=== PATIENT | male | born 1930 | race Caucasian/White ===

== ENCOUNTER 2018-01-26 03:03 | Inpatient (IN) | payer OTHER, MEDICARE ==
[~2018-01-26] VITALS: Ht 175.3 cm; Wt 102.7 kg
[~2018-01-26 03:03] MED LIST: ALLOPURINOL300 M1 PO; AMLODIPINE BES2.5 M1 PO; ASPIRIN EC81 M1 PO; AVAPRO300 M1 PO; FUROSEMIDE40 M1 PO; LIPITOR20 M2 PO; LOPRESSOR50 M1 PO; PROVENTIL HFA6.7 GM INH; SYMBICORT 16010.2 GM INH
--- NOTE | 2018-01-26 17:18 | Operative Report ---
Operative/Inv Procedure Report Surgery Date: 01/26/18 Name of Procedure: cystoscopy, [place] gonzalez placement with wire Pre-Operative Diagnosis: BPH history with inability to place 18fr gonzalez at the start of colorectal case Post-Operative Diagnosis: same Estimated Blood Loss: scant Surgeon/Field Nurse Case Manager: Margy Britton MD Anesthesia: general endotracheal tube Drains: 16fr [place] gonzalez catheter Specimens: none Complications: unable to pass gonzalez without cystoscopy and wire Condition: stable Operative Indication: Inability to pass Gonzalez catheter prior to the start of colorectal surgery case Operative/Procedure Note Note: 87-year-old male patient of Dr. Witt who is on the operative room table intubated with inability to pass a 16 Tristanian coud catheter. Urology called for consult. An 18 Tristanian coud Gonzalez catheter 18 Tristanian coud Gonzalez catheter in a man with history of BPH was unable to be passed. Obstruction was encountered at the very last couple inches of the Gonzalez catheter. As a result, cystoscopy was performed. There was some clot at the level of the prostate. However the bladder was able to be entered with some minor force. A solo guidewire was then placed into the bladder and the cystoscope was removed. A 16 Tristanian [place] catheter was then placed over the wire and was able to be inflated with 10 mL of water. The urine easily exited the Gonzalez thereafter. It was attached to a Gonzalez bag. The colorectal surgery was then begun. Findings: Obstruction at the level of the prostate
--- NOTE | 2018-01-26 17:45 | Admission Core Measures ---
Acute Coronary Syndrome (CM) ACS Core Measures Acute Coronary Syndrome Diagnosis No Congestive Heart Failure (NEW) CHF Core Measures Congestive Heart Failure Diagnosis No Cerebrovascular Accident CVA Core Measures CVA/TIA Diagnosis No Venous Thromboembolism VTE Core Carmina (View Protocol) VTE Risk Factors Surgery No Mechanical VTE Prophylaxis d/t N/A MechProphylax Ordered No VTE Pharm Prophylaxis d/t NA PharmProphylax ordered Problem List As ranked by this Provider includes Assessment & Plan 1. Colon cancer HOME MEDS Home Med List Albuterol Sulfate (Proventil Hfa) 90 MCG HFA.AER.AD 2 PUF INH Q4 ASTHMA ( Reported) Allopurinol 300 MG TABLET 1 TAB PO DAILY GOUT (Reported) Amlodipine Besylate 2.5 MG TABLET 1 TAB PO DAILY BP (Reported) Aspirin (Ecotrin*) 81 MG TABLET.DR 1 TAB PO DAILY HEART/BLOOD (Reported) Atorvastatin Calcium (Lipitor) 20 MG TABLET 1 TAB PO QPM CHOLESTEROL ( Reported) Budesonide/Formoterol Fumarate (Symbicort 160-4.5 Mcg Inhaler) 160 MCG-4.5 MCG/ ACTUATION HFA.AER.AD 2 PUF INH BID ASTHMA (Reported) Furosemide 40 MG TABLET 1 TAB PO DAILY DIURETIC (Reported) Irbesartan (Avapro) 300 MG TABLET 1 TAB PO DAILY BP (Reported) Metoprolol Tartrate (Lopressor) 50 MG TABLET 1 TAB PO BID HEART/BP (Reported)
--- NOTE | 2018-01-26 18:15 | Operative Report ---
Operative/Inv Procedure Report Surgery Date: 01/26/18 Name of Procedure: 1. Laparoscopic converted to open subtotal colectomy with ileum to proximal sigmoid colon anastomosis. 2. Takedown of splenic flexure 3. Splenorrhaphy for bleeding Pre-Operative Diagnosis: 1. Adenocarcinoma of descending colon 2. Villous adenoma of proximal ascending colon not amenable to endoscopic removal Post-Operative Diagnosis: Same Estimated Blood Loss: 250 ml Surgeon/Electroencephalographic Technologist: Floresita Rosado DO,Lars GARCÍA Anesthesia: general endotracheal tube, block Monitors: Per routine IV Fluids: Refer to anesthesia record Implants: None Urine Output: Referred anesthesia Drains: None Specimens: Subtotal colectomy Complications: None Condition: Good Operative Indication: This is an 87-year-old gentleman who had a colonoscopy for the evaluation of anemia. He was found to have a large near obstructing lesion in the proximal descending colon which was biopsy demonstrated be an adenocarcinoma. He had a large polyp also noted at the proximal ascending colon which was biopsied and demonstrated the villous adenoma with no evidence of invasion. However this lesion was not amenable to endoscopic removal. Patient had a staging CAT scan which did not demonstrate obvious evidence of metastasis. He was referred to [facility] underwent risk assessment and clearance. He was scheduled for subtotal colectomy. Operative/Procedure Note Note: On the day before his operation the patient did a bowel prep at home including oral laxatives and oral antibiotic. On the morning before his operation he drank 12 ounces of apple juice 3 hours prior to coming to the hospital. In the preop holding area he was given the routine ERAS medications. He was taken to the operating room he underwent induction of general anesthesia. He had placement of endotracheal tube. Bilateral tap blocks were performed. Nursing was unable to place a Patricio, I also attempted to place a coud catheter and could not do so. We had an intraoperative consultation from Dr. Margy Britton. She performed bedside cystoscopy with placement of Patricio catheter. She will dictate this portion of the operation. Next both arms were tucked. The abdomen was prepped and draped in usual fashion. We gained access to the abdominal cavity using Sevilla technique. The thumb port was placed in the supraumbilical position and the abdomen was insufflated to 50 mmHg. At this 0.55 mm ports were placed all under direct visualization of the left. They were placed in the following locations left upper quadrant, left left lower quadrant, suprapubic, right lower quadrant, and right upper quadrant. Laparoscopic ablation of the abdominal cavity was performed. The liver appeared normal without evidence of metastasis. I could see some tattoo ink splattering in the right upper quadrant but could not see the stain on the bowel wall. I took down the white line of Toldt starting at the sigmoid colon working retrograde until I reached the proximal descending colon. Here the omentum was abnormally adherent to the bowel. The abnormal adhesions were taken down with the LigaSure device. At this point I could see the proximal descending colon.. The colon was very dilated here and there was puckering on the external surface consistent with tumor. The tattoo was present here and there was dense inflammatory reaction around the tumor and involving the spleen. At this point I decided start my resection with the right colon. The colon was grasped at the level ileocecal and elevated towards the anterior abdominal wall. This caused tenting of the ileocolic vessels in the mesentery. A window was made along the inferior edge of the ileocolic vessels the electrical cautery. I entered the retroperitoneal avascular space and developed displaced bluntly until I identified the duodenum. The duodenum was mobilized medially using blunt dissection and then the ileocolic vessels were individually ligated and divided with LigaSure device. Medial to lateral dissection was carried out posterior mesocolon from Gerota's fashion until I reached the lateral sidewall. White line of Toldt was then taken down using the LigaSure until he hepatic flexure.. This is more of the mesentery of the ascending and transverse colon was divided using the vessel sealer starting at the edge of the mesenteric defect which I had created earlier. The gastrocolic ligament was then taken down starting in the mid transverse colon and working retrograde until I reached the hepatic flexure which was also completely taken down. We then turned our attention to the descending and distal transverse colon. Dissection of the descending colon was very difficult as the patient had a very high splenic flexure. There is also abnormal inflammatory reaction and adhesions from the tumor to the spleen itself. As I started to take down some of these adhesions there was some bleeding from the surface of the spleen. At this point I decided to convert to an open operation to hand dissect around the spleen. I continue to take the white line of Toldt down from the mid descending colon work back to the spleen. Adhesions to the spleen were divided partly with electrocautery and some of the more divided with the vessel sealer.. The splenic flexure was completely taken down. Next I was able to go back and completed transection of the gastrocolic ligament all the way to the level of the splenic flexure. The mesentery of the transverse colon and descending colon was sequentially divided with the LigaSure device. Surgicel and another hemostatic agent were placed on the surface of the spleen after some of the bleeding was controlled with the electrocautery. A dry sponge was placed over this for gentle pressure and I went back to [place] and dissection. I chose my distal site of transection at least 10 cm beyond the mass. The mesentery was cleared here using the LigaSure device. A DAVID stapler was used to divide the colon. This was a 80 mm blue loaded DAVID stapler. We divided the terminal ileum just a few centimeters from ileocecal valve also using 80 mm blue loaded DAVID stapler. The specimen was removed from the field. Next a side to side functional end to end anastomosis was created between the terminal ileum and the proximal sigmoid colon. The 2 transected portions of the bowel were aligned. 2 enterotomies were intentionally created by excising the corners of the staple line. The DAVID stapler was placed one arm into each limb of the bowel. Once again this was a blue 80 mm DAVID stapler. Stapler was closed and fired. Stapler was opened and retrieved. There was no bleeding observed in the lumen of the bowel. A TA 60 stapler was used to close enterotomy. Small ring of tissue was excised beyond the staple line. Anti-tension sutures were placed into the crotch of the staple line. Next the lap pad was removed from the left upper quadrant. There is still appeared to be a slow ooze from the spleen some additional hemostatic agents were placed in a new lap pad was placed for general pressure. While we are giving time for the hemostatic agents to work we ran the small bowel. Unfortunately there appeared to be bulky adenopathy within the small bowel. At the base of the small bowel mesentery was a masslike structure which was either a tumor deposit or a very large lymph node. Unfortunately this was at the base of the mesentery and I felt to resect it was going to compromise most of the small bowel blood supply. Therefore this was left in place. Once again we turned our attention to the spleen the packing was removed and the bleeding appeared controlled at this point. The small bowel was carefully positioned so that none of the small bowel was going through the mesenteric defect where the anastomosis had been created. The bowel was essentially placed in front of the anastomosis. The fascia was closed with running looped 0 PDS suture. The skin of the midline incision was closed with skin kirk and interrupted nylon suture. The laparoscopic ports were closed with subcuticular 4-0 Monocryl and then skin glue. Bacitracin ointment and a sterile dressing was placed over the midline incision. The patient was extubated in the operating room and taken to recovery in good condition. In discussion with the anesthesia team we decided to observe the patient in the ICU. There were times during the operation where he required pressor for blood pressure support. His urine output was borderline. He had multiple comorbidities including cardiac issues. And we wanted to observe him for bleeding because of the superficial splenic capsular tear. At the end of this operation all needle sponges and instrument were accounted for Findings: 1. Large tumor at the proximal descending colon with surrounding inflammatory laboratory reaction 2. Large villous lesion in the proximal ascending colon 3. Clinically appears to have small bowel mesenteric adenopathy and tumor in the base of the mesentery. Discharge Disposition: Same Day Admissions Additional Comments: Patient will be observed in the ICU Serial H&H will be performed Patricio catheter will not be removed until the day of discharge per urology CC: Tobi CARRANZA,Margy; An CARRANZA,Bipin Jang
[2018-01-26 18:44] LABS: ABSOLUTE BASOPHIL COUNT 0 /CUMM (0.0-0.2); ABSOLUTE EOSINOPHIL COUNT 0 /CUMM (0.0-0.7); ABSOLUTE GRANULOCYTE CT 17.7 /CUMM (1.4-6.5); ABSOLUTE MONOCYTE COUNT 0 /CUMM (0.10-0.60); BASOPHIL % 0 % (0.0-2.0); EOSINOPHIL % 0.2 % (0-5); HEMATOCRIT 28.3 % (42-52); MEAN CORPUSCULAR HGB 23.6 PG (27.0-31.0); MEAN CORPUSCULAR HGB CONC 31.8 G/DL (33.0-37.0); MEAN CORPUSCULAR VOLUME 74.4 FL (80.0-94.0); WHITE BLOOD CELL COUNT 18.8 /CUMM (4.8-10.8)
[2018-01-26 19:06] LABS: GRANULOCYTE % 94.1 % (42.2-75.2); PLATELET COUNT ND /CUMM (130-400)
--- NOTE | 2018-01-26 19:30 | PN- General Surgery ---
See Addendum Subjective Subjective: POC Pt recovering in PACU, very groggy but is able to answer questions. Pain 5/10. Denies CP/SOB/WRIGHT NO nausea Objective Vital Signs and I&Os Intake & Output 01/26 1600 01/26 0800 01/26 0000 01/25 1600 01/25 0800 01/25 0000 Intake Total Output Total Balance Patient 230 lb Weight VSS, afebrile Physical Exam: gen- very sleepy, NAD resp- clear cardiac- RRR abd- ND, dressing clean and dry, no BS, tender in LUQ Current Medications: Current Medications Sig/Rony Start time Last Medication Dose Route Stop Time Status Admin Acetaminophen 0 .STK-MED ONE 01/26 1251 DC PO Acetaminophen 1,000 MG ONCE ONE 01/26 1245 DC PO 01/26 1246 Alvimopan 12 MG ONCE ONE 01/26 1245 DC PO 01/26 1246 Fentanyl Citrate 0 .STK-MED ONE 01/26 1313 DC .ROUTE Gabapentin 0 .STK-MED ONE 01/26 1252 DC PO Gabapentin 600 MG ONCE ONE 01/26 1245 DC PO 01/26 1246 Hydromorphone HCl 0 .STK-MED ONE 01/26 1906 DC .ROUTE Hydromorphone HCl 0 .STK-MED ONE 01/26 1840 DC .ROUTE Hydromorphone HCl 0 .STK-MED ONE 01/26 1816 DC .ROUTE Hydromorphone HCl 0 .STK-MED ONE 01/26 1313 DC .ROUTE Ketamine HCl 0 .STK-MED ONE 01/26 1313 DC .ROUTE Midazolam HCl 0 .STK-MED ONE 01/26 1313 DC .ROUTE Results Last 48 Hours of Labs: Laboratory Tests 01/26 1830 Hematology CBC w Diff NO MAN DIFF REQ WBC (4.8 - 10.8 /CUMM) 18.8 H RBC (4.70 - 6.10 /CUMM) 3.80 L Hgb (14.0 - 18.0 G/DL) 9.0 L Hct (42 - 52 %) 28.3 L MCV (80.0 - 94.0 FL) 74.4 L MCH (27.0 - 31.0 PG) 23.6 L MCHC (33.0 - 37.0 G/DL) 31.8 L RDW (11.5 - 14.5 %) 29.0 H Plt Count (130 - 400 /CUMM) ND Gran % (42.2 - 75.2 %) 94.1 H Lymphocytes % (20.5 - 51.1 %) 5.5 L Monocytes % (1.7 - 9.3 %) 0.2 L Eosinophils % (0 - 5 %) 0.2 Basophils % (0.0 - 2.0 %) 0 Absolute Granulocytes (1.4 - 6.5 /CUMM) 17.7 H Absolute Lymphocytes (1.2 - 3.4 /CUMM) 1.0 L Absolute Monocytes (0.10 - 0.60 /CUMM) 0 L Absolute Eosinophils (0.0 - 0.7 /CUMM) 0 Absolute Basophils (0.0 - 0.2 /CUMM) 0 Assessment/Plan Assessment/Plan 87yo M with hx of asthma, htn, hld and bph now SP Lap to Open Subtotal Colectomy with intra-op splenic abrasion for colon CA. hematocrit in PACU is stable at 28.3. Urology was called prior to surgery bc nurse was unable to place gonzalez. A cystoscopy was performed by Dr Britton to assist in gonzalez placement admit to ICU ERAS Protocol gentle hydration with IVF npo with sips of water and ice chips, likely advacne to clears in AM pain management, try to limit narcotics FU Am labs hold home ASA due to risk for bleeding DVT PPX- ALPS, no HSQ for now, will re-eval in AM Entereg until first BM IS 24h fam-op ABX Will discuss with Dr. Canas Core Measures Venous Thromboembolism VTE Risk Factors Surgery No Mechanical VTE Prophylaxis d/t N/A MechProphylax Ordered No VTE Pharm Prophylaxis d/t NA PharmProphylax ordered
[2018-01-26 19:35] VITALS: BP 108/58
[2018-01-27] VITALS: BP 92/52
[2018-01-27 04:00] VITALS: BP 102/54
[2018-01-27 04:33] LABS: ABSOLUTE BASOPHIL COUNT 0 /CUMM (0.0-0.2); ABSOLUTE EOSINOPHIL COUNT 0 /CUMM (0.0-0.7); ABSOLUTE GRANULOCYTE CT 25.5 /CUMM (1.4-6.5); ABSOLUTE LYMPH COUNT 0.9 /CUMM (1.2-3.4); ABSOLUTE MONOCYTE COUNT 1.4 /CUMM (0.10-0.60); BASOPHIL % 0 % (0.0-2.0); EOSINOPHIL % 0 % (0-5); GRANULOCYTE % 91.4 % (42.2-75.2); HEMATOCRIT 25.4 % (42-52); MEAN CORPUSCULAR HGB 23.8 PG (27.0-31.0); MEAN CORPUSCULAR HGB CONC 31.8 G/DL (33.0-37.0); MEAN CORPUSCULAR VOLUME 74.8 FL (80.0-94.0); MEAN PLATELET VOLUME 10.7 FL (7.4-10.4); PLATELET COUNT 318 /CUMM (130-400); RED BLOOD CELL CT 3.39 /CUMM (4.70-6.10); WHITE BLOOD CELL COUNT 27.9 /CUMM (4.8-10.8)
--- NOTE | 2018-01-27 06:03 | PN- General Surgery ---
ManolocarolinaAmanday 01/27/18 0600: Subjective Subjective: IN BED SLEEPING, UPON WAKING DENIES PAIN. nO N/V. NO CP/SOB. PT STATES HIS LIPS FEEL DRY AND HE WOULD LIKE SOEMTHING TO DRINK. HAS NOT BEEN OOB YET Objective Vital Signs and I&Os Vital Signs Date Time Temp Pulse Resp B/P B/P Pulse O2 O2 Flow FiO2 Mean Ox Delivery Rate 01/27 0400 99 Nasal 2.0L Cannula 01/27 0400 96.8 70 18 102/54 99 Nasal 2.0L Cannula 01/27 0000 96.8 75 14 92/52 100 Nasal 3.0L Cannula 01/27 0000 100 Nasal 3.0L Cannula 01/26 2144 62 90/54 01/26 1935 97.4 72 15 108/58 95 Nasal 3.0L Cannula 01/26 1930 95 Nasal 3.0L Cannula Intake & Output 01/27 0800 01/27 0000 01/26 1600 01/26 0800 01/26 0000 01/25 1600 Intake Total 359 Output Total 20 Balance 339 Intake, IV 299 Intake, Oral 60 Output, Urine 20 Patient 227 lb 230 lb Weight Weight Bed scale Measurement Method Physical Exam: GEN- NAD RESP- CLEAR, DECREASED EFFORT CARDIAC- RRR ABD- ND, DECREASED BS, SOFT, TENDER AVANI IN LLQ DRESSING WITH MINIMAL SANG DRAINAGE Current Medications: Current Medications Sig/Rony Start time Last Medication Dose Route Stop Time Status Admin Acetaminophen 0 .STK-MED ONE 01/26 214 DC PO Acetaminophen 1,000 MG TID 01/26 2100 AC 01/26 PO 2143 Acetaminophen 0 .STK-MED ONE 01/26 1251 DC PO Acetaminophen 1,000 MG ONCE ONE 01/26 1245 DC PO 01/26 1246 Albuterol Sulfate 2 PUF Q4 01/26 1800 AC 01/27 INH 0537 Allopurinol 300 MG DAILY 01/27 900 AC PO Alvimopan 12 MG BID 01/26 2100 AC 01/26 PO 2142 Alvimopan 12 MG ONCE ONE 01/26 1245 DC PO 01/26 1246 Amlodipine Besylate 2.5 MG DAILY 01/27 09 AC PO Atorvastatin Calcium 20 MG QPM 01/26 2100 AC 01/26 PO 2142 Budesonide/ 2 PUF BID 01/26 2100 AC 01/26 Formoterol Fumarate INH 2144 Clindamycin 600 MG IQ8 01/27 0000 AC 01/26 Dextrose/Water 50 ML IV 01/28 0000 2347 Fentanyl Citrate 0 .STK-MED ONE 01/26 1313 DC .ROUTE Furosemide 40 MG DAILY 01/27 0900 AC PO Gabapentin 200 MG Q8 01/26 2200 AC 01/27 PO 0537 Gabapentin 0 .STK-MED ONE 01/26 1252 DC PO Gabapentin 600 MG ONCE ONE 01/26 1245 DC PO 01/26 1246 Hydromorphone HCl 0 .STK-MED ONE 01/26 1906 DC .ROUTE Hydromorphone HCl 0 .STK-MED ONE 01/26 1840 DC .ROUTE Hydromorphone HCl 0 .STK-MED ONE 01/26 1816 DC .ROUTE Hydromorphone HCl 0 .STK-MED ONE 01/26 1313 DC .ROUTE Ketamine HCl 0 .STK-MED ONE 01/26 1313 DC .ROUTE Losartan Potassium 50 MG DAILY 01/27 0900 AC PO Metoprolol Tartrate 50 MG BID 01/26 2100 AC PO Metronidazole 500 MG IQ8 01/27 0000 AC 01/26 N/A 1 UNIT IV 01/28 0000 2347 Midazolam HCl 0 .STK-MED ONE 01/26 1313 DC .ROUTE Ondansetron HCl 4 MG Q6P PRN 01/27 2000 AC IV Oxycodone HCl 5 MG Q4-6 PRN PRN 01/27 2000 AC PO Oxycodone HCl 10 MG Q4-6 PRN PRN 01/26 2000 AC PO Sodium Chloride 500 ML BOLUS ONE 01/27 0600 UNVr IV 01/27 0659 Sodium Chloride 1,000 ML .Q8H 01/27 2000 AC 01/27 IV 0355 Tramadol HCl 100 MG Q6P PRN 01/27 2000 AC PO Tramadol HCl 50 MG Q6P PRN 01/26 1800 AC PO Results Last 48 Hours of Labs: Laboratory Tests 01/27 01/26 0345 1830 Chemistry Sodium (137 - 145 mmol/L) 136 L Potassium (3.5 - 5.1 mmol/L) 4.5 Chloride (98 - 107 mmol/L) 103 Carbon Dioxide (22 - 30 mmol/L) 23 Anion Gap (5 - 16) 10 BUN (9 - 20 mg/dL) 20 Creatinine (0.7 - 1.2 mg/dL) 1.5 H Estimated GFR (>60 ml/min) 44 L BUN/Creatinine Ratio (7 - 25 %) 13.3 Hematology CBC w Diff NO MAN DIFF REQ NO MAN DIFF REQ WBC (4.8 - 10.8 /CUMM) 27.9 H 18.8 H RBC (4.70 - 6.10 /CUMM) 3.39 L 3.80 L Hgb (14.0 - 18.0 G/DL) 8.1 L 9.0 L Hct (42 - 52 %) 25.4 L 28.3 L MCV (80.0 - 94.0 FL) 74.8 L 74.4 L MCH (27.0 - 31.0 PG) 23.8 L 23.6 L MCHC (33.0 - 37.0 G/DL) 31.8 L 31.8 L RDW (11.5 - 14.5 %) 30.0 H 29.0 H Plt Count (130 - 400 /CUMM) 318 ND MPV (7.4 - 10.4 FL) 10.7 H Gran % (42.2 - 75.2 %) 91.4 H 94.1 H Lymphocytes % (20.5 - 51.1 %) 3.4 L 5.5 L Monocytes % (1.7 - 9.3 %) 5.2 0.2 L Eosinophils % (0 - 5 %) 0 0.2 Basophils % (0.0 - 2.0 %) 0 0 Absolute Granulocytes (1.4 - 6.5 /CUMM) 25.5 H 17.7 H Absolute Lymphocytes (1.2 - 3.4 /CUMM) 0.9 L 1.0 L Absolute Monocytes (0.10 - 0.60 /CUMM) 1.4 H 0 L Absolute Eosinophils (0.0 - 0.7 /CUMM) 0 0 Absolute Basophils (0.0 - 0.2 /CUMM) 0 0 Assessment/Plan Assessment/Plan 87yo M with hx of asthma, htn, hld and bph now SP Lap to Open Subtotal Colectomy with intra-op splenic abrasion for colon CA. hematocrit from 28.3 in PACU to 25.4 this morning. Baseline pre-op hematocrit was 31.8. Beta andreas was help last night do to hr in 60s and BP of 100s/60s. may consider holding betablocker again this morning. will continue to trend cbc, repeat in 12hr Urology was called prior to surgery bc nurse was unable to place gonzalez. A cystoscopy was performed by Dr Britton to assist in gonzalez placement ERAS Protocol will give 500cc bolus for decreased urine output and creatinine of 1.5 gonzalez to stay in over the weekend per Dr Britton clear liquids pain management, try to limit narcotics repeat cbc in 12 hr hold home ASA due to risk for bleeding DVT PPX- ALPS, no HSQ for now, will re-eval in AM Entereg until first BM IS 24h fam-op ABX Will discuss with Dr. Canas when to start hsq Core Measures Venous Thromboembolism VTE Risk Factors Surgery No Mechanical VTE Prophylaxis d/t N/A MechProphylax Ordered No VTE Pharm Prophylaxis d/t NA PharmProphylax ordered Giorgi Wang MD 01/27/18 1314: Attending MD Review Statement Attending Statement Attending Assessment/Plan: Patient examined and chart reviewed POD 1 S/P lap converted to open subtotal colectomy with splenic abrasion Patient in the ICU for monitoring Patient noted to be in new onset a fib Patient also hypotensive with low urine output, bladder scan negative Hct noted to be low today Patient has been seen by ICU and Neurology attendings He will recieve two units of RBC and have a central line placed for aggresive hydration We will re visit the question of anticogulation after a post transfusion Hct is obtained Care discussed with house staff, Neurology and ICU attending Plan discussed with family and patient and questuions answered
[2018-01-27 08:00] VITALS: BP 110/70
--- NOTE | 2018-01-27 08:47 | Event Note ---
See Addendum Event Note Event Note: I was called by nursing staff to evaluate patient for new onset diplopia which was not present earlier this morning. Upon my evaluation, he states that he is seeing double of everything and he also has right lower arm and hand tingling sensation. He denies any headaches, nausea, vomiting, confusion. He denies any leg symptoms. On exam he has mild facial asymmetry with a possible very mild left-sided droop when smiling. He has no pronator drift and no weakness noted in the upper extremities. He has poor tracking with his left eye laterally and mild horizontal nystagmus. He is past-pointing both hands and there is a mild intention tremor of both hands, mild resting tremor R hand. there is no slurred speech, no expressive aphasia. No arrhythmia, no significant hypotension but that was an episode of blood pressure of 80 systolic intraoperatively yesterday based on the review of the anesthesia records. stroke alert called, Dr Nava promplty responded, recommended increasing blood pressure to at least 120 systolic (currently 108), IV fluid bolus was ordered. Due to surgery less than 24hrs ago and possible intra op splenic injury with decreasing post op h/h, he recommends holding off on antiplatelet at this time and he is not a TPA candidate. CT scan ordered and he is to be monitored for worsening symptoms throughout the day, if so, CTA will be required. dw Dr Canas. will cont monitor in ICU. Dr Nava to see later today.
--- NOTE | 2018-01-27 09:09 | CT SCAN REPORT ---
EXAMINATION: CT HEAD WITHOUT CONTRAST CLINICAL INFORMATION: Facial asymmetry. Positive cerebellar signs. COMPARISON: None TECHNIQUE: Contiguous axial imaging was performed from the skull base to vertex without intravenous administration of contrast. DLP: 700.82 mGy-cm FINDINGS: There is no evidence of acute intracranial hemorrhage or territorial infarction. No abnormal mass effect or midline shift is seen. Godinez to white matter differentiation is well preserved. No extra-axial fluid collections are identified. The ventricles are normal in size. Mild age-appropriate diffuse cortical atrophy and mild chronic microvascular deep white matter ischemic changes are present. The osseous structures and soft tissues are normal. The mastoid air cells and visualized portions of the paranasal sinuses are well aerated, except for minimal mucoperiosteal thickening of the posterior floor of the right half of the sphenoid sinus, consistent with minimal sinusitis. IMPRESSION: 1. No acute intracranial pathology. 2. Minimal right sphenoidal sinusitis. This critical result was discussed with Apollo Yu at 8:54 AM on 01/27/2018 and it was ascertained that the content and urgency of the report was understood at the time of direct communication.
[2018-01-27 09:21] LABS: ABSOLUTE BASOPHIL COUNT 0 /CUMM (0.0-0.2); ABSOLUTE EOSINOPHIL COUNT 0 /CUMM (0.0-0.7); ABSOLUTE LYMPH COUNT 0.7 /CUMM (1.2-3.4); BASOPHIL % 0.1 % (0.0-2.0); EOSINOPHIL % 0 % (0-5)
[2018-01-27 09:23] LABS: ABSOLUTE GRANULOCYTE CT 21.7 /CUMM (1.4-6.5); ABSOLUTE MONOCYTE COUNT 1.3 /CUMM (0.10-0.60); GRANULOCYTE % 91.5 % (42.2-75.2); MEAN CORPUSCULAR HGB 23.6 PG (27.0-31.0); MEAN CORPUSCULAR HGB CONC 31.7 G/DL (33.0-37.0); MEAN CORPUSCULAR VOLUME 74.4 FL (80.0-94.0); MEAN PLATELET VOLUME 10.4 FL (7.4-10.4); RBC DISTRIBUTION WIDTH 30.1 % (11.5-14.5)
[2018-01-27 09:26] LABS: PLATELET COUNT 289 /CUMM (130-400); RED BLOOD CELL CT 3.09 /CUMM (4.70-6.10); WHITE BLOOD CELL COUNT 23.8 /CUMM (4.8-10.8)
[2018-01-27 09:30] LABS: PT 13.8 SEC (9.4-12.5)
--- NOTE | 2018-01-27 11:32 | Cons- CRCU ---
General Information and HPI Consulting Request Date of Consult: 01/27/18 Requested By: surg team History of Present Illness: This is a gentleman who came in here for laparoscopic subtotal colectomy which was converted to an open surgery. 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 Patient underwent surgery with general anesthesia. Subsequently this morning he was noted to have new onset diplopia. He had mild facial asymmetry and poor tracking with the left eye laterally with mild horizontal nystagmus. Patient did have a CT scan after a stroke alert of the head. Due to surgery less than 24 hours with possible Intra-Op splenic injury antiplatelet therapy and TPA was not done. Patient is doing better when I saw him. Seem to have had good recovery so far. Patient seem to have regular rhythm not sure whether he is in atrial fibrillation or not. Patient is a poor historian. Other history could not be obtained He was complaining of mild abdominal discomfort otherwise review of symptoms unremarkable Allergies/Medications Allergies: Coded Allergies: Penicillins (BLISTERS, ITCH ALL OVER 01/25/18) Home Med List: Albuterol Sulfate (Proventil Hfa) 90 MCG HFA.AER.AD 2 PUF INH Q4 ASTHMA ( Reported) Allopurinol 300 MG TABLET 1 TAB PO DAILY GOUT (Reported) Amlodipine Besylate 2.5 MG TABLET 1 TAB PO DAILY BP (Reported) Aspirin (Ecotrin*) 81 MG TABLET.DR 1 TAB PO DAILY HEART/BLOOD (Reported) Atorvastatin Calcium (Lipitor) 20 MG TABLET 1 TAB PO QPM CHOLESTEROL ( Reported) Budesonide/Formoterol Fumarate (Symbicort 160-4.5 Mcg Inhaler) 160 MCG-4.5 MCG/ ACTUATION HFA.AER.AD 2 PUF INH BID ASTHMA (Reported) Furosemide 40 MG TABLET 1 TAB PO DAILY DIURETIC (Reported) Irbesartan (Avapro) 300 MG TABLET 1 TAB PO DAILY BP (Reported) Metoprolol Tartrate (Lopressor) 50 MG TABLET 1 TAB PO BID HEART/BP (Reported) Review of Systems Review of Systems Constitutional: Denies: see HPI. Past History Medical History Blood Transfusion Hx: Yes Surgical History Surgical History: none (nil sig) Psychosocial History Where Do You Live? Home Services at Home: None Smoking Status: Unknown If Ever Smoked Exam & Diagnostic Data Last 24 Hrs of Vital Signs/I&O Vital Signs Date Time Temp Pulse Resp B/P B/P Pulse O2 O2 Flow FiO2 Mean Ox Delivery Rate 01/27 040 99 Nasal 2.0L Cannula 01/27 0400 96.8 70 18 102/54 99 Nasal 2.0L Cannula 01/27 0000 96.8 75 14 92/52 100 Nasal 3.0L Cannula 01/27 0000 100 Nasal 3.0L Cannula 01/26 2144 62 90/54 01/26 1935 97.4 72 15 108/58 95 Nasal 3.0L Cannula 01/26 1930 95 Nasal 3.0L Cannula Intake & Output 01/27 1600 01/27 0800 01/27 0000 Intake Total 1601 359 Output Total 35 20 Balance 1566 339 Intake, IV 1421 299 Intake, Oral 180 60 Output, Urine 35 20 Patient 227 lb Weight Weight Bed scale Measurement Method Last 48 Hrs of Labs/Tom: Laboratory Tests 01/27/18 0900: Anion Gap 6, Estimated GFR 38 L, Glucose 151 H, Calcium 7.8 L, Phosphorus 6.1 H, Magnesium 2.3, Total Bilirubin 0.4, AST 22, ALT 25, Albumin 2.4 L, Triglycerides 31, Cholesterol 81, LDL Cholesterol, Calc 32 L, HDL Cholesterol 43, Cholesterol/HDL Ratio 2, PT 13.8 H, INR 1.26 H, CBC w Diff MAN DIFF ORDERED, RBC 3.09 L, MCV 74.4 L, MCH 23.6 L, MCHC 31.7 L, RDW 30.1 H, MPV 10.4, Gran % 91.5 H, Lymphocytes % 2.8 L, Monocytes % 5.6, Eosinophils % 0, Basophils % 0.1, Absolute Granulocytes 21.7 H, Segmented Neutrophils 88 H, Band Neutrophils 7 H, Absolute Lymphocytes 0.7 L, Lymphocytes 3 L, Monocytes 2, Absolute Monocytes 1.3 H, Absolute Eosinophils 0, Absolute Basophils 0, Platelet Estimate ADEQUATE, Hypochromic-Microcytic 3+, Poikilocytosis 2+, Anisocytosis 2+, Microcytic Cells 2+, Ovalocytes 1+, Elliptocytes 1+, Schistocytes 01/27/18 0345: Anion Gap 10, Estimated GFR 44 L, BUN/Creatinine Ratio 13.3, CBC w Diff NO MAN DIFF REQ, RBC 3.39 L, MCV 74.8 L, MCH 23.8 L, MCHC 31.8 L, RDW 30.0 H, MPV 10.7 H, Gran % 91.4 H, Lymphocytes % 3.4 L, Monocytes % 5.2, Eosinophils % 0, Basophils % 0, Absolute Granulocytes 25.5 H, Absolute Lymphocytes 0.9 L, Absolute Monocytes 1.4 H, Absolute Eosinophils 0, Absolute Basophils 0 01/26/181829: CBC w Diff NO MAN DIFF REQ, RBC 3.80 L, MCV 74.4 L, MCH 23.6 L, MCHC 31.8 L, RDW 29.0 H, Plt Count ND, Gran % 94.1 H, Lymphocytes % 5.5 L, Monocytes % 0.2 L, Eosinophils % 0.2, Basophils % 0, Absolute Granulocytes 17.7 H, Absolute Lymphocytes 1.0 L, Absolute Monocytes 0 L, Absolute Eosinophils 0, Absolute Basophils 0 Assessment/Plan CRCU Impression/Plan: GEN- NAD RESP- CLEAR, DECREASED EFFORT CARDIAC-at times irregular ABD- ND, DECREASED BS, SOFT, TENDER AVANI IN LLQ No significant edema Neurological exam moves all 4 limbs no significant weakness mild nystagmus mild facial asymmetry but seems to have improved since the last exam noted in the computer SIGNIFICANT DATA CT of the head reviewed no intracranial pathology minimal sinusitis Creatinine 1.7 upon admission it was 1.5 anion gap was normal phosphorus slightly elevated white count was elevated at 23 down from 27 this morning hemoglobin 7.3 patient is undergoing transfusion EKG reviewed irregular rhythm probable atrial fibrillation IMPRESSION This is an elderly gentleman who has history of hypertension, gout, hyperlipidemia, no postop open subtotal colectomy with spleno raphe from splenic laceration, has adenocarcinoma the descending colon villous adenoma: Now has Postoperative nystagmus with diplopia with facial asymmetry which seems to be slowly improving. Patient's head CT was unremarkable. Appears that he probably may be flipping back and forth into atrial fibrillation. Unfortunately patient not a candidate for any anticoagulation right now may be a candidate for antiplatelet therapy soon with aspirin. Neurology to evaluate. Will follow closely. At this time his rate seems to be controlled Blood loss anemia immediate postop now undergoing transfusion History of hypertension, hyperlipidemia, gout appears to be stable RECOMMENDATION Watch in ICU Repeat EKG again to confirm atrial fib Rule out CA with troponin Continue transfusion as being done Watch for atrial fib When stable can start on low-dose aspirin Hold blood pressure medications as the history suggestive of TIA versus stroke and a blood pressure should be left elevated. Discontinue losartan, Lasix, amlodipine and reduce metoprolol to 12.5 twice daily Increase atorvastatin to 40 when he is taking p.o. Continue his inhalers as needed Triple-lumen catheter if he continues to be hypotensive to evaluate his CVP is worse Check troponin We will follow Consult Acknowledgment - Thank you for your consult request.
--- NOTE | 2018-01-27 13:29 | Cons- Neurology ---
General Information and HPI Consulting Request Date of Consult: 01/27/18 Requested By: Lars Canas Jr., DO Reason for Consult: Stroke alert Source of Information: patient, family, ICU staff Exam Limitations: hard of hearing History of Present Illness: 87/M underwent abdominal surgery yesterday for resection of colon cancer, this AM complained of diplopia, right arm paresthesias. RN noted slurring of speech. BP was unusually low for a CVA, anemic HCT 25. There was concern for possible splenic abrasion at time of surgery At this time all symptoms have cleared except the diplopia worse on gaze to the right. Monitor now shows AFib (apparently new onset). Being transfused now. Allergies/Medications Allergies: Coded Allergies: Penicillins (BLISTERS, ITCH ALL OVER 01/25/18) Home Med List: Albuterol Sulfate (Proventil Hfa) 90 MCG HFA.AER.AD 2 PUF INH Q4 ASTHMA ( Reported) Allopurinol 300 MG TABLET 1 TAB PO DAILY GOUT (Reported) Amlodipine Besylate 2.5 MG TABLET 1 TAB PO DAILY BP (Reported) Aspirin (Ecotrin*) 81 MG TABLET.DR 1 TAB PO DAILY HEART/BLOOD (Reported) Atorvastatin Calcium (Lipitor) 20 MG TABLET 1 TAB PO QPM CHOLESTEROL ( Reported) Budesonide/Formoterol Fumarate (Symbicort 160-4.5 Mcg Inhaler) 160 MCG-4.5 MCG/ ACTUATION HFA.AER.AD 2 PUF INH BID ASTHMA (Reported) Furosemide 40 MG TABLET 1 TAB PO DAILY DIURETIC (Reported) Irbesartan (Avapro) 300 MG TABLET 1 TAB PO DAILY BP (Reported) Metoprolol Tartrate (Lopressor) 50 MG TABLET 1 TAB PO BID HEART/BP (Reported) Current Medications: Current Medications Sig/Rony Start time Last Medication Dose Route Stop Time Status Admin Acetaminophen 0 .STK-MED ONE 01/26 2143 DC PO Acetaminophen 1,000 MG TID 01/26 2100 AC 01/27 PO 1248 Albuterol Sulfate 2 PUF Q4 01/26 1800 AC 01/27 INH 1241 Allopurinol 300 MG DAILY 01/27 0900 AC PO Alvimopan 12 MG BID 01/26 2100 AC 01/27 PO 1245 Amlodipine Besylate 2.5 MG DAILY 01/27 0900 DC PO Atorvastatin Calcium 40 MG QPM 01/27 2100 UNVr PO Atorvastatin Calcium 20 MG QPM 08/17 2100 DC 01/26 PO 2142 Budesonide/ 2 PUF BID 01/26 2100 AC 01/27 Formoterol Fumarate INH 1241 Clindamycin 600 MG IQ8 01/27 0000 AC 01/27 Dextrose/Water 50 ML IV 01/28 0000 0800 Furosemide 40 MG DAILY 01/27 0900 DC PO Gabapentin 200 MG Q8 01/26 2200 AC 01/27 PO 1246 Hydromorphone HCl 0 .STK-MED ONE 01/26 1906 DC .ROUTE Hydromorphone HCl 0 .STK-MED ONE 01/26 1840 DC .ROUTE Hydromorphone HCl 0 .STK-MED ONE 01/26 1816 DC .ROUTE Losartan Potassium 50 MG DAILY 01/27 0900 DC PO Metoprolol Tartrate 12.5 MG BID 01/27 2100 UNVr PO Metoprolol Tartrate 50 MG BID 01/26 2100 DC PO Metronidazole 500 MG IQ8 01/27 0000 AC 01/27 N/A 1 UNIT IV 01/28 0000 0800 Ondansetron HCl 4 MG Q6P PRN 01/27 2000 AC IV Oxycodone HCl 5 MG Q4-6 PRN PRN 01/26 2000 AC PO Oxycodone HCl 10 MG Q4-6 PRN PRN 01/26 2000 AC PO Sodium Chloride 500 ML BOLUS ONE 01/27 1045 DC 01/27 IV 01/27 1144 1045 Sodium Chloride 500 ML BOLUS ONE 01/27 0830 DC 01/27 IV 01/27 0929 0830 Sodium Chloride 500 ML BOLUS ONE 01/27 0600 DC 01/27 IV 01/27 0659 0608 Sodium Chloride 1,000 ML .Q8H 01/26 2000 AC 01/27 IV 0355 Tramadol HCl 100 MG Q6P PRN 01/26 2000 AC PO Tramadol HCl 50 MG Q6P PRN 01/26 1800 AC PO Review of Systems Review of Systems: Hard of hearing. denies headache, chest pain, palpitations. Some abdominal pain. Low urine output noted. Other systems negative or non-contributory. Past History Medical History Blood Transfusion Hx: Yes Neurological: NONE Cardiovascular: NONE Surgical History Surgical History: abdominal Psychosocial History Where Do You Live? Home Services at Home: None Smoking Status: Former Smoker Exam & Diagnostic Data Vital Signs and I&O Vital Signs Date Time Temp Pulse Resp B/P B/P Pulse O2 O2 Flow FiO2 Mean Ox Delivery Rate 01/27 1153 Nasal 1.0L Cannula 01/27 0400 99 Nasal 2.0L Cannula 01/27 0400 96.8 70 18 102/54 99 Nasal 2.0L Cannula 01/27 0000 96.8 75 14 92/52 100 Nasal 3.0L Cannula 01/27 0000 100 Nasal 3.0L Cannula 01/26 2144 62 90/54 01/26 1935 97.4 72 15 108/58 95 Nasal 3.0L Cannula 01/26 1930 95 Nasal 3.0L Cannula Intake & Output 01/27 1600 01/27 0800 01/27 0000 Intake Total 1601 359 Output Total 35 20 Balance 1566 339 Intake, IV 1421 299 Intake, Oral 180 60 Output, Urine 35 20 Patient 227 lb Weight Weight Bed scale Measurement Method Physical Exam: Awake, looks comfortable No bruits, murmur, heart sounds distant multiple ecchymoses on extremities oriented, speech clear, language intact mild left SHAMIKA on exam with nystagmus gaze right, but c/o diplopia all directions [id number] facial sensation, movement and lower CN normal power and tone normal4 ext sensation intact touch and pin bilat DTRs suppressed equivocal left Babinski Last 48 Hours of Lab Results: Laboratory Tests 01/27 01/27 0900 0345 Chemistry Sodium (137 - 145 mmol/L) 135 L 136 L Potassium (3.5 - 5.1 mmol/L) 4.4 4.5 Chloride (98 - 107 mmol/L) 104 103 Carbon Dioxide (22 - 30 mmol/L) 24 23 Anion Gap (5 - 16) 6 10 BUN (9 - 20 mg/dL) 22 H 20 Creatinine (0.7 - 1.2 mg/dL) 1.7 H 1.5 H Estimated GFR (>60 ml/min) 38 L 44 L BUN/Creatinine Ratio (7 - 25 %) 13.3 Glucose (65 - 99 mg/dL) 151 H Calcium (8.4 - 10.2 mg/dL) 7.8 L Phosphorus (2.5 - 4.5 mg/dL) 6.1 H Magnesium (1.6 - 2.3 mg/dL) 2.3 Total Bilirubin (0.2 - 1.3 mg/dL) 0.4 AST (17 - 59 U/L) 22 ALT (21 - 72 U/L) 25 Albumin (3.5 - 5.0 g/dL) 2.4 L Triglycerides (<150 mg/dL) 31 Cholesterol (< 200 MG/DL) 81 LDL Cholesterol, Calc (65 - 129 mg/dL) 32 L HDL Cholesterol (40 - 60 mg/dL) 43 Cholesterol/HDL Ratio (0.00 - 4.88 %) 2 Coagulation PT (9.4 - 12.5 SEC) 13.8 H INR (0.90 - 1.17) 1.26 H Hematology CBC w Diff MAN DIFF ORDERED NO MAN DIFF REQ WBC (4.8 - 10.8 /CUMM) 23.8 H 27.9 H RBC (4.70 - 6.10 /CUMM) 3.09 L 3.39 L Hgb (14.0 - 18.0 G/DL) 7.3 *L 8.1 L Hct (42 - 52 %) 23.0 L 25.4 L MCV (80.0 - 94.0 FL) 74.4 L 74.8 L MCH (27.0 - 31.0 PG) 23.6 L 23.8 L MCHC (33.0 - 37.0 G/DL) 31.7 L 31.8 L RDW (11.5 - 14.5 %) 30.1 H 30.0 H Plt Count (130 - 400 /CUMM) 289 318 MPV (7.4 - 10.4 FL) 10.4 10.7 H Gran % (42.2 - 75.2 %) 91.5 H 91.4 H Lymphocytes % (20.5 - 51.1 %) 2.8 L 3.4 L Monocytes % (1.7 - 9.3 %) 5.6 5.2 Eosinophils % (0 - 5 %) 0 0 Basophils % (0.0 - 2.0 %) 0.1 0 Absolute Granulocytes (1.4 - 6.5 /CUMM) 21.7 H 25.5 H Segmented Neutrophils (42.2 - 75.2 %) 88 H Band Neutrophils (0.0 - 5.0 %) 7 H Absolute Lymphocytes (1.2 - 3.4 /CUMM) 0.7 L 0.9 L Lymphocytes (20.5 - 51.1 %) 3 L Monocytes (1.7 - 9.3 %) 2 Absolute Monocytes (0.10 - 0.60 /CUMM) 1.3 H 1.4 H Absolute Eosinophils (0.0 - 0.7 /CUMM) 0 0 Absolute Basophils (0.0 - 0.2 /CUMM) 0 0 Platelet Estimate (ADEQUATE) ADEQUATE Hypochromic-Microcytic 3+ Poikilocytosis 2+ Anisocytosis 2+ Microcytic Cells 2+ Ovalocytes 1+ Elliptocytes 1+ Schistocytes 01/26 1830 Hematology CBC w Diff NO MAN DIFF REQ WBC (4.8 - 10.8 /CUMM) 18.8 H RBC (4.70 - 6.10 /CUMM) 3.80 L Hgb (14.0 - 18.0 G/DL) 9.0 L Hct (42 - 52 %) 28.3 L MCV (80.0 - 94.0 FL) 74.4 L MCH (27.0 - 31.0 PG) 23.6 L MCHC (33.0 - 37.0 G/DL) 31.8 L RDW (11.5 - 14.5 %) 29.0 H Plt Count (130 - 400 /CUMM) ND Gran % (42.2 - 75.2 %) 94.1 H Lymphocytes % (20.5 - 51.1 %) 5.5 L Monocytes % (1.7 - 9.3 %) 0.2 L Eosinophils % (0 - 5 %) 0.2 Basophils % (0.0 - 2.0 %) 0 Absolute Granulocytes (1.4 - 6.5 /CUMM) 17.7 H Absolute Lymphocytes (1.2 - 3.4 /CUMM) 1.0 L Absolute Monocytes (0.10 - 0.60 /CUMM) 0 L Absolute Eosinophils (0.0 - 0.7 /CUMM) 0 Absolute Basophils (0.0 - 0.2 /CUMM) 0 Imaging/Other Studies: CT head: There is no evidence of acute intracranial hemorrhage or territorial infarction. No abnormal mass effect or midline shift is seen. Godinez to white matter differentiation is well preserved. No extra-axial fluid collections are identified. The ventricles are normal in size. Mild age-appropriate diffuse cortical atrophy and mild chronic microvascular deep white matter ischemic changes are present. Assessment/Plan Assessment: Stroke syndrome, brainstem, left SHAMIKA Improving, only current deficit is diplopia this patterrn more suggestive of small vessel disease but new onset AFib Concerns for abdominal bleeding, BP and output low, Hct dropped, receiving fluids and blood Not candidate for TPA and with medical instability plus improvement in neuro symptoms, low NIHSS, not candidate for consideration of clot extraction Recommendations: Support BP with fluids, transfusion Hold off on antithrombotics for at least 24 hours medical evauation and treatment for AFib Echocardiogram Will follow Consult Acknowledgment - Thank you for your consult request.
--- NOTE | 2018-01-27 13:39 | Event Note ---
Event Note Event Note: 87 YO M with past medical history of hypertension, hyperlipidemia and gout who came in here for laparoscopic subtotal colectomy which was converted to an open surgery. 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 Patient underwent surgery with general anesthesia. Subsequently this morning he was noted to have new onset diplopia. He had mild facial asymmetry and poor tracking with the left eye laterally with mild horizontal nystagmus. Patient did have a CT scan after a stroke alert of the head. Due to surgery less than 24 hours with possible Intra-Op splenic injury antiplatelet therapy and TPA was not done. Postoperative nystagmus with diplopia with facial asymmetry which seems to be slowly improving. Patient's head CT was unremarkable. Appears that he probably may be flipping back and forth into atrial fibrillation. Acute anemia due to blood loss status post abdominal surgery Acute kidney injury possibly Pre renal. New onset paroxysmal A. fib Low blood pressure(systolic in 90s) A/P: -Continuously monitoring his vitals while in ICU. -Repeat EKG and Trop to rule out ischemic cardiac injury. Repeat EKG to confirm A. fib. -Continue blood transfusion. If patient is blood pressure still dropping then we will consider central venous line to monitor his CVP pressure. -Neurology recommended to hold antithrombotic medications for 24 hours. -Holding his all blood pressure medications to alleviate his blood pressure in the setting of TIA or stroke. Discontinuing his losartan, Lasix and amlodipine and increasing his metoprolol to 12.5 mg twice a day. -Increasing his Lipitor to 40 mg daily -Continue his inhalers as needed -We will check his BUN/creatinine every 6 hourly considering his acute kidney injury. Monitor his urine output. -Follow-up UA and urine lites. -Monitor for signs of bleeding status post abdominal surgery. -His CVP pressure was 3 and another bag of normal sline was ordered.
--- NOTE | 2018-01-27 15:01 | RADIOLOGY REPORT ---
EXAMINATION: XR PORTABLE CHEST CLINICAL INFORMATION: 87-year-old male status post right-sided central line placement. COMPARISON: None TECHNIQUE: Portable frontal view of the chest was obtained. FINDINGS: The tip of the right-sided central line is projecting at the cavoatrial junction. There is no evidence of any right-sided pneumothorax present. Pneumoperitoneum however is seen bilaterally (right greater than left) likely represent recent postsurgical changes. The cardiomediastinal silhouette is within normal limit. Both lungs are clear. IMPRESSION: 1. The right-sided central line tip is seen projecting at the cavoatrial junction. 2. No evidence of any pneumothorax. 3. Evidence of pneumoperitoneum likely represent recent postsurgical changes. Please correlate clinically.
--- NOTE | 2018-01-27 15:45 | Procedure ---
Minor Surgical Procedure Note Date of Procedure: 01/27/18 Procedure Note: Due to hypotension postoperatively, concern for hypovolemia, acute kidney injury , acute CVA, central line was required for the optimal treatment of this patient and monitoring of CVP. After consent was obtained from patient's daughter and site was confirmed, timeout was performed, a triple-lumen catheter was placed into the right IJ with ultrasound guidance under direct visualization after sterile prep and drape and anesthetizing the area with 1% lidocaine, 3 cc without epinephrine. The central line was placed without difficulty, venous blood return, all lines were flushed with normal saline, sutured in place. No hematoma, no signs of pneumothorax, a Biodrape was applied and Tegaderm was applied. Chest x-ray was ordered and confirmed position of central line, no pneumothorax. Patient tolerated procedure well without complications. Discussed with Dr. Wang.
--- NOTE | 2018-01-27 17:41 | ULTRASOUND REPORT ---
US DUPLEX CAROTID AND VERTEBRAL CLINICAL INFORMATION: Diplopia. COMPARISON: None available. TECHNIQUE: Real-time ultrasound and Doppler techniques (integrating B-mode 2D vascular images, Doppler spectral analysis and color flow Doppler imaging) were utilized to interrogate the extracranial carotid and vertebral arteries bilaterally. The degree of stenosis determined by criteria similar to NASCET. FINDINGS: Right common carotid artery peak systolic velocity is 101 cm/s. Right internal carotid artery peak systolic velocity ranges between 109 and 164 cm/s with maximal end-diastolic velocity of 23 cm/s. Right external carotid artery peak systolic velocity is 158 cm/s. There is antegrade flow within the right vertebral artery. Calcific atherosclerotic plaque at the right carotid bifurcation. Left common carotid artery peak systolic velocity is 140 cm/s. Left internal carotid artery peak systolic velocity is 232 cm/s with a maximal end-diastolic velocity of 34 cm/s. Left external carotid artery peak systolic velocity is 152 cm/s. There is antegrade flow within the left vertebral artery. Calcific atherosclerotic plaque at the left carotid bifurcation. IMPRESSION: Calcific atherosclerotic plaque at the right carotid bifurcation with a 50-79% stenosis of the right internal carotid artery by sonographic criteria. Calcific atherosclerotic plaque at the left carotid bifurcation with a 50-79% stenosis of the left internal carotid artery by sonographic criteria.
[2018-01-27 17:43] LABS: ABSOLUTE BASOPHIL COUNT 0 /CUMM (0.0-0.2); ABSOLUTE EOSINOPHIL COUNT 0 /CUMM (0.0-0.7); ABSOLUTE GRANULOCYTE CT 16.6 /CUMM (1.4-6.5); ABSOLUTE LYMPH COUNT 0.8 /CUMM (1.2-3.4); ABSOLUTE MONOCYTE COUNT 1.2 /CUMM (0.10-0.60); BASOPHIL % 0.1 % (0.0-2.0); EOSINOPHIL % 0 % (0-5); HEMATOCRIT 21.9 % (42-52); MEAN CORPUSCULAR HGB 24.6 PG (27.0-31.0); MEAN CORPUSCULAR HGB CONC 32.2 G/DL (33.0-37.0); MEAN CORPUSCULAR VOLUME 76.3 FL (80.0-94.0); MEAN PLATELET VOLUME 10.3 FL (7.4-10.4); PLATELET COUNT 241 /CUMM (130-400); RBC DISTRIBUTION WIDTH 28.5 % (11.5-14.5); RED BLOOD CELL CT 2.88 /CUMM (4.70-6.10); WHITE BLOOD CELL COUNT 18.6 /CUMM (4.8-10.8)
[2018-01-27 17:58] LABS: GRANULOCYTE % 88.9 % (42.2-75.2)
--- NOTE | 2018-01-27 20:54 | CT SCAN REPORT ---
EXAMINATION: CT ABDOMEN AND PELVIS WITHOUT CONTRAST CLINICAL INFORMATION: Hypotension and drop in hemoglobin/hematocrit COMPARISON: None available. TECHNIQUE: Multidetector volumetric imaging was performed from the superior aspect of the liver through the pubic symphysis. Sagittal and coronal reformatted images were obtained on the technologist's workstation. FINDINGS: There are small bilateral pleural effusions with adjacent atelectasis versus consolidation. There is a pericardial effusion. Trivessel coronary artery atherosclerotic calcification. Limited evaluation of the unenhanced liver and pancreas reveals no definite abnormality. The gallbladder is distended without cholelithiasis. Nodular appearance of the right adrenal gland that is obscured by streak artifact and not well assessed. There is small volume intra-abdominal free fluid measuring simple fluid attenuation. In speaking with the referring clinician there was clinical concern in the vicinity of the spleen during surgery. The spleen and adjacent perisplenic soft tissues are significantly obscured by streak artifact which limits their evaluation. There is some fluid and possible mild hematoma adjacent to the spleen though assessment is limited given that there are some bowel loops in this region as well. In the setting of persistently declining hemoglobin and hematocrit, this could be followed with a postcontrast study moving the patient's arms out of the field of view to minimize artifact obscuring this area. There is sigmoid diverticulosis. Patient is status post partial colectomy enterocolonic anastomosis formation. There is a ventral midline abdominal incision and there is small volume intra-abdominal and intrapelvic free air, not unexpected in the immediate postoperative setting. There is scattered subcutaneous gas. The bladder is decompressed with a Patricio catheter in place. No pelvic adenopathy. There is a small amount of free fluid within the pelvis. There are no acute osseous abnormalities. Thoracolumbar spondylosis. IMPRESSION: - There is small volume intra-abdominal free fluid measuring simple fluid attenuation. In speaking with the referring clinician there was clinical concern in the vicinity of the spleen during surgery. The spleen and adjacent perisplenic soft tissues are significantly obscured by streak artifact which limits their evaluation. There is some fluid and probable mild hematoma (3.5 cm) along the anterior aspect of the spleen though assessment is limited given that there are some bowel loops in this region. In the setting of persistently declining hemoglobin and hematocrit, this could be followed with a postcontrast study moving the patient's arms out of the field of view to minimize artifact obscuring this area. -There is a ventral midline abdominal incision and there is small volume intra-abdominal and intrapelvic free air, not unexpected in the immediate postoperative setting. Patient is status post partial colectomy enterocolonic anastomosis formation. - There are small bilateral pleural effusions with adjacent atelectasis versus consolidation. There is a pericardial effusion. Trivessel coronary artery atherosclerotic calcification. - Nodular appearance of the right adrenal gland that is obscured by streak artifact and not well assessed. This can be further evaluated with an adrenal protocol CT when stable. Findings were discussed with Dr. Slater at 8:45 PM on 01/27/2018
[2018-01-28] VITALS: BP 114/58
[2018-01-28 01:55] LABS: ABSOLUTE BASOPHIL COUNT 0 /CUMM (0.0-0.2); ABSOLUTE EOSINOPHIL COUNT 0 /CUMM (0.0-0.7); ABSOLUTE GRANULOCYTE CT 15.9 /CUMM (1.4-6.5); ABSOLUTE MONOCYTE COUNT 0.9 /CUMM (0.10-0.60); BASOPHIL % 0 % (0.0-2.0); EOSINOPHIL % 0 % (0-5); GRANULOCYTE % 88.9 % (42.2-75.2); MEAN CORPUSCULAR HGB 25.7 PG (27.0-31.0); MEAN CORPUSCULAR HGB CONC 32.8 G/DL (33.0-37.0); MEAN CORPUSCULAR VOLUME 78.5 FL (80.0-94.0); MEAN PLATELET VOLUME 10.4 FL (7.4-10.4); PLATELET COUNT 231 /CUMM (130-400); RBC DISTRIBUTION WIDTH 25.3 % (11.5-14.5); RED BLOOD CELL CT 3.52 /CUMM (4.70-6.10)
[2018-01-28 02:05] LABS: HEMATOCRIT 27.6 % (42-52)
[2018-01-28 03:17] LABS: WHITE BLOOD CELL COUNT 17.9 /CUMM (4.8-10.8)
--- NOTE | 2018-01-28 05:53 | PN- General Surgery ---
See Addendum Subjective Subjective: Patient still with diplopia, complains of mild abdominal soreness, no other complaints, no acute events overnight Objective Vital Signs and I&Os Vital Signs Date Time Temp Pulse Resp B/P B/P Pulse O2 O2 Flow FiO2 Mean Ox Delivery Rate 01/28 0400 95 Nasal 1.0L Cannula 01/28 0000 98.1 84 22 114/58 94 Nasal 1.0L Cannula 01/28 0000 94 Nasal 1.0L Cannula 01/27 2000 95 Nasal 1.0L Cannula 01/27 1949 95 Nasal 1.0L Cannula 01/27 1600 98 Nasal 1.0L Cannula 01/27 1200 98 Nasal 1.0L Cannula 01/27 1153 Nasal 1.0L Cannula 01/27 0800 97.4 78 18 110/70 99 Nasal 2.0L Cannula Intake & Output 01/28 0800 01/28 0000 01/27 1600 01/27 0800 01/27 0000 01/26 1600 Intake Total 1041 3125 1601 359 Output Total 75 25 35 20 Balance 966 3100 1566 339 Intake, Blood 350 700 Product Intake, IV 451 2125 1421 299 Intake, Oral 240 300 180 60 Output, Urine 75 25 35 20 Patient 227 lb Weight Weight Bed scale Measurement Method Urine output 40 cc over the last hour Vital signs stable, blood pressure has been between 130 and 113 systolic overnight Physical Exam: Well-developed well-nourished elderly gentleman, lying on bed no apparent distress. HEENT: Atraumatic, mildly dry mucous membranes. Neck: Supple, no lymphadenopathy Heart: Irregularly irregular, no murmur Respiratory: No respiratory distress, faint breath sounds are clear Abdomen: Minimal staining of serosanguineous drainage from midline abdominal surgical incision dressing. Mild abdominal distention. Minimal bowel sounds Gonzalez catheter in place, dark urine noted with small amount of sediment Extremities: +1 pitting edema bilateral lower extremities, no calf pain Neuro: Alert and oriented x3 Psych: Mood affect normal, normal memory normal judgment. Skin: Warm and dry, no rash on exposed skin Results Last 48 Hours of Labs: Laboratory Tests 01/28 01/28 01/27 0536 0135 2200 Chemistry Sodium Pending Potassium Pending Chloride Pending Carbon Dioxide Pending Anion Gap Pending BUN Pending Creatinine Pending Glucose Pending Calcium Pending Phosphorus Pending Magnesium Pending Total Bilirubin Pending AST Pending ALT Pending Albumin Pending Hematology CBC w Diff Pending NO MAN DIFF REQ Cancelled WBC (4.8 - 10.8 /CUMM) Pending 17.9 H Cancelled RBC (4.70 - 6.10 /CUMM) Pending 3.52 L Cancelled Hgb (14.0 - 18.0 G/DL) Pending 9.1 L Cancelled Hct (42 - 52 %) Pending 27.6 L Cancelled MCV (80.0 - 94.0 FL) Pending 78.5 L Cancelled MCH (27.0 - 31.0 PG) Pending 25.7 L Cancelled MCHC (33.0 - 37.0 G/DL) Pending 32.8 L Cancelled RDW (11.5 - 14.5 %) Pending 25.3 H Cancelled Plt Count (130 - 400 /CUMM) Pending 231 Cancelled MPV (7.4 - 10.4 FL) Pending 10.4 Cancelled Gran % (42.2 - 75.2 %) 88.9 H Lymphocytes % (20.5 - 51.1 %) 5.8 L Monocytes % (1.7 - 9.3 %) 5.3 Eosinophils % (0 - 5 %) 0 Basophils % (0.0 - 2.0 %) 0 Absolute Granulocytes (1.4 - 6.5 /CUMM) 15.9 H Absolute Lymphocytes (1.2 - 3.4 /CUMM) 1.0 L Absolute Monocytes (0.10 - 0.60 /CUMM) 0.9 H Absolute Eosinophils (0.0 - 0.7 /CUMM) 0 Absolute Basophils (0.0 - 0.2 /CUMM) 0 01/27 170 Chemistry Sodium (137 - 145 mmol/L) 136 L Cancelled Potassium (3.5 - 5.1 mmol/L) 4.4 Cancelled Chloride (98 - 107 mmol/L) 106 Cancelled Carbon Dioxide (22 - 30 mmol/L) 23 Cancelled Anion Gap (5 - 16) 8 Cancelled BUN (9 - 20 mg/dL) 26 H Cancelled Creatinine (0.7 - 1.2 mg/dL) 1.9 H Cancelled Estimated GFR (>60 ml/min) 34 L BUN/Creatinine Ratio Cancelled Glucose (65 - 99 mg/dL) 115 H Calcium (8.4 - 10.2 mg/dL) 7.4 L Phosphorus (2.5 - 4.5 mg/dL) 5.6 H Magnesium (1.6 - 2.3 mg/dL) 2.2 Total Bilirubin (0.2 - 1.3 mg/dL) 0.4 AST (17 - 59 U/L) 32 ALT (21 - 72 U/L) 30 Albumin (3.5 - 5.0 g/dL) 2.2 L Hematology CBC w Diff NO MAN DIFF REQ WBC (4.8 - 10.8 /CUMM) 18.6 H RBC (4.70 - 6.10 /CUMM) 2.88 L Hgb (14.0 - 18.0 G/DL) 7.1 *L Hct (42 - 52 %) 21.9 L MCV (80.0 - 94.0 FL) 76.3 L MCH (27.0 - 31.0 PG) 24.6 L MCHC (33.0 - 37.0 G/DL) 32.2 L RDW (11.5 - 14.5 %) 28.5 H Plt Count (130 - 400 /CUMM) 241 MPV (7.4 - 10.4 FL) 10.3 Gran % (42.2 - 75.2 %) 88.9 H Lymphocytes % (20.5 - 51.1 %) 4.4 L Monocytes % (1.7 - 9.3 %) 6.6 Eosinophils % (0 - 5 %) 0 Basophils % (0.0 - 2.0 %) 0.1 Absolute Granulocytes (1.4 - 6.5 /CUMM) 16.6 H Absolute Lymphocytes (1.2 - 3.4 /CUMM) 0.8 L Absolute Monocytes (0.10 - 0.60 /CUMM) 1.2 H Absolute Eosinophils (0.0 - 0.7 /CUMM) 0 Absolute Basophils (0.0 - 0.2 /CUMM) 0 01/27 01/27 01/27 01/27 01/27 1530 1530 1400 1321 1321 Chemistry Sodium (137 - 145 mmol/L) 136 L Potassium (3.5 - 5.1 mmol/L) 4.2 Chloride (98 - 107 mmol/L) 104 Carbon Dioxide (22 - 30 mmol/L) 24 Anion Gap (5 - 16) 8 BUN (9 - 20 mg/dL) 24 H Creatinine (0.7 - 1.2 mg/dL) 1.9 H Estimated GFR (>60 ml/min) 34 L Glucose (65 - 99 mg/dL) 134 H Calcium (8.4 - 10.2 mg/dL) 7.4 L Phosphorus (2.5 - 4.5 mg/dL) 5.7 H Magnesium (1.6 - 2.3 mg/dL) 2.2 Total Bilirubin (0.2 - 1.3 mg/dL) 0.2 AST (17 - 59 U/L) 27 ALT (21 - 72 U/L) 27 Troponin I (<0.11 ng/ml) 0.04 Albumin (3.5 - 5.0 g/dL) 2.1 L Hematology CBC w Diff Cancelled WBC Cancelled RBC Cancelled Hgb Cancelled Hct Cancelled MCV Cancelled MCH Cancelled MCHC Cancelled RDW Cancelled Plt Count Cancelled MPV Cancelled Urines Urine Color Cancelled Urine Clarity Cancelled Urine pH Cancelled Ur Specific Cascade Cancelled Urine Protein Cancelled Urine Ketones Cancelled Urine Nitrite Cancelled Urine Bilirubin Cancelled Urine Urobilinogen Cancelled Ur Leukocyte Esterase Cancelled Ur Microscopic Cancelled Urine Hemoglobin Cancelled Ur Random Creatinine Cancelled Ur Random Sodium Cancelled Ur Random Potassium Cancelled Fraction Sodium Excret Cancelled Urine Glucose Cancelled 01/27 08 0900 0825 Chemistry Sodium (137 - 145 mmol/L) 135 L Potassium (3.5 - 5.1 mmol/L) 4.4 Chloride (98 - 107 mmol/L) 104 Carbon Dioxide (22 - 30 mmol/L) 24 Anion Gap (5 - 16) 6 BUN (9 - 20 mg/dL) 22 H Creatinine (0.7 - 1.2 mg/dL) 1.7 H Estimated GFR (>60 ml/min) 38 L Glucose (65 - 99 mg/dL) 151 H Calcium (8.4 - 10.2 mg/dL) 7.8 L Phosphorus (2.5 - 4.5 mg/dL) 6.1 H Magnesium (1.6 - 2.3 mg/dL) 2.3 Total Bilirubin (0.2 - 1.3 mg/dL) 0.4 AST (17 - 59 U/L) 22 ALT (21 - 72 U/L) 25 Albumin (3.5 - 5.0 g/dL) 2.4 L Triglycerides (<150 mg/dL) 31 Cholesterol (< 200 MG/DL) 81 LDL Cholesterol, Calc (65 - 129 mg/dL) 32 L HDL Cholesterol (40 - 60 mg/dL) 43 Cholesterol/HDL Ratio (0.00 - 4.88 %) 2 Coagulation PT (9.4 - 12.5 SEC) 13.8 H INR (0.90 - 1.17) 1.26 H Hematology CBC w Diff MAN DIFF ORDERED WBC (4.8 - 10.8 /CUMM) 23.8 H RBC (4.70 - 6.10 /CUMM) 3.09 L Hgb (14.0 - 18.0 G/DL) 7.3 *L Hct (42 - 52 %) 23.0 L MCV (80.0 - 94.0 FL) 74.4 L MCH (27.0 - 31.0 PG) 23.6 L MCHC (33.0 - 37.0 G/DL) 31.7 L RDW (11.5 - 14.5 %) 30.1 H Plt Count (130 - 400 /CUMM) 289 MPV (7.4 - 10.4 FL) 10.4 Gran % (42.2 - 75.2 %) 91.5 H Lymphocytes % (20.5 - 51.1 %) 2.8 L Monocytes % (1.7 - 9.3 %) 5.6 Eosinophils % (0 - 5 %) 0 Basophils % (0.0 - 2.0 %) 0.1 Absolute Granulocytes (1.4 - 6.5 /CUMM) 21.7 H Segmented Neutrophils (42.2 - 75.2 %) 88 H Band Neutrophils (0.0 - 5.0 %) 7 H Absolute Lymphocytes (1.2 - 3.4 /CUMM) 0.7 L Lymphocytes (20.5 - 51.1 %) 3 L Monocytes (1.7 - 9.3 %) 2 Absolute Monocytes (0.10 - 0.60 /CUMM) 1.3 H Absolute Eosinophils (0.0 - 0.7 /CUMM) 0 Absolute Basophils (0.0 - 0.2 /CUMM) 0 Platelet Estimate (ADEQUATE) ADEQUATE Hypochromic-Microcytic 3+ Poikilocytosis 2+ Anisocytosis 2+ Microcytic Cells 2+ Ovalocytes 1+ Elliptocytes 1+ Schistocytes Urines Urine Color Cancelled Urine Clarity Cancelled Urine pH Cancelled Ur Specific Cascade Cancelled Urine Protein Cancelled Urine Ketones Cancelled Urine Nitrite Cancelled Urine Bilirubin Cancelled Urine Urobilinogen Cancelled Ur Leukocyte Esterase Cancelled Ur Microscopic Cancelled Urine Hemoglobin Cancelled Urine Glucose Cancelled 01/27 01/26 0345 1830 Chemistry Sodium (137 - 145 mmol/L) 136 L Potassium (3.5 - 5.1 mmol/L) 4.5 Chloride (98 - 107 mmol/L) 103 Carbon Dioxide (22 - 30 mmol/L) 23 Anion Gap (5 - 16) 10 BUN (9 - 20 mg/dL) 20 Creatinine (0.7 - 1.2 mg/dL) 1.5 H Estimated GFR (>60 ml/min) 44 L BUN/Creatinine Ratio (7 - 25 %) 13.3 Hematology CBC w Diff NO MAN DIFF REQ NO MAN DIFF REQ WBC (4.8 - 10.8 /CUMM) 27.9 H 18.8 H RBC (4.70 - 6.10 /CUMM) 3.39 L 3.80 L Hgb (14.0 - 18.0 G/DL) 8.1 L 9.0 L Hct (42 - 52 %) 25.4 L 28.3 L MCV (80.0 - 94.0 FL) 74.8 L 74.4 L MCH (27.0 - 31.0 PG) 23.8 L 23.6 L MCHC (33.0 - 37.0 G/DL) 31.8 L 31.8 L RDW (11.5 - 14.5 %) 30.0 H 29.0 H Plt Count (130 - 400 /CUMM) 318 ND MPV (7.4 - 10.4 FL) 10.7 H Gran % (42.2 - 75.2 %) 91.4 H 94.1 H Lymphocytes % (20.5 - 51.1 %) 3.4 L 5.5 L Monocytes % (1.7 - 9.3 %) 5.2 0.2 L Eosinophils % (0 - 5 %) 0 0.2 Basophils % (0.0 - 2.0 %) 0 0 Absolute Granulocytes (1.4 - 6.5 /CUMM) 25.5 H 17.7 H Absolute Lymphocytes (1.2 - 3.4 /CUMM) 0.9 L 1.0 L Absolute Monocytes (0.10 - 0.60 /CUMM) 1.4 H 0 L Absolute Eosinophils (0.0 - 0.7 /CUMM) 0 0 Absolute Basophils (0.0 - 0.2 /CUMM) 0 0 Recent Imaging Studies: PATIENT: SINA COLLIER PRESENT AGE: 87 PATIENT ACCOUNT NO: [id number] : 31 LOCATION: [facility] ORDERING PHYSICIAN: Tony Farrar MD SERVICE DATE: 01/27/18 EXAM TYPE: CAT - CT ABD & PELVIS W/O IV CONTRAS EXAMINATION: CT ABDOMEN AND PELVIS WITHOUT CONTRAST CLINICAL INFORMATION: Hypotension and drop in hemoglobin/hematocrit COMPARISON: None available. TECHNIQUE: Multidetector volumetric imaging was performed from the superior aspect of the liver through the pubic symphysis. Sagittal and coronal reformatted images were obtained on the technologist's workstation. FINDINGS: There are small bilateral pleural effusions with adjacent atelectasis versus consolidation. There is a pericardial effusion. Trivessel coronary artery atherosclerotic calcification. Limited evaluation of the unenhanced liver and pancreas reveals no definite abnormality. The gallbladder is distended without cholelithiasis. Nodular appearance of the right adrenal gland that is obscured by streak artifact and not well assessed. There is small volume intra-abdominal free fluid measuring simple fluid attenuation. In speaking with the referring clinician there was clinical concern in the vicinity of the spleen during surgery. The spleen and adjacent perisplenic soft tissues are significantly obscured by streak artifact which limits their evaluation. There is some fluid and possible mild hematoma adjacent to the spleen though assessment is limited given that there are some bowel loops in this region as well. In the setting of persistently declining hemoglobin and hematocrit, this could be followed with a postcontrast study moving the patient's arms out of the field of view to minimize artifact obscuring this area. There is sigmoid diverticulosis. Patient is status post partial colectomy enterocolonic anastomosis formation. There is a ventral midline abdominal incision and there is small volume intra-abdominal and intrapelvic free air, not unexpected in the immediate postoperative setting. There is scattered subcutaneous gas. The bladder is decompressed with a Gonzalez catheter in place. No pelvic adenopathy. There is a small amount of free fluid within the pelvis. There are no acute osseous abnormalities. Thoracolumbar spondylosis. IMPRESSION: - There is small volume intra-abdominal free fluid measuring simple fluid attenuation. In speaking with the referring clinician there was clinical concern in the vicinity of the spleen during surgery. The spleen and adjacent perisplenic soft tissues are significantly obscured by streak artifact which limits their evaluation. There is some fluid and probable mild hematoma (3.5 cm) along the anterior aspect of the spleen though assessment is limited given that there are some bowel loops in this region. In the setting of persistently declining hemoglobin and hematocrit, this could be followed with a postcontrast study moving the patient's arms out of the field of view to minimize artifact obscuring this area. -There is a ventral midline abdominal incision and there is small volume intra-abdominal and intrapelvic free air, not unexpected in the immediate postoperative setting. Patient is status post partial colectomy enterocolonic anastomosis formation. - There are small bilateral pleural effusions with adjacent atelectasis versus consolidation. There is a pericardial effusion. Trivessel coronary artery atherosclerotic calcification. - Nodular appearance of the right adrenal gland that is obscured by streak artifact and not well assessed. This can be further evaluated with an adrenal protocol CT when stable. Findings were discussed with Dr. Slater at 8:45 PM on 01/27/2018 DICTATED BY: Zeferino Amato MD DATE/TIME DICTATED:01/27/182033 MEDICAL COST CONSULTANT:RADHA DATE/TIME TRANSCRIBED:01/27/182033 CONFIDENTIAL, DO NOT COPY WITHOUT APPROPRIATE AUTHORIZATION. <Electronically signed in Other Vendor System> SIGNED BY: Zeferino Amato MD 01/27/182053 Assessment/Plan Assessment/Plan 87yo M with hx of asthma, htn, hld and bph now SP Lap to Open Subtotal Colectomy with intra-op splenic abrasion for colon CA. patient suffered CVA in the perioperative period, acute blood loss anemia, acute kidney injury, oliguria, he is slow to recover however he is surgically stable ERAS Protocol Acute CVA: Neurology on board, Hold antiplatelets/anticoagulation until H&H stable, possibly start Today Acute kidney injury: Continue IV fluids to maintain blood pressure over 120 systolic due to CVA, may need to increase based on results of this morning's labs. gonzalez to stay in over the weekend per Dr Britton, monitor urine output, last hour was 40 cc which is the most recorded since surgery Acute blood loss anemia: Status post transfusion of 4 units, trending H&H, awaiting labs this morning, may need a unit if he declines again clear liquids, advance diet as tolerated CT scan of the abdomen and pelvis largely unremarkable, perisplenic hematoma noted as expected DVT PPX- ALPS, Entereg until first BM IS Perioperative antibiotics completed PT consult today, out of bed to chair Monitor for return of bowel function Appreciate ICU follow, continue monitoring patient in the ICU New-onset A. fib, management per medicine Triple-lumen catheter in the right IJ dislodged yesterday during transport, currently he is stable and placement of another catheter not indicated at this time, currently has 2 peripheral IVs Will discuss with Dr. JIMENEZ Core Measures Venous Thromboembolism VTE Risk Factors Surgery No Mechanical VTE Prophylaxis d/t N/A MechProphylax Ordered No VTE Pharm Prophylaxis d/t NA PharmProphylax ordered
[2018-01-28 05:58] LABS: ABSOLUTE BASOPHIL COUNT 0 /CUMM (0.0-0.2); ABSOLUTE EOSINOPHIL COUNT 0 /CUMM (0.0-0.7); ABSOLUTE GRANULOCYTE CT 15.9 /CUMM (1.4-6.5); ABSOLUTE LYMPH COUNT 0.8 /CUMM (1.2-3.4); BASOPHIL % 0 % (0.0-2.0); EOSINOPHIL % 0 % (0-5); GRANULOCYTE % 89.6 % (42.2-75.2); HEMATOCRIT 27.8 % (42-52); MEAN CORPUSCULAR HGB 26.2 PG (27.0-31.0); MEAN CORPUSCULAR VOLUME 79.4 FL (80.0-94.0); MEAN PLATELET VOLUME 10.4 FL (7.4-10.4); PLATELET COUNT 227 /CUMM (130-400); RBC DISTRIBUTION WIDTH 25.7 % (11.5-14.5); RED BLOOD CELL CT 3.51 /CUMM (4.70-6.10)
[2018-01-28 06:26] LABS: WHITE BLOOD CELL COUNT 17.7 /CUMM (4.8-10.8)
[2018-01-28 08:00] VITALS: BP 110/60
--- NOTE | 2018-01-28 08:35 | PN- Resident CRCU ---
Subjective HPI/CRCU Issues: Subtotal colectomy for colon cancer with intraoperative splenic laceration Splenorrhaphy due to splenic laceration New onset diplopia and right arm parathsethia ? New onset A. fib 24 Hour Events: Vital signs stable, H&H stable S/P unit PRBCs, CT yesterday showed:There is some fluid and probable mild hematoma (3.5 cm) along the anterior aspect of the spleen though assessment is limited given that there are some bowel loops in this region. In the setting of persistently declining hemoglobin and hematocrit, this could be followed with a postcontrast study moving the patient's arms out of the field of view to minimize artifact obscuring this area. EKG this morning showed multi focal atrial breath however Afib couldn't be excluded, EKG was difficult to interperet and was of low voltage. Objective Vital Signs & I&O Last 8 Hrs of Vitals and I&O: Vital Signs Date Time Temp Pulse Resp B/P B/P Pulse O2 O2 Flow FiO2 Mean Ox Delivery Rate 01/28 0910 94 Nasal 1.0L Cannula 01/28 0400 95 Nasal 1.0L Cannula 01/28 0000 98.1 84 22 114/58 94 Nasal 1.0L Cannula 01/28 0000 94 Nasal 1.0L Cannula 01/27 2000 95 Nasal 1.0L Cannula 01/27 1949 95 Nasal 1.0L Cannula 01/27 1600 98 Nasal 1.0L Cannula 01/27 1200 98 Nasal 1.0L Cannula 01/27 1153 Nasal 1.0L Cannula Intake & Output 01/28 1600 01/28 0800 01/28 0000 Intake Total 1209 1041 Output Total 175 75 Balance 1034 966 Intake, Blood 350 350 Product Intake, IV 739 451 Intake, Oral 120 240 Output, Urine 175 75 Exam General Appearance: alert, awake Head: atraumatic, normal appearance Respiratory: normal breath sounds Cardiovascular: edema, irregular rhythm Gastrointestinal: normal bowel sounds, soft, surgical wound is covered by clean dressing, no signs of active bleeding Extremities: extensive eccymosis of the right arm up to the level of the elbow Cranial Nerves: normal speech, PERRL, Left internuclear ophthalmoplegia,right nystagmus, diplopia in all directions, power and tone are wnl in all 4 extermities Current Medications: Current Medications Sig/Rony Start time Last Medication Dose Route Stop Time Status Admin Acetaminophen 0 .STK-MED ONE 01/27 2148 DC PO Acetaminophen 1,000 MG TID 01/26 2100 AC 01/27 PO 2147 Albuterol Sulfate 2 PUF Q4 01/26 1800 AC 01/28 INH 0552 Allopurinol 300 MG DAILY 01/27 0900 AC PO Alvimopan 12 MG BID 01/26 2100 AC 01/27 PO 2140 Amlodipine Besylate 2.5 MG DAILY 01/27 0900 DC PO Atorvastatin Calcium 40 MG QPM 01/27 2100 AC 01/27 PO 2140 Atorvastatin Calcium 20 MG QPM 01/26 2100 DC 01/26 PO 2142 Budesonide/ 2 PUF BID 01/26 2100 AC 01/27 Formoterol Fumarate INH 2141 Clindamycin 600 MG IQ8 01/27 0000 DC 01/28 Dextrose/Water 50 ML IV 01/28 0000 0201 Dextrose/Sodium 1,000 ML Q13H 01/28 1030 AC Chloride IV Dextrose/Sodium 1,000 ML Q10H 01/27 1830 DC 01/28 Chloride IV 0552 Furosemide 20 MG ONCE ONE 01/27 1700 CAN IV 01/27 1701 Furosemide 40 MG DAILY 01/27 0900 DC PO Gabapentin 200 MG Q8 01/26 2200 AC 01/28 PO 0552 Losartan Potassium 50 MG DAILY 01/27 0900 DC PO Metoprolol Tartrate 12.5 MG BID 01/27 2100 AC PO Metoprolol Tartrate 50 MG BID 01/26 2100 DC PO Metronidazole 500 MG IQ8 01/27 0000 DC 01/28 N/A 1 UNIT IV 01/28 0000 0201 Ondansetron HCl 4 MG Q6P PRN 01/27 2000 AC IV Oxycodone HCl 5 MG Q4-6 PRN PRN 01/26 2000 AC PO Oxycodone HCl 10 MG Q4-6 PRN PRN 01/26 2000 AC PO Sodium Chloride 1,000 ML BOLUS ONE 01/27 1730 CAN IV 01/27 1829 Sodium Chloride 1,000 ML BOLUS ONE 01/27 1600 DC IV 01/27 1659 Sodium Chloride 1,000 ML .Q5H 01/26 2000 DC 01/27 IV 0355 Tramadol HCl 100 MG Q6P PRN 01/26 2000 AC PO Tramadol HCl 50 MG Q6P PRN 01/26 1800 AC PO Impression/Plan Impression/Problem List Impression: 87 years old man with past medical history of hypertension, gout, hyperlipidemia , who presented to the ICU after having subtotal colectomy (due to 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 Postoperative abdominal CT yesterday showed small volume intra- abdominal free fluid, 3.5 cm hematoma along the anterior aspect of the spleen, small bilateral pleural effusion with adjacent atelectasis, pericardial effusion In addition patient had acute blood loss anemia postoperatively however his H&H is currently stable S/P 4 units of PRBCs Patient started experiencing diplopia with facial asymmetry postoperatively. Head CT was unremarkable. EKG was not conclusive for multiple atrial tachycardia versus A. fib. Patient is currently being treated in the ICU for the following conditions: Acute stroke (brainstem with left SHAMIKA) Improving, residual deficit is diplopia Head CT on 18 showed no acute intracranial pathology, minimal right sphenoid sinusitis Carotid Doppler:Calcific atherosclerotic plaque at the right carotid bifurcation with a 50-79% stenosis of the right internal carotid artery by sonographic criteria. Calcific atherosclerotic plaque at the left carotid bifurcation with a 50-79% stenosis of the left internal carotid artery by sonographic criteria. I discussed with surgery PA (Dalila) this morning who recommended to hold off aspirin and heparin drip until tomorrow, if H&H is a stable in the a.m. will recheck with surgery to see if we can start aspirin and heparin drip. Neurology consult appreciated We will hold off Lasix and blood pressure meds if blood pressure less than 140 If heart rate is okay we will hold off beta andreas as well Continue atorvastatin 40 mg daily NIH stroke scale Patient was swallow eval the recommendation is regular with thin liquid Possible AFIB: EKG done this morning showed irregular and low voltage was artifact, it was hard to read however campaign manager Dr. Hernandez is highly suspecting A. fib. And first -degree heart block This might be the cause for his stroke as a source of emboli In addition the patient also has carotid disease which demonstrates of emboli as well. Cardiology recommended beginning IV heparin drip for A. fib. I checked with surgery who recommended to hold off heparin drip and aspirin today, to monitor CBCs tomorrow and if stable most likely patient will be safe to be started on IV heparin drip and aspirin Recheck in the a.m. with surgery before starting IV heparin drip and aspirin Echo Cardiology recommendation appreciated Acute blood loss anemia due to splenic laceration, subtotal colectomy H&H stable S/P 4 units of PRBCs Monitor CBCs, will transfuse if required, goal hemoglobin is 8 Clear liquid diet STEPHAN: Creatinine today is 1.9, improving urine output Avoid nephrotoxic Hold Lasix for today We will decrease IV fluids to 75 cc/h since the patient started eating Monitoring Bep and urine output Full code Clear liquid diet DVT prophylaxis with Alps Problem List: 1. Colon cancer 2. Acute ischemic stroke Pain Ratin Tomorrow's Labs & Rationales: cbc icu BUNDLE Plan DVT/Prophylaxis: mechanical
--- NOTE | 2018-01-28 09:48 | PN- CRCU ---
Subjective HPI/Critical Care Issues: Patient still with diplopia much improved , complains of mild abdominal soreness , no other complaints, no acute events overnight Improved urine out put Creat seems to have stablized Still in irregular rhythm CT abd IMPRESSION: - There is small volume intra-abdominal free fluid measuring simple fluid attenuation. In speaking with the referring clinician there was clinical concern in the vicinity of the spleen during surgery. The spleen and adjacent perisplenic soft tissues are significantly obscured by streak artifact which limits their evaluation. There is some fluid and probable mild hematoma (3.5 cm) along the anterior aspect of the spleen though assessment is limited given that there are some bowel loops in this region. In the setting of persistently declining hemoglobin and hematocrit, this could be followed with a postcontrast study moving the patient's arms out of the field of view to minimize artifact obscuring this area. -There is a ventral midline abdominal incision and there is small volume intra-abdominal and intrapelvic free air, not unexpected in the immediate postoperative setting. Patient is status post partial colectomy enterocolonic anastomosis formation. - There are small bilateral pleural effusions with adjacent atelectasis versus consolidation. There is a pericardial effusion. Trivessel coronary artery atherosclerotic calcification. - Nodular appearance of the right adrenal gland that is obscured by streak artifact and not well assessed. This can be further evaluated with an adrenal protocol CT when stable. Objective Current Medications: Current Medications Sig/Rony Start time Last Medication Dose Route Stop Time Status Admin Acetaminophen 0 .STK-MED ONE 01/28 2148 DC PO Acetaminophen 1,000 MG TID 01/26 2100 AC 01/27 PO 214 Albuterol Sulfate 2 PUF Q4 01/26 1800 AC 01/28 INH 0552 Allopurinol 300 MG DAILY 01/27 0900 AC PO Alvimopan 12 MG BID 01/26 2100 AC 01/27 PO 214 Amlodipine Besylate 2.5 MG DAILY 01/27 0900 DC PO Atorvastatin Calcium 40 MG QPM 01/27 2100 AC 01/27 PO 214 Atorvastatin Calcium 20 MG QPM 01/26 2100 DC 01/26 PO 214 Budesonide/ 2 PUF BID 01/26 2100 AC 01/27 Formoterol Fumarate INH 2141 Clindamycin 600 MG IQ8 01/27 0000 DC 01/28 Dextrose/Water 50 ML IV 01/28 0000 0201 Dextrose/Sodium 1,000 ML Q10H 01/27 1830 AC 01/28 Chloride IV 0552 Furosemide 20 MG ONCE ONE 01/27 1700 CAN IV 01/27 1701 Furosemide 40 MG DAILY 01/27 0900 DC PO Gabapentin 200 MG Q8 01/26 2200 AC 01/28 PO 0552 Losartan Potassium 50 MG DAILY 01/27 09 DC PO Metoprolol Tartrate 12.5 MG BID 01/27 2100 AC PO Metoprolol Tartrate 50 MG BID 01/26 2100 DC PO Metronidazole 500 MG IQ8 01/27 0000 DC 01/28 N/A 1 UNIT IV 01/28 0000 0201 Ondansetron HCl 4 MG Q6P PRN 01/27 2000 AC IV Oxycodone HCl 5 MG Q4-6 PRN PRN 01/26 2000 AC PO Oxycodone HCl 10 MG Q4-6 PRN PRN 01/26 2000 AC PO Sodium Chloride 1,000 ML BOLUS ONE 01/27 1730 CAN IV 01/27 1829 Sodium Chloride 1,000 ML BOLUS ONE 01/27 1600 DC IV 01/27 1659 Sodium Chloride 500 ML BOLUS ONE 01/27 1045 DC 01/27 IV 01/27 1144 1045 Sodium Chloride 1,000 ML .Q5H 01/26 2000 DC 01/27 IV 0355 Tramadol HCl 100 MG Q6P PRN 01/26 2000 AC PO Tramadol HCl 50 MG Q6P PRN 01/26 1800 AC PO Vital Signs & I&O Last 24 Hrs of Vitals and I&O: Vital Signs Date Time Temp Pulse Resp B/P B/P Pulse O2 O2 Flow FiO2 Mean Ox Delivery Rate 01/28 0910 94 Nasal 1.0L Cannula 01/28 0400 95 Nasal 1.0L Cannula 01/28 0000 98.1 84 22 114/58 94 Nasal 1.0L Cannula 01/28 0000 94 Nasal 1.0L Cannula 01/27 2000 95 Nasal 1.0L Cannula 01/27 1949 95 Nasal 1.0L Cannula 01/27 1600 98 Nasal 1.0L Cannula 01/27 1200 98 Nasal 1.0L Cannula 01/27 1153 Nasal 1.0L Cannula Intake & Output 01/28 1600 01/28 0800 01/28 0000 Intake Total 1209 1041 Output Total 175 75 Balance 1034 966 Intake, Blood 350 350 Product Intake, IV 739 451 Intake, Oral 120 240 Output, Urine 175 75 Laboratory Tests 01/28 01/28 0536 0135 Chemistry Sodium (137 - 145 mmol/L) 136 L Potassium (3.5 - 5.1 mmol/L) 4.0 Chloride (98 - 107 mmol/L) 107 Carbon Dioxide (22 - 30 mmol/L) 22 Anion Gap (5 - 16) 6 BUN (9 - 20 mg/dL) 27 H Creatinine (0.7 - 1.2 mg/dL) 1.9 H Estimated GFR (>60 ml/min) 34 L Glucose (65 - 99 mg/dL) 107 H Calcium (8.4 - 10.2 mg/dL) 7.4 L Phosphorus (2.5 - 4.5 mg/dL) 5.1 H Magnesium (1.6 - 2.3 mg/dL) 2.2 Total Bilirubin (0.2 - 1.3 mg/dL) 0.5 AST (17 - 59 U/L) 33 ALT (21 - 72 U/L) 30 Albumin (3.5 - 5.0 g/dL) 2.1 L Hematology CBC w Diff NO MAN DIFF REQ NO MAN DIFF REQ WBC (4.8 - 10.8 /CUMM) 17.7 H 17.9 H RBC (4.70 - 6.10 /CUMM) 3.51 L 3.52 L Hgb (14.0 - 18.0 G/DL) 9.2 L 9.1 L Hct (42 - 52 %) 27.8 L 27.6 L MCV (80.0 - 94.0 FL) 79.4 L 78.5 L MCH (27.0 - 31.0 PG) 26.2 L 25.7 L MCHC (33.0 - 37.0 G/DL) 33.0 32.8 L RDW (11.5 - 14.5 %) 25.7 H 25.3 H Plt Count (130 - 400 /CUMM) 227 231 MPV (7.4 - 10.4 FL) 10.4 10.4 Gran % (42.2 - 75.2 %) 89.6 H 88.9 H Lymphocytes % (20.5 - 51.1 %) 4.5 L 5.8 L Monocytes % (1.7 - 9.3 %) 5.9 5.3 Eosinophils % (0 - 5 %) 0 0 Basophils % (0.0 - 2.0 %) 0 0 Absolute Granulocytes (1.4 - 6.5 /CUMM) 15.9 H 15.9 H Absolute Lymphocytes (1.2 - 3.4 /CUMM) 0.8 L 1.0 L Absolute Monocytes (0.10 - 0.60 /CUMM) 1.0 H 0.9 H Absolute Eosinophils (0.0 - 0.7 /CUMM) 0 0 Absolute Basophils (0.0 - 0.2 /CUMM) 0 0 01/27 01/27 01/27 2200 2130 2000 Chemistry Sodium (137 - 145 mmol/L) 136 L Cancelled Potassium (3.5 - 5.1 mmol/L) 4.4 Cancelled Chloride (98 - 107 mmol/L) 106 Cancelled Carbon Dioxide (22 - 30 mmol/L) 23 Cancelled Anion Gap (5 - 16) 8 Cancelled BUN (9 - 20 mg/dL) 26 H Cancelled Creatinine (0.7 - 1.2 mg/dL) 1.9 H Cancelled Estimated GFR (>60 ml/min) 34 L BUN/Creatinine Ratio Cancelled Glucose (65 - 99 mg/dL) 115 H Calcium (8.4 - 10.2 mg/dL) 7.4 L Phosphorus (2.5 - 4.5 mg/dL) 5.6 H Magnesium (1.6 - 2.3 mg/dL) 2.2 Total Bilirubin (0.2 - 1.3 mg/dL) 0.4 AST (17 - 59 U/L) 32 ALT (21 - 72 U/L) 30 Albumin (3.5 - 5.0 g/dL) 2.2 L Hematology CBC w Diff Cancelled WBC Cancelled RBC Cancelled Hgb Cancelled Hct Cancelled MCV Cancelled MCH Cancelled MCHC Cancelled RDW Cancelled Plt Count Cancelled MPV Cancelled 01/27 01/27 01/27 1700 1530 1530 Chemistry Sodium (137 - 145 mmol/L) 136 L Potassium (3.5 - 5.1 mmol/L) 4.2 Chloride (98 - 107 mmol/L) 104 Carbon Dioxide (22 - 30 mmol/L) 24 Anion Gap (5 - 16) 8 BUN (9 - 20 mg/dL) 24 H Creatinine (0.7 - 1.2 mg/dL) 1.9 H Estimated GFR (>60 ml/min) 34 L Glucose (65 - 99 mg/dL) 134 H Calcium (8.4 - 10.2 mg/dL) 7.4 L Phosphorus (2.5 - 4.5 mg/dL) 5.7 H Magnesium (1.6 - 2.3 mg/dL) 2.2 Total Bilirubin (0.2 - 1.3 mg/dL) 0.2 AST (17 - 59 U/L) 27 ALT (21 - 72 U/L) 27 Troponin I (<0.11 ng/ml) 0.04 Albumin (3.5 - 5.0 g/dL) 2.1 L Hematology CBC w Diff NO MAN DIFF REQ WBC (4.8 - 10.8 /CUMM) 18.6 H RBC (4.70 - 6.10 /CUMM) 2.88 L Hgb (14.0 - 18.0 G/DL) 7.1 *L Hct (42 - 52 %) 21.9 L MCV (80.0 - 94.0 FL) 76.3 L MCH (27.0 - 31.0 PG) 24.6 L MCHC (33.0 - 37.0 G/DL) 32.2 L RDW (11.5 - 14.5 %) 28.5 H Plt Count (130 - 400 /CUMM) 241 MPV (7.4 - 10.4 FL) 10.3 Gran % (42.2 - 75.2 %) 88.9 H Lymphocytes % (20.5 - 51.1 %) 4.4 L Monocytes % (1.7 - 9.3 %) 6.6 Eosinophils % (0 - 5 %) 0 Basophils % (0.0 - 2.0 %) 0.1 Absolute Granulocytes (1.4 - 6.5 /CUMM) 16.6 H Absolute Lymphocytes (1.2 - 3.4 /CUMM) 0.8 L Absolute Monocytes (0.10 - 0.60 /CUMM) 1.2 H Absolute Eosinophils (0.0 - 0.7 /CUMM) 0 Absolute Basophils (0.0 - 0.2 /CUMM) 0 01/27 01/27 01/27 1400 1321 1321 Hematology CBC w Diff Cancelled WBC Cancelled RBC Cancelled Hgb Cancelled Hct Cancelled MCV Cancelled MCH Cancelled MCHC Cancelled RDW Cancelled Plt Count Cancelled MPV Cancelled Urines Urine Color Cancelled Urine Clarity Cancelled Urine pH Cancelled Ur Specific Dickens Cancelled Urine Protein Cancelled Urine Ketones Cancelled Urine Nitrite Cancelled Urine Bilirubin Cancelled Urine Urobilinogen Cancelled Ur Leukocyte Esterase Cancelled Ur Microscopic Cancelled Urine Hemoglobin Cancelled Ur Random Creatinine Cancelled Ur Random Sodium Cancelled Ur Random Potassium Cancelled Fraction Sodium Excret Cancelled Urine Glucose Cancelled 01/27 01/27 0900 0825 Chemistry Sodium (137 - 145 mmol/L) 135 L Potassium (3.5 - 5.1 mmol/L) 4.4 Chloride (98 - 107 mmol/L) 104 Carbon Dioxide (22 - 30 mmol/L) 24 Anion Gap (5 - 16) 6 BUN (9 - 20 mg/dL) 22 H Creatinine (0.7 - 1.2 mg/dL) 1.7 H Estimated GFR (>60 ml/min) 38 L Glucose (65 - 99 mg/dL) 151 H Calcium (8.4 - 10.2 mg/dL) 7.8 L Phosphorus (2.5 - 4.5 mg/dL) 6.1 H Magnesium (1.6 - 2.3 mg/dL) 2.3 Total Bilirubin (0.2 - 1.3 mg/dL) 0.4 AST (17 - 59 U/L) 22 ALT (21 - 72 U/L) 25 Albumin (3.5 - 5.0 g/dL) 2.4 L Triglycerides (<150 mg/dL) 31 Cholesterol (< 200 MG/DL) 81 LDL Cholesterol, Calc (65 - 129 mg/dL) 32 L HDL Cholesterol (40 - 60 mg/dL) 43 Cholesterol/HDL Ratio (0.00 - 4.88 %) 2 Coagulation PT (9.4 - 12.5 SEC) 13.8 H INR (0.90 - 1.17) 1.26 H Hematology CBC w Diff MAN DIFF ORDERED WBC (4.8 - 10.8 /CUMM) 23.8 H RBC (4.70 - 6.10 /CUMM) 3.09 L Hgb (14.0 - 18.0 G/DL) 7.3 *L Hct (42 - 52 %) 23.0 L MCV (80.0 - 94.0 FL) 74.4 L MCH (27.0 - 31.0 PG) 23.6 L MCHC (33.0 - 37.0 G/DL) 31.7 L RDW (11.5 - 14.5 %) 30.1 H Plt Count (130 - 400 /CUMM) 289 MPV (7.4 - 10.4 FL) 10.4 Gran % (42.2 - 75.2 %) 91.5 H Lymphocytes % (20.5 - 51.1 %) 2.8 L Monocytes % (1.7 - 9.3 %) 5.6 Eosinophils % (0 - 5 %) 0 Basophils % (0.0 - 2.0 %) 0.1 Absolute Granulocytes (1.4 - 6.5 /CUMM) 21.7 H Segmented Neutrophils (42.2 - 75.2 %) 88 H Band Neutrophils (0.0 - 5.0 %) 7 H Absolute Lymphocytes (1.2 - 3.4 /CUMM) 0.7 L Lymphocytes (20.5 - 51.1 %) 3 L Monocytes (1.7 - 9.3 %) 2 Absolute Monocytes (0.10 - 0.60 /CUMM) 1.3 H Absolute Eosinophils (0.0 - 0.7 /CUMM) 0 Absolute Basophils (0.0 - 0.2 /CUMM) 0 Platelet Estimate (ADEQUATE) ADEQUATE Hypochromic-Microcytic 3+ Poikilocytosis 2+ Anisocytosis 2+ Microcytic Cells 2+ Ovalocytes 1+ Elliptocytes 1+ Schistocytes Urines Urine Color Cancelled Urine Clarity Cancelled Urine pH Cancelled Ur Specific Dickens Cancelled Urine Protein Cancelled Urine Ketones Cancelled Urine Nitrite Cancelled Urine Bilirubin Cancelled Urine Urobilinogen Cancelled Ur Leukocyte Esterase Cancelled Ur Microscopic Cancelled Urine Hemoglobin Cancelled Urine Glucose Cancelled 01/27 01/26 0345 1830 Chemistry Sodium (137 - 145 mmol/L) 136 L Potassium (3.5 - 5.1 mmol/L) 4.5 Chloride (98 - 107 mmol/L) 103 Carbon Dioxide (22 - 30 mmol/L) 23 Anion Gap (5 - 16) 10 BUN (9 - 20 mg/dL) 20 Creatinine (0.7 - 1.2 mg/dL) 1.5 H Estimated GFR (>60 ml/min) 44 L BUN/Creatinine Ratio (7 - 25 %) 13.3 Hematology CBC w Diff NO MAN DIFF REQ NO MAN DIFF REQ WBC (4.8 - 10.8 /CUMM) 27.9 H 18.8 H RBC (4.70 - 6.10 /CUMM) 3.39 L 3.80 L Hgb (14.0 - 18.0 G/DL) 8.1 L 9.0 L Hct (42 - 52 %) 25.4 L 28.3 L MCV (80.0 - 94.0 FL) 74.8 L 74.4 L MCH (27.0 - 31.0 PG) 23.8 L 23.6 L MCHC (33.0 - 37.0 G/DL) 31.8 L 31.8 L RDW (11.5 - 14.5 %) 30.0 H 29.0 H Plt Count (130 - 400 /CUMM) 318 ND MPV (7.4 - 10.4 FL) 10.7 H Gran % (42.2 - 75.2 %) 91.4 H 94.1 H Lymphocytes % (20.5 - 51.1 %) 3.4 L 5.5 L Monocytes % (1.7 - 9.3 %) 5.2 0.2 L Eosinophils % (0 - 5 %) 0 0.2 Basophils % (0.0 - 2.0 %) 0 0 Absolute Granulocytes (1.4 - 6.5 /CUMM) 25.5 H 17.7 H Absolute Lymphocytes (1.2 - 3.4 /CUMM) 0.9 L 1.0 L Absolute Monocytes (0.10 - 0.60 /CUMM) 1.4 H 0 L Absolute Eosinophils (0.0 - 0.7 /CUMM) 0 0 Absolute Basophils (0.0 - 0.2 /CUMM) 0 0 Microbiology Date/Time Procedure - Status Source Growth 01/26 2245 Surveillance Culture - COMP UPPER RESP 01/26 2245 Surveillance Culture - COMP GI 01/26 1730 Urine Culture - RES URINE ROUT Impression/Plan Impression/Plan Impression/Plan: GEN- NAD RESP- CLEAR, DECREASED EFFORT CARDIAC-at times irregular ABD- ND, DECREASED BS, SOFT, TENDER AVANI IN LLQ No significant edema Neurological exam moves all 4 limbs no significant weakness mild nystagmus mild facial asymmetry but seems to have improved since the last exam noted in the computer IMPRESSION This is an elderly gentleman who has history of hypertension, gout, hyperlipidemia, no postop open subtotal colectomy with spleno raphe from splenic laceration, has adenocarcinoma the descending colon villous adenoma: 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 Patient's head CT was unremarkable. New onset Afib / Unfortunately patient not a candidate for any anticoagulation right now may be a candidate for antiplatelet therapy soon with aspirin. Rate controlled Blood loss anemia immediate postop now s/p transfusion / CT abd nil sig for any active bleeding and no obstructive uropathy Acute Kidney injury now slowly recovering with improving urine out put History of hypertension, hyperlipidemia, gout appears to be stable RECOMMENDATION Watch in ICU Cardio to see Watch crit daily When stable can start on low-dose aspirin Discontinue lasix and hold all BP meds if bp less than 140 and if heart rate is ok low dose betablocker can be held aswell Increase atorvastatin to 40 when he is taking p.o. Continue his inhalers as needed Clear liquid OOB to chair Cont ivf and if eating well can reduce ivf to 75 cc per hour Watch for pulm edema and if he develops then give lasix iv Pt continues to be critically ill tts 37 mins
--- NOTE | 2018-01-28 10:40 | Cons- Cardiology ---
General Information and HPI Consulting Request Date of Consult: 01/28/18 Requested By: Lars Canas Jr., DO History of Present Illness: 87 year old male with hsitory of hypertension, dyslipidemia, peripheral vascular disease and adenocarcinoma of the colon. He was admitted for abdominal surgery and underwent a subtotal colectomy. On January 26 he reported a right arm paresthesis and diplopia. In addition, his nurse noted a slurring of his speech. The patient continues to have double vision which appears to be related to a CVA. He otherwise denies chest pain, pressure, tightness, shortness of breath or lightheadedness. He does have intermittent palpitations and his heart rhythm is irregular. Allergies/Medications Allergies: Coded Allergies: Penicillins (BLISTERS, ITCH ALL OVER 01/25/18) Home Med List: Albuterol Sulfate (Proventil Hfa) 90 MCG HFA.AER.AD 2 PUF INH Q4 ASTHMA ( Reported) Allopurinol 300 MG TABLET 1 TAB PO DAILY GOUT (Reported) Amlodipine Besylate 2.5 MG TABLET 1 TAB PO DAILY BP (Reported) Aspirin (Ecotrin*) 81 MG TABLET.DR 1 TAB PO DAILY HEART/BLOOD (Reported) Atorvastatin Calcium (Lipitor) 20 MG TABLET 1 TAB PO QPM CHOLESTEROL ( Reported) Budesonide/Formoterol Fumarate (Symbicort 160-4.5 Mcg Inhaler) 160 MCG-4.5 MCG/ ACTUATION HFA.AER.AD 2 PUF INH BID ASTHMA (Reported) Furosemide 40 MG TABLET 1 TAB PO DAILY DIURETIC (Reported) Irbesartan (Avapro) 300 MG TABLET 1 TAB PO DAILY BP (Reported) Metoprolol Tartrate (Lopressor) 50 MG TABLET 1 TAB PO BID HEART/BP (Reported) Review of Systems Review of Systems: A review of systems is remarkable for difficulty walking. Past History Medical History Blood Transfusion Hx: Yes Neurological: NONE EENT: cataracts Cardiovascular: hypertension, hyperlipidemia, peripheral vascular disease, orthostatic hypotension Respiratory: asthma Renal: benign prost hyperplasia Musculoskeletal: gout, osteoarthritis Cancer(s): adenocarcinoma of the colon Surgical History Surgical History: abdominal Psychosocial History Where Do You Live? Home Services at Home: None Smoking Status: Former Smoker ETOH Use: denies use Exam & Diagnostic Data Vital Signs and I&O Vital Signs Date Time Temp Pulse Resp B/P B/P Pulse O2 O2 Flow FiO2 Mean Ox Delivery Rate 01/28 0910 94 Nasal 1.0L Cannula 01/28 0400 95 Nasal 1.0L Cannula 01/28 0000 98.1 84 22 114/58 94 Nasal 1.0L Cannula 01/28 0000 94 Nasal 1.0L Cannula 01/27 2000 95 Nasal 1.0L Cannula 01/27 1949 95 Nasal 1.0L Cannula 01/27 1600 98 Nasal 1.0L Cannula 01/27 1200 98 Nasal 1.0L Cannula 01/27 1153 Nasal 1.0L Cannula Intake & Output 01/28 1600 01/28 0800 01/28 0000 01/27 1600 01/27 0800 01/27 0000 Intake Total 1209 1041 3125 1601 359 Output Total 175 75 25 35 20 Balance 8138 890 4756 1566 339 Intake, Blood 350 350 700 Product Intake, IV 120 686 5538 1421 299 Intake, Oral 120 240 300 180 60 Output, Urine 175 75 25 35 20 Patient 227 lb Weight Weight Bed scale Measurement Method Physical Exam: General: WD/WN male in NAD; alert and oriented x3 with decreased memory HEENT: NC/AT, PERRL, EOMI Neck: no JVD, no carotid bruit Heart: irregular with 2/6 systolic murmur Lungs: clear bilaterally Abdomen: soft with midline surgical incision Extremities: no edema, venous stasis changes bilaterally Assessment/Plan Assessment/Plan * This patient appears to have carotid disease which may be a source of emboli; nevertheless atrial fibrillation cannot be excluded. His ECG is irregular and low voltage with artifact and truthfully is difficult to read. I suspect he has a multifocal atrial rhythm but atrial fibrillation cannot be excluded. He is not tachycardic on minimal rate control medications and his pre-operative ECG was also irregular but with low voltage P waves with first degree AV block. In consideration of his stroke I would lean toward treating this as atrial fibrillation. The complication is a splenic bleed and low H/H. Fortunately, his H/H has stabilized and and he is now a few days out from surgery. Begin IV heparin if okay with surgery and monitor H/H carefully. I would also consider an acute drop in H/H and transient hypotension as a cause of his neurological event. * Continue a statin. * Obtain an echocardiogram. Consult Acknowledgment - Thank you for your consult request.
[2018-01-28 12:00] VITALS: BP 126/60
--- NOTE | 2018-01-28 12:38 | PN- Neurology ---
Subjective Subjective: Still has diplopia resolved to clear vision on covering either eye. Some cough after eating. Denies headache, family reports normal voice Review of Systems: No chest pain or palpitations. Dental Office Assistant uncertain if in AF or not Objective Vital Signs and I&Os Vital Signs Date Time Temp Pulse Resp B/P B/P Pulse O2 O2 Flow FiO2 Mean Ox Delivery Rate 01/28 0910 94 Nasal 1.0L Cannula 01/28 0400 95 Nasal 1.0L Cannula 01/28 0000 98.1 84 22 114/58 94 Nasal 1.0L Cannula 01/28 0000 94 Nasal 1.0L Cannula 01/28 2000 95 Nasal 1.0L Cannula 01/27 194 95 Nasal 1.0L Cannula 01/28 1600 98 Nasal 1.0L Cannula Intake & Output 01/28 1600 01/28 0800 01/28 0000 01/27 1600 01/27 0800 01/27 0000 Intake Total 1209 1041 3125 1601 359 Output Total 175 75 25 35 20 Balance 5138 947 2038 1566 339 Intake, Blood 350 350 700 Product Intake, IV 113 415 6756 1421 299 Intake, Oral 120 240 300 180 60 Output, Urine 175 75 25 35 20 Patient 227 lb Weight Weight Bed scale Measurement Method Physical Exam: Alert speech normal, language normal [id number] [id number] no visible palsy of eye movement, does report intermittent doubling which seems greater on gaze to left, nystagmus present no facial weakness or sensory loss, lower CN normal dehydrogenation operator equal, no drift, no UE ataxia, gait not tested Current Medications: Current Medications Sig/Rony Start time Last Medication Dose Route Stop Time Status Admin Acetaminophen 0 .STK-MED ONE 01/28 2148 DC PO Acetaminophen 1,000 MG TID 01/26 2100 AC 01/27 PO 214 Albuterol Sulfate 2 PUF Q4 01/26 1800 AC 01/28 INH 0552 Allopurinol 300 MG DAILY 01/27 900 AC 01/28 PO 1217 Alvimopan 12 MG BID 01/26 2100 AC 01/27 PO 214 Amlodipine Besylate 2.5 MG DAILY 01/27 09 DC PO Atorvastatin Calcium 40 MG QPM 01/27 2100 AC 01/27 PO 2140 Atorvastatin Calcium 20 MG QPM 01/26 2100 DC 01/26 PO 214 Budesonide/ 2 PUF BID 01/26 2100 AC 01/27 Formoterol Fumarate INH 2141 Clindamycin 600 MG IQ8 01/27 0000 DC 01/28 Dextrose/Water 50 ML IV 01/28 0000 0201 Dextrose/Sodium 1,000 ML Q13H 01/28 1030 AC Chloride IV Dextrose/Sodium 1,000 ML Q10H 01/27 1830 DC 01/28 Chloride IV 0552 Furosemide 20 MG ONCE ONE 01/27 1700 CAN IV 01/27 1701 Furosemide 40 MG DAILY 01/27 0900 DC PO Gabapentin 200 MG Q8 01/26 2200 AC 01/28 PO 0552 Losartan Potassium 50 MG DAILY 01/27 09 DC PO Metoprolol Tartrate 12.5 MG BID 01/27 2100 AC PO Metoprolol Tartrate 50 MG BID 01/26 2100 DC PO Metronidazole 500 MG IQ8 01/27 0000 DC 01/28 N/A 1 UNIT IV 01/28 0000 0201 Ondansetron HCl 4 MG Q6P PRN 01/26 2000 AC IV Oxycodone HCl 5 MG Q4-6 PRN PRN 01/26 2000 AC PO Oxycodone HCl 10 MG Q4-6 PRN PRN 01/26 2000 AC PO Sodium Chloride 1,000 ML BOLUS ONE 01/27 1730 CAN IV 01/27 1829 Sodium Chloride 1,000 ML BOLUS ONE 01/27 1600 DC IV 01/27 1659 Sodium Chloride 1,000 ML .Q5H 01/26 2000 DC 01/27 IV 0355 Tramadol HCl 100 MG Q6P PRN 01/26 2000 AC PO Tramadol HCl 50 MG Q6P PRN 01/26 1800 AC PO Results Last 24 Hours of Lab Results: Laboratory Tests 01/28 01/28 0536 0135 Chemistry Sodium (137 - 145 mmol/L) 136 L Potassium (3.5 - 5.1 mmol/L) 4.0 Chloride (98 - 107 mmol/L) 107 Carbon Dioxide (22 - 30 mmol/L) 22 Anion Gap (5 - 16) 6 BUN (9 - 20 mg/dL) 27 H Creatinine (0.7 - 1.2 mg/dL) 1.9 H Estimated GFR (>60 ml/min) 34 L Glucose (65 - 99 mg/dL) 107 H Calcium (8.4 - 10.2 mg/dL) 7.4 L Phosphorus (2.5 - 4.5 mg/dL) 5.1 H Magnesium (1.6 - 2.3 mg/dL) 2.2 Total Bilirubin (0.2 - 1.3 mg/dL) 0.5 AST (17 - 59 U/L) 33 ALT (21 - 72 U/L) 30 Albumin (3.5 - 5.0 g/dL) 2.1 L Hematology CBC w Diff NO MAN DIFF REQ NO MAN DIFF REQ WBC (4.8 - 10.8 /CUMM) 17.7 H 17.9 H RBC (4.70 - 6.10 /CUMM) 3.51 L 3.52 L Hgb (14.0 - 18.0 G/DL) 9.2 L 9.1 L Hct (42 - 52 %) 27.8 L 27.6 L MCV (80.0 - 94.0 FL) 79.4 L 78.5 L MCH (27.0 - 31.0 PG) 26.2 L 25.7 L MCHC (33.0 - 37.0 G/DL) 33.0 32.8 L RDW (11.5 - 14.5 %) 25.7 H 25.3 H Plt Count (130 - 400 /CUMM) 227 231 MPV (7.4 - 10.4 FL) 10.4 10.4 Gran % (42.2 - 75.2 %) 89.6 H 88.9 H Lymphocytes % (20.5 - 51.1 %) 4.5 L 5.8 L Monocytes % (1.7 - 9.3 %) 5.9 5.3 Eosinophils % (0 - 5 %) 0 0 Basophils % (0.0 - 2.0 %) 0 0 Absolute Granulocytes (1.4 - 6.5 /CUMM) 15.9 H 15.9 H Absolute Lymphocytes (1.2 - 3.4 /CUMM) 0.8 L 1.0 L Absolute Monocytes (0.10 - 0.60 /CUMM) 1.0 H 0.9 H Absolute Eosinophils (0.0 - 0.7 /CUMM) 0 0 Absolute Basophils (0.0 - 0.2 /CUMM) 0 0 18 01/27 01/27 2200 2130 2000 Chemistry Sodium (137 - 145 mmol/L) 136 L Cancelled Potassium (3.5 - 5.1 mmol/L) 4.4 Cancelled Chloride (98 - 107 mmol/L) 106 Cancelled Carbon Dioxide (22 - 30 mmol/L) 23 Cancelled Anion Gap (5 - 16) 8 Cancelled BUN (9 - 20 mg/dL) 26 H Cancelled Creatinine (0.7 - 1.2 mg/dL) 1.9 H Cancelled Estimated GFR (>60 ml/min) 34 L BUN/Creatinine Ratio Cancelled Glucose (65 - 99 mg/dL) 115 H Calcium (8.4 - 10.2 mg/dL) 7.4 L Phosphorus (2.5 - 4.5 mg/dL) 5.6 H Magnesium (1.6 - 2.3 mg/dL) 2.2 Total Bilirubin (0.2 - 1.3 mg/dL) 0.4 AST (17 - 59 U/L) 32 ALT (21 - 72 U/L) 30 Albumin (3.5 - 5.0 g/dL) 2.2 L Hematology CBC w Diff Cancelled WBC Cancelled RBC Cancelled Hgb Cancelled Hct Cancelled MCV Cancelled MCH Cancelled MCHC Cancelled RDW Cancelled Plt Count Cancelled MPV Cancelled 01/27 01/27 01/27 1700 1530 1530 Chemistry Sodium (137 - 145 mmol/L) 136 L Potassium (3.5 - 5.1 mmol/L) 4.2 Chloride (98 - 107 mmol/L) 104 Carbon Dioxide (22 - 30 mmol/L) 24 Anion Gap (5 - 16) 8 BUN (9 - 20 mg/dL) 24 H Creatinine (0.7 - 1.2 mg/dL) 1.9 H Estimated GFR (>60 ml/min) 34 L Glucose (65 - 99 mg/dL) 134 H Calcium (8.4 - 10.2 mg/dL) 7.4 L Phosphorus (2.5 - 4.5 mg/dL) 5.7 H Magnesium (1.6 - 2.3 mg/dL) 2.2 Total Bilirubin (0.2 - 1.3 mg/dL) 0.2 AST (17 - 59 U/L) 27 ALT (21 - 72 U/L) 27 Troponin I (<0.11 ng/ml) 0.04 Albumin (3.5 - 5.0 g/dL) 2.1 L Hematology CBC w Diff NO MAN DIFF REQ WBC (4.8 - 10.8 /CUMM) 18.6 H RBC (4.70 - 6.10 /CUMM) 2.88 L Hgb (14.0 - 18.0 G/DL) 7.1 *L Hct (42 - 52 %) 21.9 L MCV (80.0 - 94.0 FL) 76.3 L MCH (27.0 - 31.0 PG) 24.6 L MCHC (33.0 - 37.0 G/DL) 32.2 L RDW (11.5 - 14.5 %) 28.5 H Plt Count (130 - 400 /CUMM) 241 MPV (7.4 - 10.4 FL) 10.3 Gran % (42.2 - 75.2 %) 88.9 H Lymphocytes % (20.5 - 51.1 %) 4.4 L Monocytes % (1.7 - 9.3 %) 6.6 Eosinophils % (0 - 5 %) 0 Basophils % (0.0 - 2.0 %) 0.1 Absolute Granulocytes (1.4 - 6.5 /CUMM) 16.6 H Absolute Lymphocytes (1.2 - 3.4 /CUMM) 0.8 L Absolute Monocytes (0.10 - 0.60 /CUMM) 1.2 H Absolute Eosinophils (0.0 - 0.7 /CUMM) 0 Absolute Basophils (0.0 - 0.2 /CUMM) 0 01/27 01/27 01/27 1400 1321 1321 Hematology CBC w Diff Cancelled WBC Cancelled RBC Cancelled Hgb Cancelled Hct Cancelled MCV Cancelled MCH Cancelled MCHC Cancelled RDW Cancelled Plt Count Cancelled MPV Cancelled Urines Urine Color Cancelled Urine Clarity Cancelled Urine pH Cancelled Ur Specific [place] Cancelled Urine Protein Cancelled Urine Ketones Cancelled Urine Nitrite Cancelled Urine Bilirubin Cancelled Urine Urobilinogen Cancelled Ur Leukocyte Esterase Cancelled Ur Microscopic Cancelled Urine Hemoglobin Cancelled Ur Random Creatinine Cancelled Ur Random Sodium Cancelled Ur Random Potassium Cancelled Fraction Sodium Excret Cancelled Urine Glucose Cancelled Recent Imaging Studies: Dopplers: Calcific atherosclerotic plaque at the right carotid bifurcation with a 50-79% stenosis of the right internal carotid artery by sonographic criteria. Calcific atherosclerotic plaque at the left carotid bifurcation with a 50-79% stenosis of the left internal carotid artery by sonographic criteria. 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
[2018-01-28 15:24] LABS: ABSOLUTE BASOPHIL COUNT 0 /CUMM (0.0-0.2); ABSOLUTE EOSINOPHIL COUNT 0 /CUMM (0.0-0.7); ABSOLUTE GRANULOCYTE CT 17.7 /CUMM (1.4-6.5); ABSOLUTE LYMPH COUNT 0.6 /CUMM (1.2-3.4); ABSOLUTE MONOCYTE COUNT 0.9 /CUMM (0.10-0.60); BASOPHIL % 0 % (0.0-2.0); EOSINOPHIL % 0 % (0-5); GRANULOCYTE % 92.2 % (42.2-75.2); HEMATOCRIT 29.5 % (42-52); MEAN CORPUSCULAR HGB 26.1 PG (27.0-31.0); MEAN CORPUSCULAR HGB CONC 32.7 G/DL (33.0-37.0); MEAN CORPUSCULAR VOLUME 79.8 FL (80.0-94.0); MEAN PLATELET VOLUME 10.8 FL (7.4-10.4); PLATELET COUNT 237 /CUMM (130-400); RBC DISTRIBUTION WIDTH 26.4 % (11.5-14.5)
[2018-01-28 16:00] VITALS: BP 128/70
[2018-01-28 16:09] LABS: WHITE BLOOD CELL COUNT 19.2 /CUMM (4.8-10.8)
[2018-01-28 20:00] VITALS: BP 98/50
[2018-01-28 22:47] LABS: ABSOLUTE BASOPHIL COUNT 0 /CUMM (0.0-0.2); ABSOLUTE EOSINOPHIL COUNT 0 /CUMM (0.0-0.7); ABSOLUTE GRANULOCYTE CT 14.7 /CUMM (1.4-6.5); ABSOLUTE LYMPH COUNT 0.7 /CUMM (1.2-3.4); ABSOLUTE MONOCYTE COUNT 0.6 /CUMM (0.10-0.60); BASOPHIL % 0.1 % (0.0-2.0); EOSINOPHIL % 0.2 % (0-5); GRANULOCYTE % 91.1 % (42.2-75.2); HEMATOCRIT 27.7 % (42-52); MEAN CORPUSCULAR HGB 25.9 PG (27.0-31.0); MEAN CORPUSCULAR HGB CONC 32.9 G/DL (33.0-37.0); MEAN CORPUSCULAR VOLUME 78.7 FL (80.0-94.0); MEAN PLATELET VOLUME 9.4 FL (7.4-10.4); PLATELET COUNT 221 /CUMM (130-400); RBC DISTRIBUTION WIDTH 26.8 % (11.5-14.5); RED BLOOD CELL CT 3.52 /CUMM (4.70-6.10); WHITE BLOOD CELL COUNT 16.2 /CUMM (4.8-10.8)
[2018-01-29] VITALS: BP 100/50
[2018-01-29 05:02] LABS: ABSOLUTE BASOPHIL COUNT 0 /CUMM (0.0-0.2); ABSOLUTE EOSINOPHIL COUNT 0 /CUMM (0.0-0.7); ABSOLUTE GRANULOCYTE CT 15.1 /CUMM (1.4-6.5); ABSOLUTE LYMPH COUNT 0.5 /CUMM (1.2-3.4); ABSOLUTE MONOCYTE COUNT 0.5 /CUMM (0.10-0.60); BASOPHIL % 0 % (0.0-2.0); EOSINOPHIL % 0.3 % (0-5); GRANULOCYTE % 93.1 % (42.2-75.2); HEMATOCRIT 28.4 % (42-52); MEAN CORPUSCULAR HGB 25.8 PG (27.0-31.0); MEAN CORPUSCULAR HGB CONC 32.7 G/DL (33.0-37.0); MEAN CORPUSCULAR VOLUME 79.1 FL (80.0-94.0); MEAN PLATELET VOLUME 10.8 FL (7.4-10.4); PLATELET COUNT 255 /CUMM (130-400); RBC DISTRIBUTION WIDTH 26.3 % (11.5-14.5); WHITE BLOOD CELL COUNT 16.3 /CUMM (4.8-10.8)
--- NOTE | 2018-01-29 05:36 | PN- General Surgery ---
Subjective Subjective: Patient alert this morning and answers questions, at baseline. Still complains of diplopia which is unchanged however all other neurologic symptoms have resolved. His abdomen is quiet, is not passing gas. Denies nausea. Review of Systems: No fevers or chills Objective Vital Signs and I&Os Vital Signs Date Time Temp Pulse Resp B/P B/P Pulse O2 O2 Flow FiO2 Mean Ox Delivery Rate 01/29 0000 97.5 80 20 100/50 93 Room Air Room Air 01/28 2128 85 107/46 01/28 2042 94 Room Air Room Air 01/28 2000 95 Room Air Room Air 01/28 2000 98.8 94 18 98/50 95 Room Air Room Air 01/28 1600 98.0 78 16 128/70 98 Nasal 1.0L Cannula 01/28 1600 97 Nasal 1.0L Cannula 01/28 1200 96 Nasal 1.0L Cannula 01/28 1200 97.8 80 18 126/60 98 Nasal 1.0L Cannula 01/28 0910 94 Nasal 1.0L Cannula 01/28 0800 97.4 84 16 110/60 98 Nasal 1.0L Cannula 01/28 0800 98 Nasal 1.0L Cannula Intake & Output 01/29 0800 01/29 0000 01/28 1600 01/28 0800 01/28 0000 01/27 1600 Intake Total 1200 1400 2609 1041 3125 Output Total 235 125 300 75 25 Balance 965 1275 2309 966 3100 Intake, Blood 350 350 700 Product Intake, IV 938 779 5813 451 2125 Intake, Oral 600 700 820 240 300 Number 0 Bowel Movements Output, Urine 235 125 300 75 25 Admission Lab Results I reviewed the following labs: Laboratory Tests 01/29 01/28 0435 2220 Chemistry Sodium Pending Potassium Pending Chloride Pending Carbon Dioxide Pending Anion Gap Pending BUN Pending Creatinine Pending Glucose Pending Calcium Pending Phosphorus Pending Magnesium Pending Total Bilirubin Pending AST Pending ALT Pending Albumin Pending Hematology CBC w Diff MAN DIFF ORDERED NO MAN DIFF REQ WBC (4.8 - 10.8 /CUMM) 16.3 H 16.2 H RBC (4.70 - 6.10 /CUMM) 3.60 L 3.52 L Hgb (14.0 - 18.0 G/DL) 9.3 L 9.1 L Hct (42 - 52 %) 28.4 L 27.7 L MCV (80.0 - 94.0 FL) 79.1 L 78.7 L MCH (27.0 - 31.0 PG) 25.8 L 25.9 L MCHC (33.0 - 37.0 G/DL) 32.7 L 32.9 L RDW (11.5 - 14.5 %) 26.3 H 26.8 H Plt Count (130 - 400 /CUMM) 255 221 MPV (7.4 - 10.4 FL) 10.8 H 9.4 Gran % (42.2 - 75.2 %) 93.1 H 91.1 H Lymphocytes % (20.5 - 51.1 %) 3.3 L 4.6 L Monocytes % (1.7 - 9.3 %) 3.3 4.0 Eosinophils % (0 - 5 %) 0.3 0.2 Basophils % (0.0 - 2.0 %) 0 0.1 Absolute Granulocytes (1.4 - 6.5 /CUMM) 15.1 H 14.7 H Absolute Lymphocytes (1.2 - 3.4 /CUMM) 0.5 L 0.7 L Absolute Monocytes (0.10 - 0.60 /CUMM) 0.5 0.6 Absolute Eosinophils (0.0 - 0.7 /CUMM) 0 0 Absolute Basophils (0.0 - 0.2 /CUMM) 0 0 Platelet Estimate (ADEQUATE) ADEQUATE Polychromasia 1+ Hypochromic-Microcytic 1+ Poikilocytosis 1+ Basophilic Stippling 1+ Urines Ur Random Creatinine (mg/dL) 148.8 Ur Random Sodium (30 - 90 mmol/L) 15 L Ur Random Potassium (mmol/L) 31.6 Fraction Sodium Excret (<1% %) 0.1 01/28 01/28 1430 1400 Hematology CBC w Diff NO MAN DIFF REQ WBC (4.8 - 10.8 /CUMM) 19.2 H RBC (4.70 - 6.10 /CUMM) 3.70 L Hgb (14.0 - 18.0 G/DL) 9.6 L Hct (42 - 52 %) 29.5 L MCV (80.0 - 94.0 FL) 79.8 L MCH (27.0 - 31.0 PG) 26.1 L MCHC (33.0 - 37.0 G/DL) 32.7 L RDW (11.5 - 14.5 %) 26.4 H Plt Count (130 - 400 /CUMM) 237 MPV (7.4 - 10.4 FL) 10.8 H Gran % (42.2 - 75.2 %) 92.2 H Lymphocytes % (20.5 - 51.1 %) 3.3 L Monocytes % (1.7 - 9.3 %) 4.5 Eosinophils % (0 - 5 %) 0 Basophils % (0.0 - 2.0 %) 0 Absolute Granulocytes (1.4 - 6.5 /CUMM) 17.7 H Absolute Lymphocytes (1.2 - 3.4 /CUMM) 0.6 L Absolute Monocytes (0.10 - 0.60 /CUMM) 0.9 H Absolute Eosinophils (0.0 - 0.7 /CUMM) 0 Absolute Basophils (0.0 - 0.2 /CUMM) 0 Urines Urinalysis LIGHT H Urine Color (YEL,AMB,STR) YEL Urine Clarity (CLEAR) HAZY H Urine pH (5.0 - 8.0) 6.0 Ur Specific [place] (1.001 - 1.035) >= 1.030 Urine Protein (NEG,<30 MG/DL) 30 H Urine Ketones (NEG) NEG Urine Nitrite (NEG) NEG Urine Bilirubin (NEG) NEG Urine Urobilinogen (0.1 - 1.0 EU/dl) 0.2 Ur Leukocyte Esterase (NEG) NEG Ur Microscopic SEDIMENT EXAMINED Urine RBC (0 - 5 /HPF) 5-10 H Urine WBC (0 - 2 /HPF) RARE Granular Casts (NONE /LPF) FEW H Urine Hemoglobin (NEG) LARGE H Urine Glucose (N MG/DL) NEG 01/28 0536 Chemistry Sodium (137 - 145 mmol/L) 136 L Potassium (3.5 - 5.1 mmol/L) 4.0 Chloride (98 - 107 mmol/L) 107 Carbon Dioxide (22 - 30 mmol/L) 22 Anion Gap (5 - 16) 6 BUN (9 - 20 mg/dL) 27 H Creatinine (0.7 - 1.2 mg/dL) 1.9 H Estimated GFR (>60 ml/min) 34 L Glucose (65 - 99 mg/dL) 107 H Calcium (8.4 - 10.2 mg/dL) 7.4 L Phosphorus (2.5 - 4.5 mg/dL) 5.1 H Magnesium (1.6 - 2.3 mg/dL) 2.2 Total Bilirubin (0.2 - 1.3 mg/dL) 0.5 AST (17 - 59 U/L) 33 ALT (21 - 72 U/L) 30 Albumin (3.5 - 5.0 g/dL) 2.1 L Hematology CBC w Diff NO MAN DIFF REQ WBC (4.8 - 10.8 /CUMM) 17.7 H RBC (4.70 - 6.10 /CUMM) 3.51 L Hgb (14.0 - 18.0 G/DL) 9.2 L Hct (42 - 52 %) 27.8 L MCV (80.0 - 94.0 FL) 79.4 L MCH (27.0 - 31.0 PG) 26.2 L MCHC (33.0 - 37.0 G/DL) 33.0 RDW (11.5 - 14.5 %) 25.7 H Plt Count (130 - 400 /CUMM) 227 MPV (7.4 - 10.4 FL) 10.4 Gran % (42.2 - 75.2 %) 89.6 H Lymphocytes % (20.5 - 51.1 %) 4.5 L Monocytes % (1.7 - 9.3 %) 5.9 Eosinophils % (0 - 5 %) 0 Basophils % (0.0 - 2.0 %) 0 Absolute Granulocytes (1.4 - 6.5 /CUMM) 15.9 H Absolute Lymphocytes (1.2 - 3.4 /CUMM) 0.8 L Absolute Monocytes (0.10 - 0.60 /CUMM) 1.0 H Absolute Eosinophils (0.0 - 0.7 /CUMM) 0 Absolute Basophils (0.0 - 0.2 /CUMM) 0 Assessment/Plan Assessment/Plan 87-year-old male postop day 3 lap converted to open subtotal colectomy, with superficial splenic capsular tear interop. He suffered CVA in the perioperative period, acute blood loss anemia, acute kidney injury, ERAS Protocol Acute CVA: H&H stable, possibly start Today -awaiting a.m. labs will discuss starting IV heparin drip and aspirin with Dr. francisco Acute kidney injury: Continue IV fluids to maintain blood pressure over 120 systolic due to CVA, Consider DC Sheng will discuss with Dr Britton, monitor urine output Acute blood loss anemia: Status post transfusion of 4 units clear liquids, advance diet as tolerated DVT PPX- ALPS, Entereg until first BM out of bed to chair Core Measures Venous Thromboembolism VTE Risk Factors Surgery No Mechanical VTE Prophylaxis d/t N/A MechProphylax Ordered No VTE Pharm Prophylaxis d/t NA PharmProphylax ordered
[2018-01-29 06:00] VITALS: BP 119/56
--- NOTE | 2018-01-29 07:01 | PN- Resident CRCU ---
Subjective HPI/CRCU Issues: Brain stem stroke syndrome, diplopia with facial asymmetry improving New onset A. fib Acute anemia due to blood loss status post surgery, 4 blood transfusions. Acute kidney injury, improving History of hypertension,hyperlipidemia History of gout 24 Hour Events: No overnight events. Patient remained afebrile overnight. Seen and examined this morning. Patient denied chest pain, palpitation, nausea, vomiting, chills, fever, and dysuria. Patient reported diplopia. Patient is tolerating clear liquid diet. His right IJ was accidentally removed by itself yesterday. Objective Vital Signs & I&O Last 8 Hrs of Vitals and I&O: Intake & Output 01/29 1600 01/29 0800 01/29 0000 Intake Total 1892 406 2677 Output Total 250 260 235 Balance 1322 522 965 Intake, IV 692 602 600 Intake, Oral 880 180 600 Number 0 0 Bowel Movements Output, Urine 250 260 235 Patient 226 lb 237 lb Weight Weight Bed scale Measurement Method Laboratory Tests 01/29 01/29 01/29 1733 1627 0435 Chemistry Sodium (137 - 145 mmol/L) 136 L Potassium (3.5 - 5.1 mmol/L) 3.9 Chloride (98 - 107 mmol/L) 111 H Carbon Dioxide (22 - 30 mmol/L) 22 Anion Gap (5 - 16) 3 L BUN (9 - 20 mg/dL) 25 H Creatinine (0.7 - 1.2 mg/dL) 1.5 H Estimated GFR (>60 ml/min) 44 L Glucose (65 - 99 mg/dL) 91 Calcium (8.4 - 10.2 mg/dL) 7.5 L Phosphorus (2.5 - 4.5 mg/dL) 3.6 Magnesium (1.6 - 2.3 mg/dL) 2.4 H Total Bilirubin (0.2 - 1.3 mg/dL) 0.4 AST (17 - 59 U/L) 31 ALT (21 - 72 U/L) 37 Albumin (3.5 - 5.0 g/dL) 2.0 L Coagulation APTT (25 - 37 SEC) 44 H Hematology CBC w Diff Pending MAN DIFF ORDERED WBC (4.8 - 10.8 /CUMM) Pending 16.3 H RBC (4.70 - 6.10 /CUMM) Pending 3.60 L Hgb (14.0 - 18.0 G/DL) Pending 9.3 L Hct (42 - 52 %) Pending 28.4 L MCV (80.0 - 94.0 FL) Pending 79.1 L MCH (27.0 - 31.0 PG) Pending 25.8 L MCHC (33.0 - 37.0 G/DL) Pending 32.7 L RDW (11.5 - 14.5 %) Pending 26.3 H Plt Count (130 - 400 /CUMM) Pending 255 MPV (7.4 - 10.4 FL) Pending 10.8 H Gran % (42.2 - 75.2 %) 93.1 H Lymphocytes % (20.5 - 51.1 %) 3.3 L Monocytes % (1.7 - 9.3 %) 3.3 Eosinophils % (0 - 5 %) 0.3 Basophils % (0.0 - 2.0 %) 0 Absolute Granulocytes (1.4 - 6.5 /CUMM) 15.1 H Absolute Lymphocytes (1.2 - 3.4 /CUMM) 0.5 L Absolute Monocytes (0.10 - 0.60 /CUMM) 0.5 Absolute Eosinophils (0.0 - 0.7 /CUMM) 0 Absolute Basophils (0.0 - 0.2 /CUMM) 0 Platelet Estimate (ADEQUATE) ADEQUATE Polychromasia 1+ Hypochromic-Microcytic 1+ Poikilocytosis 1+ Basophilic Stippling 1+ 01/28 2220 Hematology CBC w Diff NO MAN DIFF REQ WBC (4.8 - 10.8 /CUMM) 16.2 H RBC (4.70 - 6.10 /CUMM) 3.52 L Hgb (14.0 - 18.0 G/DL) 9.1 L Hct (42 - 52 %) 27.7 L MCV (80.0 - 94.0 FL) 78.7 L MCH (27.0 - 31.0 PG) 25.9 L MCHC (33.0 - 37.0 G/DL) 32.9 L RDW (11.5 - 14.5 %) 26.8 H Plt Count (130 - 400 /CUMM) 221 MPV (7.4 - 10.4 FL) 9.4 Gran % (42.2 - 75.2 %) 91.1 H Lymphocytes % (20.5 - 51.1 %) 4.6 L Monocytes % (1.7 - 9.3 %) 4.0 Eosinophils % (0 - 5 %) 0.2 Basophils % (0.0 - 2.0 %) 0.1 Absolute Granulocytes (1.4 - 6.5 /CUMM) 14.7 H Absolute Lymphocytes (1.2 - 3.4 /CUMM) 0.7 L Absolute Monocytes (0.10 - 0.60 /CUMM) 0.6 Absolute Eosinophils (0.0 - 0.7 /CUMM) 0 Absolute Basophils (0.0 - 0.2 /CUMM) 0 Urines Ur Random Creatinine (mg/dL) 148.8 Ur Random Sodium (30 - 90 mmol/L) 15 L Ur Random Potassium (mmol/L) 31.6 Fraction Sodium Excret (<1% %) 0.1 Intake & Output 01/29 1600 01/29 0800 01/29 0000 Intake Total 782 1200 Output Total 260 235 Balance 522 965 Intake, IV 602 600 Intake, Oral 180 600 Number 0 0 Bowel Movements Output, Urine 260 235 Laboratory Tests 01/29 01/28 0435 2220 Chemistry Sodium (137 - 145 mmol/L) 136 L Potassium (3.5 - 5.1 mmol/L) 3.9 Chloride (98 - 107 mmol/L) 111 H Carbon Dioxide (22 - 30 mmol/L) 22 Anion Gap (5 - 16) 3 L BUN (9 - 20 mg/dL) 25 H Creatinine (0.7 - 1.2 mg/dL) 1.5 H Estimated GFR (>60 ml/min) 44 L Glucose (65 - 99 mg/dL) 91 Calcium (8.4 - 10.2 mg/dL) 7.5 L Phosphorus (2.5 - 4.5 mg/dL) 3.6 Magnesium (1.6 - 2.3 mg/dL) 2.4 H Total Bilirubin (0.2 - 1.3 mg/dL) 0.4 AST (17 - 59 U/L) 31 ALT (21 - 72 U/L) 37 Albumin (3.5 - 5.0 g/dL) 2.0 L Hematology CBC w Diff MAN DIFF ORDERED NO MAN DIFF REQ WBC (4.8 - 10.8 /CUMM) 16.3 H 16.2 H RBC (4.70 - 6.10 /CUMM) 3.60 L 3.52 L Hgb (14.0 - 18.0 G/DL) 9.3 L 9.1 L Hct (42 - 52 %) 28.4 L 27.7 L MCV (80.0 - 94.0 FL) 79.1 L 78.7 L MCH (27.0 - 31.0 PG) 25.8 L 25.9 L MCHC (33.0 - 37.0 G/DL) 32.7 L 32.9 L RDW (11.5 - 14.5 %) 26.3 H 26.8 H Plt Count (130 - 400 /CUMM) 255 221 MPV (7.4 - 10.4 FL) 10.8 H 9.4 Gran % (42.2 - 75.2 %) 93.1 H 91.1 H Lymphocytes % (20.5 - 51.1 %) 3.3 L 4.6 L Monocytes % (1.7 - 9.3 %) 3.3 4.0 Eosinophils % (0 - 5 %) 0.3 0.2 Basophils % (0.0 - 2.0 %) 0 0.1 Absolute Granulocytes (1.4 - 6.5 /CUMM) 15.1 H 14.7 H Absolute Lymphocytes (1.2 - 3.4 /CUMM) 0.5 L 0.7 L Absolute Monocytes (0.10 - 0.60 /CUMM) 0.5 0.6 Absolute Eosinophils (0.0 - 0.7 /CUMM) 0 0 Absolute Basophils (0.0 - 0.2 /CUMM) 0 0 Platelet Estimate (ADEQUATE) ADEQUATE Polychromasia 1+ Hypochromic-Microcytic 1+ Poikilocytosis 1+ Basophilic Stippling 1+ Urines Ur Random Creatinine (mg/dL) 148.8 Ur Random Sodium (30 - 90 mmol/L) 15 L Ur Random Potassium (mmol/L) 31.6 Fraction Sodium Excret (<1% %) 0.1 01/28 01/28 1430 1400 Hematology CBC w Diff NO MAN DIFF REQ WBC (4.8 - 10.8 /CUMM) 19.2 H RBC (4.70 - 6.10 /CUMM) 3.70 L Hgb (14.0 - 18.0 G/DL) 9.6 L Hct (42 - 52 %) 29.5 L MCV (80.0 - 94.0 FL) 79.8 L MCH (27.0 - 31.0 PG) 26.1 L MCHC (33.0 - 37.0 G/DL) 32.7 L RDW (11.5 - 14.5 %) 26.4 H Plt Count (130 - 400 /CUMM) 237 MPV (7.4 - 10.4 FL) 10.8 H Gran % (42.2 - 75.2 %) 92.2 H Lymphocytes % (20.5 - 51.1 %) 3.3 L Monocytes % (1.7 - 9.3 %) 4.5 Eosinophils % (0 - 5 %) 0 Basophils % (0.0 - 2.0 %) 0 Absolute Granulocytes (1.4 - 6.5 /CUMM) 17.7 H Absolute Lymphocytes (1.2 - 3.4 /CUMM) 0.6 L Absolute Monocytes (0.10 - 0.60 /CUMM) 0.9 H Absolute Eosinophils (0.0 - 0.7 /CUMM) 0 Absolute Basophils (0.0 - 0.2 /CUMM) 0 Urines Urinalysis LIGHT H Urine Color (YEL,AMB,STR) YEL Urine Clarity (CLEAR) HAZY H Urine pH (5.0 - 8.0) 6.0 Ur Specific [place] (1.001 - 1.035) >= 1.030 Urine Protein (NEG,<30 MG/DL) 30 H Urine Ketones (NEG) NEG Urine Nitrite (NEG) NEG Urine Bilirubin (NEG) NEG Urine Urobilinogen (0.1 - 1.0 EU/dl) 0.2 Ur Leukocyte Esterase (NEG) NEG Ur Microscopic SEDIMENT EXAMINED Urine RBC (0 - 5 /HPF) 5-10 H Urine WBC (0 - 2 /HPF) RARE Granular Casts (NONE /LPF) FEW H Urine Hemoglobin (NEG) LARGE H Urine Glucose (N MG/DL) NEG Exam General Appearance: well developed/nourished, no apparent distress, alert, awake Head: atraumatic, normal appearance Neck: normal inspection, supple Respiratory: normal breath sounds Cardiovascular: irregularly irregular Gastrointestinal: soft Extremities: b/l leg swelling with chronic venous changes., Echymosis on right arm Skin Temp/Moisture Exam: Warm/Dry Sepsis Skin Exam (color): Normal for Ethnicity Current Medications: Current Medications Sig/Rony Start time Last Medication Dose Route Stop Time Status Admin Acetaminophen 1,000 MG TID 01/26 2100 AC 01/28 PO 1439 Albuterol Sulfate 2 PUF Q4 01/26 1800 AC 01/29 INH 0634 Allopurinol 300 MG DAILY 01/27 0900 AC 01/29 PO 0900 Alvimopan 12 MG BID 01/26 2100 AC 01/29 PO 0900 Aspirin 81 MG DAILY 01/29 09 AC PO Atorvastatin Calcium 40 MG QPM 01/27 2100 AC 01/28 PO 2127 Budesonide/ 2 PUF BID 01/26 2100 AC 01/29 Formoterol Fumarate INH 0900 Dextrose/Sodium 1,000 ML Q13H 01/28 1030 AC 01/29 Chloride IV 0308 Dextrose/Sodium 1,000 ML Q10H 01/27 1830 DC 01/28 Chloride IV 0552 Gabapentin 200 MG Q8 01/26 2200 AC 01/29 PO 0635 Heparin Sodium/ 25,000 UNIT Q24H 01/29 0900 AC Dextrose IV Dextrose/Water 500 ML Metoprolol Tartrate 12.5 MG BID 01/27 2100 AC 01/29 PO 0900 Ondansetron HCl 4 MG Q6P PRN 01/26 2000 AC IV Oxycodone HCl 5 MG Q4-6 PRN PRN 01/26 2000 AC PO Oxycodone HCl 10 MG Q4-6 PRN PRN 01/26 2000 AC PO Potassium Chloride 20 MEQ ONCE ONE 01/29 0900 DC 01/29 PO 01/29 0901 0901 Potassium Chloride 0 .STK-MED ONE 01/29 0853 DC PO Potassium Chloride 20 MEQ ONCE ONE 01/29 0715 CAN PO 01/29 0716 Tramadol HCl 100 MG Q6P PRN 01/26 2000 AC PO Tramadol HCl 50 MG Q6P PRN 01/26 1800 AC PO Impression/Plan Impression/Problem List Impression: 87 YO M with past medical history of hypertension, hyperlipidemia and gout who came in here for laparoscopic subtotal colectomy which was converted to an open surgery. 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 Patient underwent surgery with general anesthesia. Subsequently he was noted to have new onset diplopia. He had mild facial asymmetry and poor tracking with the left eye laterally with mild horizontal nystagmus. Patient did have a CT scan after a stroke alert of the head. Due to surgery less than 24 hours with possible Intra-Op splenic injury antiplatelet therapy and TPA was not done. Postoperative nystagmus with diplopia with facial asymmetry which seems to be slowly improving. Patient's head CT was unremarkable. Appears that he probably may be flipping back and forth into atrial fibrillation. Following the patient in ICU for following problems: Acute anemia due to blood loss: -Status post surgery, 4 blood transfusion were given. -His H&H today 9.6/29.6 -Monitor for bleeding as patient is on IV heparin now. -Monitor his H&H daily Acute stroke syndrome: -Didn't receive TPA due to recent surgery. -Residual diplopia -CT scan remained negative for any intracranial bleed or infarction. -Continue Lipitor 40 mg daily -Continue aspirin 81 mg daily. Spoke to surgery this morning and they cleared the patient to start him on aspirin and heparin IV. Closely monitor him for any bleeding with CBC. -Carotid Doppler showed atherosclerosis at right and left carotid bifurcations with 5070 percent stenosis. -Follow up neurology recommendations. Irregular rhythm: -Could be atrial fibrillation or MAT. -Continue IV heparin and aspirin -Continue metoprolol 12.5 twice a day -Echocardiogram showed ejection fraction 70% with mild left ventricular hypertrophy. -Follow up cardiology recommendations Acute kidney injury: -Due to prerenal -Today his creatinine is 1.5 and BUN is 25 -Avoid nephrotoxic medications -Gentle IV hydration with dextrose normal saline at the rate of 75 mL per hour -Monitor urine output, IOP 3382/620 Colon cancer status post surgery: -Post op day 3 -Status post subtotal colectomy and spleenorrhaphy. -On clear liquid diet -Out of bed to chair and we will get PT eval if needed. -Follow-up surgery recommendations History of gout: Continue allopurinol History of peripheral neuropathy: Continue gabapentin DVT prophylaxis: Mechanical and IV heparin CODE STATUS: Full code Problem List: 1. Acute ischemic stroke 2. Colon cancer Pain Ratin Pain Location: NONE Pain Plan: PAIN PATHWAY Tomorrow's Labs & Rationales: CBC/ICU BUNDLE Plan DVT/Prophylaxis: mechanical, pharmacological
[2018-01-29 08:00] VITALS: BP 130/70
--- NOTE | 2018-01-29 08:26 | ECHOCARDIOGRAM REPORT ---
SINA COLLIER Age: 87 : 1930 Gender: M Exam Date: 01/28/2018 08:13 Exam Location: [facility] Ht (in): 69 Wt (lb): 226 BSA: 2.27 BP: 114 / 58 Ordering Physician: Tony Farrar MD Referring Physician: Tony Farrar MD Technologist: Jordyn Martines HOIWE Room Number: 111 Indications: Arrhythmias Rhythm: Atrial fibrillation Technical Quality: good FINDINGS Left Ventricle Normal left ventricular size with mild left ventricular hypertrophy. Normal systolic function with no obvious regional wall motion abnormalities. The ejection fraction is visually estimated at 70%. Right Ventricle The right ventricle is normal in size and function. Right Atrium The right atrium is normal in size. Left Atrium The left atrium is mildly enlarged. The interatrial septum is intact. Mitral Valve The mitral valve demonstrated mild annular calcification. There is no mitral regurgitation. Aortic Valve Structurally normal aortic valve without significant sclerosis or stenosis. There is no aortic regurgitation. Tricuspid Valve The tricuspid valve is normal in structure and function. There is trace tricuspid regurgitation. Pulmonary artery systolic pressure is normal. Pulmonic Valve Structurally normal pulmonic valve. There is no pulmonic regurgitation. Pericardium Normal pericardium without effusion. No pleural effusion. Great Vessels Normal aortic root dimension. The aortic arch and great vessels are well seen and are normal. CONCLUSIONS 1. Normla EF of 70%. 2. Mild left ventricular hypertrophy. 3. Mild left atrial enlargement. 4. Trace tricuspid regurgitation. Jorje Hernandez M.D. (Electronically Signed) Final Date: 29 January 2018 08:24 MEASUREMENTS (Male / Female) Normal Values 2D ECHO LV Diastolic Diameter PLAX 4.7 cm 4.2 - 5.9 / 3.9 - 5.3 cm LV Systolic Diameter PLAX 2.8 cm 2.1 - 4.0 cm LV Fractional Shortening PLAX 40.4 % 25 - 46 % LV Ejection Fraction 2D Teich 71.1 % IVS Diastolic Thickness 1.2 cm LVPW Diastolic Thickness 1.2 cm LV Relative Wall Thickness 0.5 RV Internal Dim ED PLAX 2.7 cm 1.9 - 3.8 cm LVOT Diameter 2.0 cm Aortic Root Diameter 2.9 cm LA Systolic Diameter LX 4.2 cm 3.0 - 4.0 / 2.7 - 3.8 cm LA Volume 52.0 cm 18 - 58 / 22 - 52 cm Ascending Aorta Diameter 3.2 cm DOPPLER AV Peak Velocity 164.0 cm/s AV Peak Gradient 10.8 mmHg AV Mean Velocity 117.0 cm/s AV Mean Gradient 6.0 mmHg AV Velocity Time Integral 35.6 cm LVOT Peak Velocity 124.0 cm/s LVOT Peak Gradient 6.2 mmHg LVOT Mean Velocity 89.0 cm/s LVOT Mean Gradient 4.0 mmHg LVOT Velocity Time Integral 31.1 cm LVOT Stroke Volume 97.7 cm AV Area Cont Eq vti 2.7 cm AV Area Cont Eq pk 2.4 cm MV Peak Velocity 104.0 cm/s MV Peak Gradient 4.3 mmHg MV Mean Velocity 55.0 cm/s MV Mean Gradient 2.0 mmHg Mitral E Point Velocity 80.9 cm/s Mitral A Point Velocity 85.4 cm/s Mitral E to A Ratio 0.9 MV PHT Velocity 97.7 cm/s MV Deceleration [place] 370.0 cm/s MV Pressure Half Time 79.2 ms MV Area PHT 2.8 cm MV Deceleration Time 314.0 ms TR Peak Velocity 118.0 cm/s TR Peak Gradient 5.6 mmHg Right Atrial Pressure 5.0 mmHg Pulmonary Artery Systolic Pressure 10.6 mmHg Right Ventricular Systolic Pressure 10.6 mmHg PV Peak Velocity 150.0 cm/s PV Peak Gradient 9.0 mmHg PV Mean Velocity 108.0 cm/s PV Mean Gradient 5.0 mmHg PV Velocity Time Integral 32.5 cm LV E' Lateral Velocity 6.7 cm/s Mitral E to LV E' Lateral Ratio 12.1 LV E' Septal Velocity 7.5 cm/s Mitral E to LV E' Septal Ratio 10.8
--- NOTE | 2018-01-29 09:46 | PN- General Surgery ---
Surgical Brief Attending Note Brief Attending Note: Patient looks well today Making urine and creatinine back to baseline H&H has been stable for several days Plan is as follows: 1. Okay to start therapeutic heparin without bolus dose-slowly titrate to therapeutic 2. Observe in ICU overnight until both PTT therapeutic and H&H appears stable 3. Stay on clear liquids still no good bowel function 4. Please get patient out of bed today-PT OT consult if necessary 5. To not remove Patricio catheter-per Dr. Britton very difficult Patricio intubation, will remove catheter when patient is approaching discharge
--- NOTE | 2018-01-29 10:47 | PN- CRCU ---
Subjective HPI/Critical Care Issues: Patient looks well today Making urine and creatinine back to baseline H&H has been stable for several days No overnight events. Patient remained afebrile overnight. Seen and examined this morning. Patient denied chest pain, palpitation, nausea, vomiting, chills, fever, and dysuria. Patient reported diplopia. Patient is tolerating clear liquid diet. Objective Current Medications: Current Medications Sig/Rony Start time Last Medication Dose Route Stop Time Status Admin Acetaminophen 1,000 MG TID 01/26 2100 AC 01/29 PO 0925 Albuterol Sulfate 2 PUF Q4 01/26 1800 AC 01/29 INH 0634 Allopurinol 300 MG DAILY 01/27 09 AC 01/29 PO 0900 Alvimopan 12 MG BID 01/26 2100 AC 01/29 PO 0900 Aspirin 81 MG DAILY 01/29 09 AC 01/29 PO 0925 Atorvastatin Calcium 40 MG QPM 01/27 2100 AC 01/28 PO 2127 Budesonide/ 2 PUF BID 01/26 2100 AC 01/29 Formoterol Fumarate INH 0900 Dextrose/Sodium 1,000 ML Q13H 01/28 1030 AC 01/29 Chloride IV 0308 Gabapentin 200 MG Q8 01/26 2200 AC 01/29 PO 0635 Heparin Sodium/ 25,000 UNIT Q24H 01/29 09 AC 01/29 Dextrose IV 1022 Dextrose/Water 500 ML Metoprolol Tartrate 12.5 MG BID 01/27 2100 AC 01/29 PO 0900 Ondansetron HCl 4 MG Q6P PRN 01/27 2000 AC IV Oxycodone HCl 5 MG Q4-6 PRN PRN 01/27 2000 AC PO Oxycodone HCl 10 MG Q4-6 PRN PRN 01/27 2000 AC PO Potassium Chloride 20 MEQ ONCE ONE 01/29 0900 DC 01/29 PO 01/29 0901 0901 Potassium Chloride 0 .STK-MED ONE 01/29 0853 DC PO Potassium Chloride 20 MEQ ONCE ONE 01/29 0715 CAN PO 01/29 0716 Tramadol HCl 100 MG Q6P PRN 01/27 2000 AC PO Tramadol HCl 50 MG Q6P PRN 01/26 1800 AC PO Vital Signs & I&O Last 24 Hrs of Vitals and I&O: Vital Signs Date Time Temp Pulse Resp B/P B/P Pulse O2 O2 Flow FiO2 Mean Ox Delivery Rate 01/29 0900 83 114/56 01/29 0800 97.5 91 16 130/70 94 Room Air 01/29 0800 94 Room Air 01/29 0600 84 14 119/56 92 Room Air Room Air 01/29 0000 97.5 80 20 100/50 93 Room Air Room Air 01/28 2128 85 107/46 01/28 2042 94 Room Air Room Air 01/28 2000 95 Room Air Room Air 01/28 2000 98.8 94 18 98/50 95 Room Air Room Air 01/28 1600 98.0 78 16 128/70 98 Nasal 1.0L Cannula 01/28 1600 97 Nasal 1.0L Cannula 01/28 1200 96 Nasal 1.0L Cannula 01/28 1200 97.8 80 18 126/60 98 Nasal 1.0L Cannula Intake & Output 01/29 1600 01/29 0800 01/29 0000 Intake Total 782 1200 Output Total 260 235 Balance 522 965 Intake, IV 602 600 Intake, Oral 180 600 Number 0 0 Bowel Movements Output, Urine 260 235 Patient 237 lb Weight Weight Bed scale Measurement Method Laboratory Tests 01/29 01/28 0435 2220 Chemistry Sodium (137 - 145 mmol/L) 136 L Potassium (3.5 - 5.1 mmol/L) 3.9 Chloride (98 - 107 mmol/L) 111 H Carbon Dioxide (22 - 30 mmol/L) 22 Anion Gap (5 - 16) 3 L BUN (9 - 20 mg/dL) 25 H Creatinine (0.7 - 1.2 mg/dL) 1.5 H Estimated GFR (>60 ml/min) 44 L Glucose (65 - 99 mg/dL) 91 Calcium (8.4 - 10.2 mg/dL) 7.5 L Phosphorus (2.5 - 4.5 mg/dL) 3.6 Magnesium (1.6 - 2.3 mg/dL) 2.4 H Total Bilirubin (0.2 - 1.3 mg/dL) 0.4 AST (17 - 59 U/L) 31 ALT (21 - 72 U/L) 37 Albumin (3.5 - 5.0 g/dL) 2.0 L Hematology CBC w Diff MAN DIFF ORDERED NO MAN DIFF REQ WBC (4.8 - 10.8 /CUMM) 16.3 H 16.2 H RBC (4.70 - 6.10 /CUMM) 3.60 L 3.52 L Hgb (14.0 - 18.0 G/DL) 9.3 L 9.1 L Hct (42 - 52 %) 28.4 L 27.7 L MCV (80.0 - 94.0 FL) 79.1 L 78.7 L MCH (27.0 - 31.0 PG) 25.8 L 25.9 L MCHC (33.0 - 37.0 G/DL) 32.7 L 32.9 L RDW (11.5 - 14.5 %) 26.3 H 26.8 H Plt Count (130 - 400 /CUMM) 255 221 MPV (7.4 - 10.4 FL) 10.8 H 9.4 Gran % (42.2 - 75.2 %) 93.1 H 91.1 H Lymphocytes % (20.5 - 51.1 %) 3.3 L 4.6 L Monocytes % (1.7 - 9.3 %) 3.3 4.0 Eosinophils % (0 - 5 %) 0.3 0.2 Basophils % (0.0 - 2.0 %) 0 0.1 Absolute Granulocytes (1.4 - 6.5 /CUMM) 15.1 H 14.7 H Absolute Lymphocytes (1.2 - 3.4 /CUMM) 0.5 L 0.7 L Absolute Monocytes (0.10 - 0.60 /CUMM) 0.5 0.6 Absolute Eosinophils (0.0 - 0.7 /CUMM) 0 0 Absolute Basophils (0.0 - 0.2 /CUMM) 0 0 Platelet Estimate (ADEQUATE) ADEQUATE Polychromasia 1+ Hypochromic-Microcytic 1+ Poikilocytosis 1+ Basophilic Stippling 1+ Urines Ur Random Creatinine (mg/dL) 148.8 Ur Random Sodium (30 - 90 mmol/L) 15 L Ur Random Potassium (mmol/L) 31.6 Fraction Sodium Excret (<1% %) 0.1 01/28 01/28 1430 1400 Hematology CBC w Diff NO MAN DIFF REQ WBC (4.8 - 10.8 /CUMM) 19.2 H RBC (4.70 - 6.10 /CUMM) 3.70 L Hgb (14.0 - 18.0 G/DL) 9.6 L Hct (42 - 52 %) 29.5 L MCV (80.0 - 94.0 FL) 79.8 L MCH (27.0 - 31.0 PG) 26.1 L MCHC (33.0 - 37.0 G/DL) 32.7 L RDW (11.5 - 14.5 %) 26.4 H Plt Count (130 - 400 /CUMM) 237 MPV (7.4 - 10.4 FL) 10.8 H Gran % (42.2 - 75.2 %) 92.2 H Lymphocytes % (20.5 - 51.1 %) 3.3 L Monocytes % (1.7 - 9.3 %) 4.5 Eosinophils % (0 - 5 %) 0 Basophils % (0.0 - 2.0 %) 0 Absolute Granulocytes (1.4 - 6.5 /CUMM) 17.7 H Absolute Lymphocytes (1.2 - 3.4 /CUMM) 0.6 L Absolute Monocytes (0.10 - 0.60 /CUMM) 0.9 H Absolute Eosinophils (0.0 - 0.7 /CUMM) 0 Absolute Basophils (0.0 - 0.2 /CUMM) 0 Urines Urinalysis LIGHT H Urine Color (YEL,AMB,STR) YEL Urine Clarity (CLEAR) HAZY H Urine pH (5.0 - 8.0) 6.0 Ur Specific [place] (1.001 - 1.035) >= 1.030 Urine Protein (NEG,<30 MG/DL) 30 H Urine Ketones (NEG) NEG Urine Nitrite (NEG) NEG Urine Bilirubin (NEG) NEG Urine Urobilinogen (0.1 - 1.0 EU/dl) 0.2 Ur Leukocyte Esterase (NEG) NEG Ur Microscopic SEDIMENT EXAMINED Urine RBC (0 - 5 /HPF) 5-10 H Urine WBC (0 - 2 /HPF) RARE Granular Casts (NONE /LPF) FEW H Urine Hemoglobin (NEG) LARGE H Urine Glucose (N MG/DL) NEG 01/28 01/28 0536 0135 Chemistry Sodium (137 - 145 mmol/L) 136 L Potassium (3.5 - 5.1 mmol/L) 4.0 Chloride (98 - 107 mmol/L) 107 Carbon Dioxide (22 - 30 mmol/L) 22 Anion Gap (5 - 16) 6 BUN (9 - 20 mg/dL) 27 H Creatinine (0.7 - 1.2 mg/dL) 1.9 H Estimated GFR (>60 ml/min) 34 L Glucose (65 - 99 mg/dL) 107 H Calcium (8.4 - 10.2 mg/dL) 7.4 L Phosphorus (2.5 - 4.5 mg/dL) 5.1 H Magnesium (1.6 - 2.3 mg/dL) 2.2 Total Bilirubin (0.2 - 1.3 mg/dL) 0.5 AST (17 - 59 U/L) 33 ALT (21 - 72 U/L) 30 Albumin (3.5 - 5.0 g/dL) 2.1 L Hematology CBC w Diff NO MAN DIFF REQ NO MAN DIFF REQ WBC (4.8 - 10.8 /CUMM) 17.7 H 17.9 H RBC (4.70 - 6.10 /CUMM) 3.51 L 3.52 L Hgb (14.0 - 18.0 G/DL) 9.2 L 9.1 L Hct (42 - 52 %) 27.8 L 27.6 L MCV (80.0 - 94.0 FL) 79.4 L 78.5 L MCH (27.0 - 31.0 PG) 26.2 L 25.7 L MCHC (33.0 - 37.0 G/DL) 33.0 32.8 L RDW (11.5 - 14.5 %) 25.7 H 25.3 H Plt Count (130 - 400 /CUMM) 227 231 MPV (7.4 - 10.4 FL) 10.4 10.4 Gran % (42.2 - 75.2 %) 89.6 H 88.9 H Lymphocytes % (20.5 - 51.1 %) 4.5 L 5.8 L Monocytes % (1.7 - 9.3 %) 5.9 5.3 Eosinophils % (0 - 5 %) 0 0 Basophils % (0.0 - 2.0 %) 0 0 Absolute Granulocytes (1.4 - 6.5 /CUMM) 15.9 H 15.9 H Absolute Lymphocytes (1.2 - 3.4 /CUMM) 0.8 L 1.0 L Absolute Monocytes (0.10 - 0.60 /CUMM) 1.0 H 0.9 H Absolute Eosinophils (0.0 - 0.7 /CUMM) 0 0 Absolute Basophils (0.0 - 0.2 /CUMM) 0 0 01/27 01/27 01/27 2200 2130 2000 Chemistry Sodium (137 - 145 mmol/L) 136 L Cancelled Potassium (3.5 - 5.1 mmol/L) 4.4 Cancelled Chloride (98 - 107 mmol/L) 106 Cancelled Carbon Dioxide (22 - 30 mmol/L) 23 Cancelled Anion Gap (5 - 16) 8 Cancelled BUN (9 - 20 mg/dL) 26 H Cancelled Creatinine (0.7 - 1.2 mg/dL) 1.9 H Cancelled Estimated GFR (>60 ml/min) 34 L BUN/Creatinine Ratio Cancelled Glucose (65 - 99 mg/dL) 115 H Calcium (8.4 - 10.2 mg/dL) 7.4 L Phosphorus (2.5 - 4.5 mg/dL) 5.6 H Magnesium (1.6 - 2.3 mg/dL) 2.2 Total Bilirubin (0.2 - 1.3 mg/dL) 0.4 AST (17 - 59 U/L) 32 ALT (21 - 72 U/L) 30 Albumin (3.5 - 5.0 g/dL) 2.2 L Hematology CBC w Diff Cancelled WBC Cancelled RBC Cancelled Hgb Cancelled Hct Cancelled MCV Cancelled MCH Cancelled MCHC Cancelled RDW Cancelled Plt Count Cancelled MPV Cancelled 01/27 01/27 01/27 1700 1530 1530 Chemistry Sodium (137 - 145 mmol/L) 136 L Potassium (3.5 - 5.1 mmol/L) 4.2 Chloride (98 - 107 mmol/L) 104 Carbon Dioxide (22 - 30 mmol/L) 24 Anion Gap (5 - 16) 8 BUN (9 - 20 mg/dL) 24 H Creatinine (0.7 - 1.2 mg/dL) 1.9 H Estimated GFR (>60 ml/min) 34 L Glucose (65 - 99 mg/dL) 134 H Calcium (8.4 - 10.2 mg/dL) 7.4 L Phosphorus (2.5 - 4.5 mg/dL) 5.7 H Magnesium (1.6 - 2.3 mg/dL) 2.2 Total Bilirubin (0.2 - 1.3 mg/dL) 0.2 AST (17 - 59 U/L) 27 ALT (21 - 72 U/L) 27 Troponin I (<0.11 ng/ml) 0.04 Albumin (3.5 - 5.0 g/dL) 2.1 L Hematology CBC w Diff NO MAN DIFF REQ WBC (4.8 - 10.8 /CUMM) 18.6 H RBC (4.70 - 6.10 /CUMM) 2.88 L Hgb (14.0 - 18.0 G/DL) 7.1 *L Hct (42 - 52 %) 21.9 L MCV (80.0 - 94.0 FL) 76.3 L MCH (27.0 - 31.0 PG) 24.6 L MCHC (33.0 - 37.0 G/DL) 32.2 L RDW (11.5 - 14.5 %) 28.5 H Plt Count (130 - 400 /CUMM) 241 MPV (7.4 - 10.4 FL) 10.3 Gran % (42.2 - 75.2 %) 88.9 H Lymphocytes % (20.5 - 51.1 %) 4.4 L Monocytes % (1.7 - 9.3 %) 6.6 Eosinophils % (0 - 5 %) 0 Basophils % (0.0 - 2.0 %) 0.1 Absolute Granulocytes (1.4 - 6.5 /CUMM) 16.6 H Absolute Lymphocytes (1.2 - 3.4 /CUMM) 0.8 L Absolute Monocytes (0.10 - 0.60 /CUMM) 1.2 H Absolute Eosinophils (0.0 - 0.7 /CUMM) 0 Absolute Basophils (0.0 - 0.2 /CUMM) 0 01/27 01/27 01/27 1400 1321 1321 Hematology CBC w Diff Cancelled WBC Cancelled RBC Cancelled Hgb Cancelled Hct Cancelled MCV Cancelled MCH Cancelled MCHC Cancelled RDW Cancelled Plt Count Cancelled MPV Cancelled Urines Urine Color Cancelled Urine Clarity Cancelled Urine pH Cancelled Ur Specific [place] Cancelled Urine Protein Cancelled Urine Ketones Cancelled Urine Nitrite Cancelled Urine Bilirubin Cancelled Urine Urobilinogen Cancelled Ur Leukocyte Esterase Cancelled Ur Microscopic Cancelled Urine Hemoglobin Cancelled Ur Random Creatinine Cancelled Ur Random Sodium Cancelled Ur Random Potassium Cancelled Fraction Sodium Excret Cancelled Urine Glucose Cancelled Microbiology Date/Time Procedure - Status Source Growth 01/26 2245 Surveillance Culture - COMP UPPER RESP 01/26 2245 Surveillance Culture - COMP GI 01/26 1730 Urine Culture - COMP URINE ROUT Impression/Plan Impression/Plan Impression/Plan: GEN- NAD RESP- CLEAR, DECREASED EFFORT CARDIAC-at times irregular ABD- ND, DECREASED BS, SOFT, TENDER AVANI IN LLQ No significant edema Neurological exam moves all 4 limbs no significant weakness mild nystagmus mild facial asymmetry but seems to have improved since the last exam noted in the computer IMPRESSION This is an elderly gentleman who has history of hypertension, gout, hyperlipidemia, no postop open subtotal colectomy with spleno raphe from splenic laceration, has adenocarcinoma the descending colon villous adenoma: 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 Patient's head CT was unremarkable. * New onset Afib / on asa Rate controlled * Blood loss anemia immediate postop now s/p transfusion / CT abd nil sig for any active bleeding and no obstructive uropathy * Acute Kidney injury now slowly recovering with improving urine out put * History of hypertension, hyperlipidemia, gout appears to be stable RECOMMENDATION Watch crit daily / pt now on heparin (check with neuro) Increase atorvastatin to 40 when he is taking p.o. Continue his inhalers as needed Reduce allopurinol to 200 mg daily Diet per surg OOB to chair Dc ivf Po PPI low dose 20 mg Watch for pulm edema and if he develops then give lasix iv Will transfer to the floor in am
[2018-01-29 12:00] VITALS: BP 102/52
[2018-01-29 16:00] VITALS: BP 118/52
[2018-01-29 17:08] LABS: PTT 44 SEC (25-37)
[2018-01-29 19:03] LABS: ABSOLUTE BASOPHIL COUNT 0 /CUMM (0.0-0.2); ABSOLUTE EOSINOPHIL COUNT 0.2 /CUMM (0.0-0.7); ABSOLUTE GRANULOCYTE CT 15.9 /CUMM (1.4-6.5); ABSOLUTE LYMPH COUNT 0.7 /CUMM (1.2-3.4); ABSOLUTE MONOCYTE COUNT 0.6 /CUMM (0.10-0.60); BASOPHIL % 0.1 % (0.0-2.0); HEMATOCRIT 29.5 % (42-52); MEAN CORPUSCULAR HGB 25.8 PG (27.0-31.0); MEAN CORPUSCULAR HGB CONC 32.6 G/DL (33.0-37.0); MEAN CORPUSCULAR VOLUME 79.2 FL (80.0-94.0); PLATELET COUNT 280 /CUMM (130-400); RBC DISTRIBUTION WIDTH 26.6 % (11.5-14.5); RED BLOOD CELL CT 3.73 /CUMM (4.70-6.10); WHITE BLOOD CELL COUNT 17.3 /CUMM (4.8-10.8)
[2018-01-29 19:11] LABS: GRANULOCYTE % 91.9 % (42.2-75.2)
--- NOTE | 2018-01-29 19:38 | PN- Cardiology ---
Subjective Subjective: * No specific complaints. * Appears to be in atrial fibrillation. * creatinine improved to 1.5 * Stable H/H Objective Vital Signs and I&Os Vital Signs Date Time Temp Pulse Resp B/P B/P Pulse O2 O2 Flow FiO2 Mean Ox Delivery Rate 01/29 1600 95 Room Air 01/29 1600 97.1 76 11 118/52 95 Room Air 01/29 1201 96 Room Air Room Air 01/29 1200 94 Room Air 01/29 1200 97.5 82 20 102/52 94 Room Air 01/29 0900 83 114/56 01/29 0800 97.5 91 16 130/70 94 Room Air 01/29 0800 94 Room Air 01/29 0600 84 14 119/56 92 Room Air Room Air 01/29 0000 97.5 80 20 100/50 93 Room Air Room Air 01/28 2128 85 107/46 01/28 2042 94 Room Air Room Air 01/28 2000 95 Room Air Room Air 01/28 2000 98.8 94 18 98/50 95 Room Air Room Air Intake & Output 01/29 1600 01/29 0800 01/29 0000 01/28 1600 01/28 0800 01/28 0000 Intake Total 0471 002 5169 1400 2609 1041 Output Total 250 260 235 125 300 75 Balance 1322 855 935 2137 2309 966 Intake, Blood 350 350 Product Intake, IV 692 602 046 841 9285 451 Intake, Oral 880 180 600 700 820 240 Number 0 0 Bowel Movements Output, Urine 250 260 235 125 300 75 Patient 226 lb 237 lb Weight Weight Bed scale Measurement Method Physical Exam: General: WD/WN male in NAD; alert and oriented x3 with decreased memory HEENT: NC/AT, PERRL, EOMI Neck: no JVD, no carotid bruit Heart: irregularly irregular with 2/6 systolic murmur Lungs: clear bilaterally Abdomen: soft with midline surgical incision Extremities: no edema, venous stasis changes bilaterally Assessment/Plan Assessment/Plan * 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 He does appear to be in atrial fibrillation. Would begin IV heparin with monitoring for any drop in H/H. He is not tachycardic on minimal rate control medications and his pre-operative ECG was also irregular but with low voltage P waves with first degree AV block. I would also consider an acute drop in H/H and transient hypotension as a cause of his neurological event. * Continue a statin. Continue telemetry? Yes
[2018-01-29 20:00] VITALS: BP 120/62
[2018-01-29 23:13] LABS: PTT 93 SEC (25-37)
[2018-01-30 06:11] LABS: ABSOLUTE BASOPHIL COUNT 0 /CUMM (0.0-0.2); ABSOLUTE EOSINOPHIL COUNT 0.3 /CUMM (0.0-0.7); ABSOLUTE GRANULOCYTE CT 16.2 /CUMM (1.4-6.5); ABSOLUTE LYMPH COUNT 0.7 /CUMM (1.2-3.4); ABSOLUTE MONOCYTE COUNT 0.7 /CUMM (0.10-0.60); BASOPHIL % 0 % (0.0-2.0); EOSINOPHIL % 1.6 % (0-5); HEMATOCRIT 31.1 % (42-52); MEAN CORPUSCULAR HGB 25.7 PG (27.0-31.0); MEAN CORPUSCULAR HGB CONC 32.6 G/DL (33.0-37.0); MEAN CORPUSCULAR VOLUME 78.9 FL (80.0-94.0); MEAN PLATELET VOLUME 10.6 FL (7.4-10.4); PLATELET COUNT 311 /CUMM (130-400); RBC DISTRIBUTION WIDTH 26.7 % (11.5-14.5); RED BLOOD CELL CT 3.93 /CUMM (4.70-6.10); WHITE BLOOD CELL COUNT 17.9 /CUMM (4.8-10.8)
--- NOTE | 2018-01-30 06:32 | PN- General Surgery ---
See Addendum Subjective Subjective: feeling ok, no flatus, no bm, no n/v. antelmo clears Objective Vital Signs and I&Os Vital Signs Date Time Temp Pulse Resp B/P B/P Pulse O2 O2 Flow FiO2 Mean Ox Delivery Rate 01/29 2315 96 Room Air 01/29 2128 85 132/62 01/29 2000 96 Room Air 01/29 2000 97.3 79 13 120/62 96 Room Air 01/29 1600 95 Room Air 01/29 1600 97.1 76 11 118/52 95 Room Air 01/29 1201 96 Room Air Room Air 01/29 1200 94 Room Air 01/29 1200 97.5 82 20 102/52 94 Room Air 01/29 0900 83 114/56 01/29 0800 97.5 91 16 130/70 94 Room Air 01/29 0800 94 Room Air Intake & Output 01/30 0800 01/30 0000 01/29 1600 01/29 0800 01/29 0000 01/28 1600 Intake Total 242 1075 6596 735 9502 2800 Output Total 240 525 250 260 235 250 Balance 2 550 1322 007 110 0404 Intake, IV 242 575 692 912 440 4057 Intake, Oral 500 880 545 149 9456 Number 0 0 Bowel Movements Output, Urine 240 525 250 260 235 250 Patient 226 lb 237 lb Weight Weight Bed scale Measurement Method Physical Exam: gen- nad card-s1s2 pulm- decreased at bases abd- stapled incisions cdi, post sites cdi w skin glue, obese, softly distended, ttp at midline incision. ext- calves soft nt, alps on Results Last 48 Hours of Labs: Laboratory Tests 01/30 01/29 01/29 01/29 0500 2250 1733 1627 Chemistry Sodium Pending Potassium Pending Chloride Pending Carbon Dioxide Pending Anion Gap Pending BUN Pending Creatinine Pending Glucose Pending Calcium Pending Phosphorus Pending Magnesium Pending Total Bilirubin Pending AST Pending ALT Pending Albumin Pending Coagulation APTT (25 - 37 SEC) Pending 93 H 44 H Hematology CBC w Diff Pending NO MAN DIFF REQ WBC (4.8 - 10.8 /CUMM) Pending 17.3 H RBC (4.70 - 6.10 /CUMM) Pending 3.73 L Hgb (14.0 - 18.0 G/DL) Pending 9.6 L Hct (42 - 52 %) Pending 29.5 L MCV (80.0 - 94.0 FL) Pending 79.2 L MCH (27.0 - 31.0 PG) Pending 25.8 L MCHC (33.0 - 37.0 G/DL) Pending 32.6 L RDW (11.5 - 14.5 %) Pending 26.6 H Plt Count (130 - 400 /CUMM) Pending 280 MPV (7.4 - 10.4 FL) Pending 11.0 H Gran % (42.2 - 75.2 %) 91.9 H Lymphocytes % (20.5 - 51.1 %) 3.8 L Monocytes % (1.7 - 9.3 %) 3.2 Eosinophils % (0 - 5 %) 1.0 Basophils % (0.0 - 2.0 %) 0.1 Absolute Granulocytes (1.4 - 6.5 /CUMM) 15.9 H Absolute Lymphocytes (1.2 - 3.4 /CUMM) 0.7 L Absolute Monocytes (0.10 - 0.60 /CUMM) 0.6 Absolute Eosinophils (0.0 - 0.7 /CUMM) 0.2 Absolute Basophils (0.0 - 0.2 /CUMM) 0 01/29 01/28 0435 2220 Chemistry Sodium (137 - 145 mmol/L) 136 L Potassium (3.5 - 5.1 mmol/L) 3.9 Chloride (98 - 107 mmol/L) 111 H Carbon Dioxide (22 - 30 mmol/L) 22 Anion Gap (5 - 16) 3 L BUN (9 - 20 mg/dL) 25 H Creatinine (0.7 - 1.2 mg/dL) 1.5 H Estimated GFR (>60 ml/min) 44 L Glucose (65 - 99 mg/dL) 91 Calcium (8.4 - 10.2 mg/dL) 7.5 L Phosphorus (2.5 - 4.5 mg/dL) 3.6 Magnesium (1.6 - 2.3 mg/dL) 2.4 H Total Bilirubin (0.2 - 1.3 mg/dL) 0.4 AST (17 - 59 U/L) 31 ALT (21 - 72 U/L) 37 Albumin (3.5 - 5.0 g/dL) 2.0 L Hematology CBC w Diff MAN DIFF ORDERED NO MAN DIFF REQ WBC (4.8 - 10.8 /CUMM) 16.3 H 16.2 H RBC (4.70 - 6.10 /CUMM) 3.60 L 3.52 L Hgb (14.0 - 18.0 G/DL) 9.3 L 9.1 L Hct (42 - 52 %) 28.4 L 27.7 L MCV (80.0 - 94.0 FL) 79.1 L 78.7 L MCH (27.0 - 31.0 PG) 25.8 L 25.9 L MCHC (33.0 - 37.0 G/DL) 32.7 L 32.9 L RDW (11.5 - 14.5 %) 26.3 H 26.8 H Plt Count (130 - 400 /CUMM) 255 221 MPV (7.4 - 10.4 FL) 10.8 H 9.4 Gran % (42.2 - 75.2 %) 93.1 H 91.1 H Lymphocytes % (20.5 - 51.1 %) 3.3 L 4.6 L Monocytes % (1.7 - 9.3 %) 3.3 4.0 Eosinophils % (0 - 5 %) 0.3 0.2 Basophils % (0.0 - 2.0 %) 0 0.1 Absolute Granulocytes (1.4 - 6.5 /CUMM) 15.1 H 14.7 H Absolute Lymphocytes (1.2 - 3.4 /CUMM) 0.5 L 0.7 L Absolute Monocytes (0.10 - 0.60 /CUMM) 0.5 0.6 Absolute Eosinophils (0.0 - 0.7 /CUMM) 0 0 Absolute Basophils (0.0 - 0.2 /CUMM) 0 0 Platelet Estimate (ADEQUATE) ADEQUATE Polychromasia 1+ Hypochromic-Microcytic 1+ Poikilocytosis 1+ Basophilic Stippling 1+ Urines Ur Random Creatinine (mg/dL) 148.8 Ur Random Sodium (30 - 90 mmol/L) 15 L Ur Random Potassium (mmol/L) 31.6 Fraction Sodium Excret (<1% %) 0.1 01/28 01/28 1430 1400 Hematology CBC w Diff NO MAN DIFF REQ WBC (4.8 - 10.8 /CUMM) 19.2 H RBC (4.70 - 6.10 /CUMM) 3.70 L Hgb (14.0 - 18.0 G/DL) 9.6 L Hct (42 - 52 %) 29.5 L MCV (80.0 - 94.0 FL) 79.8 L MCH (27.0 - 31.0 PG) 26.1 L MCHC (33.0 - 37.0 G/DL) 32.7 L RDW (11.5 - 14.5 %) 26.4 H Plt Count (130 - 400 /CUMM) 237 MPV (7.4 - 10.4 FL) 10.8 H Gran % (42.2 - 75.2 %) 92.2 H Lymphocytes % (20.5 - 51.1 %) 3.3 L Monocytes % (1.7 - 9.3 %) 4.5 Eosinophils % (0 - 5 %) 0 Basophils % (0.0 - 2.0 %) 0 Absolute Granulocytes (1.4 - 6.5 /CUMM) 17.7 H Absolute Lymphocytes (1.2 - 3.4 /CUMM) 0.6 L Absolute Monocytes (0.10 - 0.60 /CUMM) 0.9 H Absolute Eosinophils (0.0 - 0.7 /CUMM) 0 Absolute Basophils (0.0 - 0.2 /CUMM) 0 Urines Urinalysis LIGHT H Urine Color (YEL,AMB,STR) YEL Urine Clarity (CLEAR) HAZY H Urine pH (5.0 - 8.0) 6.0 Ur Specific [place] (1.001 - 1.035) >= 1.030 Urine Protein (NEG,<30 MG/DL) 30 H Urine Ketones (NEG) NEG Urine Nitrite (NEG) NEG Urine Bilirubin (NEG) NEG Urine Urobilinogen (0.1 - 1.0 EU/dl) 0.2 Ur Leukocyte Esterase (NEG) NEG Ur Microscopic SEDIMENT EXAMINED Urine RBC (0 - 5 /HPF) 5-10 H Urine WBC (0 - 2 /HPF) RARE Granular Casts (NONE /LPF) FEW H Urine Hemoglobin (NEG) LARGE H Urine Glucose (N MG/DL) NEG Assessment/Plan Assessment/Plan POD4 sp lap-open subtotal colectomy, with slow return bowel fxn, in icu due to afib/cva/sunil- improving on hep gtt, stable P- fu labs cont hep gtt, medical meds per medical team cont clr liquids, awaiting return bowel fxn oob, pt,ot keep foely in place per dr. perez will sophy attending Core Measures Venous Thromboembolism VTE Risk Factors Surgery No Mechanical VTE Prophylaxis d/t N/A MechProphylax Ordered No VTE Pharm Prophylaxis d/t NA PharmProphylax ordered
[2018-01-30 06:58] LABS: PTT 120 SEC (25-37)
[2018-01-30 07:03] LABS: GRANULOCYTE % 90.7 % (42.2-75.2)
--- NOTE | 2018-01-30 07:19 | PN- Resident CRCU ---
Subjective HPI/CRCU Issues: Brain stem stroke syndrome, diplopia with facial asymmetry improving New onset A. fib Acute anemia due to blood loss status post surgery, 4 blood transfusions. Acute kidney injury, improving History of hypertension,hyperlipidemia History of gout 24 Hour Events: No overnight events. Patient remained afebrile overnight. Seen and examined this morning. Patient denied chest pain, palpitation, nausea, vomiting, chills, fever, and dysuria. patient still has diplopia. He is out of bed in the chair yesterday. Patient has sluggish bowel movements and not able to pass gas yet. Objective Vital Signs & I&O Last 8 Hrs of Vitals and I&O: Intake & Output 01/30 1600 01/30 0800 01/30 0000 Intake Total 242 1075 Output Total 240 525 Balance 2 550 Intake, IV 242 575 Intake, Oral 500 Output, Urine 240 525 Laboratory Tests 01/30 01/29 0500 2250 Chemistry Sodium (137 - 145 mmol/L) 136 L Potassium (3.5 - 5.1 mmol/L) 3.9 Chloride (98 - 107 mmol/L) 108 H Carbon Dioxide (22 - 30 mmol/L) 23 Anion Gap (5 - 16) 5 BUN (9 - 20 mg/dL) 21 H Creatinine (0.7 - 1.2 mg/dL) 1.1 Estimated GFR (>60 ml/min) > 60 Glucose (65 - 99 mg/dL) 103 H Calcium (8.4 - 10.2 mg/dL) 7.7 L Phosphorus (2.5 - 4.5 mg/dL) 3.5 Magnesium (1.6 - 2.3 mg/dL) 2.4 H Total Bilirubin (0.2 - 1.3 mg/dL) 0.5 AST (17 - 59 U/L) 29 ALT (21 - 72 U/L) 37 Albumin (3.5 - 5.0 g/dL) 2.1 L Coagulation APTT (25 - 37 SEC) 120 *H 93 H Hematology CBC w Diff NO MAN DIFF REQ WBC (4.8 - 10.8 /CUMM) 17.9 H RBC (4.70 - 6.10 /CUMM) 3.93 L Hgb (14.0 - 18.0 G/DL) 10.1 L Hct (42 - 52 %) 31.1 L MCV (80.0 - 94.0 FL) 78.9 L MCH (27.0 - 31.0 PG) 25.7 L MCHC (33.0 - 37.0 G/DL) 32.6 L RDW (11.5 - 14.5 %) 26.7 H Plt Count (130 - 400 /CUMM) 311 MPV (7.4 - 10.4 FL) 10.6 H Gran % (42.2 - 75.2 %) 90.7 H Lymphocytes % (20.5 - 51.1 %) 3.8 L Monocytes % (1.7 - 9.3 %) 3.9 Eosinophils % (0 - 5 %) 1.6 Basophils % (0.0 - 2.0 %) 0 Absolute Granulocytes (1.4 - 6.5 /CUMM) 16.2 H Absolute Lymphocytes (1.2 - 3.4 /CUMM) 0.7 L Absolute Monocytes (0.10 - 0.60 /CUMM) 0.7 H Absolute Eosinophils (0.0 - 0.7 /CUMM) 0.3 Absolute Basophils (0.0 - 0.2 /CUMM) 0 01/29 01/29 1733 1627 Coagulation APTT (25 - 37 SEC) 44 H Hematology CBC w Diff NO MAN DIFF REQ WBC (4.8 - 10.8 /CUMM) 17.3 H RBC (4.70 - 6.10 /CUMM) 3.73 L Hgb (14.0 - 18.0 G/DL) 9.6 L Hct (42 - 52 %) 29.5 L MCV (80.0 - 94.0 FL) 79.2 L MCH (27.0 - 31.0 PG) 25.8 L MCHC (33.0 - 37.0 G/DL) 32.6 L RDW (11.5 - 14.5 %) 26.6 H Plt Count (130 - 400 /CUMM) 280 MPV (7.4 - 10.4 FL) 11.0 H Gran % (42.2 - 75.2 %) 91.9 H Lymphocytes % (20.5 - 51.1 %) 3.8 L Monocytes % (1.7 - 9.3 %) 3.2 Eosinophils % (0 - 5 %) 1.0 Basophils % (0.0 - 2.0 %) 0.1 Absolute Granulocytes (1.4 - 6.5 /CUMM) 15.9 H Absolute Lymphocytes (1.2 - 3.4 /CUMM) 0.7 L Absolute Monocytes (0.10 - 0.60 /CUMM) 0.6 Absolute Eosinophils (0.0 - 0.7 /CUMM) 0.2 Absolute Basophils (0.0 - 0.2 /CUMM) 0 Exam General Appearance: well developed/nourished, no apparent distress, alert, awake Head: atraumatic Neck: normal inspection, supple Respiratory: normal breath sounds, chest non-tender Cardiovascular: irregularly irregular Gastrointestinal: soft, non-tender Extremities: pedal edema, b/l chronic venous changes, right arm ecchymosis Skin Temp/Moisture Exam: Warm/Dry Sepsis Skin Exam (color): Normal for Ethnicity Current Medications: Current Medications Sig/Rony Start time Last Medication Dose Route Stop Time Status Admin Acetaminophen 1,000 MG TID 01/26 2100 AC 01/30 PO 0843 Al Hydroxide/Mg 30 ML ONCE ONE 01/30 0845 DC 01/30 Hydroxide PO 01/30 0846 0841 Al Hydroxide/Mg 0 .STK-MED ONE 01/30 0842 DC Hydroxide PO Albuterol Sulfate 2 PUF Q4 01/26 1800 AC 01/29 INH 0634 Allopurinol 200 MG DAILY 01/30 09 AC 01/30 PO 0843 Allopurinol 300 MG DAILY 01/27 0900 DC 01/29 PO 0900 Alvimopan 12 MG BID 01/26 2100 AC 01/30 PO 0842 Aspirin 81 MG DAILY 01/29 09 AC 01/30 PO 0841 Atorvastatin Calcium 40 MG QPM 01/27 2100 AC 01/29 PO 2128 Budesonide/ 2 PUF BID 01/26 2100 AC 01/30 Formoterol Fumarate INH 0843 Dextrose/Sodium 1,000 ML Q13H 01/28 1030 DC 01/29 Chloride IV 0308 Docusate Sodium 100 MG BID 01/30 0900 AC 01/30 PO 0841 Docusate Sodium 0 .STK-MED ONE 01/30 0841 DC PO Gabapentin 200 MG Q8 01/26 2200 AC 01/30 PO 0554 Heparin Sodium/ 25,000 UNIT Q24H 01/29 0900 AC 01/30 Dextrose IV 0842 Dextrose/Water 500 ML Metoprolol Tartrate 12.5 MG BID 01/27 2100 AC 01/30 PO 0842 Omeprazole 20 MG DAILY AC 01/30 0700 AC 01/30 PO 0601 Ondansetron HCl 4 MG Q6P PRN 01/27 2000 AC 01/30 IV 0415 Oxycodone HCl 5 MG Q4-6 PRN PRN 01/27 2000 AC PO Oxycodone HCl 10 MG Q4-6 PRN PRN 01/27 2000 AC PO Potassium Chloride 20 MEQ ONCE ONE 01/30 0730 DC 01/30 PO 01/30 0731 0841 Tramadol HCl 100 MG Q6P PRN 01/27 2000 AC PO Tramadol HCl 50 MG Q6P PRN 01/26 1800 AC PO Impression/Plan Impression/Problem List Impression: 87 YO M with past medical history of hypertension, hyperlipidemia and gout who came in here for laparoscopic subtotal colectomy which was converted to an open surgery. 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 Patient underwent surgery with general anesthesia. Subsequently he was noted to have new onset diplopia. He had mild facial asymmetry and poor tracking with the left eye laterally with mild horizontal nystagmus. Patient did have a CT scan after a stroke alert of the head. Due to surgery less than 24 hours with possible Intra-Op splenic injury antiplatelet therapy and TPA was not done. Postoperative nystagmus with diplopia with facial asymmetry which seems to be slowly improving. Patient's head CT was unremarkable. Appears that he probably may be flipping back and forth into atrial fibrillation. Following the patient in ICU for following problems: Acute anemia due to blood loss: -Status post surgery, 4 blood transfusion were given. -His H&H today . -Monitor for bleeding as patient is on IV heparin now. -Monitor his H&H daily -The patient remained stable we will transfer him to telemetry. Acute stroke syndrome: -Didn't receive TPA due to recent surgery. -Residual diplopia -CT scan remained negative for any intracranial bleed or infarction. -Continue Lipitor 40 mg daily -Continue aspirin 81 mg daily. Spoke to surgery this morning and they cleared the patient to start him on aspirin and heparin IV. Closely monitor him for any bleeding with CBC. -Carotid Doppler showed atherosclerosis at right and left carotid bifurcations with 5070 percent stenosis. -Follow up neurology recommendations. Irregular rhythm: -Could be atrial fibrillation or MAT. -Continue IV heparin and aspirin -Continue metoprolol 12.5 twice a day -Echocardiogram showed ejection fraction 70% with mild left ventricular hypertrophy. -Follow up cardiology recommendations Acute kidney injury: -Due to prerenal -Today his creatinine is 1.1 and BUN is 21 -Avoid nephrotoxic medications -Monitor urine output, IOP 2889/1015 Colon cancer status post surgery: -Post op day 4 -Status post subtotal colectomy and spleenorrhaphy. -On clear liquid diet, sluggisg bowel movements and not passing gas. -Out of bed to chair and we will get PT eval if needed. -Follow-up surgery recommendations Leukocytosis: -Patient remained afebrile, possibly reactionary. -Off antibiotics, watching for signs of infection. -Follow-up chest x-ray as he was complaining of cough. History of gout: Continue allopurinol History of peripheral neuropathy: Continue gabapentin Diet: -On clear liquids. DVT prophylaxis: Mechanical and IV heparin CODE STATUS: Full code Problem List: 1. Acute ischemic stroke 2. Colon cancer Pain Ratin Pain Location: none Pain Plan: pain pathway Tomorrow's Labs & Rationales: cbc/icu bundle Plan DVT/Prophylaxis: mechanical, pharmacological
[2018-01-30 08:00] VITALS: BP 148/60
--- NOTE | 2018-01-30 10:10 | PN- Neurology ---
Subjective Subjective: Still complains of diplopia Review of Systems: no difficulty swallowing, no lateralized weakness or ataxia, no slurring of speech vision clear with either eye covered Objective Vital Signs and I&Os Vital Signs Date Time Temp Pulse Resp B/P B/P Pulse O2 O2 Flow FiO2 Mean Ox Delivery Rate 01/30 0946 95 Room Air 01/30 0917 Room Air Room Air 01/30 0913 Room Air Room Air 01/30 0842 89 164/72 01/29 2315 96 Room Air 01/29 2128 85 132/62 01/29 2000 96 Room Air 01/29 2000 97.3 79 13 120/62 96 Room Air 01/29 1600 95 Room Air 01/29 1600 97.1 76 11 118/52 95 Room Air 01/29 1201 96 Room Air Room Air 01/29 1200 94 Room Air 01/29 1200 97.5 82 20 102/52 94 Room Air Intake & Output 01/30 1600 01/30 0800 01/30 0000 01/29 1600 01/29 0800 01/29 0000 Intake Total 242 1075 1384 090 7409 Output Total 240 525 250 260 235 Balance 2 550 1322 522 965 Intake, IV 242 575 692 602 600 Intake, Oral 500 880 180 600 Number 0 0 Bowel Movements Output, Urine 240 525 250 260 235 Patient 226 lb 237 lb Weight Weight Bed scale Measurement Method Physical Exam: Alert. VFF, acuity grossly normal OU tends to close left eye to avoid diplopia EOMs = mild left SHAMIKA cannot determine exact type of diplopia to right but suspect SHAMIKA as well Current Medications: Current Medications Sig/Rony Start time Last Medication Dose Route Stop Time Status Admin Acetaminophen 1,000 MG TID 01/26 2100 AC 01/30 PO 0843 Al Hydroxide/Mg 30 ML ONCE ONE 01/30 0845 DC 01/30 Hydroxide PO 01/30 0846 0841 Al Hydroxide/Mg 0 .STK-MED ONE 01/30 0842 DC Hydroxide PO Albuterol Sulfate 2 PUF Q4 01/26 1800 AC 01/29 INH 0634 Allopurinol 200 MG DAILY 01/30 0900 AC 01/30 PO 0843 Allopurinol 300 MG DAILY 01/27 09 DC 01/29 PO 0900 Alvimopan 12 MG BID 01/26 2100 AC 01/30 PO 0842 Aspirin 81 MG DAILY 01/29 09 AC 01/30 PO 0841 Atorvastatin Calcium 40 MG QPM 01/27 2100 AC 01/29 PO 2128 Budesonide/ 2 PUF BID 01/26 2100 AC 01/30 Formoterol Fumarate INH 0843 Dextrose/Sodium 1,000 ML Q13H 01/28 1030 DC 01/29 Chloride IV 0308 Docusate Sodium 100 MG BID 01/30 0900 AC 01/30 PO 0841 Docusate Sodium 0 .STK-MED ONE 01/30 0841 DC PO Gabapentin 200 MG Q8 01/26 2200 AC 01/30 PO 0554 Heparin Sodium/ 25,000 UNIT Q24H 01/29 0900 AC 01/30 Dextrose IV 0842 Dextrose/Water 500 ML Metoprolol Tartrate 12.5 MG BID 01/27 2100 AC 01/30 PO 0842 Omeprazole 20 MG DAILY AC 01/30 0700 AC 01/30 PO 0601 Ondansetron HCl 4 MG Q6P PRN 01/27 2000 AC 01/30 IV 0415 Oxycodone HCl 5 MG Q4-6 PRN PRN 01/27 2000 AC PO Oxycodone HCl 10 MG Q4-6 PRN PRN 01/27 2000 AC PO Potassium Chloride 20 MEQ ONCE ONE 01/30 0730 DC 01/30 PO 01/30 0731 0841 Tramadol HCl 100 MG Q6P PRN 01/27 2000 AC PO Tramadol HCl 50 MG Q6P PRN 01/26 1800 AC PO Results Last 24 Hours of Lab Results: Laboratory Tests 01/30 01/29 0500 2250 Chemistry Sodium (137 - 145 mmol/L) 136 L Potassium (3.5 - 5.1 mmol/L) 3.9 Chloride (98 - 107 mmol/L) 108 H Carbon Dioxide (22 - 30 mmol/L) 23 Anion Gap (5 - 16) 5 BUN (9 - 20 mg/dL) 21 H Creatinine (0.7 - 1.2 mg/dL) 1.1 Estimated GFR (>60 ml/min) > 60 Glucose (65 - 99 mg/dL) 103 H Calcium (8.4 - 10.2 mg/dL) 7.7 L Phosphorus (2.5 - 4.5 mg/dL) 3.5 Magnesium (1.6 - 2.3 mg/dL) 2.4 H Total Bilirubin (0.2 - 1.3 mg/dL) 0.5 AST (17 - 59 U/L) 29 ALT (21 - 72 U/L) 37 Albumin (3.5 - 5.0 g/dL) 2.1 L Coagulation APTT (25 - 37 SEC) 120 *H 93 H Hematology CBC w Diff NO MAN DIFF REQ WBC (4.8 - 10.8 /CUMM) 17.9 H RBC (4.70 - 6.10 /CUMM) 3.93 L Hgb (14.0 - 18.0 G/DL) 10.1 L Hct (42 - 52 %) 31.1 L MCV (80.0 - 94.0 FL) 78.9 L MCH (27.0 - 31.0 PG) 25.7 L MCHC (33.0 - 37.0 G/DL) 32.6 L RDW (11.5 - 14.5 %) 26.7 H Plt Count (130 - 400 /CUMM) 311 MPV (7.4 - 10.4 FL) 10.6 H Gran % (42.2 - 75.2 %) 90.7 H Lymphocytes % (20.5 - 51.1 %) 3.8 L Monocytes % (1.7 - 9.3 %) 3.9 Eosinophils % (0 - 5 %) 1.6 Basophils % (0.0 - 2.0 %) 0 Absolute Granulocytes (1.4 - 6.5 /CUMM) 16.2 H Absolute Lymphocytes (1.2 - 3.4 /CUMM) 0.7 L Absolute Monocytes (0.10 - 0.60 /CUMM) 0.7 H Absolute Eosinophils (0.0 - 0.7 /CUMM) 0.3 Absolute Basophils (0.0 - 0.2 /CUMM) 0 01/29 01/29 1733 1627 Coagulation APTT (25 - 37 SEC) 44 H Hematology CBC w Diff NO MAN DIFF REQ WBC (4.8 - 10.8 /CUMM) 17.3 H RBC (4.70 - 6.10 /CUMM) 3.73 L Hgb (14.0 - 18.0 G/DL) 9.6 L Hct (42 - 52 %) 29.5 L MCV (80.0 - 94.0 FL) 79.2 L MCH (27.0 - 31.0 PG) 25.8 L MCHC (33.0 - 37.0 G/DL) 32.6 L RDW (11.5 - 14.5 %) 26.6 H Plt Count (130 - 400 /CUMM) 280 MPV (7.4 - 10.4 FL) 11.0 H Gran % (42.2 - 75.2 %) 91.9 H Lymphocytes % (20.5 - 51.1 %) 3.8 L Monocytes % (1.7 - 9.3 %) 3.2 Eosinophils % (0 - 5 %) 1.0 Basophils % (0.0 - 2.0 %) 0.1 Absolute Granulocytes (1.4 - 6.5 /CUMM) 15.9 H Absolute Lymphocytes (1.2 - 3.4 /CUMM) 0.7 L Absolute Monocytes (0.10 - 0.60 /CUMM) 0.6 Absolute Eosinophils (0.0 - 0.7 /CUMM) 0.2 Absolute Basophils (0.0 - 0.2 /CUMM) 0 Recent Imaging Studies: No new Assessment/Plan Assessment: CVA, persistent deficit = diplopia, SHAMIKA, pontine location stable Plan: proceed with treatments as planned call back if can be of further assistance
--- NOTE | 2018-01-30 10:55 | PN- Pulmonary ---
Subjective HPI/Critical Care Issues: feeling ok, no flatus, no bm, no n/v. antelmo clears Objective Current Medications: Current Medications Sig/Rony Start time Last Medication Dose Route Stop Time Status Admin Acetaminophen 1,000 MG TID 01/26 2100 AC 01/30 PO 0843 Al Hydroxide/Mg 30 ML ONCE ONE 01/30 0845 DC 01/30 Hydroxide PO 01/30 0846 0841 Al Hydroxide/Mg 0 .STK-MED ONE 01/30 0842 DC Hydroxide PO Albuterol Sulfate 2 PUF Q4 01/26 1800 AC 01/29 INH 0634 Allopurinol 200 MG DAILY 01/30 0900 AC 01/30 PO 0843 Allopurinol 300 MG DAILY 01/27 0900 DC 01/29 PO 0900 Alvimopan 12 MG BID 01/26 2100 AC 01/30 PO 0842 Aspirin 81 MG DAILY 01/29 0900 AC 01/30 PO 0841 Atorvastatin Calcium 40 MG QPM 01/27 2100 AC 01/29 PO 2128 Budesonide/ 2 PUF BID 01/26 2100 AC 01/30 Formoterol Fumarate INH 0843 Dextrose/Sodium 1,000 ML Q13H 01/28 1030 DC 01/29 Chloride IV 0308 Docusate Sodium 100 MG BID 01/30 0900 AC 01/30 PO 0841 Docusate Sodium 0 .STK-MED ONE 01/30 0841 DC PO Gabapentin 200 MG Q8 01/26 2200 AC 01/30 PO 0554 Heparin Sodium/ 25,000 UNIT Q24H 01/29 0900 AC 01/30 Dextrose IV 0842 Dextrose/Water 500 ML Metoprolol Tartrate 12.5 MG BID 01/27 2100 AC 01/30 PO 0842 Omeprazole 20 MG DAILY AC 01/30 0700 AC 01/30 PO 0601 Ondansetron HCl 4 MG Q6P PRN 01/27 2000 AC 01/30 IV 0415 Oxycodone HCl 5 MG Q4-6 PRN PRN 01/27 2000 AC PO Oxycodone HCl 10 MG Q4-6 PRN PRN 01/27 2000 AC PO Potassium Chloride 20 MEQ ONCE ONE 01/30 0730 DC 01/30 PO 01/30 0731 0841 Tramadol HCl 100 MG Q6P PRN 01/27 2000 AC PO Tramadol HCl 50 MG Q6P PRN 01/26 1800 AC PO Vital Signs & I&O Last 24 Hrs of Vitals and I&O: Vital Signs Date Time Temp Pulse Resp B/P B/P Pulse O2 O2 Flow FiO2 Mean Ox Delivery Rate 01/30 0946 95 Room Air 01/30 0917 Room Air Room Air 01/30 0913 Room Air Room Air 01/30 0842 89 164/72 01/29 2315 96 Room Air 01/29 2128 85 132/62 01/29 2000 96 Room Air 01/29 2000 97.3 79 13 120/62 96 Room Air 01/29 1600 95 Room Air 01/29 1600 97.1 76 11 118/52 95 Room Air 01/29 1201 96 Room Air Room Air 01/29 1200 94 Room Air 01/29 1200 97.5 82 20 102/52 94 Room Air Intake & Output 01/30 1600 01/30 0800 01/30 0000 Intake Total 242 1075 Output Total 240 525 Balance 2 550 Intake, IV 242 575 Intake, Oral 500 Output, Urine 240 525 Impression/Plan Impression/Plan Impression/Plan: GEN- NAD RESP- CLEAR, DECREASED EFFORT CARDIAC-at times irregular ABD- ND, DECREASED BS, SOFT, TENDER AVANI IN LLQ No significant edema Neurological exam moves all 4 limbs no significant weakness mild nystagmus mild facial asymmetry but seems to have improved since the last exam noted in the computer IMPRESSION This is an elderly gentleman who has history of hypertension, gout, hyperlipidemia, no postop open subtotal colectomy with spleno raphe from splenic laceration, has adenocarcinoma the descending colon villous adenoma: Now has * Resolving Brain stem Stroke syndrome / Postoperative nystagmus with diplopia with facial asymmetry which seems to be slowly improving. Patient's head CT was unremarkable. * New onset Afib / on asa Rate controlled / Heparin started * Stable Blood loss anemia immediate postop now s/p transfusion / CT abd nil sig for any active bleeding and no obstructive uropathy * Acute Kidney injury now resolved * History of hypertension, hyperlipidemia, gout appears to be stable RECOMMENDATION Watch crit daily / pt now on heparin (check with neuro) COnt high dose statin Continue his inhalers as needed Diet per surg / PT eval OOB to chair Po PPI low dose 20 mg Will transfer to the floor
--- NOTE | 2018-01-30 14:32 | Transfer of Care Summary ---
Hospital Course Course Hospital Course: Reason for ICU admission: Patient had brain stem stroke syndrome with diplopia and facial asymmetry. Patient also had new onset atrial fibrillation and acute kidney injury s/p subtotal colectomy. History of presenting illness: 87 YO M with past medical history of hypertension, hyperlipidemia and gout who came in here for laparoscopic subtotal colectomy which was converted to an open surgery. 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 Patient underwent surgery with general anesthesia. Subsequently he was noted to have new onset diplopia. He had mild facial asymmetry and poor tracking with the left eye laterally with mild horizontal nystagmus. Patient did have a CT scan after a stroke alert of the head. Patient 's head CT was unremarkable. Due to surgery less than 24 hours with possible Intra-Op splenic injury antiplatelet therapy and TPA was not done. Interval events in ICU: Patient had recent surgery on 01/26/18. After surgery patient had stroke alert as he was complaining of diplopia and facial asymmetry was noticed. His facial asymmetry improved but diplopia still there. Considering patient's recent surgery he was not candidate for TPA. Neurology recommended Lipitor initially. She was also found to have proxysmal atrial fibrillation although patient's heart rate remained under control. Cardiology consult was obtained and recommendations were followed. Considering patient's recent surgery, patient was not candidate for anticoagulation. His blood pressure was in 90s systolic, right IJ central catheter was placed to check his CVP. Considering patient's acute kidney injury probably due to prerenal, he was given IV fluids and his central venous pressure was checked. All his antihypertensive medications were stopped. His metoprolol dose was decreased. Patient was also found to have acute blood loss anemia with hemoglobin 7.1. Patient received 4 blood transfusions. His hemoglobin improved to 9.6. With IV fluids patient's kidney function improved and his blood pressure also improved. Patient didn't required any pressors. Later on as patient's hemoglobin improved cardiology recommended to start him on aspirin and IV heparin according to stroke prevention protocol and surgery also agreed with it. Patient's H&H was monitored that remained stable. Patient's bowel movement is still sluggish and not able to pass gas. Surgery recommended to start him on clear liquids. We will advance the diet if his bowel movements improves per surgery. Patient has leukocytosis but he remained afebrile. His sputum culture is pending. His urine culture remained negative. Mechanical ventilation: Never been intubated during ICU stay. NPPV: Never been on BiPAP/CPAP Antibiotic plan: Patient received postoperative Flagyl and clindamycin for 1 day. Later on discontinued per surgery. Catheters/lines: Patient had difficulty Patricio's catheter insertion before surgery. Urology placed the Patricio's catheter. Things to follow-up on floor: -Please follow up with urology for Patricio's discontinuation. -Please follow up with surgery for diet advancement. -Please follow up his leukocyte count and monitor for signs of infection. -Monitor H&H daily as patient is on IV heparin. -Follow up with cardiology to switch his IV heparin to Eliquis. Nutrition: On clear liquid diet. DVT prophylaxis: Mechanical and pharmacological CODE STATUS: Full code Assessment/Plan: Acute anemia due to blood loss:(improved) -Status post surgery, 4 blood transfusion were given. -His H&H today 9.1/28.0 -Monitor for bleeding as patient is on IV heparin now. -Monitor his H&H daily -We will transfer him to telemetry today. Acute stroke syndrome: -Didn't receive TPA due to recent surgery. -Residual diplopia -CT scan remained negative for any intracranial bleed or infarction. -Continue Lipitor 40 mg daily -Continue aspirin 81 mg daily. Closely monitor him for any bleeding with CBC. -Carotid Doppler showed atherosclerosis at right and left carotid bifurcations with 5070 percent stenosis. Irregular rhythm: -Could be atrial fibrillation or MAT. -Continue IV heparin and aspirin. His IV heparin will be switched to oral anticoagulation. -Continue metoprolol 12.5 twice a day -Echocardiogram showed ejection fraction 70% with mild left ventricular hypertrophy. -Follow up cardiology recommendations Acute kidney injury: -Due to prerenal -Today his creatinine is 1.1 and BUN is 24 -Avoid nephrotoxic medications -Monitor urine output, IOP 2189/665 -Patient is not able to drink enough water we will give him IV fluids. Colon cancer status post surgery: -Post op day 5 -Status post subtotal colectomy and spleenorrhaphy. -Diet has been advanced to full liquid. -Out of bed to chair and we will get PT eval if needed. -Follow-up surgery recommendations Leukocytosis: -Patient remained afebrile, possibly reactionary after the surgery due to stress. -Off antibiotics, watching for signs of infection. -Chest x-ray remained negative for any infection. History of gout: Continue allopurinol History of peripheral neuropathy: Continue gabapentin Diet: -Full liquid diet. DVT prophylaxis: Mechanical and IV heparin CODE STATUS: Full code
--- NOTE | 2018-01-30 14:54 | RADIOLOGY REPORT ---
EXAMINATION: XR PORTABLE CHEST CLINICAL INFORMATION: Cough, leukocytosis, expectoration. COMPARISON: CT abdomen and pelvis 01/27/2018, chest radiograph 01/27/2018. TECHNIQUE: Portable frontal view of the chest was obtained. FINDINGS: Free air is seen under the right hemidiaphragm, consistent with recent surgery. The lungs are hypoinflated which significantly limits evaluation. Bibasilar patchy airspace opacities, right greater than left, have increased since the prior study. No pneumothorax. Possible small bilateral pleural effusions. The cardiomediastinal silhouette is poorly assessed due to hypoinflation and bibasilar opacities. EKG leads project over the chest. Interval removal of the right internal jugular central venous catheter. No acute osseous abnormality. IMPRESSION: Significant hypoventilatory changes and patient rotation limit this evaluation. Bibasilar airspace opacities, right greater than left have increased since the prior study, however it is not clear whether this is due to worsening airspace disease or secondary to the patient's hypoventilatory changes. Persistent air is seen beneath the right hemidiaphragm in keeping with the patient's recent surgery. Continued attention on followup imaging is recommended to ensure gradual resolution.
[2018-01-30 15:10] LABS: PTT 43 SEC (25-37)
[2018-01-30 16:00] VITALS: BP 130/74
--- NOTE | 2018-01-30 19:52 | PN- Cardiology ---
Subjective Subjective: * No complaints. * Multifocal atrial rhythm * stable H/H Objective Vital Signs and I&Os Vital Signs Date Time Temp Pulse Resp B/P B/P Pulse O2 O2 Flow FiO2 Mean Ox Delivery Rate 01/30 1934 96 Room Air 01/30 1600 96.8 81 22 130/74 93 Room Air 01/30 0946 95 Room Air 01/30 0917 Room Air Room Air 01/30 0913 Room Air Room Air 01/30 0842 89 164/72 01/30 0800 Room Air 01/30 0800 98.1 92 22 148/60 96 Room Air 01/29 2315 96 Room Air 01/29 2128 85 132/62 01/29 2000 96 Room Air 01/30 2000 97.3 79 13 120/62 96 Room Air Intake & Output 01/30 1600 01/30 0800 01/30 0000 01/29 1600 01/29 0800 01/29 0000 Intake Total 970 892 3825 6987 960 5964 Output Total 250 240 525 250 260 235 Balance 475 2 550 1322 522 965 Intake, IV 165 242 575 692 602 600 Intake, Oral 560 500 880 180 600 Number 0 0 0 Bowel Movements Output, Urine 250 240 525 250 260 235 Patient 226 lb 237 lb Weight Weight Bed scale Measurement Method Physical Exam: General: WD/WN male in NAD; alert and oriented x3 with decreased memory HEENT: NC/AT, PERRL, EOMI Neck: no JVD, no carotid bruit Heart: irregularly with 2/6 systolic murmur Lungs: clear bilaterally Abdomen: soft with midline surgical incision Extremities: no edema, venous stasis changes bilaterally Assessment/Plan Assessment/Plan * 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 Atrial fibrillation has been noted although he now appear to have a multifocal atrial rhythm. Continue IV heparin with monitoring for any drop in H/H. He is not tachycardic on minimal rate control medications. I would also consider an acute drop in H/H and transient hypotension as a cause of his neurological event. When he is felt safe from bleeding an oral anticoagulant can be started. * Continue a statin. Continue telemetry? Yes
[2018-01-30 20:00] VITALS: BP 113/60
[2018-01-30 23:05] LABS: PTT 69 SEC (25-37)
[2018-01-31] VITALS: BP 97/49
[2018-01-31 05:51] LABS: ABSOLUTE BASOPHIL COUNT 0 /CUMM (0.0-0.2); ABSOLUTE EOSINOPHIL COUNT 0.3 /CUMM (0.0-0.7); ABSOLUTE GRANULOCYTE CT 16.2 /CUMM (1.4-6.5); ABSOLUTE LYMPH COUNT 0.7 /CUMM (1.2-3.4); ABSOLUTE MONOCYTE COUNT 1.1 /CUMM (0.10-0.60); BASOPHIL % 0.1 % (0.0-2.0); EOSINOPHIL % 1.7 % (0-5); GRANULOCYTE % 88.5 % (42.2-75.2); MEAN CORPUSCULAR HGB 25.9 PG (27.0-31.0); MEAN CORPUSCULAR HGB CONC 32.7 G/DL (33.0-37.0); MEAN CORPUSCULAR VOLUME 79.4 FL (80.0-94.0); MEAN PLATELET VOLUME 10.5 FL (7.4-10.4); PLATELET COUNT 302 /CUMM (130-400); RBC DISTRIBUTION WIDTH 26.9 % (11.5-14.5); RED BLOOD CELL CT 3.53 /CUMM (4.70-6.10)
--- NOTE | 2018-01-31 05:55 | PN- General Surgery ---
See Addendum Subjective Subjective: No acute events overnight, no complaints, minimal pain in the abdomen. Patient states he had a large bowel movement overnight. Confirmed with nurse. No fever no flulike illness. Objective Vital Signs and I&Os Vital Signs Date Time Temp Pulse Resp B/P B/P Pulse O2 O2 Flow FiO2 Mean Ox Delivery Rate 01/31 0000 97.6 84 16 97/49 96 Room Air 01/30 2041 81 27 113/60 01/30 2000 96.1 81 27 113/60 96 Room Air 01/30 1934 96 Room Air 01/30 1600 96.8 81 22 130/74 93 Room Air 01/30 0946 95 Room Air 01/30 0917 Room Air Room Air 01/30 0913 Room Air Room Air 01/30 0842 89 164/72 01/30 0800 Room Air 01/30 0800 98.1 92 22 148/60 96 Room Air Intake & Output 01/31 0800 01/31 0000 01/30 1600 01/30 0800 01/30 0000 01/29 1600 Intake Total 242 1221.6 906 011 3170 1572 Output Total 190 225 250 240 525 250 Balance 52 996.6 475 2 550 1322 Intake, IV 242 741.6 165 242 575 692 Intake, Oral 480 560 500 880 Number 1 0 Bowel Movements Output, Urine 190 225 250 240 525 250 Patient 226 lb Weight Weight Bed scale Measurement Method Physical Exam: Well-developed well-nourished no apparent distress. HEENT: Atraumatic, extraocular motion intact Neck: Supple, no lymphadenopathy Respiratory: No respiratory distress Abdomen: Well-healing midline surgical incision, no signs of infection. No drainage. Abdomen is minimally tender and minimally distended. Positive bowel sounds Extremities: No edema, no calf pain Neuro: Alert and oriented x3 Psych: Mood affect normal, normal memory normal judgment. Skin: Warm and dry, no rash on exposed skin Results Last 48 Hours of Labs: Laboratory Tests 01/31 01/30 01/30 01/30 0435 2205 1433 0500 Chemistry Sodium (137 - 145 mmol/L) Pending 136 L Potassium (3.5 - 5.1 mmol/L) Pending 3.9 Chloride (98 - 107 mmol/L) Pending 108 H Carbon Dioxide (22 - 30 mmol/L) Pending 23 Anion Gap (5 - 16) Pending 5 BUN (9 - 20 mg/dL) Pending 21 H Creatinine (0.7 - 1.2 mg/dL) Pending 1.1 Estimated GFR (>60 ml/min) > 60 Glucose (65 - 99 mg/dL) Pending 103 H Serum Osmolality (285 - 295 MOSM/KG) 285 Calcium (8.4 - 10.2 mg/dL) Pending 7.7 L Phosphorus (2.5 - 4.5 mg/dL) Pending 3.5 Magnesium (1.6 - 2.3 mg/dL) Pending 2.4 H Total Bilirubin (0.2 - 1.3 mg/dL) Pending 0.5 AST (17 - 59 U/L) Pending 29 ALT (21 - 72 U/L) Pending 37 Albumin (3.5 - 5.0 g/dL) Pending 2.1 L Coagulation APTT (25 - 37 SEC) 69 H 43 H 120 *H Hematology CBC w Diff Pending NO MAN DIFF REQ WBC (4.8 - 10.8 /CUMM) Pending 17.9 H RBC (4.70 - 6.10 /CUMM) Pending 3.93 L Hgb (14.0 - 18.0 G/DL) Pending 10.1 L Hct (42 - 52 %) Pending 31.1 L MCV (80.0 - 94.0 FL) Pending 78.9 L MCH (27.0 - 31.0 PG) Pending 25.7 L MCHC (33.0 - 37.0 G/DL) Pending 32.6 L RDW (11.5 - 14.5 %) Pending 26.7 H Plt Count (130 - 400 /CUMM) Pending 311 MPV (7.4 - 10.4 FL) Pending 10.6 H Gran % (42.2 - 75.2 %) Pending 90.7 H Lymphocytes % (20.5 - 51.1 %) Pending 3.8 L Monocytes % (1.7 - 9.3 %) Pending 3.9 Eosinophils % (0 - 5 %) Pending 1.6 Basophils % (0.0 - 2.0 %) Pending 0 Absolute Granulocytes (1.4 - 6.5 /CUMM) Pending 16.2 H Absolute Lymphocytes (1.2 - 3.4 /CUMM) Pending 0.7 L Absolute Monocytes (0.10 - 0.60 /CUMM) Pending 0.7 H Absolute Eosinophils (0.0 - 0.7 /CUMM) Pending 0.3 Absolute Basophils (0.0 - 0.2 /CUMM) Pending 0 01/29 01/29 01/29 2250 1733 1627 Coagulation APTT (25 - 37 SEC) 93 H 44 H Hematology CBC w Diff NO MAN DIFF REQ WBC (4.8 - 10.8 /CUMM) 17.3 H RBC (4.70 - 6.10 /CUMM) 3.73 L Hgb (14.0 - 18.0 G/DL) 9.6 L Hct (42 - 52 %) 29.5 L MCV (80.0 - 94.0 FL) 79.2 L MCH (27.0 - 31.0 PG) 25.8 L MCHC (33.0 - 37.0 G/DL) 32.6 L RDW (11.5 - 14.5 %) 26.6 H Plt Count (130 - 400 /CUMM) 280 MPV (7.4 - 10.4 FL) 11.0 H Gran % (42.2 - 75.2 %) 91.9 H Lymphocytes % (20.5 - 51.1 %) 3.8 L Monocytes % (1.7 - 9.3 %) 3.2 Eosinophils % (0 - 5 %) 1.0 Basophils % (0.0 - 2.0 %) 0.1 Absolute Granulocytes (1.4 - 6.5 /CUMM) 15.9 H Absolute Lymphocytes (1.2 - 3.4 /CUMM) 0.7 L Absolute Monocytes (0.10 - 0.60 /CUMM) 0.6 Absolute Eosinophils (0.0 - 0.7 /CUMM) 0.2 Absolute Basophils (0.0 - 0.2 /CUMM) 0 Assessment/Plan Assessment/Plan POD5 sp lap-open subtotal colectomy, in icu due to afib/cva/sunil- improving on hep gtt, stable P- Per cardiology recommendations, switch to oral anticoagulant when H&H deemed to be stable, fu labs this a.m. and possible switch later today, will discuss with attending We will discuss with Dr. Canas, likely transfer out of ICU today cont hep gtt, medical meds per medical team Return of bowel function, start on full dose for breakfast and advance as tolerated oob, pt,ot keep foely in place per dr. ana beckett attending Core Measures Venous Thromboembolism VTE Risk Factors Surgery No Mechanical VTE Prophylaxis d/t N/A MechProphylax Ordered No VTE Pharm Prophylaxis d/t NA PharmProphylax ordered
[2018-01-31 06:17] LABS: WHITE BLOOD CELL COUNT 18.3 /CUMM (4.8-10.8)
--- NOTE | 2018-01-31 07:23 | PN- Resident CRCU ---
Subjective HPI/CRCU Issues: Brain stem stroke syndrome, diplopia with facial asymmetry improving New onset A. fib Acute anemia due to blood loss status post surgery, 4 blood transfusions. Acute kidney injury, (Resolved) History of hypertension,hyperlipidemia History of gout 24 Hour Events: No overnight events. Patient remained afebrile overnight. Seen and examined this morning. Patient denied chest pain, short of breath, nausea, vomiting, chills, fever, dysuria. He should feeling mild pain while mowing on surgical site. His urine output was low last night and he responded to IV fluids. Patient's appetite is low and he is not drinking enough water. His diet has been advanced to full liquid diet. Patient had bowel movement last night. Patient is still complaining of diplopia. Objective Vital Signs & I&O Last 8 Hrs of Vitals and I&O: Intake & Output 01/31 1600 01/31 0800 01/31 0000 Intake Total 917 773 4777.6 Output Total 100 190 225 Balance 773 52 996.6 Intake, IV 253 242 741.6 Intake, Oral 620 480 Number 0 2 Bowel Movements Output, Urine 100 190 225 Laboratory Tests 01/31 01/31 1106 0925 Coagulation APTT (25 - 37 SEC) 87 H Urines Urine Color (YEL,AMB,STR) YEL Urine Clarity (CLEAR) HAZY H Urine pH (5.0 - 8.0) 6.0 Ur Specific Ulysses (1.001 - 1.035) 1.020 Urine Protein (NEG,<30 MG/DL) TRACE H Urine Ketones (NEG) NEG Urine Nitrite (NEG) NEG Urine Bilirubin (NEG) NEG Urine Urobilinogen (0.1 - 1.0 EU/dl) 0.2 Ur Leukocyte Esterase (NEG) TRACE H Ur Microscopic SEDIMENT EXAMINED Urine RBC (0 - 5 /HPF) >75 H Urine WBC (0 - 2 /HPF) 3-5 H Urine Bacteria (NEG/NONE) FEW H Hyaline Casts (0/LPF) 1-3 H Granular Casts (NONE /LPF) RARE H Urine Hemoglobin (NEG) LARGE H Urine Glucose (N MG/DL) NEG 01/31 01/30 0435 2205 Chemistry Sodium (137 - 145 mmol/L) 133 L Potassium (3.5 - 5.1 mmol/L) 4.2 Chloride (98 - 107 mmol/L) 106 Carbon Dioxide (22 - 30 mmol/L) 21 L Anion Gap (5 - 16) 6 BUN (9 - 20 mg/dL) 24 H Creatinine (0.7 - 1.2 mg/dL) 1.1 Estimated GFR (>60 ml/min) > 60 Glucose (65 - 99 mg/dL) 93 Calcium (8.4 - 10.2 mg/dL) 7.4 L Phosphorus (2.5 - 4.5 mg/dL) 3.6 Magnesium (1.6 - 2.3 mg/dL) 2.4 H Total Bilirubin (0.2 - 1.3 mg/dL) 0.6 AST (17 - 59 U/L) 26 ALT (21 - 72 U/L) 32 Albumin (3.5 - 5.0 g/dL) 2.0 L Coagulation APTT (25 - 37 SEC) 69 H Hematology CBC w Diff NO MAN DIFF REQ WBC (4.8 - 10.8 /CUMM) 18.3 H RBC (4.70 - 6.10 /CUMM) 3.53 L Hgb (14.0 - 18.0 G/DL) 9.1 L Hct (42 - 52 %) 28.0 L MCV (80.0 - 94.0 FL) 79.4 L MCH (27.0 - 31.0 PG) 25.9 L MCHC (33.0 - 37.0 G/DL) 32.7 L RDW (11.5 - 14.5 %) 26.9 H Plt Count (130 - 400 /CUMM) 302 MPV (7.4 - 10.4 FL) 10.5 H Gran % (42.2 - 75.2 %) 88.5 H Lymphocytes % (20.5 - 51.1 %) 3.9 L Monocytes % (1.7 - 9.3 %) 5.8 Eosinophils % (0 - 5 %) 1.7 Basophils % (0.0 - 2.0 %) 0.1 Absolute Granulocytes (1.4 - 6.5 /CUMM) 16.2 H Absolute Lymphocytes (1.2 - 3.4 /CUMM) 0.7 L Absolute Monocytes (0.10 - 0.60 /CUMM) 1.1 H Absolute Eosinophils (0.0 - 0.7 /CUMM) 0.3 Absolute Basophils (0.0 - 0.2 /CUMM) 0 Intake & Output 01/31 1600 Intake Total 873 Output Total 100 Balance 773 Intake, IV 253 Intake, Oral 620 Number 0 Bowel Movements Output, Urine 100 Exam General Appearance: well developed/nourished, no apparent distress, alert, awake Head: atraumatic Neck: normal inspection, supple Respiratory: normal breath sounds, decreased breath sounds last night Cardiovascular: irregularly irregular Gastrointestinal: normal bowel sounds, soft Extremities: b/l pedal edema with chronic venous cahnges, b/l arm swelling, right arm ecchymosis Skin Temp/Moisture Exam: Warm/Dry Sepsis Skin Exam (color): Normal for Ethnicity Current Medications: Current Medications Sig/Rony Start time Last Medication Dose Route Stop Time Status Admin Acetaminophen 1,000 MG TID PRN 01/31 1506 AC PO Acetaminophen 1,000 MG TID 01/26 2100 DC 01/31 PO 1155 Albuterol Sulfate 2 PUF Q4 01/26 1800 AC 01/29 INH 0634 Allopurinol 200 MG DAILY 01/30 09 AC 01/31 PO 0928 Alprazolam 0.25 MG ONCE ONE 01/31 1245 CAN PO 01/31 1246 Alvimopan 12 MG BID 01/26 2100 AC 01/31 PO 0929 Apixaban 2.5 MG BID 01/31 2100 AC PO Aspirin 81 MG DAILY 01/29 09 AC 01/31 PO 0929 Atorvastatin Calcium 40 MG QPM 01/27 2100 AC 01/30 PO 2041 Budesonide/ 2 PUF BID 01/26 2100 AC 01/31 Formoterol Fumarate INH 0928 Docusate Sodium 100 MG BID 01/30 09 AC 01/30 PO 2041 Gabapentin 200 MG Q8 01/26 2200 AC 01/31 PO 1440 Heparin Sodium/ 25,000 UNIT Q24H 01/29 09 AC 01/31 Dextrose IV 01/31 2100 0929 Dextrose/Water 500 ML Metoprolol Tartrate 12.5 MG BID 01/27 2100 AC 01/31 PO 0928 Omeprazole 20 MG DAILY AC 01/30 0700 AC 01/31 PO 0604 Ondansetron HCl 4 MG Q6P PRN 01/27 2000 AC 01/30 IV 0415 Oxycodone HCl 5 MG Q4-6 PRN PRN 01/27 2000 AC PO Oxycodone HCl 10 MG Q4-6 PRN PRN 01/27 2000 AC PO Sodium Chloride 500 ML BOLUS ONE 01/31 1500 DC 01/31 IV 01/31 1559 1455 Sodium Chloride 500 ML BOLUS ONE 01/30 1845 DC 01/30 IV 01/30 1944 1847 Tramadol HCl 100 MG Q6P PRN 01/27 2000 AC PO Tramadol HCl 50 MG Q6P PRN 01/26 1800 AC PO Impression/Plan Impression/Problem List Impression: 87 YO M with past medical history of hypertension, hyperlipidemia and gout who came in here for laparoscopic subtotal colectomy which was converted to an open surgery. 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 Patient underwent surgery with general anesthesia. Subsequently he was noted to have new onset diplopia. He had mild facial asymmetry and poor tracking with the left eye laterally with mild horizontal nystagmus. Patient did have a CT scan after a stroke alert of the head. Due to surgery less than 24 hours with possible Intra-Op splenic injury antiplatelet therapy and TPA was not done. Postoperative nystagmus with diplopia with facial asymmetry which seems to be slowly improving. Patient's head CT was unremarkable. Appears that he probably may be flipping back and forth into atrial fibrillation. Following the patient in ICU for following problems: Acute anemia due to blood loss:(improved) -Status post surgery, 4 blood transfusion were given. -His H&H today 9.28.0 -Monitor for bleeding as patient is on anticoagulation now. -Monitor his H&H daily -We will transfer him to telemetry today. Acute stroke syndrome: -Didn't receive TPA due to recent surgery. -Residual diplopia -CT scan remained negative for any intracranial bleed or infarction. -Continue Lipitor 40 mg daily -Continue aspirin 81 mg daily. Closely monitor him for any bleeding with CBC. -Carotid Doppler showed atherosclerosis at right and left carotid bifurcations with 5070 percent stenosis. Irregular rhythm: -Could be atrial fibrillation or MAT. -Discontinued IV heparin. Switched to eliquis 2.5mg. Day 1 -Continue metoprolol 12.5 twice a day -Echocardiogram showed ejection fraction 70% with mild left ventricular hypertrophy. -Follow up cardiology recommendations Acute kidney injury: -Due to prerenal -Today his creatinine is 1.1 and BUN is 24 -Avoid nephrotoxic medications -Monitor urine output, IOP 2189/665 -Patient is not able to drink enough water we will give him IV fluids. Colon cancer status post surgery: -Post op day 5 -Status post subtotal colectomy and spleenorrhaphy. -Diet has been advanced to full liquid. -Out of bed to chair and we will get PT eval if needed. -Follow-up surgery recommendations Leukocytosis: -Patient remained afebrile, possibly reactionary after the surgery due to stress. -Off antibiotics, watching for signs of infection. -Chest x-ray remained negative for any infection. History of gout: Continue allopurinol History of peripheral neuropathy: Continue gabapentin Diet: -Full liquid diet. DVT prophylaxis: Mechanical and IV heparin CODE STATUS: Full code Problem List: 1. Acute ischemic stroke 2. Colon cancer Pain Ratin Pain Location: none Pain Goal: Remain pain free Pain Plan: pain pathway Tomorrow's Labs & Rationales: cbc/icu bundle Plan DVT/Prophylaxis: mechanical, pharmacological
[2018-01-31 08:00] VITALS: BP 110/60
--- NOTE | 2018-01-31 09:58 | PN- CRCU ---
See Addendum Subjective HPI/Critical Care Issues: No acute events overnight, no complaints, minimal pain in the abdomen. Patient states he had a large bowel movement overnight. No fever no flulike illness. Objective Current Medications: Current Medications Sig/Rony Start time Last Medication Dose Route Stop Time Status Admin Acetaminophen 1,000 MG TID 01/26 2100 AC 01/30 PO 2047 Albuterol Sulfate 2 PUF Q4 01/26 1800 AC 01/29 INH 0634 Allopurinol 200 MG DAILY 01/30 09 AC 01/31 PO 0928 Alvimopan 12 MG BID 01/26 2100 AC 01/31 PO 0929 Aspirin 81 MG DAILY 01/29 09 AC 01/31 PO 0929 Atorvastatin Calcium 40 MG QPM 01/27 2100 AC 01/30 PO 204 Budesonide/ 2 PUF BID 01/26 2100 AC 01/31 Formoterol Fumarate INH 927 Docusate Sodium 100 MG BID 01/30 09 AC 01/30 PO 204 Gabapentin 200 MG Q8 01/26 2200 AC 01/31 PO 0604 Heparin Sodium/ 25,000 UNIT Q24H 01/29 09 AC 01/31 Dextrose IV 09 Dextrose/Water 500 ML Metoprolol Tartrate 12.5 MG BID 01/27 2100 AC 01/31 PO 0928 Omeprazole 20 MG DAILY AC 01/30 07 AC 01/31 PO 0604 Ondansetron HCl 4 MG Q6P PRN 01/27 2000 AC 01/30 IV 0415 Oxycodone HCl 5 MG Q4-6 PRN PRN 01/27 2000 AC PO Oxycodone HCl 10 MG Q4-6 PRN PRN 01/27 2000 AC PO Sodium Chloride 500 ML BOLUS ONE 01/30 1845 DC 01/30 IV 01/30 1944 1847 Tramadol HCl 100 MG Q6P PRN 01/27 2000 AC PO Tramadol HCl 50 MG Q6P PRN 01/26 1800 AC PO Vital Signs & I&O Last 24 Hrs of Vitals and I&O: Vital Signs Date Time Temp Pulse Resp B/P B/P Pulse O2 O2 Flow FiO2 Mean Ox Delivery Rate 02/01 928 131/63 01/31 0800 97.2 78 20 110/60 96 Room Air 01/31 0000 97.6 84 16 97/49 96 Room Air 08/21 2041 81 27 113/60 01/31 2000 96.1 81 27 113/60 96 Room Air 01/30 1934 96 Room Air 01/30 1600 96.8 81 22 130/74 93 Room Air Intake & Output 01/31 1600 01/31 0800 01/31 0000 Intake Total 242 1221.6 Output Total 190 225 Balance 52 996.6 Intake, IV 242 741.6 Intake, Oral 480 Number 2 Bowel Movements Output, Urine 190 225 Laboratory Tests 01/31 01/30 01/30 0435 2205 1433 Chemistry Sodium (137 - 145 mmol/L) 133 L Potassium (3.5 - 5.1 mmol/L) 4.2 Chloride (98 - 107 mmol/L) 106 Carbon Dioxide (22 - 30 mmol/L) 21 L Anion Gap (5 - 16) 6 BUN (9 - 20 mg/dL) 24 H Creatinine (0.7 - 1.2 mg/dL) 1.1 Estimated GFR (>60 ml/min) > 60 Glucose (65 - 99 mg/dL) 93 Calcium (8.4 - 10.2 mg/dL) 7.4 L Phosphorus (2.5 - 4.5 mg/dL) 3.6 Magnesium (1.6 - 2.3 mg/dL) 2.4 H Total Bilirubin (0.2 - 1.3 mg/dL) 0.6 AST (17 - 59 U/L) 26 ALT (21 - 72 U/L) 32 Albumin (3.5 - 5.0 g/dL) 2.0 L Coagulation APTT (25 - 37 SEC) 69 H 43 H Hematology CBC w Diff NO MAN DIFF REQ WBC (4.8 - 10.8 /CUMM) 18.3 H RBC (4.70 - 6.10 /CUMM) 3.53 L Hgb (14.0 - 18.0 G/DL) 9.1 L Hct (42 - 52 %) 28.0 L MCV (80.0 - 94.0 FL) 79.4 L MCH (27.0 - 31.0 PG) 25.9 L MCHC (33.0 - 37.0 G/DL) 32.7 L RDW (11.5 - 14.5 %) 26.9 H Plt Count (130 - 400 /CUMM) 302 MPV (7.4 - 10.4 FL) 10.5 H Gran % (42.2 - 75.2 %) 88.5 H Lymphocytes % (20.5 - 51.1 %) 3.9 L Monocytes % (1.7 - 9.3 %) 5.8 Eosinophils % (0 - 5 %) 1.7 Basophils % (0.0 - 2.0 %) 0.1 Absolute Granulocytes (1.4 - 6.5 /CUMM) 16.2 H Absolute Lymphocytes (1.2 - 3.4 /CUMM) 0.7 L Absolute Monocytes (0.10 - 0.60 /CUMM) 1.1 H Absolute Eosinophils (0.0 - 0.7 /CUMM) 0.3 Absolute Basophils (0.0 - 0.2 /CUMM) 0 01/30 01/29 0500 2250 Chemistry Sodium (137 - 145 mmol/L) 136 L Potassium (3.5 - 5.1 mmol/L) 3.9 Chloride (98 - 107 mmol/L) 108 H Carbon Dioxide (22 - 30 mmol/L) 23 Anion Gap (5 - 16) 5 BUN (9 - 20 mg/dL) 21 H Creatinine (0.7 - 1.2 mg/dL) 1.1 Estimated GFR (>60 ml/min) > 60 Glucose (65 - 99 mg/dL) 103 H Serum Osmolality (285 - 295 MOSM/KG) 285 Calcium (8.4 - 10.2 mg/dL) 7.7 L Phosphorus (2.5 - 4.5 mg/dL) 3.5 Magnesium (1.6 - 2.3 mg/dL) 2.4 H Total Bilirubin (0.2 - 1.3 mg/dL) 0.5 AST (17 - 59 U/L) 29 ALT (21 - 72 U/L) 37 Albumin (3.5 - 5.0 g/dL) 2.1 L Coagulation APTT (25 - 37 SEC) 120 *H 93 H Hematology CBC w Diff NO MAN DIFF REQ WBC (4.8 - 10.8 /CUMM) 17.9 H RBC (4.70 - 6.10 /CUMM) 3.93 L Hgb (14.0 - 18.0 G/DL) 10.1 L Hct (42 - 52 %) 31.1 L MCV (80.0 - 94.0 FL) 78.9 L MCH (27.0 - 31.0 PG) 25.7 L MCHC (33.0 - 37.0 G/DL) 32.6 L RDW (11.5 - 14.5 %) 26.7 H Plt Count (130 - 400 /CUMM) 311 MPV (7.4 - 10.4 FL) 10.6 H Gran % (42.2 - 75.2 %) 90.7 H Lymphocytes % (20.5 - 51.1 %) 3.8 L Monocytes % (1.7 - 9.3 %) 3.9 Eosinophils % (0 - 5 %) 1.6 Basophils % (0.0 - 2.0 %) 0 Absolute Granulocytes (1.4 - 6.5 /CUMM) 16.2 H Absolute Lymphocytes (1.2 - 3.4 /CUMM) 0.7 L Absolute Monocytes (0.10 - 0.60 /CUMM) 0.7 H Absolute Eosinophils (0.0 - 0.7 /CUMM) 0.3 Absolute Basophils (0.0 - 0.2 /CUMM) 0 01/29 01/29 1733 1627 Coagulation APTT (25 - 37 SEC) 44 H Hematology CBC w Diff NO MAN DIFF REQ WBC (4.8 - 10.8 /CUMM) 17.3 H RBC (4.70 - 6.10 /CUMM) 3.73 L Hgb (14.0 - 18.0 G/DL) 9.6 L Hct (42 - 52 %) 29.5 L MCV (80.0 - 94.0 FL) 79.2 L MCH (27.0 - 31.0 PG) 25.8 L MCHC (33.0 - 37.0 G/DL) 32.6 L RDW (11.5 - 14.5 %) 26.6 H Plt Count (130 - 400 /CUMM) 280 MPV (7.4 - 10.4 FL) 11.0 H Gran % (42.2 - 75.2 %) 91.9 H Lymphocytes % (20.5 - 51.1 %) 3.8 L Monocytes % (1.7 - 9.3 %) 3.2 Eosinophils % (0 - 5 %) 1.0 Basophils % (0.0 - 2.0 %) 0.1 Absolute Granulocytes (1.4 - 6.5 /CUMM) 15.9 H Absolute Lymphocytes (1.2 - 3.4 /CUMM) 0.7 L Absolute Monocytes (0.10 - 0.60 /CUMM) 0.6 Absolute Eosinophils (0.0 - 0.7 /CUMM) 0.2 Absolute Basophils (0.0 - 0.2 /CUMM) 0 Microbiology Date/Time Procedure - Status Source Growth 01/30 1255 Respiratory Culture - COLB LOWER RESP 01/30 1255 Gram Stain - COLB LOWER RESP Impression/Plan Impression/Plan Impression/Plan: GEN- NAD RESP- CLEAR, DECREASED EFFORT CARDIAC-at times irregular ABD- ND, DECREASED BS, SOFT, TENDER AVANI IN LLQ No significant edema Neurological exam moves all 4 limbs no significant weakness mild nystagmus mild facial asymmetry but seems to have improved IMPRESSION This is an elderly gentleman who has history of hypertension, gout, hyperlipidemia, no postop open subtotal colectomy with spleno raphe from splenic laceration, has adenocarcinoma the descending colon villous adenoma: Now has * Resolving Brain stem Stroke syndrome / Postoperative nystagmus with diplopia with facial asymmetry which seems to be slowly improving. Patient's head CT was unremarkable. * New onset Afib / on asa Rate controlled / Heparin started * Stable Blood loss anemia immediate postop now s/p transfusion / CT abd nil sig for any active bleeding and no obstructive uropathy * Acute Kidney injury now resolved * History of hypertension, hyperlipidemia, gout appears to be stable RECOMMENDATION Watch crit daily / pt now on heparin (ask cardio if he can be changed to eloquis 2.5 bid) COnt high dose statin Continue his inhalers as needed Diet per surg / PT eval IV if urine output drops Remove gonzalez OOB to chair Po PPI low dose 20 mg Will transfer to the floor / tele monitoring if cardio wishes it / if not to the regular floor
[2018-01-31 12:27] LABS: PTT 87 SEC (25-37)
[2018-01-31 16:00] VITALS: BP 130/68
[2018-01-31 18:01] VITALS: BP 132/68
[2018-01-31 21:33] VITALS: BP 136/58
[2018-02-01 05:52] VITALS: BP 132/64
--- NOTE | 2018-02-01 07:09 | PN- Housestaff ---
CynmilanAmador 02/01/18 0708: Subjective Follow-up For: New onset Afib Subjective: Patient seen and examined sitting in chair. Patient mentions that he had a bowel movement yesterday and feels better. He is eating regular food now. He denies any symptoms other than some difficulty urinating. Review of Systems Constitutional: Reports: see HPI. Objective Last 24 Hrs of Vital Signs/I&O Vital Signs Date Time Temp Pulse Resp B/P B/P Pulse O2 O2 Flow FiO2 Mean Ox Delivery Rate 02/01 1854 95 154/54 02/01 1449 98.5 92 20 140/60 94 Room Air 02/01 0836 98 148/82 02/01 0800 Room Air Room Air 02/01 0552 98.0 90 18 132/64 94 Room Air 02/01 0000 Room Air 01/31 2133 98.1 90 18 136/58 98 Room Air 01/31 2113 86 132/68 Intake & Output 02/01 1600 02/01 0800 02/01 0000 Intake Total 760 Output Total 200 200 200 Balance 560 -200 -200 Intake, IV 10 Intake, Oral 750 Number 1 2 Bowel Movements Output, Urine 200 200 200 Physical Exam General Appearance: Alert, Oriented X3, Cooperative, No Acute Distress Skin Temp/Moisture Exam: Warm/Dry HEENT: PERRLA, EOMI Neck: Supple Cardiovascular: Normal S1, Normal S2 Lungs: Clear to Auscultation, Normal Air Movement Abdomen: Normal Bowel Sounds, Soft, No Tenderness Current Medications: Current Medications Sig/Rony Start time Last Medication Dose Route Stop Time Status Admin Acetaminophen 1,000 MG TID PRN 01/31 1506 AC PO Albuterol Sulfate 2 PUF Q4 01/26 1800 AC 02/01 INH 1407 Allopurinol 200 MG DAILY 01/30 09 AC 02/01 PO 0835 Alvimopan 12 MG BID 01/26 2100 DC 01/31 PO 211 Apixaban 2.5 MG BID 01/31 2100 AC 02/01 PO 0836 Aspirin 81 MG DAILY 01/29 09 AC 02/01 PO 0835 Atorvastatin Calcium 40 MG QPM 01/27 2100 AC 01/31 PO 2113 Budesonide/ 2 PUF BID 01/26 2100 AC 02/01 Formoterol Fumarate INH 0831 Docusate Sodium 100 MG BID 01/30 09 AC 01/31 PO 2113 Gabapentin 200 MG Q8 01/26 2200 AC 02/01 PO 1407 Heparin Sodium/ 25,000 UNIT Q24H 01/29 0900 DC 01/31 Dextrose IV 01/31 Dextrose/Water 500 ML Metoprolol Tartrate 12.5 MG BID 01/27 2100 AC 02/01 PO 0836 Omeprazole 20 MG DAILY AC 01/30 0700 AC 02/01 PO 0617 Ondansetron HCl 0 .STK-MED ONE 02/01 181 DC .ROUTE Ondansetron HCl 4 MG Q6P PRN 01/27 2000 AC 01/30 IV 0415 Oxycodone HCl 5 MG Q4-6 PRN PRN 01/27 2000 AC PO Oxycodone HCl 10 MG Q4-6 PRN PRN 01/27 2000 AC PO Tamsulosin HCl 0.4 MG DAILY 02/01 1531 AC 02/01 PO 1854 Tramadol HCl 100 MG Q6P PRN 01/27 2000 AC PO Tramadol HCl 50 MG Q6P PRN 01/26 1800 AC PO Last 24 Hrs of Lab/Tom Results Last 24 Hrs of Labs/Mics: Laboratory Tests 02/01/18 0630: Anion Gap 6, Estimated GFR > 60, Glucose 79, Calcium 7.6 L, Phosphorus 3.7, Magnesium 2.3, Total Bilirubin 0.6, AST 26, ALT 36, Albumin 2.1 L, CBC w Diff NO MAN DIFF REQ, RBC 3.56 L, MCV 78.1 L, MCH 25.9 L, MCHC 33.2, RDW 27.8 H, MPV 10.9 H, Gran % 85.3 H, Lymphocytes % 4.6 L, Monocytes % 7.2, Eosinophils % 2.8, Basophils % 0.1, Absolute Granulocytes 14.3 H, Absolute Lymphocytes 0.8 L, Absolute Monocytes 1.2 H, Absolute Eosinophils 0.5, Absolute Basophils 0 01/31/18 2300: APTT Cancelled Assessment/Plan Assessment: 87 yo male with a PMHx of HTN, Hyperlipidemia, Peripheral Neuropathy, BPH, Asthma and Gout who underwent open subtotal colectomy with ileum to proximal sigmoid colon anastomosis, for colon cancer as well as cystoscopy and [place] gonzalez placement with a wire. Postoperative course complicated by inability to place gonzalez secondary to BPH. Patient is not experiencing any palpitations or chest pain despite new onset paroxysmal afib. Continue current management. Problem list: #Ischemic Stroke s/p prcoedure with blood loss anemia #New onset Afib #Bladder Outlet Obstruction Plan: - Cardiology consult - Elevated WBC (likely reaction to recent surgery) - Continue Eliquis 2.5 mg, ask cardio for dosage change - Continue rate control with metoprolol 12.5mg - Urology consult regarding removal of gonzalez - Start tamsulosin 0.4 mg - Incentive spirometry - Ambulate with PT - D/C to STR planning Problem List: 1. Atrial fibrillation Pain Ratin Pain Location: n/a Pain Goal: Remain pain free Pain Plan: per pathway Tomorrow's Labs & Rationales: CBC, BEP Pola CARRANZA,Mary 02/01/18 1057: Attending MD Review Statement Attending Statement Attending MD Statement: examined this patient, discuss w/resident/PA/TREASURY MANAGER, agreed w/resident/PA/TREASURY MANAGER, reviewed EMR data (avail), discussed with nursing, discussed with case mgmt, amended to note Attending Assessment/Plan: Patient seen and examined. Transferred out of the ICU yesterday. Chart reviewed. No issues overnight reported by nursing staff. No events on telemetry monitoring. Remains in atrial fibrillation. No new complaints from the patient this morning. He was seen by the physical therapist found to be deconditioned requiring significant assistance for mobilization. He is afebrile. He is hemodynamically stable. He is maintaining saturation on room air. On examination he has no significant facial asymmetry noted. Speech is intact. Power is equal in all extremities. Problems: 1. Stroke; unremarkable head CT with resolving facial asymmetry. 2. New onset atrial fibrillation 3. Acute postoperative blood loss anemia. 4. Bladder outlet obstruction; likely secondary to enlarged prostate. 5. Colon cancer status post subtotal colectomy with ileum to proximal sigmoid colon anastomosis, splenorrhaphy for bleeding. 6. Leukocytosis; persistent with no evidence of infection. Plan: -Continue to mobilize patient as tolerated. Discharge planning to long-term facility for short-term rehabilitation. -Patient gives history of prostatism prior to hospitalization. There was difficulty placing Gonzalez catheter by the urology service. Keep Gonzalez catheter in place. Begin patient on Flomax. Follow-up with urology service regarding timing of voiding trial. -Continue rate control with metoprolol. Continue anticoagulation with Eliquis. -Patient is currently on Eliquis 2.5 mg twice daily. Please follow-up with the cardiology service whether patient can be increased to the therapeutic dose of 5 mg twice daily. -Patient may be discharged to long-term facility once bed becomes available. -Patient to follow-up with the surgical service as an outpatient. Wound care per the surgical team. -Leukocytosis is likely reactive in nature. Recommend monitoring as an outpatient. -Repeat CBCs and chemistry if there is a change in his clinical status
--- NOTE | 2018-02-01 07:25 | PN- General Surgery ---
See Addendum Subjective Subjective: Patient doing well this am. Has been oob to chair and ambulating with PT. Tolerating low residue, pain well controlled and has full return of bowel function. Gonzalez still in place. Would like to go to rehab upon discharge. No other issues or complaints. Objective Vital Signs and I&Os Vital Signs Date Time Temp Pulse Resp B/P B/P Pulse O2 O2 Flow FiO2 Mean Ox Delivery Rate 02/01 0552 98.0 90 18 132/64 94 Room Air 02/01 0000 Room Air 01/31 2133 98.1 90 18 136/58 98 Room Air 01/31 2113 86 132/68 01/31 1801 98.3 86 18 132/68 94 01/31 1600 98.5 84 20 130/68 96 Room Air 01/31 0928 131/63 Intake & Output 02/01 1600 02/01 0800 02/01 0000 01/31 1600 01/31 0800 01/31 0000 Intake Total 806 811 7377.6 Output Total 200 200 100 190 225 Balance -200 -200 773 52 996.6 Intake, IV 253 242 741.6 Intake, Oral 620 480 Number 2 0 2 Bowel Movements Output, Urine 200 200 100 190 225 Physical Exam: General: A, A, NAD Abdomen: Obese, soft, non distended, appropriately ttp, incisions are c/d/i with kirk/sutures/glue in place, inferior portion of midline incision where sutures are in place with some erythema, no induration or expressible fluid Extremities: Generalized edema Current Medications: Current Medications Sig/Rony Start time Last Medication Dose Route Stop Time Status Admin Acetaminophen 1,000 MG TID PRN 01/31 1506 AC PO Acetaminophen 1,000 MG TID 01/26 2100 DC 01/31 PO 1155 Albuterol Sulfate 2 PUF Q4 01/26 1800 AC 02/01 INH 0616 Allopurinol 200 MG DAILY 01/30 0900 AC 01/31 PO 0928 Alprazolam 0.25 MG ONCE ONE 01/31 1245 CAN PO 01/31 1246 Alvimopan 12 MG BID 01/26 2100 DC 01/31 PO 211 Apixaban 2.5 MG BID 01/31 2100 AC 01/31 PO 211 Aspirin 81 MG DAILY 01/29 0900 AC 01/31 PO 09 Atorvastatin Calcium 40 MG QPM 01/27 2100 AC 01/31 PO 2112 Budesonide/ 2 PUF BID 01/26 2100 AC 01/31 Formoterol Fumarate INH 2112 Docusate Sodium 100 MG BID 01/30 09 AC 01/31 PO 2112 Gabapentin 200 MG Q8 01/26 2200 AC 02/01 PO 06 Heparin Sodium/ 25,000 UNIT Q24H 01/29 09 DC 01/31 Dextrose IV 01/31 Dextrose/Water 500 ML Metoprolol Tartrate 12.5 MG BID 01/27 2100 AC 01/31 PO 2112 Omeprazole 20 MG DAILY AC 01/30 07 AC 02/01 PO 06 Ondansetron HCl 4 MG Q6P PRN 01/27 2000 AC 01/30 IV 041 Oxycodone HCl 5 MG Q4-6 PRN PRN 01/27 2000 AC PO Oxycodone HCl 10 MG Q4-6 PRN PRN 01/27 2000 AC PO Sodium Chloride 500 ML BOLUS ONE 01/31 1500 DC 01/31 IV 01/31 1559 1455 Tramadol HCl 100 MG Q6P PRN 01/27 2000 AC PO Tramadol HCl 50 MG Q6P PRN 01/26 1800 AC PO Results Last 48 Hours of Labs: Laboratory Tests 02/01 01/31 01/31 0630 2300 1106 Chemistry Sodium (137 - 145 mmol/L) 131 L Potassium (3.5 - 5.1 mmol/L) 4.4 Chloride (98 - 107 mmol/L) 105 Carbon Dioxide (22 - 30 mmol/L) 20 L Anion Gap (5 - 16) 6 BUN (9 - 20 mg/dL) 26 H Creatinine (0.7 - 1.2 mg/dL) 1.1 Estimated GFR (>60 ml/min) > 60 Glucose (65 - 99 mg/dL) 79 Calcium (8.4 - 10.2 mg/dL) 7.6 L Phosphorus (2.5 - 4.5 mg/dL) 3.7 Magnesium (1.6 - 2.3 mg/dL) 2.3 Total Bilirubin (0.2 - 1.3 mg/dL) 0.6 AST (17 - 59 U/L) 26 ALT (21 - 72 U/L) 36 Albumin (3.5 - 5.0 g/dL) 2.1 L Coagulation APTT (25 - 37 SEC) Cancelled 87 H Hematology CBC w Diff Pending WBC Pending RBC Pending Hgb Pending Hct Pending MCV Pending MCH Pending MCHC Pending RDW Pending Plt Count Pending MPV Pending 01/31 01/31 1923 1673 Chemistry Sodium (137 - 145 mmol/L) 133 L Potassium (3.5 - 5.1 mmol/L) 4.2 Chloride (98 - 107 mmol/L) 106 Carbon Dioxide (22 - 30 mmol/L) 21 L Anion Gap (5 - 16) 6 BUN (9 - 20 mg/dL) 24 H Creatinine (0.7 - 1.2 mg/dL) 1.1 Estimated GFR (>60 ml/min) > 60 Glucose (65 - 99 mg/dL) 93 Calcium (8.4 - 10.2 mg/dL) 7.4 L Phosphorus (2.5 - 4.5 mg/dL) 3.6 Magnesium (1.6 - 2.3 mg/dL) 2.4 H Total Bilirubin (0.2 - 1.3 mg/dL) 0.6 AST (17 - 59 U/L) 26 ALT (21 - 72 U/L) 32 Albumin (3.5 - 5.0 g/dL) 2.0 L Hematology CBC w Diff NO MAN DIFF REQ WBC (4.8 - 10.8 /CUMM) 18.3 H RBC (4.70 - 6.10 /CUMM) 3.53 L Hgb (14.0 - 18.0 G/DL) 9.1 L Hct (42 - 52 %) 28.0 L MCV (80.0 - 94.0 FL) 79.4 L MCH (27.0 - 31.0 PG) 25.9 L MCHC (33.0 - 37.0 G/DL) 32.7 L RDW (11.5 - 14.5 %) 26.9 H Plt Count (130 - 400 /CUMM) 302 MPV (7.4 - 10.4 FL) 10.5 H Gran % (42.2 - 75.2 %) 88.5 H Lymphocytes % (20.5 - 51.1 %) 3.9 L Monocytes % (1.7 - 9.3 %) 5.8 Eosinophils % (0 - 5 %) 1.7 Basophils % (0.0 - 2.0 %) 0.1 Absolute Granulocytes (1.4 - 6.5 /CUMM) 16.2 H Absolute Lymphocytes (1.2 - 3.4 /CUMM) 0.7 L Absolute Monocytes (0.10 - 0.60 /CUMM) 1.1 H Absolute Eosinophils (0.0 - 0.7 /CUMM) 0.3 Absolute Basophils (0.0 - 0.2 /CUMM) 0 Urines Urine Color (YEL,AMB,STR) YEL Urine Clarity (CLEAR) HAZY H Urine pH (5.0 - 8.0) 6.0 Ur Specific [place] (1.001 - 1.035) 1.020 Urine Protein (NEG,<30 MG/DL) TRACE H Urine Ketones (NEG) NEG Urine Nitrite (NEG) NEG Urine Bilirubin (NEG) NEG Urine Urobilinogen (0.1 - 1.0 EU/dl) 0.2 Ur Leukocyte Esterase (NEG) TRACE H Ur Microscopic SEDIMENT EXAMINED Urine RBC (0 - 5 /HPF) >75 H Urine WBC (0 - 2 /HPF) 3-5 H Urine Bacteria (NEG/NONE) FEW H Hyaline Casts (0/LPF) 1-3 H Granular Casts (NONE /LPF) RARE H Urine Hemoglobin (NEG) LARGE H Urine Glucose (N MG/DL) NEG 01/30 01/30 2205 1433 Coagulation APTT (25 - 37 SEC) 69 H 43 H Assessment/Plan Assessment/Plan This is an 87 yo male with a PMHx of HTN, Hyperlipidemia, Peripheral Neuropathy, BPH, Asthma and Gout who is POD #6 s/p laparoscopic converted to open subtotal colectomy with ileum to proximal sigmoid colon anastomosis, Takedown of splenic flexure and Splenorrhaphy for bleeding for colon cancer as well as cystoscopy and [place] gonzalez placement with a wire. 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 Improving from all standpoints. From a colorectal surgery standpoint continue to ambulate with PT, use IS and turn, cough and deep breathing techniques, and low residue diet. GI Px ordered as well as eliquis which will cover DVT Px and tx cva/afib, PRN analgesics and antiemetics. Home medications as appropriate per the medical service. Continue gonzalez, will d/w Dr. Britton if he can undergo a voiding trial prior to discharge. Appreciate Cardiology and Medicine input and help in management of this patient, if able to place d/c recommendations as anticipate d/c to STR in the next 24-48 hours. Will d/w case management regarding discharge planning. Patient seen and examined with Dr. Wang who is covering for Dr. Canas and he is in agreement with the plan of care. Problem List: 1. Colon cancer 2. Acute ischemic stroke 3. STEPHAN (acute kidney injury) 4. Atrial fibrillation 5. Acute blood loss as cause of postoperative anemia 6. Urinary retention due to benign prostatic hyperplasia 7. S/P colectomy Core Measures Venous Thromboembolism VTE Risk Factors Surgery No Mechanical VTE Prophylaxis d/t N/A MechProphylax Ordered No VTE Pharm Prophylaxis d/t NA PharmProphylax ordered
[2018-02-01 08:11] LABS: ABSOLUTE BASOPHIL COUNT 0 /CUMM (0.0-0.2); ABSOLUTE EOSINOPHIL COUNT 0.5 /CUMM (0.0-0.7); ABSOLUTE GRANULOCYTE CT 14.3 /CUMM (1.4-6.5); ABSOLUTE LYMPH COUNT 0.8 /CUMM (1.2-3.4); ABSOLUTE MONOCYTE COUNT 1.2 /CUMM (0.10-0.60); BASOPHIL % 0.1 % (0.0-2.0); EOSINOPHIL % 2.8 % (0-5); HEMATOCRIT 27.8 % (42-52); MEAN CORPUSCULAR HGB 25.9 PG (27.0-31.0); MEAN CORPUSCULAR HGB CONC 33.2 G/DL (33.0-37.0); MEAN CORPUSCULAR VOLUME 78.1 FL (80.0-94.0); MEAN PLATELET VOLUME 10.9 FL (7.4-10.4); PLATELET COUNT 346 /CUMM (130-400); RBC DISTRIBUTION WIDTH 27.8 % (11.5-14.5); RED BLOOD CELL CT 3.56 /CUMM (4.70-6.10); WHITE BLOOD CELL COUNT 16.7 /CUMM (4.8-10.8)
[2018-02-01] MEDS ORDERED: TRAMADOL HCL50 M1 PO (09:22)
[2018-02-01] MEDS ORDERED: METOPROLOL TART25 M1 PO (09:22)
[2018-02-01] MEDS ORDERED: OXYCODONE HCL5 M1 PO (09:22)
[2018-02-01] MEDS ORDERED: DOCUSATE SODIU100 M3 PO (09:22)
[2018-02-01] MEDS ORDERED: ACETAMINOPHEN500 M4 PO (09:22)
[2018-02-01] MEDS ORDERED: LIPITOR20 M2 PO (09:22)
[2018-02-01] MEDS ORDERED: ELIQUIS2.5 M1 PO (09:22)
[2018-02-01 09:23] LABS: GRANULOCYTE % 85.3 % (42.2-75.2)
--- NOTE | 2018-02-01 09:37 | Patient Discharge Instructions ---
Discharge Instructions General Discharge Information You were seen/treated for: Colon Cancer You had these procedures: Laparoscopic converted to open colectomy with ileum to proximal sigmoid colon anastomosis, Takedown of splenic flexure and Splenorrhaphy for bleeding. Cystoscopy with gonzalez placement. Central line placement. Watch for these problems: Bleeding, signs of infection including redness, swelling or drainage from incision, fever >101, increased pain, nausea, vomiting, excessive diarrhea, or no bowel movements, chest pain, cough, shortness of breath or any other problems , questions or concerns. Increased weakness or decreased sensation. Call Surgeon to remove: Iggy (in one week) Do not soak the wound: Yes Daily wet to dry dressings: No No bath, but you may shower: Yes Special Instructions: Follow blood pressure closely. Blood pressure meds are being held but will likely need to be restarted under the direction of an MD. Follow up with primary care physician for restart of meds. Diet Continue normal diet: No Recommended Diet: Low Residue Activity Full Activity/No Limits: No Activity Self Limited: Yes Pounds, do NOT lift more than: 10 (x 2 weeks) Activity Limited to: Weight bear as tolerated Acute Coronary Syndrome Inclusion Criteria At DC or during hospital stay patient has or had the following: ACS DIAGNOSIS No Discharge Core Measures Meds if any: Prescribed or Continued at Discharge Meds if any: NOT Prescribed or Continued at Discharge Congestive Heart Failure Inclusion Criteria At DC or during hospital stay patient has or had the following: CHF DIAGNOSIS No Discharge Core Measures Meds if any: Prescribed or Continued at Discharge Meds if any: NOT Prescribed or Continued at Discharge Cerebrovascular accident Inclusion Criteria At DC or during hospital stay patient has or had the following: CVA/TIA Diagnosis Yes Discharge Core Measures Meds if any: Prescribed or Continued at Discharge Antithrombotic No Statin (required if LDL =>70) Yes Anticoagulant Yes Meds if any: NOT Prescribed or Continued at Discharge No Antithrombotic d/t Prescribed other Anticoag Venous thromboembolism Inclusion Criteria VTE Diagnosis No VTE Type NONE VTE Confirmed by (Test) NONE Discharge Core Measures - Per Current guidelines, there needs to be overlap - treatment for the first 5 days of Warfarin therapy. - If discharged on Warfarin prior to 5 days of - overlap therapy, the patient will need to be - assessed for post discharge needs including - *Post discharge parental anticoagulation - *Warfarin and/or parental anticoagulation education - *Follow up date to check INR post discharge At least 5 days overlap therapy as Inpatient No Meds if any: Prescribed or Continued at Discharge Note: Overlap Therapy is Warfarin and Anticoagulant Meds if any: NOT Prescribed or Continued at Discharge
--- NOTE | 2018-02-01 10:03 | Surgical Discharge Summary ---
Visit Information Visit Dates Admission Date: 01/26/18 Discharge Date: 02/03/2018 History of Present Illness Chief Complaint: Colon Cancer, See H and P Medical History Blood Transfusion Hx: Yes Neurological: NONE EENT: cataracts Cardiovascular: hypertension, hyperlipidemia, peripheral vascular disease orthostatic hypotension Respiratory: asthma Renal: benign prost hyperplasia Musculoskeletal: gout, osteoarthritis Cancer(s): adenocarcinoma of the colon History of MRSA: No History of VRE: No History of CDIFF: No Isolation History: Standard Surgical History Pertinent Surgical History: colon resection, abdominal Psychosocial History Where Do You Live? Home Who Do You Live With? Spouse Services at Home: None What is Your Primary Language? Frisian ETOH Use: denies use Review of Systems: as per [facility] Hospital Course Course Attending Physician: Dr. Canas Primary Care Physician: Matty CARRANZA,Sanam Aguilar Hospital Course: This is an 87 yo male with a PMHx of HTN, Hyperlipidemia, Peripheral Neuropathy, BPH, Asthma and Gout who presented electively for surgical resection of colon for colon cancer and is now s/p laparoscopic converted to open subtotal colectomy with ileum to proximal sigmoid colon anastomosis, Takedown of splenic flexure and Splenorrhaphy for bleeding for colon cancer as well as cystoscopy and [place] gonzalez placement with a wire. Perioperative course complicated by inability to place gonzalez secondary to BPH s/p intraoperative gonzalez placement which is currently still in place and should remain in place until he f/u with Dr. Britton as an outpatient in one week, acute postoperative blood loss anemia s/ p tx of 4 U PRBC w/ H&H stabilized, new onset afib on asa and eliquis with plans to f/u with Dr. 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 Nava as an outpatient in one week, and stephan essentialy resolved with IVF. . Additionally he had hypotension associated with the acute postoperative blood loss anemia and transiently had a central line in place which was inadvertently removed during transfer to the imaging department. Due to his hypotension some of his bp meds were held per the medical team and slowly restarted. He is improving from all standpoints by time of discharge. By time of discharge patient was transferring from bed to chair and ambulating with physical therapy. He was tolerating a low residue diet with full return of bowel function. We would recommend PRN PO analgesics, IS and turn, cough, and deep breathing techniques. For full details of his hospital course, operative report, diagnostic studies, and consultation reports please refer to his printed chart. He should follow up with Dr. Canas in one week for post operative evaluation and removal of kirk and sutures. Complications: as per hospital course Allergies: Coded Allergies: Penicillins (BLISTERS, ITCH ALL OVER 01/25/18) Significant Procedures: Lap to Open Colectomy - see operative report cystoscopy - see operative report Central line placement - see report Disposition Summary Disposition Principal Diagnosis: Colon Cancer Additional Diagnosis: STEPHAN, Acute Postoperative Blood Loss Anemia, Afib, CVA, Hypotension, BPH with gonzalez catheter placed by Urology intraoperatively Discharge Disposition: SNF Discharge Instructions General Discharge Information Code Status: Full Code Patient's Diet: Low Residue Patient's Activity: increase as tolerated Follow-Up Instructions/Appts: please see electronic d/c instructions Medications at Discharge Discharge Medications: Stop taking the following medications: Irbesartan (Avapro) 300 MG TABLET ORAL DAILY Metoprolol Tartrate (Lopressor) 50 MG TABLET ORAL TWICE DAILY Amlodipine Besylate (Amlodipine Besylate) 2.5 MG TABLET ORAL DAILY Atorvastatin Calcium (Atorvastatin Calcium) 20 MG TABLET ORAL DAILY Continue taking these medications: Allopurinol (Allopurinol) 300 MG TABLET 1 Tablet ORAL DAILY Comments: Last Taken: 02/03/18 Time: 0800 Furosemide (Furosemide) 40 MG TABLET 1 Tablet ORAL DAILY Comments: Last Taken: 02/03/18 Time: 11:30 Albuterol Sulfate (Proventil Hfa) 90 MCG HFA.AER.AD 2 Puff Inhale through mouth Every 4 hours Comments: Last Taken: 02/03/18 Time: 0800 Aspirin (Ecotrin*) 81 MG TABLET.DR 1 Tablet ORAL DAILY Comments: Last Taken: 02/03/18 Time: 0800 Budesonide/Formoterol Fumarate (Symbicort 160-4.5 Mcg Inhaler) 160 MCG-4.5 MCG/ ACTUATION HFA.AER.AD 2 Puff Inhale through mouth TWICE DAILY Comments: Last Taken: 02/03/18 Time: 0800 Start taking the following new medications: Metoprolol Tartrate (Metoprolol Tartrate) 25 MG TABLET 1 Tablet ORAL TWICE DAILY Qty = 60 No Refills Comments: Last Taken: 02/03/18 Time: 0800 RECIEVED 12.5MG THIS AM Acetaminophen (Acetaminophen) 500 MG TABLET 1-2 Tablet ORAL THREE TIMES DAILY as needed for PAIN Qty = 90 No Refills Comments: DID NOT RECIEVE Docusate Sodium (Docusate Sodium) 100 MG CAPSULE 1 Tablet ORAL TWICE DAILY as needed for CONSTIPATION Qty = 60 No Refills Comments: Last Taken: 02/02/18 Time: 2100 Oxycodone HCl (Oxycodone HCl) 5 MG TABLET 1-2 Tablet ORAL EVERY 4-6 HOURS NEEDED as needed for BREAKTHROUGH PAIN Qty = 36 No Refills Comments: DID NOT RECIEVE Tramadol HCl (Tramadol HCl) 50 MG TABLET 1-2 Tablet ORAL EVERY SIX HOURS NEEDED as needed for PAIN Qty = 36 No Refills Comments: DID NOT RECIEVE Apixaban (Eliquis) 2.5 MG TABLET 1 Tablet ORAL TWICE DAILY Qty = 60 No Refills Comments: Last Taken: 02/03/18 Time: 0800 Tamsulosin HCl (Flomax) 0.4 MG CAP.ER.24H 1 Tablet ORAL DAILY Qty = 30 No Refills Comments: Last Taken: 02/03/18 Time: 0800 Gabapentin (Gabapentin) 100 MG CAPSULE 1 Tablet ORAL TWICE DAILY Qty = 60 No Refills Comments: Last Taken: 02/03/18 Time: 0800 Atorvastatin Calcium (Lipitor) 40 MG TABLET 1 Tablet ORAL DAILY Qty = 30 No Refills Comments: DID NOT RECIEVE Copies To: Lars Canas Jr., DO Attending MD Review Statement Attending Statement Attending MD Statement: examined this patient Attending Assessment/Plan: Agree with Plan for transfer
[2018-02-01 14:49] VITALS: BP 140/60
[2018-02-01] MEDS ORDERED: LIPITOR40 M1 PO (14:57)
[2018-02-01] MEDS ORDERED: ATORVASTATIN CA20 M1 PO (15:01)
--- NOTE | 2018-02-01 15:12 | Discharge Summary ---
Hospital Course Allergies: Coded Allergies: Penicillins (BLISTERS, ITCH ALL OVER 01/25/18) Discharge Instructions General Discharge Information Code Status: Full Code Medications at Discharge Discharge Medications: Stop taking the following medications: Metoprolol Tartrate (Lopressor) 50 MG TABLET ORAL TWICE DAILY Atorvastatin Calcium (Atorvastatin Calcium) 20 MG TABLET ORAL DAILY Continue taking these medications: Allopurinol (Allopurinol) 300 MG TABLET 1 Tablet ORAL DAILY Albuterol Sulfate (Proventil Hfa) 90 MCG HFA.AER.AD 2 Puff Inhale through mouth Every 4 hours Aspirin (Ecotrin*) 81 MG TABLET.DR 1 Tablet ORAL DAILY Budesonide/Formoterol Fumarate (Symbicort 160-4.5 Mcg Inhaler) 160 MCG-4.5 MCG/ ACTUATION HFA.AER.AD 2 Puff Inhale through mouth TWICE DAILY Start taking the following new medications: Apixaban (Eliquis) 2.5 MG TABLET 2.5 Milligram ORAL TWICE DAILY Qty = 60 No Refills Metoprolol Tartrate (Metoprolol Tartrate) 25 MG TABLET 12.5 Milligram ORAL TWICE DAILY Qty = 60 No Refills Oxycodone HCl (Oxycodone HCl) 5 MG TABLET 5-10 Milligram ORAL EVERY 4-6 HOURS NEEDED as needed for BREAKTHROUGH PAIN 4-6 Qty = 36 No Refills Tramadol HCl (Tramadol HCl) 50 MG TABLET 50-100 Milligram ORAL EVERY SIX HOURS NEEDED as needed for PAIN 1-6 Qty = 36 No Refills Acetaminophen (Acetaminophen) 500 MG TABLET 1,000 Milligram ORAL THREE TIMES DAILY as needed for ABDOMINAL PAIN Qty = 90 No Refills Docusate Sodium (Docusate Sodium) 100 MG CAPSULE 100 Milligram ORAL TWICE DAILY Qty = 60 No Refills Atorvastatin Calcium (Lipitor) 40 MG TABLET 1 Tablet ORAL DAILY Qty = 30 No Refills
--- NOTE | 2018-02-01 16:03 | PN- Neurology ---
Subjective Subjective: Asked to see patient as "he had passed out". The patient is not sure what I am talking about and there is no indication anywhere in the notes that he did. Has improving double vision. Recovering from surgery with PT. Review of Systems: on change Objective Vital Signs and I&Os Vital Signs Date Time Temp Pulse Resp B/P B/P Pulse O2 O2 Flow FiO2 Mean Ox Delivery Rate 02/01 1449 98.5 92 20 140/60 94 Room Air 02/01 0836 98 148/82 02/01 0800 Room Air Room Air 02/01 0552 98.0 90 18 132/64 94 Room Air 02/01 0000 Room Air 01/31 2133 98.1 90 18 136/58 98 Room Air 01/31 2113 86 132/68 01/31 1801 98.3 86 18 132/68 94 Intake & Output 02/01 1600 02/01 0800 02/01 0000 01/31 1600 01/31 0800 01/31 0000 Intake Total 760 745 867 4234.6 Output Total 200 200 200 100 190 225 Balance 560 -200 -200 773 52 996.6 Intake, IV 10 253 242 741.6 Intake, Oral 750 620 480 Number 1 2 0 2 Bowel Movements Output, Urine 200 200 200 100 190 225 Physical Exam: Alert and oriented x3 EOMI, BRANDON face symmetric arms strong no drift proximal weakness of both legs Current Medications: Current Medications Sig/Rony Start time Last Medication Dose Route Stop Time Status Admin Acetaminophen 1,000 MG TID PRN 01/31 1506 AC PO Albuterol Sulfate 2 PUF Q4 01/26 1800 AC 02/01 INH 1407 Allopurinol 200 MG DAILY 01/30 09 AC 02/01 PO 0835 Alvimopan 12 MG BID 01/26 2100 DC 01/31 PO 211 Apixaban 2.5 MG BID 01/31 2100 AC 02/01 PO 0836 Aspirin 81 MG DAILY 01/29 09 AC 02/01 PO 0835 Atorvastatin Calcium 40 MG QPM 01/27 2100 AC 01/31 PO 2113 Budesonide/ 2 PUF BID 01/26 2100 AC 02/01 Formoterol Fumarate INH 0831 Docusate Sodium 100 MG BID 01/30 0900 AC 01/31 PO 2113 Gabapentin 200 MG Q8 01/26 2200 AC 02/01 PO 1407 Heparin Sodium/ 25,000 UNIT Q24H 01/29 0900 DC 01/31 Dextrose IV 01/31 2100 0929 Dextrose/Water 500 ML Metoprolol Tartrate 12.5 MG BID 01/27 2100 AC 02/01 PO 0836 Omeprazole 20 MG DAILY AC 01/30 0700 AC 02/01 PO 0617 Ondansetron HCl 4 MG Q6P PRN 01/27 2000 AC 01/30 IV 0415 Oxycodone HCl 5 MG Q4-6 PRN PRN 01/27 2000 AC PO Oxycodone HCl 10 MG Q4-6 PRN PRN 01/27 2000 AC PO Tamsulosin HCl 0.4 MG DAILY 02/01 1531 AC PO Tramadol HCl 100 MG Q6P PRN 01/27 2000 AC PO Tramadol HCl 50 MG Q6P PRN 01/26 1800 AC PO Assessment/Plan Assessment: 87 year old with new onset diplopia a few days ago thought to the have been related to a stroke ni the [place]. No current evidence at this point. Looks fine to me. Plan: nothing to be done. C/w original plan.
[2018-02-01 21:36] VITALS: BP 130/64
[2018-02-02 06:00] VITALS: BP 116/66
--- NOTE | 2018-02-02 07:23 | PN- Housestaff ---
JuanjoAmador walsh 02/02/18 0723: Subjective Follow-up For: New onset A. fib Subjective: Patient seen and examined upright in bed watching TV. No events overnight. Patient mentions that he is too weak to make it to the bathroom by himself. He requests an STR in [place] close to his home. He was sinus rhythm on telemetry overnight, but he converted to A. fib later in the day. He denies any new complaints. Review of Systems Constitutional: Reports: see HPI. Objective Last 24 Hrs of Vital Signs/I&O Vital Signs Date Time Temp Pulse Resp B/P B/P Pulse O2 O2 Flow FiO2 Mean Ox Delivery Rate 02/02 0911 96 116/66 02/02 0911 96 116/66 02/02 0600 97.4 93 20 116 93 Room Air 02/01 2149 Room Air 02/01 2137 97 130/64 02/01 2136 98.2 95 20 130/64 93 Room Air 02/01 1854 95 154/54 02/01 1449 98.5 92 20 140/60 94 Room Air Intake & Output 02/02 1600 02/02 0800 02/02 0000 Intake Total 200 Output Total 550 0 Balance -550 200 Intake, Oral 200 Output, Urine 550 0 Physical Exam General Appearance: Alert, Oriented X3, Cooperative, No Acute Distress Skin Temp/Moisture Exam: Warm/Dry HEENT: PERRLA, EOMI Neck: Supple Cardiovascular: Normal S1, Normal S2 Lungs: Clear to Auscultation, Normal Air Movement Abdomen: Normal Bowel Sounds, Soft, No Tenderness Extremities: No Cyanosis, No Tenderness/Swelling Current Medications: Current Medications Sig/Rony Start time Last Medication Dose Route Stop Time Status Admin Acetaminophen 1,000 MG TID PRN 01/31 1506 AC PO Albuterol Sulfate 2 PUF Q4 01/26 1800 AC 02/02 INH 0910 Allopurinol 200 MG DAILY 01/30 09 AC 02/02 PO 0910 Apixaban 2.5 MG BID 01/31 2100 AC 02/02 PO 0911 Aspirin 81 MG DAILY 01/29 09 AC 02/02 PO 0911 Atorvastatin Calcium 40 MG QPM 01/27 2100 AC 02/01 PO 2136 Budesonide/ 2 PUF BID 01/26 2100 AC 02/02 Formoterol Fumarate INH 09 Docusate Sodium 100 MG BID 01/30 0900 AC 02/02 PO 0911 Gabapentin 100 MG BID 02/02 2100 AC PO Gabapentin 200 MG Q8 01/26 2200 DC 02/02 PO 0535 Loperamide HCl 2 MG TID 02/02 1400 AC PO Metoprolol Tartrate 12.5 MG BID 01/27 2100 AC 02/02 PO 0911 Omeprazole 20 MG DAILY AC 01/30 0700 AC 02/02 PO 0535 Ondansetron HCl 0 .STK-MED ONE 02/01 1816 DC .ROUTE Ondansetron HCl 4 MG Q6P PRN 01/27 2000 AC 01/30 IV 0415 Oxycodone HCl 5 MG Q4-6 PRN PRN 01/27 2000 AC PO Oxycodone HCl 10 MG Q4-6 PRN PRN 01/27 2000 AC PO Tamsulosin HCl 0.4 MG DAILY 02/01 1531 AC 02/02 PO 0911 Tramadol HCl 100 MG Q6P PRN 01/27 2000 AC PO Tramadol HCl 50 MG Q6P PRN 01/26 1800 AC PO Last 24 Hrs of Lab/Tom Results Last 24 Hrs of Labs/Mics: Laboratory Tests 02/02/18 0650: Anion Gap 5, Estimated GFR > 60, BUN/Creatinine Ratio 26.0 H, CBC w Diff NO MAN DIFF REQ, RBC 3.28 L, MCV 78.8 L, MCH 25.8 L, MCHC 32.8 L, RDW 27.8 H, MPV 10.0, Gran % 83.5 H, Lymphocytes % 5.0 L, Monocytes % 7.9, Eosinophils % 3.2, Basophils % 0.4, Absolute Granulocytes 10.3 H, Absolute Lymphocytes 0.6 L, Absolute Monocytes 1.0 H, Absolute Eosinophils 0.4, Absolute Basophils 0 Assessment/Plan Assessment: 87 yo male with a PMHx of HTN, Hyperlipidemia, Peripheral Neuropathy, BPH, Asthma and Gout who underwent open subtotal colectomy with ileum to proximal sigmoid colon anastomosis, for colon cancer as well as cystoscopy and [place] gonzalez placement with a wire. Postoperative course complicated by inability to place gonzalez secondary to BPH. Patient is not experiencing any palpitations or chest pain despite new onset paroxysmal afib. Continue current management. 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 S/P colectomy 2. Atrial fibrillation Pain Ratin Pain Location: na Pain Goal: Remain pain free Pain Plan: Per pathway Tomorrow's Labs & Rationales: JOSEPH Escalona MD,Mary 02/02/18 1045: Attending MD Review Statement Attending Statement Attending MD Statement: examined this patient, discuss w/resident/PA/PRACTICE BILLING ASSOCIATE, agreed w/resident/PA/PRACTICE BILLING ASSOCIATE, reviewed EMR data (avail), discussed with nursing, discussed with case mgmt, amended to note Attending Assessment/Plan: Patient seen and examined. Resting comfortably not in any acute distress. No issues overnight. He did convert back into atrial fibrillation overnight but is rate controlled. He is afebrile. Hemodynamically stable. He offers no new complaints. On examination he has no facial asymmetry. He has no focal weakness. He however remains deconditioned and continues to require significant assistance for mobilization. Gonzalez catheter remains in place draining clear urine. Laboratory data today shows mild drop in hemoglobin level from 9.2 yesterday to 8.5 this morning. Leukocytosis which has been persistent during this hospitalization is currently trending downwards. Recommendations: -Repeat H&H this afternoon. If hemoglobin level is stable there is no objection from the medical service to the patient being discharged to a correction facility for short-term rehabilitation. Would recommend that he is H&H should be monitored regularly while at the facility. -He with downward trend his hemoglobin level is noted would recommend ongoing monitoring in the hospital until hemoglobin levels stabilizes. Would recommend transfusion for hemoglobin level less than 8. -Surgical service will be following up with Dr. Britton regarding management of the patient's Gonzalez catheter particularly with regards to timing of voiding trial. He was started on Flomax during his admission and should continue on this medication upon discharge. He will likely require about 2 weeks of therapy before having a successful voiding trial. -He is back in atrial fibrillation but rate controlled. He is to continue metoprolol upon discharge. He is to continue on anticoagulation therapy with Eliquis. Case was discussed with fashion show director Tyshawn Coker MD. Recommendations are to continue patient on Eliquis 2.5 mg twice daily due to his postoperative blood loss and complications of the spleen during surgery. -He has no significant focal neurologic deficit at present. He however requires physical therapy due to deconditioning. He currently has a bed available at the correction facility and may be discharged by the surgical service as long as his hemoglobin level is stable. -Wound care and surgical follow-up will be as determined by the surgical service.
[2018-02-02 07:48] LABS: ABSOLUTE BASOPHIL COUNT 0 /CUMM (0.0-0.2); ABSOLUTE EOSINOPHIL COUNT 0.4 /CUMM (0.0-0.7); ABSOLUTE GRANULOCYTE CT 10.3 /CUMM (1.4-6.5); ABSOLUTE LYMPH COUNT 0.6 /CUMM (1.2-3.4); BASOPHIL % 0.4 % (0.0-2.0); EOSINOPHIL % 3.2 % (0-5); GRANULOCYTE % 83.5 % (42.2-75.2); HEMATOCRIT 25.8 % (42-52); MEAN CORPUSCULAR HGB 25.8 PG (27.0-31.0); MEAN CORPUSCULAR HGB CONC 32.8 G/DL (33.0-37.0); MEAN CORPUSCULAR VOLUME 78.8 FL (80.0-94.0); PLATELET COUNT 355 /CUMM (130-400); RBC DISTRIBUTION WIDTH 27.8 % (11.5-14.5); RED BLOOD CELL CT 3.28 /CUMM (4.70-6.10); WHITE BLOOD CELL COUNT 12.3 /CUMM (4.8-10.8)
--- NOTE | 2018-02-02 10:46 | PN- General Surgery ---
See Addendum Subjective Subjective: Pt sitting in bed, no complaints of pain at rest. Tolerating PO intake but has no appetite. Denies nausea. Passing flatus and having loose BMs. Deneis CP/SOB. Deneis WRIGHT but says that he says had double vision since the time of the surgery. Overall, he says he feels tired. Working with PT, has been OOB to chair but did not ambulate yesterday. Used a walker at home prior to admission. Objective Vital Signs and I&Os Vital Signs Date Time Temp Pulse Resp B/P B/P Pulse O2 O2 Flow FiO2 Mean Ox Delivery Rate 02/02 0911 96 116/66 02/02 0911 96 116/66 02/02 0600 97.4 93 20 11666 93 Room Air 02/01 2149 Room Air 02/01 2137 97 130/64 02/01 213 98.2 95 20 130/64 93 Room Air 02/01 1854 95 154/54 02/01 1449 98.5 92 20 140/60 94 Room Air Intake & Output 02/02 1600 02/02 0800 02/02 0000 02/01 1600 02/01 0800 02/01 0000 Intake Total 200 760 Output Total 550 0 200 200 200 Balance -550 200 560 -200 -200 Intake, IV 10 Intake, Oral 200 750 Number 1 2 Bowel Movements Output, Urine 550 0 200 200 200 Physical Exam: gen- NAD resp- decreased breath sounds throught cardiac- RRR abd-soft, ND, +BS, tender at right post site incision with firm fullness felt under incision, no ecchymosis. all incisions are clean and dry with no drainage or signs of infection. kirk in midline incision. extremities- pitting edema in all 4 extremities with venous stasis changes on both lower extremities Current Medications: Current Medications Sig/Rony Start time Last Medication Dose Route Stop Time Status Admin Acetaminophen 1,000 MG TID PRN 01/31 1506 AC PO Albuterol Sulfate 2 PUF Q4 01/26 1800 AC 02/02 INH 0910 Allopurinol 200 MG DAILY 01/30 09 AC 02/02 PO 0910 Apixaban 2.5 MG BID 01/31 2100 AC 02/02 PO 0911 Aspirin 81 MG DAILY 01/29 09 AC 02/02 PO 0911 Atorvastatin Calcium 40 MG QPM 01/27 2100 AC 02/01 PO 2136 Budesonide/ 2 PUF BID 01/26 2100 AC 02/02 Formoterol Fumarate INH 0912 Docusate Sodium 100 MG BID 01/30 0900 AC 02/02 PO 0911 Gabapentin 200 MG Q8 01/26 2200 AC 02/02 PO 0535 Metoprolol Tartrate 12.5 MG BID 01/27 2100 AC 02/02 PO 0911 Omeprazole 20 MG DAILY AC 01/30 0700 AC 02/02 PO 0535 Ondansetron HCl 0 .STK-MED ONE 02/01 1816 DC .ROUTE Ondansetron HCl 4 MG Q6P PRN 01/27 2000 AC 01/30 IV 0415 Oxycodone HCl 5 MG Q4-6 PRN PRN 01/27 2000 AC PO Oxycodone HCl 10 MG Q4-6 PRN PRN 01/27 2000 AC PO Tamsulosin HCl 0.4 MG DAILY 02/01 1531 AC 02/02 PO 0911 Tramadol HCl 100 MG Q6P PRN 01/27 2000 AC PO Tramadol HCl 50 MG Q6P PRN 01/26 1800 AC PO Results Last 48 Hours of Labs: Laboratory Tests 02/02 02/01 0650 0630 Chemistry Sodium (137 - 145 mmol/L) 132 L 131 L Potassium (3.5 - 5.1 mmol/L) 4.4 4.4 Chloride (98 - 107 mmol/L) 105 105 Carbon Dioxide (22 - 30 mmol/L) 22 20 L Anion Gap (5 - 16) 5 6 BUN (9 - 20 mg/dL) 26 H 26 H Creatinine (0.7 - 1.2 mg/dL) 1.0 1.1 Estimated GFR (>60 ml/min) > 60 > 60 BUN/Creatinine Ratio (7 - 25 %) 26.0 H Glucose (65 - 99 mg/dL) 79 Calcium (8.4 - 10.2 mg/dL) 7.6 L Phosphorus (2.5 - 4.5 mg/dL) 3.7 Magnesium (1.6 - 2.3 mg/dL) 2.3 Total Bilirubin (0.2 - 1.3 mg/dL) 0.6 AST (17 - 59 U/L) 26 ALT (21 - 72 U/L) 36 Albumin (3.5 - 5.0 g/dL) 2.1 L Hematology CBC w Diff NO MAN DIFF REQ NO MAN DIFF REQ WBC (4.8 - 10.8 /CUMM) 12.3 H 16.7 H RBC (4.70 - 6.10 /CUMM) 3.28 L 3.56 L Hgb (14.0 - 18.0 G/DL) 8.5 L 9.2 L Hct (42 - 52 %) 25.8 L 27.8 L MCV (80.0 - 94.0 FL) 78.8 L 78.1 L MCH (27.0 - 31.0 PG) 25.8 L 25.9 L MCHC (33.0 - 37.0 G/DL) 32.8 L 33.2 RDW (11.5 - 14.5 %) 27.8 H 27.8 H Plt Count (130 - 400 /CUMM) 355 346 MPV (7.4 - 10.4 FL) 10.0 10.9 H Gran % (42.2 - 75.2 %) 83.5 H 85.3 H Lymphocytes % (20.5 - 51.1 %) 5.0 L 4.6 L Monocytes % (1.7 - 9.3 %) 7.9 7.2 Eosinophils % (0 - 5 %) 3.2 2.8 Basophils % (0.0 - 2.0 %) 0.4 0.1 Absolute Granulocytes (1.4 - 6.5 /CUMM) 10.3 H 14.3 H Absolute Lymphocytes (1.2 - 3.4 /CUMM) 0.6 L 0.8 L Absolute Monocytes (0.10 - 0.60 /CUMM) 1.0 H 1.2 H Absolute Eosinophils (0.0 - 0.7 /CUMM) 0.4 0.5 Absolute Basophils (0.0 - 0.2 /CUMM) 0 0 / 08 2300 1106 Coagulation APTT (25 - 37 SEC) Cancelled 87 H Assessment/Plan Assessment/Plan This is an 87 yo male with a PMHx of HTN, Hyperlipidemia, Peripheral Neuropathy, PVD, BPH, Asthma and Gout who is POD #6 s/p laparoscopic converted to open subtotal colectomy with ileum to proximal sigmoid colon anastomosis, Takedown of splenic flexure and Splenorrhaphy for bleeding for colon cancer as well as cystoscopy and [place] gonzalez placement with a wire. 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 -Hematocrit down to 25.8 today from 27.8 yesterday. will heme test stool today for possible anastomotic bleed. We considered re-scanning his abdomen, will discuss with attending surgeon. H&H is going to be re-checked at noon today, if continues to drop would not send pt to rehab today. IF crit drops would transfuse 2 units pRBCs and consider stopping anticoagulants. -Having multiple loose stools- consider starting immodium TID -As pt is having no pain- will decrease Gabapentin, and consider stopping if still without pain -Firmness at right post site incision- swelling/hematome vs hernia. hernia unlikely as a 5mm post was used. Rec apply ice to post site -Edema- rec compression hose on lower extremities. Medicine to Consider lasix for fluid overload -PT -IS and turn, cough and deep breathing techniques -low residue diet, encourage PO intake -GI Px -dvt ppx- eliquis which will cover DVT Px and tx cva/afib, ALPs while in beds -PRN analgesics and antiemetics. -Home medications as appropriate per the medical service. -Continue gonzalez, will d/w Dr. Britton if he can undergo a voiding trial prior to discharge. -Appreciate Cardiology and Medicine input and help in management of this patient , if able to place -d/c planning- anticipate d/c to STR -Will d/w case management regarding discharge planning. -Will discuss with Dr Canas Core Measures Venous Thromboembolism VTE Risk Factors Surgery No Mechanical VTE Prophylaxis d/t N/A MechProphylax Ordered No VTE Pharm Prophylaxis d/t NA PharmProphylax ordered
[2018-02-02] MEDS ORDERED: GABAPENTIN100 M2 PO (12:48)
[2018-02-02] MEDS ORDERED: FLOMAX0.4 M1 PO (12:48)
[2018-02-02 14:02] LABS: ABSOLUTE BASOPHIL COUNT 0 /CUMM (0.0-0.2); ABSOLUTE EOSINOPHIL COUNT 0.3 /CUMM (0.0-0.7); ABSOLUTE GRANULOCYTE CT 11.6 /CUMM (1.4-6.5); ABSOLUTE LYMPH COUNT 0.5 /CUMM (1.2-3.4); BASOPHIL % 0.2 % (0.0-2.0); EOSINOPHIL % 2.5 % (0-5); GRANULOCYTE % 85.9 % (42.2-75.2); HEMATOCRIT 25.8 % (42-52); MEAN CORPUSCULAR HGB 26.1 PG (27.0-31.0); MEAN CORPUSCULAR HGB CONC 33.5 G/DL (33.0-37.0); MEAN PLATELET VOLUME 9.9 FL (7.4-10.4); PLATELET COUNT 354 /CUMM (130-400); RBC DISTRIBUTION WIDTH 27.1 % (11.5-14.5); RED BLOOD CELL CT 3.31 /CUMM (4.70-6.10); WHITE BLOOD CELL COUNT 13.5 /CUMM (4.8-10.8)
[2018-02-02 14:58] VITALS: BP 140/62
[2018-02-02 22:02] VITALS: BP 140/56
[2018-02-03 06:42] VITALS: BP 170/67
[2018-02-03 07:39] LABS: ABSOLUTE BASOPHIL COUNT 0 /CUMM (0.0-0.2); ABSOLUTE EOSINOPHIL COUNT 0.6 /CUMM (0.0-0.7); ABSOLUTE GRANULOCYTE CT 11.2 /CUMM (1.4-6.5); ABSOLUTE LYMPH COUNT 0.6 /CUMM (1.2-3.4); ABSOLUTE MONOCYTE COUNT 0.9 /CUMM (0.10-0.60); BASOPHIL % 0.1 % (0.0-2.0); EOSINOPHIL % 4.4 % (0-5); GRANULOCYTE % 83.7 % (42.2-75.2); HEMATOCRIT 25.6 % (42-52); MEAN CORPUSCULAR HGB 25.6 PG (27.0-31.0); MEAN CORPUSCULAR HGB CONC 32.7 G/DL (33.0-37.0); MEAN CORPUSCULAR VOLUME 78.2 FL (80.0-94.0); MEAN PLATELET VOLUME 9.7 FL (7.4-10.4); PLATELET COUNT 357 /CUMM (130-400); RBC DISTRIBUTION WIDTH 27.8 % (11.5-14.5); RED BLOOD CELL CT 3.28 /CUMM (4.70-6.10)
[2018-02-03 08:37] LABS: WHITE BLOOD CELL COUNT 13.4 /CUMM (4.8-10.8)
--- NOTE | 2018-02-03 09:09 | PN- Att Addend ---
Attending Addendum Attending Brief Note Patient seen and examined. Currently resting comfortably and not in acute distress. Reports having a poor sleep due to events with the fire alarm system overnight. Denies chest pain. Denies palpitations. Denies abdominal pain. Vital Signs Date Time Temp Pulse Resp B/P B/P Pulse O2 O2 Flow FiO2 Mean Ox Delivery Rate 02/03 0815 96 160/60 02/03 0642 98.2 94 20 170/67 97 Room Air 02/03 0513 98 170/70 02/03 0000 Room Air 02/02 2202 99.2 106 20 140/56 94 Room Air 02/02 2100 104 140/56 02/02 1600 97 Room Air Room Air 02/02 1458 97.5 96 20 140/62 94 Room Air 02/02 1226 Room Air Room Air 02/02 0911 96 116/66 02/02 0911 96 116/66 On examination he has persistent edema of the upper extremities and lower extremities. He continues to have an ecchymotic area in the right upper extremity. Nontender. No evidence of trauma. Laboratory data reviewed. Hemoglobin level is relatively stable. Leukocytosis is persistent. Recommendations: -No need for further telemetry monitoring. We will take patient off the monitor. -Continue to monitor hemoglobin levels and transfuse to keep hemoglobin greater than 8. -Follow-up with the urology service for management of his Patricio catheter. Continue patient on Flomax upon discharge. -Blood pressure is improving. Currently in the 170s. May increase the dose of his metoprolol to 25 mg orally twice daily. Resume his Lasix 40 mg orally daily. Upon discharge continue to evaluate patient for need of further increasing his metoprolol to the home dose of 50 mg twice daily and restarting his amlodipine and irbesartan if blood pressure continues to trend up. -Mobilize patient as tolerated. -As an outpatient if his leukocytosis persists he may require evaluation by the hematology service. -Thank you for involving us in the care of this patient please recall the general medical team as needed
--- NOTE | 2018-02-03 09:16 | PN- Housestaff ---
Subjective Follow-up For: New onset Afib Subjective: No events overnight. No events on telemetry. He denies any new complaints. He says he feels ready to start rehab. Review of Systems Constitutional: Reports: see HPI. Objective Last 24 Hrs of Vital Signs/I&O Vital Signs Date Time Temp Pulse Resp B/P B/P Pulse O2 O2 Flow FiO2 Mean Ox Delivery Rate 02/03 1341 98.2 96 20 160/60 02/03 0815 96 160/60 02/03 0800 96 Room Air Room Air Physical Exam General Appearance: Alert, Cooperative, No Acute Distress Skin Temp/Moisture Exam: Warm/Dry HEENT: Atraumatic, EOMI Neck: Supple Cardiovascular: Normal S1, Normal S2 Lungs: Clear to Auscultation, Normal Air Movement Abdomen: Normal Bowel Sounds, Soft, No tenderness at surgical scar Extremities: No Tenderness/Swelling Current Medications: Current Medications Sig/Rony Start time Last Medication Dose Route Stop Time Status Admin Acetaminophen 1,000 MG TID PRN 01/31 1506 AC PO Albuterol Sulfate 2 PUF Q4 01/26 1800 AC 02/03 INH 0815 Allopurinol 200 MG DAILY 01/30 0900 AC 02/03 PO 0815 Apixaban 2.5 MG BID 01/31 2100 AC 02/03 PO 0814 Aspirin 81 MG DAILY 01/29 0900 AC 02/03 PO 0814 Atorvastatin Calcium 40 MG QPM 01/27 2100 AC 02/02 PO 2100 Budesonide/ 2 PUF BID 01/26 2100 AC 02/03 Formoterol Fumarate INH 0815 Docusate Sodium 100 MG BID 01/30 0900 AC 02/02 PO 2100 Furosemide 40 MG DAILY 02/03 1014 AC 02/03 PO 1139 Gabapentin 100 MG BID 02/02 2100 AC 02/03 PO 0815 Loperamide HCl 2 MG TID 02/02 1400 AC 02/03 PO 0814 Metoprolol Tartrate 25 MG BID 02/03 2100 AC PO Metoprolol Tartrate 12.5 MG BID 01/27 2100 DC 02/03 PO 0513 Omeprazole 20 MG DAILY AC 01/30 0700 AC 02/03 PO 0513 Ondansetron HCl 4 MG Q6P PRN 01/27 2000 AC 01/30 IV 0415 Oxycodone HCl 5 MG Q4-6 PRN PRN 01/27 2000 DC PO Oxycodone HCl 10 MG Q4-6 PRN PRN 01/27 2000 DC PO Tamsulosin HCl 0.4 MG DAILY 02/01 1531 AC 02/03 PO 0815 Tramadol HCl 100 MG Q6P PRN 01/27 2000 DC PO Tramadol HCl 50 MG Q6P PRN 01/26 1800 DC PO Last 24 Hrs of Lab/Tom Results Last 24 Hrs of Labs/Mics: Laboratory Tests 02/03/18 0639: CBC w Diff NO MAN DIFF REQ, RBC 3.28 L, MCV 78.2 L, MCH 25.6 L, MCHC 32.7 L, RDW 27.8 H, MPV 9.7, Gran % 83.7 H, Lymphocytes % 4.7 L, Monocytes % 7.1, Eosinophils % 4.4, Basophils % 0.1, Absolute Granulocytes 11.2 H, Absolute Lymphocytes 0.6 L, Absolute Monocytes 0.9 H, Absolute Eosinophils 0.6, Absolute Basophils 0 Assessment/Plan Assessment: 87 yo male with a PMHx of HTN, Hyperlipidemia, Peripheral Neuropathy, BPH, Asthma and Gout who underwent open subtotal colectomy with ileum to proximal sigmoid colon anastomosis, for colon cancer as well as cystoscopy and [place] gonzalez placement with a wire. Postoperative course complicated by inability to place gonzalez secondary to BPH. Patient is not experiencing any palpitations or chest pain despite new onset paroxysmal afib. Continue current management. 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 S/P colectomy 2. Atrial fibrillation Pain Ratin Pain Location: n/a Pain Goal: Remain pain free Pain Plan: per pathway Tomorrow's Labs & Rationales: CBC
[2018-02-03] MEDS ORDERED: METOPROLOL TART25 M1 PO (10:03)
[2018-02-03] MEDS ORDERED: DOCUSATE SODIU100 M3 PO ×2 (10:05→10:07)
[2018-02-03] MEDS ORDERED: ACETAMINOPHEN500 M4 PO (10:05)
[2018-02-03] MEDS ORDERED: TRAMADOL HCL50 M1 PO (10:07)
[2018-02-03] MEDS ORDERED: OXYCODONE HCL5 M1 PO (10:07)
[2018-02-03] MEDS ORDERED: ELIQUIS2.5 M1 PO (10:07)
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
[2018-02-03 13:41] VITALS: BP 160/60
== END 2018-02-03 13:45 | DRG 329 ==
LOC: SDA 03:03 → CRI 03:03 → ENRESERV 18:18 → ENTRNSPT 19:18 → EDTRNSPT 19:20 → EDTRNSPTSTS 19:20 → CRI 19:45 → CMPTRNSPT 19:49 → ENTRNSPT 01-31 16:13 → EDTRNSPTSTS 01-31 17:21 → EDTRNSPT 01-31 17:21 → 1NO 01-31 17:28 → CMPTRNSPT 01-31 17:35 → 1NO 01-31 20:08 → ENPENDDIS 02-03 10:15 → 1NO 02-03 13:45
PROVIDERS: Colon & Rectal Surgery; Internal Medicine; Internal Medicine Pulmonary Disease; Nurse Practitioner; Physician Assistant Surgical; Student in an Organized Health Care Education/Training Program
PROC: 0DNW0ZZ Release Peritoneum, Open Approach (ICD-10-PCS; principal; 2018-01-26)
PROC: 0DNW4ZZ Release Peritoneum, Percutaneous Endoscopic Approach (ICD-10-PCS; principal; 2018-01-26)
PROC: 0DTL0ZZ Resection of Transverse Colon, Open Approach (ICD-10-PCS; principal; 2018-01-26)
PROC: 0W3P0ZZ Control Bleeding in Gastrointestinal Tract, Open Approach (ICD-10-PCS; principal; 2018-01-26)
PROC: 0DTM0ZZ Resection of Descending Colon, Open Approach (ICD-10-PCS; principal; 2018-01-26)
PROC: 0DTK4ZZ Resection of Ascending Colon, Percutaneous Endoscopic Approach (ICD-10-PCS; principal; 2018-01-26)
PROC: 0T9B80Z Drainage of Bladder with Drainage Device, Via Natural or Artificial Opening Endoscopic (ICD-10-PCS; 2018-01-26)
PROC: 3E0T3BZ Introduction of Anesthetic Agent into Peripheral Nerves and Plexi, Percutaneous Approach (ICD-10-PCS; 2018-01-26)
PROC: 02HV33Z Insertion of Infusion Device into Superior Vena Cava, Percutaneous Approach (ICD-10-PCS; 2018-01-27)
PROC: 30233N1 Transfusion of Nonautologous Red Blood Cells into Peripheral Vein, Percutaneous Approach (ICD-10-PCS; 2018-01-27)
DX: C18.6 Malignant neoplasm of descending colon (principal); I63.9 Cerebral infarction, unspecified; N17.9 Acute kidney failure, unspecified; N13.8 Other obstructive and reflux uropathy; D62 Acute posthemorrhagic anemia; G62.9 Polyneuropathy, unspecified; I48.0 Paroxysmal atrial fibrillation; H53.2 Diplopia; R47.81 Slurred speech; D12.2 Benign neoplasm of ascending colon; K66.0 Peritoneal adhesions (postprocedural) (postinfection); I10 Essential (primary) hypertension; D72.829 Elevated white blood cell count, unspecified; K44.9 Diaphragmatic hernia without obstruction or gangrene; M10.9 Gout, unspecified; J45.909 Unspecified asthma, uncomplicated; Z87.891 Personal history of nicotine dependence; N40.1 Benign prostatic hyperplasia with lower urinary tract symptoms
CPT/HCPCS: 1NP; 84133; 84300; CCU; 36415; 36592; 71045; 74176; 81001; 82436; 82570; 86920; 87070; 87086; 88309; 93005; 93010; 93306; 97110-GO; 97112-GO; 97116-GO; 97162-GP; 97530-GO; C9290; J1644; J1940; J2405; J3490; J7040; J7042; J7060; P9016

== ENCOUNTER 2018-02-14 16:25 | Inpatient (IN) | payer OTHER, MEDICARE ==
[~2018-02-14] VITALS: Ht 180.3 cm; Wt 110.7 kg
[~2018-02-14 16:25] MED LIST changes: +ACETAMINOPHEN500 M4 PO; +ATORVASTATIN CA20 M1 PO; +DOCUSATE SODIU100 M3 PO; +ELIQUIS2.5 M1 PO; +FLOMAX0.4 M1 PO; +GABAPENTIN100 M2 PO; +LIPITOR40 M1 PO; +METOPROLOL TART25 M1 PO; +OXYCODONE HCL5 M1 PO; +TRAMADOL HCL50 M1 PO
--- NOTE | 2018-02-14 18:39 | RADIOLOGY REPORT ---
EXAMINATION: XR PORTABLE CHEST CLINICAL INFORMATION: Chest pain. COMPARISON: None TECHNIQUE: Portable frontal view of the chest was obtained. FINDINGS: The lungs are hypoexpanded with bibasilar opacification from pleural effusion and underlying atelectasis. Heart size and pulmonary vascularity is normal. No gross bony abnormality seen. IMPRESSION: Bilateral moderate pleural effusions with underlying atelectasis. The upper lungs are clear.
--- NOTE | 2018-02-14 19:27 | PN- General Surgery ---
Surgical Brief Attending Note Brief Attending Note: This is a 87-year-old gentleman with multiple comorbidities well known to me Approximately 3 weeks ago he had a laparoscopic converted to open subtotal colectomy for synchronous lesions in his right colon and splenic flexure. Patient had intraoperative splenic capsular tear which was controlled with hemostatic agents He had postop anemia and his postoperative course was also complicated by new cardiac arrhythmia. He was an extremely difficult Patricio intubation requiring cystoscopy and placement of catheter by urology Dr. Margy Britton. Patient was in the nursing facility failing to thrive with worsening shortness of breath. He was also noted to have redness around his incision and arising white blood cell count. We instructed the nursing facility to send the patient to the ER for evaluation. At the time of my evaluation the patient is short of breath but his vital signs are otherwise stable. He was noted to have fluctuance and erythema around his incision. I opened the inferior edge of the incision and a copious amount of frankly purulent material was expressed. Cultures were obtained. A 1 inch Nu Gauze packing was placed with a bulky dressing. Impression: This is an elderly frail male approximately 3 weeks status post major abdominal surgery. He re-presents to the hospital with shortness of breath as well as surgical site infection. His dyspnea pending workup is pending at this time. Plan: Patient clearly needs to be admitted for IV antibiotics and wound care Patient needs dyspnea workup-consult medicine Keep n.p.o. for now pending further workup.
--- NOTE | 2018-02-14 20:31 | ED CARDIAC/CP/PALPITATIONS ---
History of Present Illness General Chief Complaint: Dyspnea (COPD, CHF, Other) Stated Complaint: DYSPNEA Source: patient, family Exam Limitations: no limitations Vital Signs & Intake/Output Vital Signs & Intake/Output Vital Signs Date Time Temp Pulse Resp B/P B/P Pulse O2 O2 Flow FiO2 Mean Ox Delivery Rate 02/147 97.9 102 22 122/42 97 Nasal Cannula 02/14 2212 98.4 103 16 134/63 97 Nasal 2.0L Cannula 02/140 97.8 114 16 151/76 99 Nasal 2.0L Cannula 02/14 1858 98.7 110 21 118/54 95 Room Air 02/14 1652 94 Room Air 02/14 1651 97.9 97 18 130/58 94 Room Air ED Intake and Output 02/15 0000 02/14 1200 Intake Total Output Total 100 Balance -100 Output, Urine 100 Patient 235 lb Weight Weight Reported by Patient Measurement Method Allergies Coded Allergies: Penicillins (BLISTERS, ITCH ALL OVER 01/25/18) Triage Note: 87 Y/O MALE BIBA FROM REHAB FOR EVAL OF WORSENING SOB X APPROX 3 DAYS. PER EMS, PT 02 SAT WAS IN 80'S ON THEIR ARRIVAL, 1 DUO NEB GIVEN EN ROUTE WITH PT ARRIVAL TO ED - SAT 94% RA, 96% ON 2L. PT ARRIVES TO ED A/O X 4, SPEAKING CLEARLY WITH NO DISTRESS. STATES HE HAD COLON SURGERY RECENTLY, "BY DR HENRY, HE TOOK SOME OF THE COLON OUT AND FOUND A TUMOR". PT HAS STERI STRIPS IN PLACE TO ABDOMEN WITH SURROUNDING REDNESS. PT DENIES NOTING DRAINAGE. ALSO STATES HE WAS RECENTLY DIAGNOSED WITH PNEUMONIA AND STATES HE IS ON ANTIBIOTICS. STATES HE FEELS SOB WITH ANY EXERTION. REPORTS NON PRODUCTIVE COUGH. DENIES FEVERS. STATES HIS APPETITE HAS BEEN LESS THAN USUAL. DENIES N/V/D. PITTING EDEMA NOTED TO BILATERAL LOWER EXTREMITIES WITH COMPRESSION WRAPS IN PLACE TO SAME. [facility] FRANCIS IN PLACE AND DRAINING CLEAR YELLOW URINE. [facility] PICC LINE IN PLACE AND WAS PLACED LAST EVENING PER PT STATEMENT. PER PT, PICC LINE HAS NOT BEEN USED FOR ANY MEDICATIONS YET. CALL LIGHT IN PLACE. PT WATCHING TV WITH NO DISTRESS AT THIS TIME. DAUGHTER AT BEDSIDE ARRIVES FROM FACILITY WITH MULTIPLE LAB RESULTS AND PAPERWORK FROM FACILITY. PLACED IN CHART Triage Nurses Notes Reviewed? yes HPI: 87-year-old male status post abdominal surgery presents with worsening shortness of breath and fatigue for 1 week. +23 pounds of weight gain with edema of the lower extremities. Denies chest pain. Positive for orthopnea. (Toni CARRANZA,Yoseph) Reconcile Medications Acetaminophen 325 MG TABLET 2 TAB PO Q4H PRN PAIN/TEMP 101.5 (Reported) Albuterol Sulfate (Proventil Hfa) 90 MCG HFA.AER.AD 2 PUF INH Q4 ASTHMA ( Reported) Allopurinol 300 MG TABLET 1 TAB PO DAILY GOUT (Reported) Amino AC/Protein Hydr/Whey Pro (Prosource Protein Liquid) 10 GRAM-100 KCAL/30 ML LIQUID 30 ML PO BID SUPPLEMENT (Reported) Apixaban (Eliquis) 2.5 MG TABLET 1 TAB PO BID AFIB Aspirin (Ecotrin*) 81 MG TABLET.DR 1 TAB PO DAILY HEART/BLOOD (Reported) Atorvastatin Calcium (Lipitor) 40 MG TABLET 1 TAB PO DAILY HEART Bisacodyl 10 MG SUPP.RECT 1 SUP RC QAM PRN NO BM IN 3 DAYS (Reported) Budesonide/Formoterol Fumarate (Symbicort 160-4.5 Mcg Inhaler) 160 MCG-4.5 MCG/ ACTUATION HFA.AER.AD 2 PUF INH BID ASTHMA (Reported) Ceftriaxone Sodium (Ceftriaxone) 500 MG VIAL 1 GM IV AD ABX (Reported) Docusate Sodium (Stool Softener) 100 MG CAPSULE 1 CAP PO BID PRN CONSTIPATION (Reported) Docusate Sodium 100 MG CAPSULE 1 TAB PO BID PRN CONSTIPATION Ferrous Sulfate 325 MG (65 MG IRON) TABLET 1 TAB PO BID ANEMIA (Reported) Furosemide 40 MG TABLET 1 TAB PO DAILY DIURETIC (Reported) Gabapentin 100 MG CAPSULE 1 TAB PO BID PAIN Metoprolol Tartrate 25 MG TABLET 1 TAB PO DAILY HEART/BP (Reported) Nystatin 100,000 UNIT/GRAM CREAM..G. 1 KIMBER TOP BID BUTTOCKS & PENILE SHAFT ( Reported) apply to affected area(s) Omeprazole 20 MG CAPSULE.DR 1 CAP PO DAILY GI (Reported) Oxycodone HCl 5 MG TABLET 1 TAB PO Q6H PRN SEVERE PAIN (Reported) Polyethylene Glycol 3350 (Miralax) 17 GRAM POWD.PACK 1 PAC PO QAM GI ( Reported) dissolve in water Tamsulosin HCl (Flomax) 0.4 MG CAP.ER.24H 1 TAB PO DAILY BPH Tolnaftate (Antifungal Cream) 1 % CREAM..G. 1 KIMBER TOP BID SCROTUM (Reported) Tramadol HCl 50 MG TABLET 1-2 TAB PO Q6P PRN PAIN Zinc Oxide 20 % OINT...G. 1 KIMBER TOP BID BILAT. UPPER THIGH (Reported) (Malcolm Bolanos MD) Past History Travel History Traveled to [place] past 21 day No Medical History Any Pertinent Medical History? 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 No (Yoseph Muñoz MD) Review of Systems Review of Systems Constitutional: Reports: no symptoms. EENTM: Reports: no symptoms. Respiratory: Reports: no symptoms, short of breath. Denies: cough, wheezing. Cardiovascular: Reports: no symptoms, edema, orthopena, palpitations. Denies: chest pain. GI: Reports: no symptoms, bloating. Denies: constipation, diarrhea, distention, nausea, vomiting. Genitourinary: Reports: no symptoms. Musculoskeletal: Reports: no symptoms. Skin: Reports: no symptoms. Neurological/Psychological: Reports: no symptoms. Hematologic/Endocrine: Reports: no symptoms. Immunologic/Allergic: Reports: no symptoms. All Other Systems: Reviewed and Negative (Yoseph Muñoz MD) Physical Exam Physical Exam General Appearance: no apparent distress, Uncomfortable. Neck: JVD Respiratory: crackles Cardiovascular: edema, murmur Gastrointestinal: soft, Vertical surgical incision with surrounding erythema. Core Measures ACS in differential dx? No CVA/TIA Diagnosis No Sepsis Present: No Sepsis Focused Exam Completed? No (Yoseph Muñoz MD) Progress Differential Diagnosis: CHF/pulm edema Plan of Care: Orders Procedure Date/time Status CHF Diet 02/15 B Active CBC WITHOUT DIFFERENTIAL 02/15 600 Active BASIC ELECTROLYTES PLUS BUN&CR 02/15 600 Active CULTURE,URINE 02/14 2330 Active BLOOD CULTURE 02/14 2330 Active Weight 02/14 2309 Complete Vital Signs 02/14 230 Complete Teach/Educate 02/14 2309 Active Pain Treatment and Response 02/14 2309 Active Nutritional Intake, Monitor 02/14 2309 Active Isolation 02/14 2309 Active Intake & Output 02/14 2309 Complete Patient Care Conference 02/14 2309 Active Activity/Ambulation 02/14 2309 Complete TYPE & SCREEN (NOT X-MATCH) 02/15 2228 Active Pathway - chart 02/14 2222 Active House Staff 02/14 2222 Active Patient Data 02/14 2222 Active Patient Data 02/14 2113 Active B-TYPE NATRIURETIC PEP (BNP) 02/14 2022 Complete OXYGEN SETUP (GEN) 02/14 2015 Active Saline Lock 02/14 2015 Active Admit to inpatient 02/14 2015 Active Vital Signs 02/14 2015 Active Activity/Ambulation 02/14 2015 Complete Code Status 02/14 2015 Active TRUNK AREA CULTURE 02/14 193 Active LACTIC ACID 02/14 193 Complete TROPONIN LEVEL 02/14 1720 Complete MAGNESIUM 02/14 1720 Complete COMPREHENSIVE METABOLIC PANEL 02/14 1720 Complete CHOLESTEROL 02/14 1720 Complete CBC WITHOUT DIFFERENTIAL 02/14 1720 Complete EKG 02/14 1701 Active Intake & Output 02/14 1650 Active TRC EVALUATION (GEN) 02/14 UNK Active OXYGEN SETUP (GEN) 02/14 UNK Complete Saline Lock 02/14 UNK Active Weight 02/14 UNK Active VTE Mechanical Prophylaxis 02/14 UNK Active Telemetry/Automobile Mechanic Supervisor 02/14 UNK Active Intake & Output 02/14 UNK Complete Hemoccult 02/14 UNK Active Activity/Ambulation 02/14 UNK Active Current Medications Sig/Rony Start time Last Medication Dose Stop Time Status Admin Atorvastatin Calcium 40 MG DAILY 02/15 900 AC (Lipitor) Metoprolol Tartrate 25 MG DAILY 02/15 900 AC (Lopressor) Omeprazole 20 MG DAILY 02/15 900 AC (Prilosec) Tamsulosin HCl 0.4 MG DAILY 02/15 900 AC (Flomax) Heparin Sodium 5,000 UNIT Q8 02/15 600 CAN (Porcine) Gabapentin 100 MG BID 02/14 233 AC (Neurontin) Acetaminophen 650 MG Q6P PRN 02/14 2230 AC (Tylenol) Acetaminophen 1,000 MG Q6P PRN 02/14 2230 AC (Ofirmev) Oxycodone/ 1 TAB Q6P PRN 02/14 2230 AC Acetaminophen (Percocet) Laboratory Tests 02/14/182230: Lactic Acid Cancelled 02/14/182021: Lactic Acid 1.2 02/14/182021: Anion Gap 7, Estimated GFR 48 L, BUN/Creatinine Ratio 30.0 H, Glucose 101 H, Calcium 7.8 L, Magnesium 1.7, Total Bilirubin 0.3, AST 37, ALT 47, Alkaline Phosphatase 102, Troponin I < 0.01, Ova-O-Xaviplcfivk Pept 1360 H, Total Protein 4.4 L, Albumin 2.2 L, Globulin 2.2, Albumin/Globulin Ratio 1.0 L, Cholesterol 68, CBC w Diff MAN DIFF ORDERED, RBC 2.50 L, MCV 77.8 L, MCH 25.5 L, MCHC 32.8 L, RDW 27.1 H, MPV 8.0, Gran % 89.2 H, Lymphocytes % 4.2 L, Monocytes % 6.2, Eosinophils % 0.3, Basophils % 0.1, Absolute Granulocytes 18.8 H, Segmented Neutrophils 91 H, Absolute Lymphocytes 0.9 L, Lymphocytes 7 L, Monocytes 2, Absolute Monocytes 1.3 H, Absolute Eosinophils 0.1, Absolute Basophils 0, Platelet Estimate VERIFIED BY SMEAR, Polychromasia 1+, Anisocytosis 2+, Fld Total RBCs Counted 100 02/14/18 1729: Tit-O-Tivdsnccsxx Pept Cancelled Microbiology 02/14 2330 URINE ROUT: Urine Culture - ORD 02/14 2330 BLOOD: Blood Culture - COLB 02/14 2330 BLOOD: Blood Culture - COLB 02/15 1920 TRUNK: Culture & Sensitivity - RECD 02/15 1920 TRUNK: Gram Stain - RECD 02/14 1900 BODY FLUID: Body Fluid Culture - CAN Cancelled: CHANGED TO TRUNK CULTURE, ABDOMEN 02/14 1900 BODY FLUID: Gram Stain - CAN Cancelled: CHANGED TO TRUNK CULTURE, ABDOMEN Initial ED EKG: New onset RBBB. Hand-Off Endorsed To: Malcolm Bolanos MD Endorsed Time: 2029 Pending: labs (Yoseph Muñoz MD) Departure Departure Disposition: STILL A PATIENT Condition: Stable Clinical Impression Primary Impression: Surgical site infection Qualifiers: Encounter type: initial encounter Qualified Code: T81.4XXA - Infection following a procedure, initial encounter Secondary Impressions: Edema Qualifiers: Edema type: unspecified Qualified Code: R60.9 - Edema, unspecified Shortness of breath Referrals: Sanam Starr MD, I. (PCP/Family) Departure Forms: Customer Survey General Discharge Information (Yoseph Muñoz MD) Admission Note Spoke With: Phill Causey MD Documentation of Exam: Documentation of any treatments & extenuating circumstances including Concerns Regarding Discharge (functional status, medication knowledge or non-compliance, living conditions, etc.) that warrant an admission rather than observation: IV antibiotics IV diuresis cardiac monitoring medication adjustment surgery evaluation physical therapy continuing care discharge planning (Malcolm Bolanos MD) Critical Care Note Critical Care Note Critical Care Time: non-applicable (Yoseph Muñoz MD)
[2018-02-14 20:36] LABS: ABSOLUTE BASOPHIL COUNT 0 /CUMM (0.0-0.2); ABSOLUTE EOSINOPHIL COUNT 0.1 /CUMM (0.0-0.7); ABSOLUTE GRANULOCYTE CT 18.8 /CUMM (1.4-6.5); ABSOLUTE LYMPH COUNT 0.9 /CUMM (1.2-3.4); ABSOLUTE MONOCYTE COUNT 1.3 /CUMM (0.10-0.60); BASOPHIL % 0.1 % (0.0-2.0); EOSINOPHIL % 0.3 % (0-5); GRANULOCYTE % 89.2 % (42.2-75.2); MEAN CORPUSCULAR HGB 25.5 PG (27.0-31.0); MEAN CORPUSCULAR HGB CONC 32.8 G/DL (33.0-37.0); MEAN CORPUSCULAR VOLUME 77.8 FL (80.0-94.0); PLATELET COUNT 448 /CUMM (130-400); RBC DISTRIBUTION WIDTH 27.1 % (11.5-14.5); WHITE BLOOD CELL COUNT 21.1 /CUMM (4.8-10.8)
[2018-02-14 20:39] LABS: HEMATOCRIT 19.4 % (42-52)
[2018-02-14] MEDS ORDERED: CEFTRIAXONE500 MG IV (21:01)
[2018-02-14] MEDS ORDERED: METOPROLOL TART25 M1 PO (21:02)
[2018-02-14] MEDS ORDERED: OMEPRAZOLE20 M2 PO (21:03)
[2018-02-14] MEDS ORDERED: NYSTATIN15 G1 TOP (21:03)
[2018-02-14] MEDS ORDERED: OXYCODONE HCL5 M1 PO (21:07)
[2018-02-14] MEDS ORDERED: ACETAMINOPHEN325 M2 PO (21:10)
[2018-02-14] MEDS ORDERED: BISACODYL10 M1 RC (21:13)
[2018-02-14] MEDS ORDERED: FERROUS SULFAT325 M3 PO (21:13)
[2018-02-14] MEDS ORDERED: STOOL SOFTENER100 M3 PO (21:14)
[2018-02-14] MEDS ORDERED: MIRALAX17 G1 PO (21:14)
[2018-02-14] MEDS ORDERED: PROSOURCE PROT946 M1 PO (21:15)
[2018-02-14] MEDS ORDERED: ANTIFUNGAL C14.18 GM TOP (21:16)
[2018-02-14] MEDS ORDERED: ZINC OXIDE56.7 GM TOP (21:16)
--- NOTE | 2018-02-14 22:12 | History & Physical ---
Amador Huffman 02/14/18 2211: General Information and HPI MD Statement: I have seen and personally examined SINA COLLIER and documented this H&P. The patient is a 87 year old M who presented with a patient stated chief complaint of [SOB]. History of Present Illness: Patient is an 87 yo M with PMH of hypertension, hyperlipidemia, benign prostatic hypertrophy, asthma, gout, peripheral neuropathy, recent hospital admission a [place] for surgical resection and subtotal colectomy for villous adenomas with ileum to proximal sigmoid colon anastamosis, complicated by new onset atrial fibrilliation and brain stem stroke, which he received 4 units PRBC for, and was discharged on to [facility]. Upon discharge he was given 2.5 g Eliquis BID for his new onset Afib. He presents to [place] ED after being brought in by daughter for shortness of breath with hypoxia, falling H/H, leukocytosis, generlized swelling in his feet and arms, and abdominal distension, and surgical wound erythema. The abnormal labs were reported to the daughter at the facility where her father was getting rehab. Since the discharge from [place], the patient has been actively working with PT at least twice a day to walk (at least 40 feet according to patient). According to the daughter, the patient's H and H dropped by about 2 points from high 8's to mid 6 within the span of a few days. Due to his elevated white count, the patient was receiving Levaquin for presumed pneumonia at the facility, for which has completed about a week's worth of treatment now. The daughter became more concerned when she noticed that her father was short of breath for simple activities, even when passively being turned around in his bed. On top of the erythema and swelling of his limbs, the combination of all factors raised enough concern for the daughter to bring the patient to the hospital. Patient denies fevers, chest pain, palpitations. Allergies/Medications Allergies: Coded Allergies: Penicillins (BLISTERS, ITCH ALL OVER 01/25/18) Home Med list Acetaminophen 325 MG TABLET 2 TAB PO Q4H PRN PAIN/TEMP 101.5 (Reported) Albuterol Sulfate (Proventil Hfa) 90 MCG HFA.AER.AD 2 PUF INH Q4 ASTHMA ( Reported) Allopurinol 300 MG TABLET 1 TAB PO DAILY GOUT (Reported) Amino AC/Protein Hydr/Whey Pro (Prosource Protein Liquid) 10 GRAM-100 KCAL/30 ML LIQUID 30 ML PO BID SUPPLEMENT (Reported) Apixaban (Eliquis) 2.5 MG TABLET 1 TAB PO BID AFIB Aspirin (Ecotrin*) 81 MG TABLET.DR 1 TAB PO DAILY HEART/BLOOD (Reported) Atorvastatin Calcium (Lipitor) 40 MG TABLET 1 TAB PO DAILY HEART Bisacodyl 10 MG SUPP.RECT 1 SUP RC QAM PRN NO BM IN 3 DAYS (Reported) Budesonide/Formoterol Fumarate (Symbicort 160-4.5 Mcg Inhaler) 160 MCG-4.5 MCG/ ACTUATION HFA.AER.AD 2 PUF INH BID ASTHMA (Reported) Ceftriaxone Sodium (Ceftriaxone) 500 MG VIAL 1 GM IV AD ABX (Reported) Docusate Sodium (Stool Softener) 100 MG CAPSULE 1 CAP PO BID PRN CONSTIPATION (Reported) Docusate Sodium 100 MG CAPSULE 1 TAB PO BID PRN CONSTIPATION Ferrous Sulfate 325 MG (65 MG IRON) TABLET 1 TAB PO BID ANEMIA (Reported) Furosemide 40 MG TABLET 1 TAB PO DAILY DIURETIC (Reported) Gabapentin 100 MG CAPSULE 1 TAB PO BID PAIN Metoprolol Tartrate 25 MG TABLET 1 TAB PO DAILY HEART/BP (Reported) Nystatin 100,000 UNIT/GRAM CREAM..G. 1 KIMBER TOP BID BUTTOCKS & PENILE SHAFT ( Reported) apply to affected area(s) Omeprazole 20 MG CAPSULE.DR 1 CAP PO DAILY GI (Reported) Oxycodone HCl 5 MG TABLET 1 TAB PO Q6H PRN SEVERE PAIN (Reported) Polyethylene Glycol 3350 (Miralax) 17 GRAM POWD.PACK 1 PAC PO QAM GI ( Reported) dissolve in water Tamsulosin HCl (Flomax) 0.4 MG CAP.ER.24H 1 TAB PO DAILY BPH Tolnaftate (Antifungal Cream) 1 % CREAM..G. 1 KIMBER TOP BID SCROTUM (Reported) Tramadol HCl 50 MG TABLET 1-2 TAB PO Q6P PRN PAIN Zinc Oxide 20 % OINT...G. 1 KIMBER TOP BID BILAT. UPPER THIGH (Reported) Past History Travel History Traveled to [place] past 21 day No Medical History Neurological: NONE EENT: cataracts Cardiovascular: hypertension, hyperlipidemia, peripheral vascular disease orthostatic hypotension Respiratory: asthma Gastrointestinal: NONE Hepatic: NONE Renal: benign prost hyperplasia Musculoskeletal: gout, osteoarthritis Psychiatric: NONE Endocrine: NONE Blood Disorders: NONE Cancer(s): adenocarcinoma of the colon AIR BRAKE RIGGER/Reproductive: NONE History of MRSA: No History of VRE: No History of CDIFF: No Surgical History Surgical History: colon resection, abdominal Past Family/Social History Psychosocial History Services at Home: None Review of Systems Review of Systems Constitutional: Reports: see HPI. Exam & Diagnostic Data Last 24 Hrs of Vital Signs/I&O Vital Signs Date Time Temp Pulse Resp B/P B/P Pulse O2 O2 Flow FiO2 Mean Ox Delivery Rate 02/14 2257 97.9 102 22 122/42 97 Nasal Cannula 02/15 2212 98.4 103 16 134/63 97 Nasal 2.0L Cannula 02/15 2040 97.8 114 16 151/76 99 Nasal 2.0L Cannula 02/14 1858 98.7 110 21 118/54 95 Room Air 02/14 1652 94 Room Air 02/14 1651 97.9 97 18 130/58 94 Room Air Intake & Output 02/15 0800 02/15 0000 02/14 1600 Intake Total Output Total 100 Balance -100 Output, Urine 100 Patient 241 lb Weight Weight Bed scale Measurement Method Physical Exam General Appearance Alert, Cooperative, Mild Distress Skin No Rashes Skin Temp/Moisture Exam: Warm/Dry HEENT Atraumatic, EOMI Neck Supple, No JVD, No LAD Cardiovascular Normal S1, Normal S2 Lungs Slight diffuse BL crackles Abdomen Normal Bowel Sounds, Soft, No Tenderness Extremities No Clubbing, No Cyanosis Last 24 Hrs of Labs/Tom: Laboratory Tests 02/14/182230: Lactic Acid Cancelled 02/14/182021: Lactic Acid 1.2 02/14/182021: Anion Gap 7, Estimated GFR 48 L, BUN/Creatinine Ratio 30.0 H, Glucose 101 H, Calcium 7.8 L, Magnesium 1.7, Total Bilirubin 0.3, AST 37, ALT 47, Alkaline Phosphatase 102, Troponin I < 0.01, Afm-C-Vin[place]go[place] Pept 1360 H, Total Protein 4.4 L, Albumin 2.2 L, Globulin 2.2, Albumin/Globulin Ratio 1.0 L, Cholesterol 68, CBC w Diff MAN DIFF ORDERED, RBC 2.50 L, MCV 77.8 L, MCH 25.5 L, MCHC 32.8 L, RDW 27.1 H, MPV 8.0, Gran % 89.2 H, Lymphocytes % 4.2 L, Monocytes % 6.2, Eosinophils % 0.3, Basophils % 0.1, Absolute Granulocytes 18.8 H, Segmented Neutrophils 91 H, Absolute Lymphocytes 0.9 L, Lymphocytes 7 L, Monocytes 2, Absolute Monocytes 1.3 H, Absolute Eosinophils 0.1, Absolute Basophils 0, Platelet Estimate VERIFIED BY SMEAR, Polychromasia 1+, Anisocytosis 2+, Fld Total RBCs Counted 100 02/14/18 1729: Ibr-X-Irfktmejewb Pept Cancelled Microbiology 02/15 0030 URINE ROUT: Urine Culture - RECD 02/158 BLOOD: Blood Culture - RECD 02/15 25 BLOOD: Blood Culture - RECD 02/15 1920 TRUNK: Culture & Sensitivity - RECD 02/15 1920 TRUNK: Gram Stain - RECD 02/14 1900 BODY FLUID: Body Fluid Culture - CAN Cancelled: CHANGED TO TRUNK CULTURE, ABDOMEN 02/14 1900 BODY FLUID: Gram Stain - CAN Cancelled: CHANGED TO TRUNK CULTURE, ABDOMEN Assessment/Plan Assessment: 87 yo M with PMH of hypertension, hyperlipidemia, benign prostatic hypertrophy, asthma, gout, peripheral neuropathy, recent hospital admission a [facility] for surgical resection and subtotal colectomy, presenting with SOB. CXR Bilateral moderate pleural effusions with underlying atelectasis. The upper lungs are clear. WBC 21.1, 91% neutrophils, no bands. H/H 6.4/19.4 (baseline 8.4/25.6), platelet of 448. Sodium 134, potassium 4.5, BUN/creatinine 42/1.4 (1.0 baseline). ProBNP 1360. EKG - sinus tachycardia. #Volume Overload / Bilateral Pleural Effusion in the setting of STEPHAN - Start on IV Lasix 40 BID and monitor lytes, replete as necessary - Strict input and output monitoring - Monitor O2 sats - Cardio consult - Most recent echo 01/27/2018 shows EF 70%, normal ventricular size, suggesting etiology outside of CHF for volume overlaod/edema. Consider Anascara, Cirrhosis, STEPHAN on CKD #Microcytic Anemia of Unknown Cause - Guaic stools - Cross type and match - Transfuse 1 unit PRBC - Monitor H/H - Consult Surgery about wound site - May need GI evaluation for colonoscopy to r/o any GI source of bleeding #Leukocytosis possibly 2/2 to wound site infection s/p colectomy with reversal - Wound Care - Continue daily dressing changes and packing - Continue coverage with vanco and cftx - Monitor Vitals - Monitor wbc #Afib on Eliquis - Hold Eliquis for now considering HASBLED score - Can resume if H/H stable and trends up - Continue to monitor on tele #BPH with indwelling catheter - Urology consult as to when it can be removed - Possible source of infection - UA and UCx - Continue Flomax Admit to cardiac tele DVT ppx; heparin and APLS Heart Healthy Diet DNR/DNI As Ranked By This Provider Problem List: 1. Shortness of breath Core Measures/Misc (02/26) Acute Coronary Syndrome ACS Diagnosis: No Congestive Heart Failure Congestive Heart Failure Diagnosis No Cerebrovascular Accident CVA/TIA Diagnosis: No VTE (View Protocol) VTE Risk Factors No risk factors No Mechanical VTE Prophylaxis d/t N/A MechProphylax Ordered No VTE Pharm Prophylaxis d/t NA PharmProphylax ordered Sepsis (View protocol) Sepsis Present: No If YES complete Sepsis Event Note If YES complete Sepsis Event Note Veronica Carter 02/14/18 5486: General Information and HPI MD Statement: I have seen and personally examined SINA COLLIER and documented this H&P. The patient is a 87 year old M who presented with a patient stated chief complaint of [sob]. Source of Information: patient Exam Limitations: no limitations Core Measures/Misc (02/26) Sepsis (View protocol) If YES complete Sepsis Event Note If YES complete Sepsis Event Note Resident Review Statement Resident Statement: examined this patient, discussed with computer science intern, agreed with computer science intern Other Findings: Nallely Davies is 87-year-old male with past medical history of hypertension, hyperlipidemia, benign prostatic hypertrophy, asthma, gout, peripheral neuropathy, recent surgical resection of colon for colon cancer now status post laparoscopic converted to open subtotal colectomy with ileum to proximal sigmoid colon anastomosis, takedown of splenic flexure and splenorrhaphy for bleeding of colon cancer as well as cystoscopy and Patricio placement after being recently discharged on 02/03/2018 to [facility] came in with chief complaint of generalized swelling, shortness of breath with hypoxia, dropping H& H along with generalized weakness since 8-10 days prior to today's presentation. Apparently the patient was discharged after his recent surgery during previous admission from 01/26/2018 to 02/03/2018, during which he had surgical resection of colon for colon cancer, which was complicated with brainstem stroke post surgery and a new onset atrial fibrillation for which he was discharged on Eliquis. He also received 4 units of packed red blood cells during the previous day for postoperative blood loss anemia. After his discharge at the rehabilitation center, he has been working with physical therapy, however gradually as per the daughter, he started to swell up for last few days. He had edema in both his arms and legs and eventually also in his belly. He had an area of redness in the area of surgical scar, which was tender. His H&H also dropped 2 days prior to today's presentation and was noted to be initially around 7 and then subsequently around 6 on the day of presentation. He also had a white count and he was being treated for pneumonia with Levaquin and ceftriaxone at the rehabilitation center. As per the daughter he must be at day 6 or 7 off antibiotic treatment. He also was extremely short of breath and any kind of movement or moving around in bed would make him hypoxic. All of these symptoms together got her daughter concerned and therefore she brought him to emergency department. Review of system as above in HPI. His vitals at emergency department were temperature of 97.9, blood pressure 130/ 58, heart rate of 97, respiratory rate of 18, he was saturating 80% initially at the emergency department, eventually after getting duo nebulization his saturation improved to 94% and then 96% when on 2 L. Physical exam he was alert oriented 3, however in mild distress. HEENT PERRLA. CVS S1-S2 present, systolic murmur 3 out of 5. RS bilateral air entry present, bilateral basal crackles heard. Bilateral lower extremity 3+ edema. Bilateral upper extremity 2-3+ edema on both extremities. Pa : Soft, surgical scar with kirk removed, just above the umbilicus an area of oozing blood noted which was not well approximated. Apparently, the emergency department drained the abscess and send cultures for further test Relevant labs white count of 21.1, with 91 segmented neutrophils, no bands. 8/H of 6.4/19.4 (baseline 8.4/25.6), platelet of 448. Sodium of 134, potassium 4.5, BUN/creatinine 42/1.4 (1.0 baseline), glucose of 101. ProBNP noted to be 1360. EKG showed sinus tachycardia, rate of 9200. Chest x-ray showed bilateral moderate pleural effusion. Problem list along with assessment and plan. Problem #1 CHF/fluid overload, possible anasarca/bilateral pleural effusion. * Continue to monitor her cardiac telemetry floor, continue to monitor intakes and output, vitals every shift, continue to monitor daily weights, patient received 40 mg of IV Lasix at the emergency department. * We will start him on IV Lasix 40 twice daily. * Continue to monitor electrolytes and replete as necessary. * Cardiology consult in a.m.(Dr jaimes has consulted in past) * Recent echocardiogram was 01/27/2018 normal left ventricular size with mild LVH , EF of 70%. With this echo being very recent, there seems to be other contributing reason as well for increased overall fluid status in the body, however currently we will continue IV diuresis. * We will hold off for repeat echocardiogram for now. #2 acute on chronic microcytic anemia. * Patient's hemoglobin baseline is usually around 8, as per her daughter, patient dropped her his hemoglobin to 6 at least 2 days prior to presentation at the nursing facility, he did not have any active bleeding as noted. * Guaiac all stools. * Crossmatching type. * We will transfuse 1 unit of PRBC for now, will administer 20 mg of IV weeks after completion of the transfusion to avoid fluid overload. * Continue to monitor CBCs. * Please obtain surgical consult as the patient has an open area of surgical wound, recent colon surgery with anastomosis was performed by Dr. Canas. #3 possible wound site infection. * Patient has leukocytosis, had recent surgery, kirk were removed at the nursing facility, however the lower part of the scar seems to be infected, was drained by the surgical team and the ER, the leukocytosis could be from infection at the site. * Wound care in am #4 STEPHAN * His baseline creatinine is around 1.0, current creatinine is 1.4. * As the patient seems to be fluid overloaded currently, we will continue to monitor creatinine as we diurese him. * Currently there is a thin line between diuresing him and worsening his acute kidney injury, however currently our thought process is that he definitely needs to be diuresed. #5 history of paroxysmal atrial fibrillation. * Continue home medication. * Hold Eliquis for now due to acute on chronic anemia. * Continue rate control medications. * Currently EKG showed normal sinus rhythm. #6 history of hypertension. * Continue home medication of high blood pressure. 7. History of hyperlipidemia. * Continue Lipitor 40 mg daily. 8. History of BPH. * Continue Flomax 0.4 mg daily. 9. History of GERD. * Continue Prilosec 20 mg daily. Please confirm CMR in am DNR/DNI. CHF diet. Pain pathway. DVT prophylaxis with Alps, patient is currently acute on chronic anemia, possibility of blood loss therefore will hold the Eliquis and only ct mechanical prophylaxis with Alps. Phill Causey 02/15/18 0018: Core Measures/Misc (02/26) VTE (View Protocol) VTE Risk Factors Cancer/chemo/othr therapy No Mechanical VTE Prophylaxis d/t Other (scds) No VTE Pharm Prophylaxis d/t Bleeding (Active) Comment: scds Sepsis (View protocol) If YES complete Sepsis Event Note If YES complete Sepsis Event Note Attending MD Review Statement Attending Statement Attending MD Statement: examined this patient, discuss w/resident/PA/ACID CORRECTION HAND, agreed w/resident/PA/ACID CORRECTION HAND Attending Assessment/Plan: Addendum by . Patient was seen and examined at bedside today ( 02/14/18) at 11PM. Reviewed the history physical done by the resident. Reviewed the past medical family, family, social history. ROS: 10 point system reviewed and negative except as described above. Alert, awake, oriented 3 Not in distress On lung examination bilateral faint sounds at bases, no crackles Cardiac pansystolic murmur is noted more prominent in the apical area. Abdominal wound mild erythema. Lower end of the surgical wound was drained status post dressing. He was dependent edema, bilateral lower extremity 4+ edema up to thighs also right greater than left upper extremity edema Agree with the rest of the physical examination for in-stent note. Labs, chest x-ray, previous echo reviewed. A/p: #Shortness of breath-likely due to bilateral pleural effusion. #Bilateral pleural effusion, anasarca-this is likely due to combination of hypoalbuminemia and fluid overload from recent admission. #Acute on chronic anemia-microcytic anemia. Hemoglobin is 6.4 it was around 8- 9. No active bleeding. #Leukocytosis: Likely due to abdominal surgical wound infection. Status post copious purulent abscess drainage by surgical team and ER. #Mild acute renal failure. Prerenal versus renal. #Proximal atrial fibrillation: Currently in sinus rhythm. # chronic medical issues: Hypertension hyperlipidemia peripheral vascular disease, orthostatic hypotension, history of asthma, BPH, gout, OA, adenocarcinoma of the colon status post colectomy and end-to-end anastomosis, atrial fibrillation and recent admission on Eliquis, get anemia and recent admission likely due to blood loss, probable diastolic CHF with normal EF on echo. Plan: Admit to telemetry. Patient received 40 mg Lasix in the ER. Will start him on Lasix 40 mg twice daily. Also transfuse one PRBC today. Check stool guaiac. Consider GI evaluation to rule out any GI source of bleeding. Tomorrow patient can get albumin before the Lasix for better diuresis. Hold Eliquis for now. If no bleeding noted can resume that. We will continue vancomycin for abdominal wound infection. Follow the wound culture. For bilateral pleural effusion-watch on diuretics, he does not improve and repeat images can consider thoracentesis. Strict input and output monitoring. Put fluid restriction to 1.5 L per day. Admitted BNP noted last echo reviewed which shows normal EF only. Reviewed with the resident. Agree with the rest of the plan as per resident's note. Dr.Ravinder Andres MD. Hospitalist. Pager: [phone], cell: [phone].
[2018-02-14 22:57] VITALS: BP 122/42
[2018-02-15 06:40] VITALS: BP 134/50
--- NOTE | 2018-02-15 08:06 | PN- Housestaff ---
Maikol Eisenberg 02/15/18 0806: Subjective Follow-up For: Shortness of breath Subjective: Overnight patient was in normal sinus rhythm with heart rate ranging between 74- 91. Patient does not have any complaints today, he states he is feeling much better. Patient is status post transfusion of 1 PRBC. Patient states his breathing has improved, denies shortness of breath, chest pain, palpitations,, abdominal pain. Review of Systems Constitutional: Denies: see HPI, chills, diaphoresis. Cardiovascular: Denies: chest pain, palpitations. Respiratory: Denies: cough, short of breath. Gastrointestinal: Denies: abdominal pain, constipation, diarrhea. Objective Last 24 Hrs of Vital Signs/I&O Vital Signs Date Time Temp Pulse Resp B/P B/P Pulse O2 O2 Flow FiO2 Mean Ox Delivery Rate 02/15 1438 120/50 02/15 1355 97.3 81 20 120/50 94 Nasal Cannula 02/15 1018 89 130/44 02/15 0824 Nasal 2.0L Cannula 02/15 0640 97.5 80 16 134/50 95 Nasal 2.0L Cannula 02/14 2257 97.9 102 22 122/42 97 Nasal Cannula 02/14 2240 97 Nasal 2.0L Cannula 02/14 2212 98.4 103 16 134/63 97 Nasal 2.0L Cannula 02/14 2040 97.8 114 16 151/76 99 Nasal 2.0L Cannula 02/14 1858 98.7 110 21 118/54 95 Room Air 02/14 1652 94 Room Air 02/14 1651 97.9 97 18 130/58 94 Room Air Intake & Output 02/15 1600 02/15 0800 02/15 0000 Intake Total 460 Output Total 750 100 Balance -290 -100 Intake, Blood 350 Product Intake, IV 60 Intake, Oral 50 Output, Urine 750 100 Patient 241 lb Weight Weight Bed scale Measurement Method Physical Exam General Appearance: Alert, Oriented X3, Cooperative Neck: Supple, No JVD Cardiovascular: Regular Rate, Normal S1, Normal S2 Lungs: decreased breath sounds in bilat. lung bases Abdomen: Normal Bowel Sounds, Soft, No Tenderness, surgical kirk intact, serosanginous discharge present on dressing. No discharge expressed. Site around kirk is erythematous, non-tender, with indurated skin, unable to appreciate fluctuations. Extremities: +2 pitting edema bilat. Reproductive (MALE) Patricio in place Current Medications: Current Medications Sig/Rony Start time Last Medication Dose Route Stop Time Status Admin Acetaminophen 650 MG Q6P PRN 02/14 2230 AC PO Acetaminophen 1,000 MG Q6P PRN 02/14 223 AC IV Acetaminophen 0 .STK-MED ONE 02/14 184 DC PO Acetaminophen 325 MG ONCE ONE 02/14 184 DC 02/14 PO 02/14 184 1856 Atorvastatin Calcium 40 MG DAILY 02/15 900 AC 02/15 PO 1438 Ceftriaxone Sodium 1,000 MG DAILY 02/15 900 DC IV Furosemide 40 MG 7:30 AM, & 4:30 PM 02/15 730 AC 02/15 IV 0646 Furosemide 20 MG ONCE ONE 02/15 200 DC 02/15 IV 02/15 201 0243 Furosemide 0 .STK-MED ONE 02/14 2031 DC IV Furosemide 40 MG ONCE ONE 02/14 173 DC 02/14 IV 02/14 Gabapentin 100 MG BID 02/14 233 AC 02/15 PO 1438 Heparin Sodium 5,000 UNIT Q8 02/15 600 CAN (Porcine) SC Influenza Virus 0.5 ML ONCE ONE 02/16 800 DC Vaccine IM 02/15 08 Meropenem 1 GM Q12 02/15 1330 AC IV Metoprolol Tartrate 25 MG DAILY 02/15 900 AC 02/15 PO 1018 Omeprazole 20 MG DAILY 02/15 900 AC 02/15 PO 1438 Oxycodone/ 1 TAB Q6P PRN 02/14 223 AC Acetaminophen PO Senna/Docusate Sodium 1 TAB BID PRN 02/15 1515 AC PO Sodium Hypochlorite 1 KIMBER DAILY 02/15 900 AC TOP Tamsulosin HCl 0.4 MG DAILY 02/15 900 AC 02/15 PO 1438 Vancomycin HCl 1,000 MG ONCE ONE 02/15 020 DC 02/15 Sodium Chloride 250 ML IV 02/15 0259 0651 Last 24 Hrs of Lab/Tom Results Last 24 Hrs of Labs/Mics: Laboratory Tests 02/15/18 1006: Anion Gap 5, Estimated GFR 57 L, BUN/Creatinine Ratio 33.3 H, Troponin I < 0.01, CBC w Diff NO MAN DIFF REQ, RBC 2.88 L, MCV 78.8 L, MCH 25.8 L, MCHC 32.8 L, RDW 26.0 H, MPV 7.3 L, Gran % 90.1 H, Lymphocytes % 3.3 L, Monocytes % 5.9, Eosinophils % 0.6, Basophils % 0.1, Absolute Granulocytes 17.0 H, Absolute Lymphocytes 0.6 L, Absolute Monocytes 1.1 H, Absolute Eosinophils 0.1, Absolute Basophils 0 02/14/182230: Lactic Acid Cancelled 02/14/182021: Lactic Acid 1.2 02/14/182021: Anion Gap 7, Estimated GFR 48 L, BUN/Creatinine Ratio 30.0 H, Glucose 101 H, Calcium 7.8 L, Magnesium 1.7, Total Bilirubin 0.3, AST 37, ALT 47, Alkaline Phosphatase 102, Troponin I < 0.01, Nps-T-Ygweazlumuw Pept 1360 H, Total Protein 4.4 L, Albumin 2.2 L, Globulin 2.2, Albumin/Globulin Ratio 1.0 L, Cholesterol 68, CBC w Diff MAN DIFF ORDERED, RBC 2.50 L, MCV 77.8 L, MCH 25.5 L, MCHC 32.8 L, RDW 27.1 H, MPV 8.0, Gran % 89.2 H, Lymphocytes % 4.2 L, Monocytes % 6.2, Eosinophils % 0.3, Basophils % 0.1, Absolute Granulocytes 18.8 H, Segmented Neutrophils 91 H, Absolute Lymphocytes 0.9 L, Lymphocytes 7 L, Monocytes 2, Absolute Monocytes 1.3 H, Absolute Eosinophils 0.1, Absolute Basophils 0, Platelet Estimate VERIFIED BY SMEAR, Polychromasia 1+, Anisocytosis 2+, Fld Total RBCs Counted 100 02/14/18 1729: Hjh-E-Rqjciguwanr Pept Cancelled Microbiology 02/15 003 URINE ROUT: Urine Culture - RECD 02/16 28 BLOOD: Blood Culture - RECD 02/15 25 BLOOD: Blood Culture - RECD 02/15 1920 TRUNK: Culture & Sensitivity - RES GRAM NEGATIVE RODS 02/15 1920 TRUNK: Gram Stain - RES 02/14 1900 BODY FLUID: Body Fluid Culture - CAN Cancelled: CHANGED TO TRUNK CULTURE, ABDOMEN 02/14 1900 BODY FLUID: Gram Stain - CAN Cancelled: CHANGED TO TRUNK CULTURE, ABDOMEN Assessment/Plan Assessment: Mr. Wong is a 87-year-old male with a past medical history significant for hypertension, hyperlipidemia, BPH, asthma, gout, peripheral neuropathy. Patient was recently admitted to [facility] from 01/26 to 02/03/2018 to undergo a laparoscopic subtotal colectomy which was converted to a open subtotal colectomy with ileum to proximal sigmoid colon anastomosis along with a takedown of splenic flexure and spleenorrhaphy for bleeding which is complicated by post surgery brain stem stroke and new onset A. fib. Patient was brought from [facility] in [place] due to shortness of breath. Problem List: 1. Acute Hypoxia 2. Surgical Wound infection 3. Anemia 4. Coccyx decubitus ulcer 5. Acute on Chronic CHF exacerbation 6. Atrial fibrillation 7. H/o hyperlipidemia 8. H/o GERD #Acute Hypoxia: Acute CHF exacerbation seems like the most likely etiology. Patient has signs of fluid over load on physical examination, along with CXR showing bilateral moderate pleural effusions, he could be experiencing acute CHF exacerbation. Patient has increased demand for O2, was started on oxygen at rehab facility which he previously did not need. Patient has low H/H count, which would also be contributing to patients increased demand. -IV Furosemide 40mg BID #Acute on Chronic CHF exacerbation: patient has physical examination, elevated proBNP and CXR findings consistent with exacerbation. Patient had recieved one time of dose of IV Lasix 40m mg 20mg in ED, which lead to improvement in patients breathing status this morning. - continue IV Furosemide 40mg BID -Echocardiogram to assess cardiac function #Surgical wound infection: Patient had underwent major abdominal surgery during last admission 01/26-02/03. Patient has elevated WBC count, along with redness around surgicial incision site and fluctuant mass. In the ED frankly purulent material was expressed. Patient had recieved one time IV dose of Vancomycin in ED. WBC are trending downwards. -Wound cultures positive for gram negative bactera- prelim results. -f/u final culture results and sensitivity -Start patient on meropenem, will readjust after sensitivities -ID has been consulted -CT abdomen for further abdominal abcess formation #Anemia: Is most likely due to blood loss anemia, patient has had major abdominal surgery. He had lost major blood in surgery was given 4U PRBC, patient have still be having microscopic bleeding from surgical sites. Patient had recieved 1U PRBC in ed. -Administer 1 unit PRBC -f/u CBC in AM -If H/H do not stabilize patient will require GI scope to determine cause of bleeding -will continue to hold Eliquis -f/u stool guiac #Atrial Fibrillation: onset of A. fib was following surgery and ischemic stroke during 01/26-02/03 admission. -Continue Metoprolol 25mg daily #Coccyx Decubitus Ulcer: Stage I pressure ulcer on coccyx with extension along bilat. buttocks with partial thickness breakdown at coccyx as a stage 1 ulcer. -Offload heels at all time with 2 positioning pillows -clean coccyx with normal saline followed by hydrocolloid cgf dressing q3days and prn -will consult nutrition #H/o Hyperlipidemia -Continue Atorvastatin 40mg daily #H/o GERD -continue omeprazole 20mg daily Code Status: DNR/DNI Diet: CHF Diet DVT PPx: ALPS and Lovenox Problem List: 1. Shortness of breath Pain Ratin Pain Location: n/a Pain Goal: Remain pain free Pain Plan: tylenol Tomorrow's Labs & Rationales: perico Escalona MD,Mary 02/15/18 1332: Attending MD Review Statement Attending Statement Attending MD Statement: examined this patient, discuss w/resident/PA/SOCIAL SECURITY BENEFITS INTERVIEWER, agreed w/resident/PA/SOCIAL SECURITY BENEFITS INTERVIEWER, reviewed EMR data (avail), discussed with nursing, discussed with case mgmt, amended to note Attending Assessment/Plan: Patient seen and examined. Lying in bed. Not in acute distress. Not in any respiratory distress. No events overnight. Denies chest pain or shortness of breath at rest. Denies abdominal pain. On examination heart sounds are regular. 3/6 systolic murmur. He has diminished breath sounds in lung bases bilaterally. No added sounds. Pressure dressing is over the abdomen. Bowel sounds normal. 2+ pedal edema bilaterally with chronic venous stasis changes. Hemoglobin level has improved following transfusion 1 unit of blood. He is hemodynamically stable. He is afebrile. Leukocytosis is improving although still elevated. He received a dose of vancomycin in the emergency room yesterday. Problems: 1. Surgical wound infection 2. Status post open subtotal colectomy for lesions in the right colon and splenic flexure; pathology pending 3. Newly diagnosed atrial fibrillation during his previous admission. 4. Ischemic stroke during previous hospitalization. 5. Benign prostatic hypertrophy with bladder outlet obstruction preoperatively 6. Anemia; likely due to blood loss 7. Bilateral pleural effusions. Plan: -In the absence of history of coronary artery disease hemoglobin level greater than 7 is acceptable. May consider transfusion with 1 additional PRBC if patient is going to undergo surgery. -Check stool for evidence of melena or bright red blood. Anticipate stool to be guaiac positive given his recent bowel surgery. -Hold anticoagulant therapy for now. If his hemoglobin level is stable over the next few days and no surgical intervention is planned may consider resuming anticoagulant therapy. -Discussed with the ID service. Begin patient on antibiotic therapy with meropenem (Patient has penicillin allergy where he developshives and blisters) obtain abdominal CT scan with oral contrast to evaluate extent of wound abscess unfortunately will not be able to perform the study with intravenous contrast due to his renal insufficiency. -Continue metoprolol for rate control. -Etiology of his bilateral pleural effusions is unknown at this time. He denies any productive cough. His ejection fraction during the last hospitalization was within normal limits. First troponin is within normal limits not suggestive of acute coronary event. Will provide diuresis with intravenous Lasix. Will repeat chest x-ray to evaluate improvement of effusion. Once improving will obtain CT chest to rule out any pulmonary metastasis. -Follow-up results of pathology from last month surgery.
--- NOTE | 2018-02-15 09:00 | PN- General Surgery ---
Subjective Subjective: Feeling better today than yesterday. Less pain in the lower abdomen. No fevers no confusion. Objective Vital Signs and I&Os Vital Signs Date Time Temp Pulse Resp B/P B/P Pulse O2 O2 Flow FiO2 Mean Ox Delivery Rate 02/15 0824 Nasal 2.0L Cannula 02/15 0640 97.5 80 16 134/50 95 Nasal 2.0L Cannula 02/14 2257 97.9 102 22 122/42 97 Nasal Cannula 02/14 2240 97 Nasal 2.0L Cannula 02/14 2212 98.4 103 16 134/63 97 Nasal 2.0L Cannula 02/14 2040 97.8 114 16 151/76 99 Nasal 2.0L Cannula 02/14 1858 98.7 110 21 118/54 95 Room Air 02/14 1652 94 Room Air 02/14 1651 97.9 97 18 130/58 94 Room Air Intake & Output 02/15 1600 02/15 0800 09/06 0000 / 1600 02/14 0800 02/14 0000 Intake Total 460 Output Total 750 100 Balance -290 -100 Intake, Blood 350 Product Intake, IV 60 Intake, Oral 50 Output, Urine 750 100 Patient 241 lb Weight Weight Bed scale Measurement Method Physical Exam: Well-developed well-nourished no apparent distress. HEENT: Atraumatic Neck: Supple, no lymphadenopathy Respiratory: No respiratory distress Abdomen: Lower abdominal dressing with mild amount of purulent drainage. Packing was removed in its entirety, large amount of thin purulent drainage expressed from the wound. Wound was repacked at the bedside and dry sterile dressing, bulky dressing applied. No surrounding erythema of the wound, mild induration. No significant cellulitis. Neuro: Alert and oriented x3 Psych: Mood affect normal, normal memory normal judgment. Skin: Warm and dry, no rash on exposed skin Assessment/Plan Assessment/Plan 3 weeks status post laparoscopic converted to open subtotal colectomy for synchronous lesions in his right colon and splenic flexure, Now with a wound infection of his lower abdominal surgical incision site. Continue daily dressing changes and packing Continue antibiotics Medical management per medical team
[2018-02-15 10:21] LABS: ABSOLUTE BASOPHIL COUNT 0 /CUMM (0.0-0.2); ABSOLUTE EOSINOPHIL COUNT 0.1 /CUMM (0.0-0.7); ABSOLUTE LYMPH COUNT 0.6 /CUMM (1.2-3.4); ABSOLUTE MONOCYTE COUNT 1.1 /CUMM (0.10-0.60); BASOPHIL % 0.1 % (0.0-2.0); EOSINOPHIL % 0.6 % (0-5); MEAN CORPUSCULAR HGB 25.8 PG (27.0-31.0); MEAN CORPUSCULAR HGB CONC 32.8 G/DL (33.0-37.0); MEAN CORPUSCULAR VOLUME 78.8 FL (80.0-94.0); MEAN PLATELET VOLUME 7.3 FL (7.4-10.4); RED BLOOD CELL CT 2.88 /CUMM (4.70-6.10); WHITE BLOOD CELL COUNT 18.9 /CUMM (4.8-10.8)
[2018-02-15 10:30] LABS: HEMATOCRIT 22.7 % (42-52)
[2018-02-15 10:52] LABS: GRANULOCYTE % 90.1 % (42.2-75.2); PLATELET COUNT 465 /CUMM (130-400)
[2018-02-15 13:55] VITALS: BP 120/50
--- NOTE | 2018-02-15 14:05 | Discharge Summary ---
Visit Information Visit Dates Admission Date: 02/14/18 Discharge Date: February 21, 2018 Hospital Course Course Attending Physician: Dr. Ayala Primary Care Physician: Matty CARRANZA,Sanam Aguilar Consulting Request: 1 Consulting Specialty: Infectious Disease Consulting Physician: April Taylor MD Reason for Consult: esbl from body fluid Consulting Request: 2 Consulting Specialty: Cardiology Consulting Physician: Dr. Hernandez Reason for Consult: CHF Exacerbation Consulting Request: 3 Consulting Specialty: General Surgery Consulting Physician: Dr. 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 Upon discharge he was given 2.5 g Eliquis BID for his new onset Afib. He presented to [facility] ED after being brought in by daughter for shortness of breath with hypoxia, falling H/H, leukocytosis, generlized swelling in his feet and arms, and abdominal distension, and surgical wound erythema. The abnormal labs were reported to the daughter at the facility where her father was getting rehab. Patient was admitted to the telemetry floor and we managed him for the following conditions. Severe anemia On presentation the patient had hemoglobin of 6.4 which is well below his average of around 8.6 and because of that initially received 1 unit of blood in the ER repeated hemoglobin chest around 7.4 and because of that received a second unit. Patient hemoglobin remained stable through the course of the stay. Congestive heart failure exacerbation On presentation the patient had bilateral lower limb edema extending up to the groin and also had pleural effusion she was experiencing shortness of breath and we stipulated this to be a result of his CHF exacerbation. The patient was diuresed with IV Lasix 40 mg twice a day initially required oxygen but after getting a dose of Lasix started maintaining saturation on room air. Patient will be discharged on oral Lasix at 60 mg twice a day. This is significant higher compared to his regular home Lasix and because of these the patient will have a repeat BMP in 1 week to assess renal function. If continues to have normal renal function can continue at the same level and he will follow-up with pot pusher Dr. Hernandez to review the Lasix dose. Parasplenic abscess with ESBL infection On presentation the patient had a CT abdomen and pelvis that showed parasplenic fluid collection with air-fluid levels. He had an IR guided drainage of the parasplenic fluid collection and the fluid was cultured which showed growth of poorly bacteria ESBL and alpha strep. Patient was seen by infectious disease April Taylor MD and was started on meropenem and vancomycin. Patient will be discharged to continue with meropenem. The patient still has parasplenic draining tube and a wound VAC in place. The plan is to continue to be on antibiotics until drainage decreases and repeat CT is performed Surgical wound infection Patient underwent a major abdominal surgery during the last admission January 26. On presentation the patient had elevated WBC with bands and also had redness around the surgical incision site with a fluctuant mass. Paulo purulent material was expressed from the abdominal wall. Patient has a wound VAC at the abdominal wall site and will go with the wound VAC to be reviewed in [address] Canas's office. Acute blood loss anemia Patient presented with anemia and required transfusion 2 units of packed red blood cells were given. The stool guaiac test was positive and because of that Eliquis was held. Hemoglobin stabilized after the initial transfusions. Patient has a very high risk of thrombi and because of that on February 20 we started back his Eliquis 2.5 mg twice a day. His hemoglobin continued to be stable. He will benefit from review of his CBCs in 1 week when reviewing BMP to assess if hemoglobin continues to be stable. Atrial fibrillation Patient has history of atrial fibrillation and is on Eliquis when was and admitted. He has history of stroke following surgery in the previous admission. Patient had severe anemia positive guaiac stool and because of that Eliquis was held. Patient heart rate continued to be controlled on his home dose of metoprolol which is being discharged to continue at the custodial facility. Coccyx decubitus ulcer Patient had stage I pressure ulcer on the coccyx area with extension along bilateral buttocks with partial-thickness breakdown. He was followed by wound care and we applied pressure offloading during the course of the stay. Continue with wound care to facilitate healing of the decubitus ulcer Complications: None Allergies: Coded Allergies: Penicillins (BLISTERS, ITCH ALL OVER 01/25/18) Significant Procedures: IR guided parasplenic fluid collection drainage Pertinent Lab Results: ESBL from body fluids Disposition Summary Disposition Principal Diagnosis: Parasplenic abscess Post surgical infection Acute blood loss anemia Exacerbation of congestive heart failure Additional Diagnosis: Atrial fibrillation Hyperlipidemia Gastroesophageal reflux disease Discharge Disposition: SNF Discharge Instructions General Discharge Information Code Status: Do Not Resucitate/Intubat Patient's Diet: Heart health diet Patient's Activity: As tolerated Follow-Up Instructions/Appts: Please call and make a follow-up with your primary care physician within 1 week after discharge Please follow-up with surgeon Dr. Canas in 1 week to review your drains and wound VAC. Medications at Discharge Discharge Medications: Stop taking the following medications: Furosemide (Lasix) 40 MG TABLET ORAL DAILY Qty = 30 Continue taking these medications: Allopurinol (Allopurinol) 300 MG TABLET 1 Tablet ORAL DAILY Comments: Last Taken: 02/03/18 Time: 0800 Albuterol Sulfate (Proventil Hfa) 90 MCG HFA.AER.AD 2 Puff Inhale through mouth Every 4 hours Comments: Last Taken: 02/03/18 Time: 0800 Aspirin (Ecotrin*) 81 MG TABLET.DR 1 Tablet ORAL DAILY Comments: Last Taken: 02/03/18 Time: 0800 Budesonide/Formoterol Fumarate (Symbicort 160-4.5 Mcg Inhaler) 160 MCG-4.5 MCG/ ACTUATION HFA.AER.AD 2 Puff Inhale through mouth TWICE DAILY Comments: Last Taken: 02/03/18 Time: 0800 Atorvastatin Calcium (Lipitor) 40 MG TABLET 1 Tablet ORAL DAILY Qty = 30 Comments: DID NOT RECIEVE Tamsulosin HCl (Flomax) 0.4 MG CAP.ER.24H 1 Tablet ORAL DAILY Qty = 30 Comments: Last Taken: 02/03/18 Time: 0800 Gabapentin (Gabapentin) 100 MG CAPSULE 1 Tablet ORAL TWICE DAILY Qty = 60 Comments: Last Taken: 02/03/18 Time: 0800 Tramadol HCl (Tramadol HCl) 50 MG TABLET 1-2 Tablet ORAL EVERY SIX HOURS NEEDED as needed for PAIN Qty = 36 Comments: DID NOT RECIEVE Apixaban (Eliquis) 2.5 MG TABLET 1 Tablet ORAL TWICE DAILY Qty = 60 Comments: Last Taken: 02/03/18 Time: 0800 Metoprolol Tartrate (Metoprolol Tartrate) 25 MG TABLET 1 Tablet ORAL DAILY Nystatin (Nystatin) 100,000 UNIT/GRAM CREAM..G. 1 Application On the skin TWICE DAILY Instructions: apply to affected area(s) Omeprazole (Omeprazole) 20 MG CAPSULE.DR 1 Capsule ORAL DAILY Oxycodone HCl (Oxycodone HCl) 5 MG TABLET 1 Tablet ORAL Q6H as needed for SEVERE PAIN Acetaminophen (Acetaminophen) 325 MG TABLET 2 Tablet ORAL Q4H as needed for PAIN/TEMP 101.5 Bisacodyl (Bisacodyl) 10 MG SUPP.RECT 1 Suppository RECTAL Every Morning as needed for NO BM IN 3 DAYS Ferrous Sulfate (Ferrous Sulfate) 325 MG (65 MG IRON) TABLET 1 Tablet ORAL EVERY 48 HOURS (Every 2 days) Polyethylene Glycol 3350 (Miralax) 17 GRAM POWD.PACK 1 Packet ORAL Every Morning Instructions: dissolve in water Docusate Sodium (Stool Softener) 100 MG CAPSULE 1 Capsule ORAL TWICE DAILY as needed for CONSTIPATION Amino AC/Protein Hydr/Whey Pro (Prosource Protein Liquid) 10 GRAM-100 KCAL/30 ML LIQUID 30 Milliliters ORAL TWICE DAILY Tolnaftate (Antifungal Cream) 1 % CREAM..G. 1 Application On the skin TWICE DAILY Zinc Oxide (Zinc Oxide) 20 % OINT...G. 1 Application On the skin TWICE DAILY Start taking the following new medications: Meropenem (Meropenem) 1 GRAM VIAL 1 Gram IV EVERY 8 HOURS Qty = 1 No Refills Instructions: Patient will continue to be on meropenem untill drainage has been discontinued and repeat CT abdomen and pelvis has been done per surgery team F/U Dakins Solution (Dakin's) 0.25 % SOLUTION 1 Application On the skin DAILY Qty = 30 No Refills Instructions: for wet to dry packing changes to abdominal wound to start today at bedside Furosemide (Lasix) 40 MG TABLET 60 Milligram ORAL TWICE DAILY Qty = 120 No Refills Instructions: Patient will have BEP in one week and if noormal renal funtioon can continue at this rate Copies To: Brandon CARRANZA,April; Floresita Rosado DO,Lars Villalpando; Matty CARRANZA,Sanam I.; David CARRANZA PHD, Jorje Sherwood
--- NOTE | 2018-02-15 18:08 | CT SCAN REPORT ---
EXAMINATION: CT ABDOMEN AND PELVIS WITHOUT CONTRAST CLINICAL INFORMATION: Abdominal wall abscess. Rule out intra-abdominal collection. Status post surgery with open laparotomy, right hemicolectomy with ileocolonic anastomosis January 2018. Recent history of surgical site abscess drainage. COMPARISON: CT scan of the abdomen and pelvis dated 01/27/2018. TECHNIQUE: Multidetector volumetric imaging was performed from the superior aspect of the liver through the pubic symphysis after the administration of 900 mL of oral Redicat contrast. Sagittal and coronal reformatted images were obtained on the technologist workstation. DLP: 1083.86 mGy-cm. FINDINGS: LUNG BASES: Interval increase in size of the left-sided pleural effusion is seen, with associated complete collapse of the left lower lobe. Small right-sided pleural effusion remains similar with moderate atelectatic changes in the right lung base. The cardiac silhouette is enlarged and moderate coronary artery calcifications is seen. Trace physiologic pericardial fluid without significant effusion is noted. LIVER, GALLBLADDER, AND BILIARY TREE: The liver is atrophic and unremarkable on noncontrast study. No focal hepatic lesion on noncontrast imaging. No biliary ductal dilatation is present. The gallbladder is unremarkable with no evidence of radiopaque gallstones, gallbladder wall thickening, or obvious pericholecystic inflammatory changes. PANCREAS: There is a 0.7 cm coarse calcification in the uncinate process of the pancreas. There is also a 0.2 cm calcification seen in the pancreatic head projecting slightly lateral to the ampullary region of the common bile duct and unchanged from prior exam. Findings most likely represent changes related to prior chronic calcific pancreatitis. The pancreas overall is markedly atrophic with fatty infiltration in the pancreatic head seen. SPLEEN: Unremarkable. ADRENAL GLANDS: There is a bilobed approximately 3.3 x 2.2 cm right adrenal mass, previously measuring 3.3 x 2.1 cm. Multiple internal calcifications are seen. This is incompletely characterized on single phase noncontrast study. The left adrenal gland is normal. KIDNEYS AND URETERS: The kidneys are normal in size, shape, and attenuation. No hydronephrosis, hydroureter, or calculi seen. No perinephric stranding. In the upper pole of the right kidney, there is a 1.0 cm hyperdense mass with mean attenuation values of 71.4 Hounsfield units, consistent with a hemorrhagic/proteinaceous cyst. No additional renal mass seen. BLADDER: Decompressed by a catheter and therefore not adequately assessed. Small locules of air are seen within the bladder lumen related to the catheter. PELVIC VISCERA: Unremarkable. GASTROINTESTINAL TRACT: There is a large 15.4 x 12.5 x 10.2 cm complex collection in the left upper quadrant, anterior to the spleen, contiguous with the proximal jejunal bowel loops in the left upper quadrant. There is a large air-fluid levels seen within this collection and some hyperdensity is noted within the superior periphery of this collection, suggesting communication with the jejunal bowel loop. Findings are consistent with a contained perforation and large abscess formation. The orally ingested contrast extends all the way down to the rectum. There is advanced sigmoid and descending colonic diverticulosis with no evidence of acute diverticulitis. The patient is status post right hemicolectomy with bowel anastomosis seen in the mid abdomen and appearing intact. There is prominent fecal distention of the rectum with stool without significant rectal wall thickening or significant perirectal fat stranding. ABDOMINAL WALL: There is a midline umbilical/periumbilical open wound seen filled with packing material and air. Some fat stranding is noted along the inferior more than the superior margin of the umbilicus, nonspecific and possibly due to postoperative change versus slight inflammatory change. The air locules track superiorly along the anterior abdominal wall to the subxiphoid level. No formed abdominal wall abscess collection is seen. There is anasarca seen in the soft tissues of both flanks. LYMPH NODES: Unremarkable. VASCULAR STRUCTURES: Moderate to severe atherosclerotic calcifications of the aorta and branch vessels, including both renal arteries is seen. OSSEOUS STRUCTURES: There is diffuse osteopenia and moderate to severe degenerative disc disease is seen throughout the lumbar spine. Moderate facet arthropathy is also seen in the mid and lower lumbar spine. Moderate vertebral spondylosis and mild degenerative disc disease is noted in the lower thoracic spine. IMPRESSION: 1. Large complex fluid collection with air-fluid levels seen in the left upper quadrant, contiguous with jejunal bowel loops, consistent with a contained perforation and large abscess formation. Less likely, findings may represent a infected hematoma as clinically suspected. An infected hematoma would not entirely explain the presence of the high density material within this collection. 2. Status post right hemicolectomy and ileocolonic anastomosis with no definite abnormality seen at the ileocolonic anastomosis site. 3. Interval increase in size of left-sided pleural effusion with now complete collapse of the left lower lobe seen. Small right-sided pleural effusion and associated moderate atelectatic changes in the right lung base are unchanged. 4. 3.3 x 2.2 cm bilobed right adrenal mass with associated calcifications. This is incompletely characterized on this noncontrast exam but may represent a sequelae of previous adrenal hemorrhage versus a solid adrenal mass, such as metastatic disease. Imaging findings are not consistent with a benign adrenal adenoma. Correlation with any outside older films would be helpful for further assessment. 5. Open periumbilical wound in the anterior midline of the abdomen with packing material and surrounding inflammatory changes in the soft tissues is seen, consistent with patient's history of recent I\T\D of abdominal wall infection. Locules of gas are seen extending along the anterior abdominal wall to the subxiphoid region. 6. Moderate to severe atherosclerotic vascular calcifications. These emergent results were discussed with Dr. Sweta Moody 02/15/2018, 5:35 PM. Findings discussed with Dr. Lars Canas 02/15/2018, 5:50 PM.
[2018-02-15 18:10] VITALS: BP 142/48
--- NOTE | 2018-02-15 18:25 | PN- General Surgery ---
Surgical Brief Attending Note Brief Attending Note: Overall patient looks better after bedside drainage of abdominal wall abscess and transfusion of PRBC On exam patient is awake and alert abdomen is soft nontender, packing is in place within the wound, fam-incisional erythema still present but improved. CT scan of abdomen and pelvis performed today-patient with large perisplenic fluid collection also containing air consistent with perisplenic abscess Impression: 1. Surgical site infection-continue broad-spectrum antibiotics, continue daily wound care 2. Perisplenic abscess-likely a result from splenic hematoma at time of surgery. I have discussed this finding with radiology, IR will do percutaneous drainage of this abscess tomorrow. Patient needs to be n.p.o. after midnight with any anticoagulants held 3. Anemia-consider transfusing second unit of PRBC
--- NOTE | 2018-02-15 21:30 | Cons- Cardiology ---
General Information and HPI Consulting Request Date of Consult: 02/15/18 Requested By: Pola CARRANZA,Mary History of Present Illness: Mr. Wong is an 87 year old male with hsitory of hypertension, dyslipidemia, peripheral vascular disease and adenocarcinoma of the colon. He was admitted for abdominal surgery and underwent a subtotal colectomy. On January 26 he reported a right arm paresthesis and diplopia. In addition, his nurse noted a slurring of his speech. He was noted to be in atrial fibrillation verses a multifocal atrial rhythm at that time. It should be noted that he also had a spenic laceration that occured intraoperatively. The patient how returns due to a rising WBC count with erythema around his incision site. Drainage of his incision resulted in expulsion of copious puss. The patient now reports shortness of breath with minimal activity and orthopnea although hedenies chest pain, pressure, tightness or lightheadedness. He does have occasional palpitations. Allergies/Medications Allergies: Coded Allergies: Penicillins (BLISTERS, ITCH ALL OVER 01/25/18) Home Med List: Acetaminophen 325 MG TABLET 2 TAB PO Q4H PRN PAIN/TEMP 101.5 (Reported) Albuterol Sulfate (Proventil Hfa) 90 MCG HFA.AER.AD 2 PUF INH Q4 ASTHMA ( Reported) Allopurinol 300 MG TABLET 1 TAB PO DAILY GOUT (Reported) Amino AC/Protein Hydr/Whey Pro (Prosource Protein Liquid) 10 GRAM-100 KCAL/30 ML LIQUID 30 ML PO BID SUPPLEMENT (Reported) Apixaban (Eliquis) 2.5 MG TABLET 1 TAB PO BID AFIB Aspirin (Ecotrin*) 81 MG TABLET.DR 1 TAB PO DAILY HEART/BLOOD (Reported) Atorvastatin Calcium (Lipitor) 40 MG TABLET 1 TAB PO DAILY HEART Bisacodyl 10 MG SUPP.RECT 1 SUP RC QAM PRN NO BM IN 3 DAYS (Reported) Budesonide/Formoterol Fumarate (Symbicort 160-4.5 Mcg Inhaler) 160 MCG-4.5 MCG/ ACTUATION HFA.AER.AD 2 PUF INH BID ASTHMA (Reported) Ceftriaxone Sodium (Ceftriaxone) 500 MG VIAL 1 GM IV AD ABX (Reported) Docusate Sodium (Stool Softener) 100 MG CAPSULE 1 CAP PO BID PRN CONSTIPATION (Reported) Docusate Sodium 100 MG CAPSULE 1 TAB PO BID PRN CONSTIPATION Ferrous Sulfate 325 MG (65 MG IRON) TABLET 1 TAB PO BID ANEMIA (Reported) Furosemide 40 MG TABLET 1 TAB PO DAILY DIURETIC (Reported) Gabapentin 100 MG CAPSULE 1 TAB PO BID PAIN Metoprolol Tartrate 25 MG TABLET 1 TAB PO DAILY HEART/BP (Reported) Nystatin 100,000 UNIT/GRAM CREAM..G. 1 KIMBER TOP BID BUTTOCKS & PENILE SHAFT ( Reported) apply to affected area(s) Omeprazole 20 MG CAPSULE.DR 1 CAP PO DAILY GI (Reported) Oxycodone HCl 5 MG TABLET 1 TAB PO Q6H PRN SEVERE PAIN (Reported) Polyethylene Glycol 3350 (Miralax) 17 GRAM POWD.PACK 1 PAC PO QAM GI ( Reported) dissolve in water Tamsulosin HCl (Flomax) 0.4 MG CAP.ER.24H 1 TAB PO DAILY BPH Tolnaftate (Antifungal Cream) 1 % CREAM..G. 1 KIMBER TOP BID SCROTUM (Reported) Tramadol HCl 50 MG TABLET 1-2 TAB PO Q6P PRN PAIN Zinc Oxide 20 % OINT...G. 1 KIMBER TOP BID BILAT. UPPER THIGH (Reported) Review of Systems Review of Systems: A review of systems is remarkable for consistent anemia. 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 Acute Rehab Services at Home: None Smoking Status: Never Smoked Exam & Diagnostic Data Vital Signs and I&O Vital Signs Date Time Temp Pulse Resp B/P B/P Pulse O2 O2 Flow FiO2 Mean Ox Delivery Rate 02/15 1810 97.5 90 20 142/48 94 Room Air 02/15 1600 Room Air 02/15 1438 120/50 02/15 1355 97.3 81 20 120/50 94 Nasal Cannula 02/15 1018 89 130/44 02/15 0824 Nasal 2.0L Cannula 02/15 0800 95 Nasal 2.0L Cannula 02/15 0640 97.5 80 16 134/50 95 Nasal 2.0L Cannula 02/14 2257 97.9 102 22 122/42 97 Nasal Cannula 02/14 2240 97 Nasal 2.0L Cannula 02/14 2212 98.4 103 16 134/63 97 Nasal 2.0L Cannula Intake & Output 02/15 1600 02/15 0800 02/15 0000 02/14 1600 02/14 0800 02/14 0000 Intake Total 650 460 Output Total 675 750 100 Balance -25 -290 -100 Intake, Blood 350 Product Intake, IV 250 60 Intake, Oral 400 50 Output, Urine 675 750 100 Patient 241 lb Weight Weight Bed scale Measurement Method Physical Exam: General: WD/WN male in NAD; alert and oriented x3 with decreased memory HEENT: NC/AT, PERRL, EOMI Neck: no JVD, no carotid bruit Heart: irregular with 2/6 systolic murmur Lungs: clear bilaterally with decreased breath sounds at the bases bilaterally Abdomen: soft with midline surgical incision Extremities: no edema, venous stasis changes bilaterally Assessment/Plan Assessment/Plan * This patient has shortness of breath that is multifactorial but primarily due to bilateral pleural effusions. In addition, this patient has been severely anemic. Agree with blood transfusion. His pleural effusions may be related to decompensated CHF although he does have a normal EF of echo and his BNP is only mildly elevated. He does have severe lower extremity edema which typically goes along with right heart failure. This failure may be related to increased myocardial demand from his infection and anemia. Would consider an ultrasound guided thoracentesis. For now begin Lasix at 40mg IV BID. Consult Acknowledgment - Thank you for your consult request.
[2018-02-15 21:56] VITALS: BP 150/48
[2018-02-16 06:41] VITALS: BP 158/50
--- NOTE | 2018-02-16 07:17 | PN- Housestaff ---
ElginElishajones 02/16/18 0717: Subjective Follow-up For: Shortness of breath Surgical wound infection Subjective: Overnight patient was in normal sinus rhythm with heart rate ranging 81-95 with an episode of sinus tachycardia at 109. Patient was afebrile overnight, states that he was short of breath last night and requested the nurse to put him back on oxygen after being weaned off of oxygen. At this point he does not have shortness of breath is on 2 L of oxygen. Review of Systems Constitutional: Denies: chills, diaphoresis, fever. Cardiovascular: Denies: chest pain, palpitations. Respiratory: Reports: cough, short of breath. Gastrointestinal: Denies: abdominal pain, constipation, diarrhea, bloody stool. Objective Last 24 Hrs of Vital Signs/I&O Vital Signs Date Time Temp Pulse Resp B/P B/P Pulse O2 O2 Flow FiO2 Mean Ox Delivery Rate 02/16 0641 97.6 96 20 158/50 92 Room Air 02/15 2156 97.6 92 20 150/48 92 Room Air 02/15 2141 Room Air 02/15 1810 97.5 90 20 142/48 94 Room Air 02/15 1600 Room Air 02/15 1438 120/50 0906 1355 97.3 81 20 120/50 94 Nasal Cannula 02/15 1018 89 130/44 02/15 0824 Nasal 2.0L Cannula Intake & Output 02/16 1600 02/16 0800 09 0000 Intake Total 0 600 Output Total 300 350 Balance -300 250 Intake, Oral 0 600 Number 1 Bowel Movements Output, Urine 300 350 Patient 245 lb Weight Physical Exam General Appearance: Alert, Oriented X3, Cooperative Cardiovascular: Regular Rate, Normal S1, Normal S2 Lungs: decreased bilat. breath sounds Abdomen: Surgical kirk intact, surrounding erythema, no fluctuations or discharge appreciated. Soft, Non-tender, +BS appreciated Extremities: +2 pitting edema in bilat. LE and ankles. Other Physical Findings: Patricio is in place Assessment/Plan Assessment: Mr. Wong is a 87-year-old male with a past medical history significant for hypertension, hyperlipidemia, BPH, asthma, gout, peripheral neuropathy. Patient was recently admitted to [facility] from 01/26 to 02/03/2018 to undergo a laparoscopic subtotal colectomy which was converted to a open subtotal colectomy with ileum to proximal sigmoid colon anastomosis along with a takedown of splenic flexure and spleenorrhaphy for bleeding which is complicated by post surgery brain stem stroke and new onset A. fib. Patient was brought from [facility] in [place] due to shortness of breath. Problem List: 1. Acute Hypoxia 2. Surgical Wound infection 3. Anemia 4. Coccyx decubitus ulcer 5. Acute on Chronic CHF exacerbation 6. Atrial fibrillation 7. H/o hyperlipidemia 8. H/o GERD 9. Rosenda-splenic abscess #Perisplenic abscess: CT abdomen pelvis on 02/25/2018 showed a Large complex fluid collection with air-fluid levels seen in the left upper quadrant, contiguous with jejunal bowel loops, consistent with a contained perforation and large abscess formation. According to surgeon the abscess may be a result of splenic hematoma from the time of surgery. -Patient is scheduled to undergo CT-guided aspiration of fluid collection today #Acute Hypoxia: Acute CHF exacerbation seems like the most likely etiology however anemia and splenic hematoma are confounding factors. Patient has signs of fluid over load on physical examination, along with CXR showing bilateral moderate pleural effusions, as confirmed by CT which shows an increase in the size of the left-sided pleural effusion, with associated complete collapse of left lower lobe, all these findings are consistent with CHF contributing to patient's hypoxia. Patient has increased demand for O2, was started on oxygen at rehab facility which he previously did not need. Patient has low H/H count, which would also be contributing to patients increased demand. -Continue IV Furosemide 40mg BID will continue to monitor as patient is undergoing one procedure today. We will reassess patient on Monday, we will continue to diurese patient and will attempt to wean patient off of oxygen over the weekend. #Acute on Chronic CHF exacerbation: patient has physical examination, elevated proBNP and CXR findings consistent with exacerbation. Echocardiogram on 2017 showed a left ventricular ejection fraction of 70%, normal systolic function with no obvious regional wall motion abnormalities. Left atrium is mildly enlarged. Patient has recieved one time of dose of IV Lasix 40m mg and IV 20mg in ED. -continue IV Furosemide 40mg BID #Surgical wound infection: Patient had underwent major abdominal surgery during last admission 01/26-02/03. Patient has elevated WBC count, along with redness around surgicial incision site and fluctuant mass. In the ED frankly purulent material was expressed. Patient had recieved one time IV dose of Vancomycin in ED. WBC are trending downwards. -Wound cultures positive for gram negative bactera- prelim results. -f/u final culture results and sensitivity -Continue patient on meropenem, will readjust after sensitivities #Anemia: Is most likely due to blood loss anemia, patient has had major abdominal surgery. He had lost major blood in surgery was given 4U PRBC, patient have still be having microscopic bleeding from surgical sites. Patient had recieved 1U PRBC in ed, and 1 unit of PRBC on 02/15/18. Patient has a splenic abscess which may be a splenic hematoma, which has been present since surgery so could be a contributing cause to patient's anemia. -H&H stable at this time -will continue to hold Eliquis -Stool guaiac on 02/15/2018 is positive, which was expected as patient has undergone multiple colonic surgeries. If H&H does not stabilize we can consult GI to determine site of bleeding. #Atrial Fibrillation: onset of A. fib was following surgery and ischemic stroke during 01/26-02/03 admission. -Continue Metoprolol 25mg daily #Coccyx Decubitus Ulcer: Stage I pressure ulcer on coccyx with extension along bilat. buttocks with partial thickness breakdown at coccyx as a stage 1 ulcer. -Offload heels at all time with 2 positioning pillows -clean coccyx with normal saline followed by hydrocolloid cgf dressing q3days and prn -will consult nutrition #H/o Hyperlipidemia -Continue Atorvastatin 40mg daily #H/o GERD -continue omeprazole 20mg daily Code Status: DNR/DNI Diet: CHF Diet DVT PPx: ALPS and Lovenox Problem List: 1. Shortness of breath Pain Ratin Pain Location: n/a Pain Goal: Remain pain free Pain Plan: tylenol Tomorrow's Labs & Rationales: cbc, bep Mary Escalona MD 02/16/18 1128: Attending Review Statement Attending Statement Attending MD Statement: examined this patient, discuss w/resident/PA/JIG BUILDER HELPER, agreed w/resident/PA/JIG BUILDER HELPER, reviewed EMR data (avail), discussed with nursing, discussed with case mgmt, amended to note Attending Assessment/Plan: Patient seen and examined. No events on telemetry monitoring overnight. Complains of shortness of breath particularly with activity. Denies chest pain. Denies palpitations. He is afebrile. He remains hemodynamically stable. On examination he has some improvement of his anasarca. Heart sounds are regular. Diminished breath sounds in the lungs. Intact dressing over the abdomen. Laboratory data shows improvement in hemoglobin following transfusion. White cell count appears to be trending downwards. Awaiting creatinine level today. Problems: 1. Surgical wound infection 2. Status post open subtotal colectomy for lesions in the right colon and splenic flexure; pathology pending. Now complicated with large complex fluid collection with air-fluid levels in the left upper quadrant query contained perforation. 3. Newly diagnosed atrial. fibrillation during his previous admission. 4. Ischemic stroke during previous hospitalization. 5. Benign prostatic hypertrophy with bladder outlet obstruction preoperatively 6. Anemia; likely due to blood loss related to previous surgery. 7. Bilateral pleural effusions. 8. Right adrenal mass may be sequelae of previous adrenal hemorrhage versus solid adrenal mass such as metastatic disease. Plan: -Broad-spectrum antibiotic therapy with meropenem as recommended by the ID service. -Patient will require drainage of the perisplenic collection. It is noted that patient was on anticoagulation therapy with last dose on February 14. General surgery service will decide upon timing of the procedure. -Adrenal mass may be related to previous adrenal hemorrhage. Will need to monitor. -Hemoglobin level has improved following transfusion of 2 PRBC yesterday. Continue to hold anticoagulant therapy. Monitor CBCs daily. Transfuse to keep hemoglobin level greater than 7. -Continue diuresis. Continue oxygen supplementation. Recommend repeat imaging in the next 48 hours to evaluate improvement of his pleural effusion. If no significant improvement noted or if respiratory status worsens patient may require therapeutic thoracocentesis. -Bedside physical therapy as tolerated.
[2018-02-16 08:11] LABS: ABSOLUTE BASOPHIL COUNT 0 /CUMM (0.0-0.2); ABSOLUTE EOSINOPHIL COUNT 0.2 /CUMM (0.0-0.7); ABSOLUTE GRANULOCYTE CT 15.5 /CUMM (1.4-6.5); ABSOLUTE LYMPH COUNT 0.8 /CUMM (1.2-3.4); ABSOLUTE MONOCYTE COUNT 1.2 /CUMM (0.10-0.60); BASOPHIL % 0 % (0.0-2.0); EOSINOPHIL % 1.1 % (0-5); HEMATOCRIT 26.8 % (42-52); MEAN CORPUSCULAR HGB 26.3 PG (27.0-31.0); MEAN CORPUSCULAR HGB CONC 33.3 G/DL (33.0-37.0); MEAN CORPUSCULAR VOLUME 79.1 FL (80.0-94.0); MEAN PLATELET VOLUME 8.1 FL (7.4-10.4); PLATELET COUNT 425 /CUMM (130-400); RBC DISTRIBUTION WIDTH 24.7 % (11.5-14.5); RED BLOOD CELL CT 3.39 /CUMM (4.70-6.10); WHITE BLOOD CELL COUNT 17.7 /CUMM (4.8-10.8)
[2018-02-16 09:07] LABS: GRANULOCYTE % 87.5 % (42.2-75.2)
--- NOTE | 2018-02-16 09:13 | PN- General Surgery ---
See Addendum Subjective Subjective: Patient reports sob overnight. Comfortable this morning. Denies dizziness or lightheadedness. States he would like to get up and ambuate, but hasn't since admission. Reports ambualting at [facility]. Objective Vital Signs and I&Os Vital Signs Date Time Temp Pulse Resp B/P B/P Pulse O2 O2 Flow FiO2 Mean Ox Delivery Rate 02/16 0641 97.6 96 20 158/50 92 Room Air 02/15 2156 97.6 92 20 150/48 92 Room Air 02/15 2141 Room Air 02/15 1810 97.5 90 20 142/48 94 Room Air 02/15 1600 Room Air 02/15 1438 120/50 02/15 1355 97.3 81 20 120/50 94 Nasal Cannula 02/15 1018 89 130/44 Intake & Output 02/16 1600 02/16 0800 02/16 0000 02/15 1600 02/15 0800 02/15 0000 Intake Total 0 600 650 460 Output Total 300 350 675 750 100 Balance -300 250 -25 -290 -100 Intake, Blood 350 Product Intake, IV 250 60 Intake, Oral 0 600 400 50 Number 1 Bowel Movements Output, Urine 300 350 675 750 100 Patient 245 lb 241 lb Weight Weight Bed scale Measurement Method Physical Exam: Gen - resting comfortable in nad Abd - soft, obese with moderately saturated inferior midline incision dressing, removed, incision opening with active purulent material, packed with dakins gauze, abd, tape, fam-incisional erythema improving, nontender, no peritonitis Gu - gonzalez in place Ext - 2 + pitting edema B/L, chronic venous stasis c Assessment/Plan Assessment/Plan 87 M s/p subtotal colectomy 3 weeks ago admitted with dyspnea and surgical site infection, found on imaging to have perisplenic collection likely due to intraop splenic hematoma amenable to IR leandra Keep npo on IVF for IR drainage today Hold anticoagulation for procedure Prelim wound cx GNR, cont abx - IV meropenem Labs reviewed, s/p 2 untis PRCB yesterday Daily dressing changes with PT eval All other medical management per medicine Will d/w Dr. Canas Core Measures Venous Thromboembolism VTE Risk Factors Cancer/chemo/othr therapy No Mechanical VTE Prophylaxis d/t N/A MechProphylax Ordered No VTE Pharm Prophylaxis d/t NA PharmProphylax ordered Comment: scds
--- NOTE | 2018-02-16 11:30 | Cons- Infect Disease ---
General Information and HPI Consulting Request Date of Consult: 02/16/18 Requested By: Pola CARRANZA,Mary Reason for Consult: abx advice Source of Information: primary team Exam Limitations: clinical condition History of Present Illness: 87 yo M with PMH of hypertension, hyperlipidemia, benign prostatic hypertrophy, asthma, gout, peripheral neuropathy, recent hospital admission a [facility] for surgical resection and subtotal colectomy for villous adenomas with ileum to proximal sigmoid colon anastamosis, complicated by new onset atrial fibrilliation and brain stem stroke, discharged on 02/03/18 to [facility], presented to the ED on 02/14/18. He was brought in by daughter for shortness of breath; noted to be hypoxemic, falling H/H, leukocytosis, generlized swelling in his feet and arms, and abdominal distension, and surgical wound erythema. Patient currently afebrile; denies abd pain. Feels week. Allergies/Medications Allergies: Coded Allergies: Penicillins (BLISTERS, ITCH ALL OVER 01/25/18) Home Med List: Acetaminophen 325 MG TABLET 2 TAB PO Q4H PRN PAIN/TEMP 101.5 (Reported) Albuterol Sulfate (Proventil Hfa) 90 MCG HFA.AER.AD 2 PUF INH Q4 ASTHMA ( Reported) Allopurinol 300 MG TABLET 1 TAB PO DAILY GOUT (Reported) Amino AC/Protein Hydr/Whey Pro (Prosource Protein Liquid) 10 GRAM-100 KCAL/30 ML LIQUID 30 ML PO BID SUPPLEMENT (Reported) Apixaban (Eliquis) 2.5 MG TABLET 1 TAB PO BID AFIB Aspirin (Ecotrin*) 81 MG TABLET.DR 1 TAB PO DAILY HEART/BLOOD (Reported) Atorvastatin Calcium (Lipitor) 40 MG TABLET 1 TAB PO DAILY HEART Bisacodyl 10 MG SUPP.RECT 1 SUP RC QAM PRN NO BM IN 3 DAYS (Reported) Budesonide/Formoterol Fumarate (Symbicort 160-4.5 Mcg Inhaler) 160 MCG-4.5 MCG/ ACTUATION HFA.AER.AD 2 PUF INH BID ASTHMA (Reported) Ceftriaxone Sodium (Ceftriaxone) 500 MG VIAL 1 GM IV AD ABX (Reported) Docusate Sodium (Stool Softener) 100 MG CAPSULE 1 CAP PO BID PRN CONSTIPATION (Reported) Docusate Sodium 100 MG CAPSULE 1 TAB PO BID PRN CONSTIPATION Ferrous Sulfate 325 MG (65 MG IRON) TABLET 1 TAB PO BID ANEMIA (Reported) Furosemide 40 MG TABLET 1 TAB PO DAILY DIURETIC (Reported) Gabapentin 100 MG CAPSULE 1 TAB PO BID PAIN Metoprolol Tartrate 25 MG TABLET 1 TAB PO DAILY HEART/BP (Reported) Nystatin 100,000 UNIT/GRAM CREAM..G. 1 KIMBER TOP BID BUTTOCKS & PENILE SHAFT ( Reported) apply to affected area(s) Omeprazole 20 MG CAPSULE.DR 1 CAP PO DAILY GI (Reported) Oxycodone HCl 5 MG TABLET 1 TAB PO Q6H PRN SEVERE PAIN (Reported) Polyethylene Glycol 3350 (Miralax) 17 GRAM POWD.PACK 1 PAC PO QAM GI ( Reported) dissolve in water Tamsulosin HCl (Flomax) 0.4 MG CAP.ER.24H 1 TAB PO DAILY BPH Tolnaftate (Antifungal Cream) 1 % CREAM..G. 1 KIMBER TOP BID SCROTUM (Reported) Tramadol HCl 50 MG TABLET 1-2 TAB PO Q6P PRN PAIN Zinc Oxide 20 % OINT...G. 1 KIMBER TOP BID BILAT. UPPER THIGH (Reported) Current Medications: Current Medications Sig/Rony Start time Last Medication Dose Route Stop Time Status Admin Acetaminophen 650 MG Q6P PRN 02/14 2230 AC PO Acetaminophen 1,000 MG Q6P PRN 02/14 223 AC IV Atorvastatin Calcium 40 MG DAILY 02/15 900 AC 02/15 PO 1438 Calcium Carbonate 500 MG DAILY PRN 02/15 2045 AC 02/15 PO 2036 Calcium Carbonate 0 .STK-MED ONE 02/15 2038 DC PO Ceftriaxone Sodium 1,000 MG DAILY 02/15 900 DC IV Furosemide 40 MG 7:30 AM, & 4:30 PM 02/15 0730 AC 02/16 IV 0612 Gabapentin 100 MG BID 02/14 2331 AC 02/15 PO 1944 Meropenem 1 GM Q12H 02/16 600 AC 02/16 IV 0612 Meropenem 1 GM Q12 02/15 1330 DC 02/15 IV 1814 Metoprolol Tartrate 25 MG DAILY 02/15 900 AC 02/15 PO 1018 Omeprazole 20 MG DAILY 02/15 900 AC 02/15 PO 1438 Oxycodone/ 1 TAB Q6P PRN 02/14 2230 AC Acetaminophen PO Senna/Docusate Sodium 1 TAB BID PRN 02/15 1515 AC PO Sodium Hypochlorite 1 KIMBER DAILY 02/15 900 AC 02/15 TOP 1818 Tamsulosin HCl 0.4 MG DAILY 02/15 900 AC 02/15 PO 1438 Past History Travel History Traveled to [place] past 21 day No Medical History Blood Transfusion Hx: Yes Neurological: NONE EENT: cataracts Cardiovascular: AFIB, hypertension, hyperlipidemia, peripheral vascular disease orthostatic hypotension Respiratory: asthma Gastrointestinal: ADENOCARCINOMA OF THE COLON Hepatic: NONE Renal: benign prost hyperplasia Musculoskeletal: gout, osteoarthritis Psychiatric: NONE Endocrine: NONE Blood Disorders: NONE Cancer(s): adenocarcinoma of the colon PHARMACY PICKING TECH/Reproductive: NONE History of MRSA: No History of VRE: No History of CDIFF: No Isolation History: Standard Surgical History Surgical History: colon resection, abdominal Psychosocial History Where Do You Live? Acute Rehab Services at Home: None Smoking Status: Never Smoked Review of Systems Comments 12 points reviewed as noted, otherwise negative. Exam & Diagnostic Data Last 24 Hrs of Vital Signs/I&O Vital Signs Date Time Temp Pulse Resp B/P B/P Pulse O2 O2 Flow FiO2 Mean Ox Delivery Rate 02/16 0641 97.6 96 20 158/50 92 Room Air 02/15 2156 97.6 92 20 150/48 92 Room Air 02/15 2141 Room Air 02/15 1810 97.5 90 20 142/48 94 Room Air 02/15 1600 Room Air 02/15 1438 120/50 06 1355 97.3 81 20 120/50 94 Nasal Cannula Intake & Output 02/16 1600 02/16 0800 09 0000 Intake Total 0 600 Output Total 300 350 Balance -300 250 Intake, Oral 0 600 Number 1 Bowel Movements Output, Urine 300 350 Patient 245 lb Weight Physical Exam Other Physical Findings: Gen - resting comfortable in NAD Skin: pale HEENT: AT/NC, sclera anicteric Neck: No JVD Heart S1 S2 present, irreg Lungs: +BS, no wheezing Abd - soft, obese, dressing over incision opening with active purulent material, packed, fam-incisional erythema, nontender Gu - gonzalez in place Ext - pitting edema B/L, chronic venous stasis Last 24 Hours of Lab Results: Laboratory Tests 02/16 02/16 1005 0615 Chemistry Sodium Pending Potassium Pending Chloride Pending Carbon Dioxide Pending Anion Gap Pending Hematology CBC w Diff NO MAN DIFF REQ WBC (4.8 - 10.8 /CUMM) 17.7 H RBC (4.70 - 6.10 /CUMM) 3.39 L Hgb (14.0 - 18.0 G/DL) 8.9 L Hct (42 - 52 %) 26.8 L MCV (80.0 - 94.0 FL) 79.1 L MCH (27.0 - 31.0 PG) 26.3 L MCHC (33.0 - 37.0 G/DL) 33.3 RDW (11.5 - 14.5 %) 24.7 H Plt Count (130 - 400 /CUMM) 425 H MPV (7.4 - 10.4 FL) 8.1 Gran % (42.2 - 75.2 %) 87.5 H Lymphocytes % (20.5 - 51.1 %) 4.7 L Monocytes % (1.7 - 9.3 %) 6.7 Eosinophils % (0 - 5 %) 1.1 Basophils % (0.0 - 2.0 %) 0 Absolute Granulocytes (1.4 - 6.5 /CUMM) 15.5 H Absolute Lymphocytes (1.2 - 3.4 /CUMM) 0.8 L Absolute Monocytes (0.10 - 0.60 /CUMM) 1.2 H Absolute Eosinophils (0.0 - 0.7 /CUMM) 0.2 Absolute Basophils (0.0 - 0.2 /CUMM) 0 Last 24 Hours of Tom Results: SPEC #: [id number] MAGALI: 02/14/18 STATUS: RES RECD: 02/14/[address]: Zachary Ramírez SOURCE: TRUNK ENTR: 02/14/[address]: Toni CARRANZA,Yoseph SPDESC: ABDOMEN Matty CARRANZA,Sanam Aguilar ORDERED: TRUNK CULTURE COMMENT: TYPE OF SPECIMEN: DEEP ABD WOUND/ABSCESS Procedure Result > GRAM STAIN Preliminary 02/15/18-1011 WHITE BLOOD CELLS FEW GRAM POSITIVE COCCI FEW GRAM NEGATIVE RODS FEW GRAM POSITIVE RODS FEW > TRUNK AREA CULTURE Preliminary 02/15/180848 Light growth of: GRAM NEGATIVE RODS Identification and sensitivities to follow Diagnostic Data Recent Imaging Findings: SERVICE DATE: 02/15/18- EXAM TYPE: CAT - CT ABD & PELVIS W/ ORAL CONTRA EXAMINATION: CT ABDOMEN AND PELVIS WITHOUT CONTRAST CLINICAL INFORMATION: Abdominal wall abscess. Rule out intra-abdominal collection. Status post surgery with open laparotomy, right hemicolectomy with ileocolonic anastomosis January 2018. Recent history of surgical site abscess drainage. COMPARISON: CT scan of the abdomen and pelvis dated 01/27/2018. TECHNIQUE: Multidetector volumetric imaging was performed from the superior aspect of the liver through the pubic symphysis after the administration of 900 mL of oral Redicat contrast. Sagittal and coronal reformatted images were obtained on the technologist workstation. DLP: 1083.86 mGy-cm. FINDINGS: LUNG BASES: Interval increase in size of the left-sided pleural effusion is seen, with associated complete collapse of the left lower lobe. Small right-sided pleural effusion remains similar with moderate atelectatic changes in the right lung base. The cardiac silhouette is enlarged and moderate coronary artery calcifications is seen. Trace physiologic pericardial fluid without significant effusion is noted. LIVER, GALLBLADDER, AND BILIARY TREE: The liver is atrophic and unremarkable on noncontrast study. No focal hepatic lesion on noncontrast imaging. No biliary ductal dilatation is present. The gallbladder is unremarkable with no evidence of radiopaque gallstones, gallbladder wall thickening, or obvious pericholecystic inflammatory changes. PANCREAS: There is a 0.7 cm coarse calcification in the uncinate process of the pancreas. There is also a 0.2 cm calcification seen in the pancreatic head projecting slightly lateral to the ampullary region of the common bile duct and unchanged from prior exam. Findings most likely represent changes related to prior chronic calcific pancreatitis. The pancreas overall is markedly atrophic with fatty infiltration in the pancreatic head seen. SPLEEN: Unremarkable. ADRENAL GLANDS: There is a bilobed approximately 3.3 x 2.2 cm right adrenal mass, previously measuring 3.3 x 2.1 cm. Multiple internal calcifications are seen. This is incompletely characterized on single phase noncontrast study. The left adrenal gland is normal. KIDNEYS AND URETERS: The kidneys are normal in size, shape, and attenuation. No hydronephrosis, hydroureter, or calculi seen. No perinephric stranding. In the upper pole of the right kidney, there is a 1.0 cm hyperdense mass with mean attenuation values of 71.4 Hounsfield units, consistent with a hemorrhagic/proteinaceous cyst. No additional renal mass seen. BLADDER: Decompressed by a catheter and therefore not adequately assessed. Small locules of air are seen within the bladder lumen related to the catheter. PELVIC VISCERA: Unremarkable. GASTROINTESTINAL TRACT: There is a large 15.4 x 12.5 x 10.2 cm complex collection in the left upper quadrant, anterior to the spleen, contiguous with the proximal jejunal bowel loops in the left upper quadrant. There is a large air-fluid levels seen within this collection and some hyperdensity is noted within the superior periphery of this collection, suggesting communication with the jejunal bowel loop. Findings are consistent with a contained perforation and large abscess formation. The orally ingested contrast extends all the way down to the rectum. There is advanced sigmoid and descending colonic diverticulosis with no evidence of acute diverticulitis. The patient is status post right hemicolectomy with bowel anastomosis seen in the mid abdomen and appearing intact. There is prominent fecal distention of the rectum with stool without significant rectal wall thickening or significant perirectal fat stranding. ABDOMINAL WALL: There is a midline umbilical/periumbilical open wound seen filled with packing material and air. Some fat stranding is noted along the inferior more than the superior margin of the umbilicus, nonspecific and possibly due to postoperative change versus slight inflammatory change. The air locules track superiorly along the anterior abdominal wall to the subxiphoid level. No formed abdominal wall abscess collection is seen. There is anasarca seen in the soft tissues of both flanks. LYMPH NODES: Unremarkable. VASCULAR STRUCTURES: Moderate to severe atherosclerotic calcifications of the aorta and branch vessels, including both renal arteries is seen. OSSEOUS STRUCTURES: There is diffuse osteopenia and moderate to severe degenerative disc disease is seen throughout the lumbar spine. Moderate facet arthropathy is also seen in the mid and lower lumbar spine. Moderate vertebral spondylosis and mild degenerative disc disease is noted in the lower thoracic spine. IMPRESSION: 1. Large complex fluid collection with air-fluid levels seen in the left upper quadrant, contiguous with jejunal bowel loops, consistent with a contained perforation and large abscess formation. Less likely, findings may represent a infected hematoma as clinically suspected. An infected hematoma would not entirely explain the presence of the high density material within this collection. 2. Status post right hemicolectomy and ileocolonic anastomosis with no definite abnormality seen at the ileocolonic anastomosis site. 3. Interval increase in size of left-sided pleural effusion with now complete collapse of the left lower lobe seen. Small right-sided pleural effusion and associated moderate atelectatic changes in the right lung base are unchanged. 4. 3.3 x 2.2 cm bilobed right adrenal mass with associated calcifications. This is incompletely characterized on this noncontrast exam but may represent a sequelae of previous adrenal hemorrhage versus a solid adrenal mass, such as metastatic disease. Imaging findings are not consistent with a benign adrenal adenoma. Correlation with any outside older films would be helpful for further assessment. 5. Open periumbilical wound in the anterior midline of the abdomen with packing material and surrounding inflammatory changes in the soft tissues is seen, consistent with patient's history of recent I\\T\\D of abdominal wall infection. Locules of gas are seen extending along the anterior abdominal wall to the subxiphoid region. 6. Moderate to severe atherosclerotic vascular calcifications. These emergent results were discussed with Dr. Sweta Moody 02/15/2018, 5:35 PM. Findings discussed with Dr. Lars Canas 02/15/2018, 5:50 PM. DICTATED BY: Shai CARRANZA,Yareli Nogueira DATE/TIME DICTATED:02/15/181711 LASER SYSTEMS ENGINEER:RADHA DATE/TIME TRANSCRIBED:02/15/181711 Assessment/Plan Assessment/Plan Impression: 87 yo M with PMH of hypertension, hyperlipidemia, benign prostatic hypertrophy, asthma, gout, peripheral neuropathy, s/p recent surgical resection and subtotal colectomy for villous adenomas with ileum to proximal sigmoid colon anastamosis, complicated by new onset atrial fibrilliation and brain stem stroke, discharged on 02/03/18, presented to the ED on 02/14/18; diagnosed w/ intra abdominal abscess (likely polymicrobial); CT A/P " large complex fluid collection with air-fluid levels seen in the left upper quadrant, contiguous with jejunal bowel loops, consistent with a contained perforation and large abscess formation. Less likely, findings may represent a infected hematoma as clinically suspected. An infected hematoma would not entirely explain the presence of the high density material within this collection". Leukocytosis Suggestion: 1. F/U abscess cx results (planned IR intervention). 2. Trend CBC, BMP. ESR w/ next blood work. 3. As allergic to PCN (hives); empiric iv Meropenem 1 gm q12 h D #2 pending above. Consult Acknowledgment - Thank you for your consult request.
--- NOTE | 2018-02-16 15:29 | ULTRASOUND REPORT ---
EXAMINATION: US TRIPLEX UPPER EXTREMITY, RIGHT CLINICAL INFORMATION: Right upper extremity [address] in [address]. Rule out DVT. COMPARISON: None TECHNIQUE: Color-flow triplex imaging with spectral analysis and compression Doppler were performed on the lower extremity. FINDINGS: There is no evidence of DVT in the right upper extremity. The right internal jugular vein, subclavian vein, axillary vein and cephalic veins are patent. There is a right upper extremity PICC line in the brachial vein. The brachial vein is compressible around the PICC line. The PICC line is not well visualized beyond the brachial vein. IMPRESSION: No evidence of DVT in the right upper extremity. Right brachial vein PICC line (midline) catheter in place. The brachial vein is compressible around the PICC.
[2018-02-16 16:30] VITALS: BP 108/64
--- NOTE | 2018-02-16 17:04 | ULTRASOUND REPORT ---
CLINICAL HISTORY: SINA COLLIER is a87 years old Male with a complex left perisplenic abscess, who presents to interventional radiology for drain placement. PROCEDURES: 1. Ultrasound-guided placement of 12 Tajik pigtail drain into left perisplenic abscess.. REFERRING PROVIDER: Ranjit Rodríguez MD COMPLICATIONS: None. ESTIMATED BLOOD LOSS: <5 mL. SPECIMENS: Culture. PROCEDURE NOTE: Informed consent was obtained from the patient prior to the procedure. During this process, the procedure and potential alternatives were explained along with the intended outcome and benefits. The risks of the procedure, including the possibility of an unsuccessful procedure, as well as the risk of not doing the procedure, were discussed. The patient was given the opportunity to ask questions regarding the procedure and appeared competent to make decisions. A signed consent form documenting this discussion was placed in the medical record. A time-out procedure was performed. TECHNIQUE: The patient was placed supine on the ultrasound table. A time-out was performed. The left upper abdomen was prepped and draped in the usual sterile fashion. 10 mL of 1% lidocaine was used to obtain local anesthesia of the skin and deeper tissues. A 5 Tajik one step needle was passed through the skin into the collection using ultrasound guidance. Paulo pus was aspirated. A guidewire was then placed through the introducer into the collection. The access site was then sequentially dilated using dilators sized 8 Fr, 10 Fr and 12 Fr. A 12 Fr. Pigtail catheter was then advanced over the wire into the collection. The wire was removed and the catheter was secured to the skin with a single suture and a sterile dressing was placed over the site. The catheter was connected to gravity drainage bag. 300 mL of thick, light brown, puslike fluid was aspirated, divided and sent for the requested studies. The patient tolerated the procedure well. FINDINGS: 300 mL of thick, light brown, puslike fluid aspirated from the perisplenic abscess. IMPRESSION: Successful ultrasound-guided abscess drainage. PLAN: 1. The patient was stable after the procedure and no complications were noted. The patient was discharged back to their room following standard monitoring. 2. Drainage catheter can be flushed with 10 mL normal saline twice daily if necessary.
--- NOTE | 2018-02-16 21:37 | PN- Cardiology ---
Subjective Subjective: * Breathing is improved. * mildly improved H/H * WBC count 17.7 Objective Vital Signs and I&Os Vital Signs Date Time Temp Pulse Resp B/P B/P Pulse O2 O2 Flow FiO2 Mean Ox Delivery Rate 02/16 2119 Nasal 2.0L Cannula 02/16 1630 108/64 02/16 1206 90 170/75 02/16 1203 90 170/75 02/16 0800 93 Nasal 2.0L Cannula 02/16 0641 97.6 96 20 158/50 92 Room Air 02/15 2156 97.6 92 20 150/48 92 Room Air 02/15 2141 Room Air Intake & Output 02/16 1600 02/16 0800 02/16 0000 02/15 1600 02/15 0800 02/15 0000 Intake Total 0 600 650 460 Output Total 300 350 675 750 100 Balance -300 250 -25 -290 -100 Intake, Blood 350 Product Intake, IV 250 60 Intake, Oral 0 600 400 50 Number 1 Bowel Movements Output, Urine 300 350 675 750 100 Patient 245 lb 241 lb Weight Weight Bed scale Measurement Method Physical Exam: General: WD/WN male in NAD; alert and oriented x3 with decreased memory HEENT: NC/AT, PERRL, EOMI Neck: no JVD, no carotid bruit Heart: irregular with 2/6 systolic murmur Lungs: clear bilaterally with decreased breath sounds at the bases bilaterally Abdomen: soft with midline surgical incision Extremities: 2+ leg edema, venous stasis changes bilaterally Assessment/Plan Assessment/Plan * This patient has shortness of breath that is multifactorial but primarily due to bilateral pleural effusions. In addition, this patient has been severely anemic. He is doing better following his blood transfusion although he remains anemic. His pleural effusions may be related to decompensated CHF although he does have a normal EF of echo and his BNP is only mildly elevated. He does have severe lower extremity edema which typically goes along with right heart failure. This is improving somewhat with diuresis. Continue Lasix 40mg IV Bid. This failure may be related to increased myocardial demand from his infection and anemia. Would consider an ultrasound guided thoracentesis if no improvement in effusions with diuresis. Continue telemetry? No
[2018-02-16 22:20] VITALS: BP 168/80
[2018-02-17 06:30] VITALS: BP 144/70
[2018-02-17 07:01] LABS: ABSOLUTE BASOPHIL COUNT 0 /CUMM (0.0-0.2); ABSOLUTE EOSINOPHIL COUNT 0.3 /CUMM (0.0-0.7); ABSOLUTE GRANULOCYTE CT 11.7 /CUMM (1.4-6.5); ABSOLUTE LYMPH COUNT 1.1 /CUMM (1.2-3.4); ABSOLUTE MONOCYTE COUNT 1.2 /CUMM (0.10-0.60); BASOPHIL % 0.2 % (0.0-2.0); EOSINOPHIL % 1.9 % (0-5); GRANULOCYTE % 81.9 % (42.2-75.2); HEMATOCRIT 27.4 % (42-52); MEAN CORPUSCULAR HGB 25.7 PG (27.0-31.0); MEAN CORPUSCULAR HGB CONC 32.2 G/DL (33.0-37.0); MEAN CORPUSCULAR VOLUME 79.7 FL (80.0-94.0); PLATELET COUNT 399 /CUMM (130-400); RBC DISTRIBUTION WIDTH 24.4 % (11.5-14.5); RED BLOOD CELL CT 3.44 /CUMM (4.70-6.10); WHITE BLOOD CELL COUNT 14.2 /CUMM (4.8-10.8)
--- NOTE | 2018-02-17 08:30 | PN- Housestaff ---
See Addendum Subjective Follow-up For: Shortness of breath Surgical wound infection Subjective: Overnight patient was in atrial flutter with heart rate ranged between 77-104. Patient is status post day [address]-guided drainage of perisplenic abscess, has no complaint of today. Patient is currently on 2.0 L of oxygen, denies chest pain, shortness of breath at rest, palpitations. Patient states he does get short of breath when he gets moved around he is having a cough productive of clear phlegm. Review of Systems Constitutional: Denies: chills, diaphoresis, fever. Objective Last 24 Hrs of Vital Signs/I&O Vital Signs Date Time Temp Pulse Resp B/P B/P Pulse O2 O2 Flow FiO2 Mean Ox Delivery Rate 02/17 0841 89 144/70 02/17 0841 89 144/70 02/17 0630 97.8 89 20 144/70 95 Nasal Cannula 02/16 2220 97.5 87 22 168/80 97 02/16 2119 Nasal 2.0L Cannula 02/16 1630 108/64 02/16 1206 90 170/75 07 1203 90 170/75 Intake & Output 02/17 1600 08 0800 08 0000 Intake Total 240 490 Output Total 417 871 3651 Balance -500 -285 -860 Intake, Oral 240 490 Number 1 Bowel Movements Output, 175 200 Drainage Output, Urine [phone] Patient 241 lb Weight Physical Exam General Appearance: Alert, Oriented X3, Cooperative Cardiovascular: Regular Rate, Normal S1, Normal S2 Lungs: decreased bilateral basalar breath sounds Abdomen: Normal Bowel Sounds, Soft, minimal tenderness around drain site, and midline wound. Midline wound is packed with guaze, no draingae appreciated. Drain in place in LUQ, approx 50mL of brown-liquid discharge Extremities: +2 pitting edema bilat LE. Assessment/Plan Assessment: Mr. Wong is a 87-year-old male with a past medical history significant for hypertension, hyperlipidemia, BPH, asthma, gout, peripheral neuropathy. Patient was recently admitted to [facility] from 01/26 to 02/03/2018 to undergo a laparoscopic subtotal colectomy which was converted to a open subtotal colectomy with ileum to proximal sigmoid colon anastomosis along with a takedown of splenic flexure and spleenorrhaphy for bleeding which is complicated by post surgery brain stem stroke and new onset A. fib. Patient was brought from [facility] in [place] due to shortness of breath. Problem List: 1. Acute Hypoxia 2. Surgical Wound infection 3. Anemia 4. Coccyx decubitus ulcer 5. Acute on Chronic CHF exacerbation 6. Atrial fibrillation 7. H/o hyperlipidemia 8. H/o GERD 9. Rosenda-splenic abscess #Perisplenic abscess: CT abdomen pelvis on 02/25/2018 showed a Large complex fluid collection with air-fluid levels seen in the left upper quadrant, contiguous with jejunal bowel loops, consistent with a contained perforation and large abscess formation. According to surgeon the abscess may be a result of splenic hematoma from the time of surgery. -Patient underwent CT-guided aspiration of left perisplenic abscess and placement of 12 Macedonian pigtail drain on 02/16/2018. 300 mL of thick, light brown, puslike fluid was aspirated. identification and sensitivity #Acute Hypoxia: Acute CHF exacerbation seems like the most likely etiology however anemia and splenic hematoma are confounding factors. Patient has signs of fluid over load on physical examination, along with CXR showing bilateral moderate pleural effusions, as confirmed by CT which shows an increase in the size of the left-sided pleural effusion, with associated complete collapse of left lower lobe, all these findings are consistent with CHF contributing to patient's hypoxia. Patient has increased demand for O2, was started on oxygen at rehab facility which he previously did not need. Patient has low H/H count, which would also be contributing to patients increased demand. -Repeat checks x-ray shows moderate left pleural effusion, right basilar atelectasis -Continue IV Furosemide 40mg BID respiratory function does not improve. We will reassess patient on Monday, we will continue to diurese patient and will attempt to wean patient off of oxygen over the weekend. #Acute on Chronic CHF exacerbation: patient has physical examination, elevated proBNP and CXR findings consistent with exacerbation. Echocardiogram on 2017 showed a left ventricular ejection fraction of 70%, normal systolic function with no obvious regional wall motion abnormalities. Left atrium is mildly enlarged. Patient has recieved one time of dose of IV Lasix 40m mg and IV 20mg in ED. -continue IV Furosemide 40mg BID #Surgical wound infection: Patient had underwent major abdominal surgery during last admission 01/26-02/03. Patient has elevated WBC count, along with redness around surgicial incision site and fluctuant mass. In the ED frankly purulent material was expressed. Patient had recieved one time IV dose of Vancomycin in ED. WBC are trending downwards. -Cultures are positive for E. coli ESBL, sensitive to meropenem and gentamicin -Continue patient on meropenem, will readjust after sensitivities #Anemia: Is most likely due to blood loss anemia, patient has had major abdominal surgery. He had lost major blood in surgery was given 4U PRBC, patient have still be having microscopic bleeding from surgical sites. Patient had recieved 1U PRBC in ed, and 1 unit of PRBC on 02/15/18. Patient has a splenic abscess which may be a splenic hematoma, which has been present since surgery so could be a contributing cause to patient's anemia. -H&H stable at this time -will continue to hold Eliquis -Stool guaiac on 02/15/2018 is positive, which was expected as patient has undergone multiple colonic surgeries. If H&H does not stabilize we can consult GI to determine site of bleeding. #Atrial Fibrillation: onset of A. fib was following surgery and ischemic stroke during 01/26-02/03 admission. -Continue Metoprolol 25mg daily #Coccyx Decubitus Ulcer: Stage I pressure ulcer on coccyx with extension along bilat. buttocks with partial thickness breakdown at coccyx as a stage 1 ulcer. -Offload heels at all time with 2 positioning pillows -clean coccyx with normal saline followed by hydrocolloid cgf dressing q3days and prn -will consult nutrition #H/o Hyperlipidemia -Continue Atorvastatin 40mg daily #H/o GERD -continue omeprazole 20mg daily Code Status: DNR/DNI Diet: CHF Diet DVT PPx: ALPS and Lovenox Problem List: 1. Shortness of breath Pain Ratin Pain Location: n/a Pain Goal: Remain pain free Pain Plan: tylenol Tomorrow's Labs & Rationales: cbc
--- NOTE | 2018-02-17 09:48 | RADIOLOGY REPORT ---
EXAMINATION: XR PORTABLE CHEST CLINICAL INFORMATION: SOB. COMPARISON: 02/14/2018. TECHNIQUE: Portable frontal view of the chest was obtained. FINDINGS: There is moderate haziness seen throughout the left and mid and lower lung likely from pleural effusion layering posteriorly. There is patchy atelectasis right lung base. The right upper lung and the left upper lung is clear. The overall both lungs are hypoexpanded. Heart size is borderline enlarged. Pulmonary vascularity is normal. No gross bony abnormality seen. IMPRESSION: Suspect moderate left pleural effusion layering along the left hemithorax. There is right basilar atelectasis. Underlying effusion is not excluded.
--- NOTE | 2018-02-17 10:09 | PN- Student ---
Subjective Subjective: Pt says he is feeling better since yesterday and is in less discomfort. Complaining of difficulty breathing upon inspiration but says that the NC is helping. Still has not gotten out of bed but would like to. Has not ambulated since being in rehab. Tolerated his diet but has less of an appetite than usual. Is looking forward to getting out of bed and walking around so that he can go home. Had a bowel movement yesterday and is continuing to pass gas. Denies any CP, palpitiations, nausea, vomiting, headahce or dizziness. Objective Objective: Vitals: See EMR General: Elderly male, lying in bed, NC in place, NAD. cardio: Regular rate and rhythm, no murmurs rubs or gallops, S1 S2. Pulm: Breath sounds auscultated with no wheezes, rhonchi or rales. Abdomen: Soft, round and non-distended. Midline incision noted with dressing over it. Incision with decreasing erythema around the site. packing was removed and there was some purulent drainage noted out of the wound but decreased from yd. Drain in place in the LUQ and site looked clean and non-erythematous. Normoactive bowel sounds were ausculated. Slightly tender to palpation. Extremities: 2+ pitting edema to the bilateral lower extremities with erythematous lesions on the bilateral pre-tibias. 5/5 dorsi and plantar flexion bilaterally. calves are soft and non-tender bilaterally. Gross motor and sensation intact bilaterally. Results Results: Laboratory Tests 02/17/18 0550: Anion Gap 3 L, Estimated GFR > 60, BUN/Creatinine Ratio 35.0 H, CBC w Diff NO MAN DIFF REQ, RBC 3.44 L, MCV 79.7 L, MCH 25.7 L, MCHC 32.2 L, RDW 24.4 H, MPV 8.0, Gran % 81.9 H, Lymphocytes % 7.4 L, Monocytes % 8.6, Eosinophils % 1.9, Basophils % 0.2, Absolute Granulocytes 11.7 H, Absolute Lymphocytes 1.1 L , Absolute Monocytes 1.2 H, Absolute Eosinophils 0.3, Absolute Basophils 0, ESR Westergren Pending 02/16/18 1434: Fluid WBC ND, Fld Total RBCs Counted ND 02/16/18 1434[facility] , Fluid Glucose < 20 02/16/18 1005: Anion Gap 3 L 02/16/18 0615: CBC w Diff NO MAN DIFF REQ, RBC 3.39 L, MCV 79.1 L, MCH 26.3 L, MCHC 33.3, RDW 24.7 H, MPV 8.1, Gran % 87.5 H, Lymphocytes % 4.7 L, Monocytes % 6.7, Eosinophils % 1.1, Basophils % 0, Absolute Granulocytes 15.5 H, Absolute Lymphocytes 0.8 L, Absolute Monocytes 1.2 H, Absolute Eosinophils 0.2, Absolute Basophils 0 02/15/18 1006: Anion Gap 5, Estimated GFR 57 L, BUN/Creatinine Ratio 33.3 H, Troponin I < 0.01, CBC w Diff NO MAN DIFF REQ, RBC 2.88 L, MCV 78.8 L, MCH 25.8 L, MCHC 32.8 L, RDW 26.0 H, MPV 7.3 L, Gran % 90.1 H, Lymphocytes % 3.3 L, Monocytes % 5.9, Eosinophils % 0.6, Basophils % 0.1, Absolute Granulocytes 17.0 H, Absolute Lymphocytes 0.6 L, Absolute Monocytes 1.1 H, Absolute Eosinophils 0.1, Absolute Basophils 0 02/14/182230: Lactic Acid Cancelled 02/14/182021: Lactic Acid 1.2 02/14/182021: Anion Gap 7, Estimated GFR 48 L, BUN/Creatinine Ratio 30.0 H, Glucose 101 H, Calcium 7.8 L, Magnesium 1.7, Total Bilirubin 0.3, AST 37, ALT 47, Alkaline Phosphatase 102, Troponin I < 0.01, Kek-N-Toltsqrlfre Pept 1360 H, Total Protein 4.4 L, Albumin 2.2 L, Globulin 2.2, Albumin/Globulin Ratio 1.0 L, Cholesterol 68, CBC w Diff MAN DIFF ORDERED, RBC 2.50 L, MCV 77.8 L, MCH 25.5 L, MCHC 32.8 L, RDW 27.1 H, MPV 8.0, Gran % 89.2 H, Lymphocytes % 4.2 L, Monocytes % 6.2, Eosinophils % 0.3, Basophils % 0.1, Absolute Granulocytes 18.8 H, Segmented Neutrophils 91 H, Absolute Lymphocytes 0.9 L, Lymphocytes 7 L, Monocytes 2, Absolute Monocytes 1.3 H, Absolute Eosinophils 0.1, Absolute Basophils 0, Platelet Estimate VERIFIED BY SMEAR, Polychromasia 1+, Anisocytosis 2+, Fld Total RBCs Counted 100 02/14/18 1729: Geo-G-Ttxvkwztnot Pept Cancelled Microbiology 02/16 1434 BODY FLUID: Body Fluid Culture - RECD 02/16 1434 BODY FLUID: Gram Stain - RECD 02/16 0758 BODY FLUID: Body Fluid Culture - COLB 02/16 0758 BODY FLUID: Gram Stain - COLB 02/15 0030 URINE ROUT: Urine Culture - RES 02/15 0028 BLOOD: Blood Culture - RES 02/15 0025 BLOOD: Blood Culture - RES 02/15 1920 TRUNK: Culture & Sensitivity - RES ESCHERICHIA COLI ESBL ENTEROCOCCUS 02/15 1920 TRUNK: Gram Stain - RES 02/14 1900 BODY FLUID: Body Fluid Culture - CAN Cancelled: CHANGED TO TRUNK CULTURE, ABDOMEN 02/14 1900 BODY FLUID: Gram Stain - CAN Cancelled: CHANGED TO TRUNK CULTURE, ABDOMEN Assessment/Plan Assessment: Pt is an 87 M s/p subtotal colectomy performed 3 weeks ago who was admitted from subacute rehab with dyspnea and surgical site infection. On imagin, the patient was found to have a perisplenic collection which has since been drained by IR without complications. Plan: Wound was repacked with Dakin's solution and re-dressed. Continue with daily dressing changes. Regular diet as tolerated. Continue with IV antibiotics. PT to see the patient. Review labs. Medical team to manage. Continue home medication. Will discuss with Dr Canas and surgical PAs.
--- NOTE | 2018-02-17 12:00 | PN- Infect Dx ---
Subjective Subjective: Overnight patient was in atrial flutter with heart rate ranged between 77-104. Patient is status post day [address]-guided drainage LUQ abscess. He denies chest pain, shortness of breath at rest, palpitations. Has a cough productive of clear phlegm. No abd pain, n/v, fair appertite. Review of Systems Comments: 12 points reviewed as noted, otherwise negative. Objective Last 24 Hrs of Vital Signs/I&O Vital Signs Date Time Temp Pulse Resp B/P B/P Pulse O2 O2 Flow FiO2 Mean Ox Delivery Rate 02/17 0841 89 144/70 02/17 0841 89 144/70 02/17 0630 97.8 89 20 144/70 95 Nasal Cannula 02/16 2220 97.5 87 22 168/80 97 02/16 2119 Nasal 2.0L Cannula 02/16 1630 108/64 02/16 1206 90 170/75 02/16 1203 90 170/75 Intake & Output 02/17 1600 08 0800 02/17 0000 Intake Total 240 490 Output Total 788 703 0122 Balance -500 -285 -860 Intake, Oral 240 490 Number 1 Bowel Movements Output, 175 200 Drainage Output, Urine 295 663 5286 Patient 241 lb Weight Physical Exam Other Physical Findings: Gen - resting comfortable in NAD Skin: pale HEENT: AT/NC, sclera anicteric Neck: No JVD Heart S1 S2 present, irreg Lungs: +BS, no wheezing Abd - soft, nontender, NEAL drain LUQ w/ brownish drainage Ext - pitting edema B/L, chronic venous stasis Results Last 24 Hours of Lab Results: Laboratory Tests 02/17 02/16 02/16 0550 1434 1434 Chemistry Sodium (137 - 145 mmol/L) 136 L Potassium (3.5 - 5.1 mmol/L) 4.1 Chloride (98 - 107 mmol/L) 104 Carbon Dioxide (22 - 30 mmol/L) 29 Anion Gap (5 - 16) 3 L BUN (9 - 20 mg/dL) 35 H Creatinine (0.7 - 1.2 mg/dL) 1.0 Estimated GFR (>60 ml/min) > 60 BUN/Creatinine Ratio (7 - 25 %) 35.0 H Hematology CBC w Diff NO MAN DIFF REQ WBC (4.8 - 10.8 /CUMM) 14.2 H RBC (4.70 - 6.10 /CUMM) 3.44 L Hgb (14.0 - 18.0 G/DL) 8.8 L Hct (42 - 52 %) 27.4 L MCV (80.0 - 94.0 FL) 79.7 L MCH (27.0 - 31.0 PG) 25.7 L MCHC (33.0 - 37.0 G/DL) 32.2 L RDW (11.5 - 14.5 %) 24.4 H Plt Count (130 - 400 /CUMM) 399 MPV (7.4 - 10.4 FL) 8.0 Gran % (42.2 - 75.2 %) 81.9 H Lymphocytes % (20.5 - 51.1 %) 7.4 L Monocytes % (1.7 - 9.3 %) 8.6 Eosinophils % (0 - 5 %) 1.9 Basophils % (0.0 - 2.0 %) 0.2 Absolute Granulocytes (1.4 - 6.5 /CUMM) 11.7 H Absolute Lymphocytes (1.2 - 3.4 /CUMM) 1.1 L Absolute Monocytes (0.10 - 0.60 /CUMM) 1.2 H Absolute Eosinophils (0.0 - 0.7 /CUMM) 0.3 Absolute Basophils (0.0 - 0.2 /CUMM) 0 ESR Westergren (0 - 10 MM) 65 H [facility] Hematology Test (%) Other Body Source Fluid WBC (0 - 5 /CUMM) ND Fld Total RBCs Counted (0 /CUMM) ND Fluid Glucose (mg/dL) < 20 Last 24 Hours of Tom Results: SPEC #: [id number] MAGALI: 02/16/18 STATUS: RECD RECD: 02/16/181518 SUBM DR: Elgin CARRANZA,Maikol SOURCE: BODY FLUID ENTR: 02/16/[address]: Pola CARRANZA,Mary SPDESC: AL Causey MD, Phill Starr MD,Sanam Aguilar ORDERED: BODY FLD CULTUR COMMENT: ADDITIONAL INFORMATION: gram stain and culture of fam-splenic abscess SYRINGE AND TUBE REC: PUTRID BROWN . 10ML Procedure Result BODY FLD CULTUR PENDING SPEC #: [id number] MAGALI: 02/14/18 STATUS: RES RECD: 02/14/[address]: Sebas GARCÍA,Zachary Wilkins SOURCE: TRUNK ENTR: 02/14/[address]: Toni CARRANZA,Yoseph SPDESC: ABDOMEN Matty CARRANZA,Sanam Aguilar ORDERED: TRUNK CULTURE COMMENT: TYPE OF SPECIMEN: DEEP ABD WOUND/ABSCESS Procedure Result > GRAM STAIN Final 02/16/18161 WHITE BLOOD CELLS RARE GRAM POSITIVE COCCI FEW GRAM NEGATIVE RODS RARE GRAM POSITIVE RODS RARE > TRUNK AREA CULTURE Preliminary 02/17/18 Light growth of: 1. ESCHERICHIA COLI ESBL This isolate is a confirmed Extended Spectrum Beta-lacatmase (ESBL) producing organism. Place Patient on Contact Precaution Recent Imaging Studies: US guided IR TECHNIQUE: The patient was placed supine on the ultrasound table. A time-out was performed. The left upper abdomen was prepped and draped in the usual sterile fashion. 10 mL of 1% lidocaine was used to obtain local anesthesia of the skin and deeper tissues. A 5 Maori one step needle was passed through the skin into the collection using ultrasound guidance. Paulo pus was aspirated. A guidewire was then placed through the introducer into the collection. The access site was then sequentially dilated using dilators sized 8 Fr, 10 Fr and 12 Fr. A 12 Fr. Pigtail catheter was then advanced over the wire into the collection. The wire was removed and the catheter was secured to the skin with a single suture and a sterile dressing was placed over the site. The catheter was connected to gravity drainage bag. 300 mL of thick, light brown, puslike fluid was aspirated, divided and sent for the requested studies. The patient tolerated the procedure well. FINDINGS: 300 mL of thick, light brown, puslike fluid aspirated from the perisplenic abscess. IMPRESSION: Successful ultrasound-guided abscess drainage. Assessment/Plan ID Impression: 87 yo M with PMH of hypertension, hyperlipidemia, benign prostatic hypertrophy, asthma, gout, peripheral neuropathy, s/p recent surgical resection and subtotal colectomy for villous adenomas with ileum to proximal sigmoid colon anastamosis, complicated by new onset atrial fibrilliation and brain stem stroke, discharged on 02/03/18, presented to the ED on 02/14/18; diagnosed w/ intra abdominal abscess (likely polymicrobial); CT A/P " large complex fluid collection with air-fluid levels seen in the left upper quadrant, contiguous with jejunal bowel loops, consistent with a contained perforation and large abscess formation. Less likely, findings may represent a infected hematoma as clinically suspected. An infected hematoma would not entirely explain the presence of the high density material within. S/P IR drainage of 300 cc brownish purulent drainge; cx pnd form 02/16. this collection". Leukocytosis Suggestion: 1. F/U abscess cx results; of note cx obtained on admission E. coli ESBL and Enterococcus. 2. Trend CBC, BMP. 3. Currently treated w/ iv Meropenem 1 gm q12 h D #3; if on formulary would change from meropenem to Imipenem as would cover also Enterococcus; if Imipenem not available add iv vancomycin dosed per pharmcy; goal trough 15-20.
--- NOTE | 2018-02-17 12:00 | PN- General Surgery ---
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
[2018-02-17 14:47] VITALS: BP 110/54
[2018-02-17 22:09] VITALS: BP 142/52
[2018-02-18 06:54] VITALS: BP 164/62
--- NOTE | 2018-02-18 08:06 | PN- General Surgery ---
See Addendum Subjective Subjective: No complaints. Objective Vital Signs and I&Os Vital Signs Date Time Temp Pulse Resp B/P B/P Pulse O2 O2 Flow FiO2 Mean Ox Delivery Rate 02/18 0654 98.1 88 18 164/62 97 Nasal Cannula 02/18 0000 Nasal 2.0L Cannula 02/179 98.2 81 16 142/52 96 Nasal Cannula 02/17 1600 Nasal 2.0L Cannula 02/17 1447 98.2 89 16 110/54 99 Nasal Cannula 02/17 841 89 144/70 02/17 841 89 144/70 Intake & Output 02/18 0000 02/17 1600 02/17 0000 Intake Total 220 720 240 490 Output Total 625 900 827 881 5676 Balance -405 -900 70 -285 -860 Intake, Oral 220 720 240 490 Number 0 1 Bowel Movements Output, 175 150 175 200 Drainage Output, Urine 450 900 366 323 7930 Patient 254 lb 241 lb Weight Weight Bed scale Measurement Method Physical Exam: General - comfortable Abdomen - soft. midline dressing removed and changed with dakins gauze. perc drain with brownish drainage. (no wound vac dressings at bedside, but ordered) Current Medications: Current Medications Sig/Rony Start time Last Medication Dose Route Stop Time Status Admin Acetaminophen 650 MG Q6P PRN 02/14 2230 AC PO Acetaminophen 1,000 MG Q6P PRN 02/14 223 AC IV Atorvastatin Calcium 40 MG DAILY 02/15 900 AC 02/17 PO 0839 Calcium Carbonate 500 MG DAILY PRN 02/15 2045 AC 02/15 PO 2036 Docusate Sodium 100 MG DAILY 02/17 900 AC 02/17 PO 0839 Furosemide 40 MG 7:30 AM, & 4:30 PM 02/15 730 AC 02/17 IV 1804 Gabapentin 100 MG BID 02/14 2331 AC 02/17 PO 2116 Meropenem 1 GM Q12H 02/16 600 AC 02/18 IV 0558 Metoprolol Tartrate 25 MG DAILY 02/15 900 AC 02/17 PO 0841 Omeprazole 20 MG DAILY 02/15 900 AC 02/17 PO 0839 Oxycodone/ 1 TAB Q6P PRN 02/14 2230 AC Acetaminophen PO Senna/Docusate Sodium 1 TAB BID PRN 02/15 1515 AC PO Sodium Hypochlorite 1 KIMBER DAILY 02/15 900 AC 02/17 TOP 1804 Tamsulosin HCl 0.4 MG DAILY 02/15 900 AC 02/17 PO 0841 Vancomycin HCl 1,500 MG DAILY@1800 02/17 1800 AC 02/17 Sodium Chloride 250 ML IV 1804 Vancomycin HCl 1,500 MG DAILY 02/17 1645 CAN IV Results Last 48 Hours of Labs: Laboratory Tests 02/17 02/16 02/16 02/16 0550 1434 1434 1005 Chemistry Sodium (137 - 145 mmol/L) 136 L 136 L Potassium (3.5 - 5.1 mmol/L) 4.1 4.2 Chloride (98 - 107 mmol/L) 104 103 Carbon Dioxide (22 - 30 mmol/L) 29 30 Anion Gap (5 - 16) 3 L 3 L BUN (9 - 20 mg/dL) 35 H Creatinine (0.7 - 1.2 mg/dL) 1.0 Estimated GFR (>60 ml/min) > 60 BUN/Creatinine Ratio (7 - 25 %) 35.0 H Hematology CBC w Diff NO MAN DIFF REQ WBC (4.8 - 10.8 /CUMM) 14.2 H RBC (4.70 - 6.10 /CUMM) 3.44 L Hgb (14.0 - 18.0 G/DL) 8.8 L Hct (42 - 52 %) 27.4 L MCV (80.0 - 94.0 FL) 79.7 L MCH (27.0 - 31.0 PG) 25.7 L MCHC (33.0 - 37.0 G/DL) 32.2 L RDW (11.5 - 14.5 %) 24.4 H Plt Count (130 - 400 /CUMM) 399 MPV (7.4 - 10.4 FL) 8.0 Gran % (42.2 - 75.2 %) 81.9 H Lymphocytes % (20.5 - 51.1 %) 7.4 L Monocytes % (1.7 - 9.3 %) 8.6 Eosinophils % (0 - 5 %) 1.9 Basophils % (0.0 - 2.0 %) 0.2 Absolute Granulocytes (1.4 - 6.5 /CUMM) 11.7 H Absolute Lymphocytes (1.2 - 3.4 /CUMM) 1.1 L Absolute Monocytes (0.10 - 0.60 /CUMM) 1.2 H Absolute Eosinophils (0.0 - 0.7 /CUMM) 0.3 Absolute Basophils (0.0 - 0.2 /CUMM) 0 ESR Westergren (0 - 10 MM) 65 H Misc Hematology Test (%) Other Body Source Fluid WBC (0 - 5 /CUMM) ND Fld Total RBCs Counted (0 /CUMM) ND Fluid Glucose (mg/dL) < 20 Assessment/Plan Assessment/Plan This 87 M s/p subtotal colectomy 3 weeks ago was admitted with dyspnea, surgical site infection, perisplenic collection likely due to intraop splenic hematoma s/ p IR drainage midline wound changed with dakins dressing wound vac device and materials ordered for placement may consider calling [facility] tomorrow for wound care eval / vac management f/u fam-splenic fluid culture results. continue to monitor perc drainage continue broad-spectrum antibiotics pending culture results continue PT indwelling gonzalez for several weeks now, which was very difficult placement so recommend urology consult tomorrow morning prior to removal management as per medical team ongoing will d/w
--- NOTE | 2018-02-18 08:27 | PN- Housestaff ---
[facility] 02/18/18 0826: Subjective Follow-up For: Acute hypoxic respiratory failure due to acute on chronic diastolic heart failure. Perisplenic abscess status post IR guided aspiration drain placement. Postsurgical wound infection New onset A. fib Tele-Events Since Last Visit: Patient remained in sinus rhythm with heart rate between 7387 Subjective: No overnight events. Patient remained afebrile. Seen and examined this morning. He is using 2 L of oxygen and maintaining saturation 97%. Patient denied chest pain, palpitation, nausea, vomiting, chill, fever, abdominal pain and dysuria. Patient is on 1500 mL fluid restriction. Patient has strain in left upper abdomen that is draining 175 mL overnight. Review of Systems Constitutional: Denies: chills, fever. EENTM: Reports: no symptoms. Cardiovascular: Denies: chest pain, palpitations. Respiratory: Denies: cough, short of breath, sputum production. Gastrointestinal: Denies: abdominal pain, constipation, diarrhea, nausea, vomiting. Genitourinary: Reports: no symptoms. Musculoskeletal: Reports: no symptoms. Neurological/Psychological: Reports: no symptoms. Objective Last 24 Hrs of Vital Signs/I&O Vital Signs Date Time Temp Pulse Resp B/P B/P Pulse O2 O2 Flow FiO2 Mean Ox Delivery Rate 02/18 0654 98.1 88 18 164/62 97 Nasal Cannula 02/18 0000 Nasal 2.0L Cannula 02/17 2209 98.2 81 16 142/52 96 Nasal Cannula 02/17 1600 Nasal 2.0L Cannula 02/17 1447 98.2 89 16 110/54 99 Nasal Cannula Intake & Output 02/18 1600 02/18 0800 02/18 0000 Intake Total 220 Output Total 625 900 Balance -405 -900 Intake, Oral 220 Output, 175 Drainage Output, Urine 450 900 Patient 234 lb 254 lb Weight Weight Bed scale Measurement Method Physical Exam General Appearance: Alert, Oriented X3, Cooperative Skin Temp/Moisture Exam: Warm/Dry Sepsis Skin Exam (color): Normal for Ethnicity HEENT: Atraumatic, PERRLA, EOMI Neck: Supple Cardiovascular: Normal S1, Normal S2 Lungs: Clear to Auscultation Abdomen: Soft, No Tenderness Neurological: Normal Speech, Normal Tone Extremities: b/l pedal edema Assessment/Plan Assessment: 87 YO M with PMH significant for hypertension, hyperlipidemia, BPH, asthma, gout , peripheral neuropathy. Patient was recently admitted to [facility] from 01/26 to 02/03/2018 to undergo a laparoscopic subtotal colectomy which was converted to a open subtotal colectomy with ileum to proximal sigmoid colon anastomosis along with a takedown of splenic flexure and spleenorrhaphy for bleeding which is complicated by post surgery brain stem stroke and new onset A. fib. Patient was brought from [facility] in [place] due to shortness of breath. Seeing the patient on telemetry floor for following problems. Acute hypoxic respiratory failure due to acute on chronic diastolic heart failure: -Could be multifactorial considering his anemia but most likely due to acute on chronic diastolic heart failure. -Continue supplemental oxygen to maintain saturation above 92%. -His last echocardiogram with ejection fraction 70% without any wall motion abnormality. -Continue IV Lasix 40 mg daily -Monitor input and output -Daily weight History of new onset A. fib: -Continue metoprolol 25 mg for rate control -No anticoagulation considering his recent surgery and splenorrhaphy. Perisplenic abscess status post IR guided aspiration and drain placement: -CT abdomen pelvis on 02/25/2018 showed a Large complex fluid collection with air -fluid levels seen in the left upper quadrant, contiguous with jejunal bowel loops, consistent with a contained perforation and large abscess formation. -Patient underwent CT-guided aspiration of left perisplenic abscess and placement of 12 [place] pigtail drain on 02/16/2018. 300 mL of thick, light brown, puslike fluid was aspirated. -Drain output is 175 mL overnight. -Fluid cultures showed gram-negative rods. -Continue vancomycin 1500 mL daily, day 2 -Continue meropenem IV 1 g every 12 hours, day 4 -Continue monitoring his WBC count. -Follow up vanco trough. Post surgical site infection: -Patient has lower midline wound that is possibly infected and open. -Continue monitoring his WBC count -Patient is getting dressing daily. Wound VAC placement. -Follow-up general surgery recommendations. History of hyperlipidemia: -Continue Lipitor History of BPH: -Continue Flomax History of peripheral neuropathy: -Continue Neurontin DVT prophylaxis: Mechanical only due to his anemia and risk of bleeding. CODE STATUS: DNR/intu Problem List: 1. Acute on chronic diastolic heart failure 2. Surgical site infection 3. Abscess Pain Ratin Pain Location: none Pain Goal: Remain pain free Pain Plan: pain pathway Tomorrow's Labs & Rationales: cbc/bep/mag Los CARRANZA,Alecia 02/18/18 1208: Attending MD Review Statement Attending Statement Attending MD Statement: examined this patient, discuss w/resident/PA/RESEARCH DEVELOPMENT DIRECTOR, agreed w/resident/PA/RESEARCH DEVELOPMENT DIRECTOR, reviewed EMR data (avail), discussed with nursing, amended to note Attending Assessment/Plan: Patient seen and examined, feels well. Denies any aches or pains. Body fluid culture growing gram-negative rods. Patient remains on Vanco and meropenem. Vital Signs Date Time Temp Pulse Resp B/P B/P Pulse O2 O2 Flow FiO2 Mean Ox Delivery Rate 02/18 927 87 130/54 02/18 0800 Nasal 2.0L Cannula 02/18 0654 98.1 88 18 164/62 97 Nasal Cannula 02/18 0000 Nasal 2.0L Cannula 02/17 2209 98.2 81 16 142/52 96 Nasal Cannula 02/17 1600 Nasal 2.0L Cannula 02/17 1447 98.2 89 16 110/54 99 Nasal Cannula on exam; aox, 3, nad. cv; s1, s2, rrr resp; clear abd; IR drain on Abd and abd wall wound with dressing, bs+ ext; 2+ edema Laboratory Tests 02/18 937 Hematology CBC w Diff NO MAN DIFF REQ WBC (4.8 - 10.8 /CUMM) 10.4 RBC (4.70 - 6.10 /CUMM) 3.61 L Hgb (14.0 - 18.0 G/DL) 9.4 L Hct (42 - 52 %) 28.7 L MCV (80.0 - 94.0 FL) 79.5 L MCH (27.0 - 31.0 PG) 25.9 L MCHC (33.0 - 37.0 G/DL) 32.6 L RDW (11.5 - 14.5 %) 24.2 H Plt Count (130 - 400 /CUMM) 417 H MPV (7.4 - 10.4 FL) 8.4 Gran % (42.2 - 75.2 %) 77.5 H Lymphocytes % (20.5 - 51.1 %) 10.6 L Monocytes % (1.7 - 9.3 %) 6.9 Eosinophils % (0 - 5 %) 4.9 Basophils % (0.0 - 2.0 %) 0.1 Absolute Granulocytes (1.4 - 6.5 /CUMM) 8.1 H Absolute Lymphocytes (1.2 - 3.4 /CUMM) 1.1 L Absolute Monocytes (0.10 - 0.60 /CUMM) 0.7 H Absolute Eosinophils (0.0 - 0.7 /CUMM) 0.5 Absolute Basophils (0.0 - 0.2 /CUMM) 0 A/P; 87-year-old male with a past medical history significant for hypertension, hyperlipidemia, BPH, asthma, gout, peripheral neuropathy. Patient was recently admitted to [facility] from 01/26 to 02/03/2018 to undergo a laparoscopic subtotal colectomy which was converted to a open subtotal colectomy with ileum to proximal sigmoid colon anastomosis along with a takedown of splenic flexure and spleenorrhaphy for bleeding which is complicated by post surgery brain stem stroke and new onset A. fib. Admitted this time with acute on chronic CHF exacerbation, surgical wound infection, abscess needing IR drainage and now on broad-spectrum antibiotics. Continue antibiotics per infectious disease. Wound care management per surgery. Please follow surgery recommendations. Continue the rest of the medications. Patient's IV Lasix will need to be switched to oral when his lower extremity edema improves. Continue other current management.
[2018-02-18 11:04] LABS: ABSOLUTE BASOPHIL COUNT 0 /CUMM (0.0-0.2); ABSOLUTE EOSINOPHIL COUNT 0.5 /CUMM (0.0-0.7); ABSOLUTE GRANULOCYTE CT 8.1 /CUMM (1.4-6.5); ABSOLUTE LYMPH COUNT 1.1 /CUMM (1.2-3.4); ABSOLUTE MONOCYTE COUNT 0.7 /CUMM (0.10-0.60); BASOPHIL % 0.1 % (0.0-2.0); EOSINOPHIL % 4.9 % (0-5); GRANULOCYTE % 77.5 % (42.2-75.2); HEMATOCRIT 28.7 % (42-52); MEAN CORPUSCULAR HGB 25.9 PG (27.0-31.0); MEAN CORPUSCULAR HGB CONC 32.6 G/DL (33.0-37.0); MEAN CORPUSCULAR VOLUME 79.5 FL (80.0-94.0); MEAN PLATELET VOLUME 8.4 FL (7.4-10.4); PLATELET COUNT 417 /CUMM (130-400); RBC DISTRIBUTION WIDTH 24.2 % (11.5-14.5); RED BLOOD CELL CT 3.61 /CUMM (4.70-6.10); WHITE BLOOD CELL COUNT 10.4 /CUMM (4.8-10.8)
--- NOTE | 2018-02-18 11:55 | PN- Infect Dx ---
Subjective Subjective: No fever, chills, chest pain, palpitation, nausea, vomiting, abdominal pain or urinary sx. Patient has patent NEAL in LUQ (175 mL overnight). FC (placed per pt ~ 4 weeks ago) is patent; clear urine. Review of Systems Comments: 12 points reviewed as noted, otherwise negative. Objective Last 24 Hrs of Vital Signs/I&O Vital Signs Date Time Temp Pulse Resp B/P B/P Pulse O2 O2 Flow FiO2 Mean Ox Delivery Rate 02/18 927 87 130/54 02/18 0654 98.1 88 18 164/62 97 Nasal Cannula 02/18 0000 Nasal 2.0L Cannula 02/17 2209 98.2 81 16 142/52 96 Nasal Cannula 02/17 1600 Nasal 2.0L Cannula 02/17 1447 98.2 89 16 110/54 99 Nasal Cannula Intake & Output 02/18 1600 02/18 0800 02/18 0000 Intake Total 220 Output Total 625 900 Balance -405 -900 Intake, Oral 220 Output, 175 Drainage Output, Urine 450 900 Patient 234 lb 254 lb Weight Weight Bed scale Measurement Method Physical Exam Other Physical Findings: Gen - resting comfortable in NAD Skin: pale HEENT: AT/NC, sclera anicteric Neck: No JVD Heart S1 S2 present, irreg, no m/r/g Lungs: +BS, no rales or wheezing Abd - soft, nontender, NEAL drain LUQ w/ brownish drainage, dressing in place; Patricio cath patent Extr - pitting edema B/L, chronic venous stasis Neuro: A&Ox3 Results Last 24 Hours of Lab Results: Laboratory Tests 02/18 937 Hematology CBC w Diff NO MAN DIFF REQ WBC (4.8 - 10.8 /CUMM) 10.4 RBC (4.70 - 6.10 /CUMM) 3.61 L Hgb (14.0 - 18.0 G/DL) 9.4 L Hct (42 - 52 %) 28.7 L MCV (80.0 - 94.0 FL) 79.5 L MCH (27.0 - 31.0 PG) 25.9 L MCHC (33.0 - 37.0 G/DL) 32.6 L RDW (11.5 - 14.5 %) 24.2 H Plt Count (130 - 400 /CUMM) 417 H MPV (7.4 - 10.4 FL) 8.4 Gran % (42.2 - 75.2 %) 77.5 H Lymphocytes % (20.5 - 51.1 %) 10.6 L Monocytes % (1.7 - 9.3 %) 6.9 Eosinophils % (0 - 5 %) 4.9 Basophils % (0.0 - 2.0 %) 0.1 Absolute Granulocytes (1.4 - 6.5 /CUMM) 8.1 H Absolute Lymphocytes (1.2 - 3.4 /CUMM) 1.1 L Absolute Monocytes (0.10 - 0.60 /CUMM) 0.7 H Absolute Eosinophils (0.0 - 0.7 /CUMM) 0.5 Absolute Basophils (0.0 - 0.2 /CUMM) 0 Last 24 Hours of Tom Results: SPEC #: [id number] MAGALI: 02/14/18 STATUS: RES RECD: 02/14/[address]: Zachary Ramírez SOURCE: TRUNK ENTR: 02/14/[address]: Yoseph Muñoz MD SPDESC: ALENA Starr MD,Sanam Aguilar ORDERED: TRUNK CULTURE COMMENT: TYPE OF SPECIMEN: DEEP ABD WOUND/ABSCESS Procedure Result > GRAM STAIN Final 02/16/18161 WHITE BLOOD CELLS RARE GRAM POSITIVE COCCI FEW GRAM NEGATIVE RODS RARE GRAM POSITIVE RODS RARE > TRUNK AREA CULTURE Preliminary 02/17/18 Light growth of: 1. ESCHERICHIA COLI ESBL This isolate is a confirmed Extended Spectrum Beta-lacatmase (ESBL) producing organism. Place Patient on Contact Precaution Called to/readback by MARY KAY by LAB.RUST 02/16/18 1619 2. ENTEROCOCCUS Sensitivity still to follow WITH Mixed linda after 2 days 1. ESCHERICHIA COLI ESBL RX AB ------ -- AMPICILLIN R CEFAZOLIN R AMOXICILLIN/CLAVULINIC ACID R AMPICILLIN/SULBACTAM R CEFOXITIN R CEFTAZIDIME R CEFTRIAXONE R CIPROFLOXACIN R GENTAMICIN S MEROPENEM S TRIMETHOPRIM/SULFAMETHOXAZOLE R SPEC #: [id number] MAGALI: 02/16/18143 STATUS: RES RECD: 02/16/[address]: Maikol Eisenberg MD SOURCE: BODY FLUID ENTR: 02/16/[address]: Pola CARRANZA,Mary [facility]: AL Causey MD, Phill Starr MD,Sanam Aguilar ORDERED: BODY FLD CULTUR COMMENT: ADDITIONAL INFORMATION: gram stain and culture of fam-splenic abscess SYRINGE AND TUBE REC: PUTRID BROWN . 10ML Procedure Result > GRAM STAIN Final 02/17/18-1535 WHITE BLOOD CELLS MANY GRAM POSITIVE COCCI MODERATE GRAM NEGATIVE RODS MODERATE > BODY FLUID CULTURE Preliminary 02/17/18-1244 Heavy growth of: GRAM NEGATIVE RODS Identification and sensitivities to follow Called to/Readback by NORA by LAB.GEOK 02/17/18 1243 Recent Imaging Studies: CXR IMPRESSION: Suspect moderate left pleural effusion layering along the left hemithorax. There is right basilar atelectasis. Underlying effusion is not excluded. DICTATED BY: Dasha CARRANZA,Murtaza DATE/TIME DICTATED:02/17/18941 HEAD CONTROL CLERK:RADHA DATE/TIME TRANSCRIBED:02/17/18941 CONFIDENTIAL, DO NOT COPY WITHOUT APPROPRIATE AUTHORIZATION. Assessment/Plan ID Impression: 87 yo M with PMH of hypertension, hyperlipidemia, benign prostatic hypertrophy, asthma, gout, peripheral neuropathy, s/p recent surgical resection and subtotal colectomy for villous adenomas with ileum to proximal sigmoid colon anastamosis, complicated by new onset atrial fibrilliation and brain stem stroke, discharged on 02/03/18, presented to the ED on 02/14/18; diagnosed w/ intra abdominal abscess (likely polymicrobial); CT A/P " large complex fluid collection with air-fluid levels seen in the left upper quadrant, contiguous with jejunal bowel loops, consistent with a contained perforation and large abscess formation. Less likely, findings may represent a infected hematoma as clinically suspected. An infected hematoma would not entirely explain the presence of the high density material within this collection". S/P IR drainage of 300 cc brownish purulent drainge; final cx pnd from 02/16 pending; preliminary heavy growth GNR. Leukocytosis; WBC trending down (wnl today) Suggestion: 1. F/U abscess cx results; of note cx obtained on admission E. coli ESBL and Enterococcus (sensitivity pnd). 2. Trend CBC, BMP. ESR weekly. 3. Currently treated w/ iv Meropenem 1 gm q12 h D #4; and added iv vancomycin previuos day (D#2); goal trough 15-20. 4. Voiding trial planned; awaiting urology input tomorrow.
[2018-02-18 14:57] VITALS: BP 104/50
[2018-02-18 22:07] VITALS: BP 138/60
[2018-02-19 05:26] VITALS: BP 142/64
--- NOTE | 2018-02-19 07:12 | PN- Student ---
Subjective Subjective: Patient seen in the AM, no complaints overnight other than a little bit of SOB without supp. O2. Patient denies fever, chills, chest pain, rapid heat beating, or abd pain. Urine is clear and straw yellow, wound vacc drained 200cc overnight but has slowed down per RN. Objective Objective: Vital Signs Date Time Temp Pulse Resp B/P B/P Pulse O2 O2 Flow FiO2 Mean Ox Delivery Rate 02/19 526 97.6 85 20 142/64 93 Room Air 02/19 0000 97 Nasal 1.0L Cannula Intake & Output 02/19 0800 Intake Total Output Total 370 Balance -370 Output, 70 Drainage Output, Urine 300 Patient 243 lb Weight Weight Bed scale Measurement Method No new labs. AM CBC pending PE: Gen: laying in bed comforably, AOx4 CV: RRR, s1/s2, no m/r/g Resp: Mod increased respiratory effort, crackles at bases bilaterally Abd: non-tender, no guarding, wound vacc dressings clean and drainage brown-red : Patricio draining clear, light yellow urine Ext: bilat edema up to mid garcia Results Results: Laboratory Tests 02/19/18 0640: Sodium Pending, Potassium Pending, Chloride Pending, Carbon Dioxide Pending, Anion Gap Pending, BUN Pending, Creatinine Pending, BUN/Creatinine Ratio Pending , CBC w Diff Pending, WBC Pending, RBC Pending, Hgb Pending, Hct Pending, MCV Pending, MCH Pending, MCHC Pending, RDW Pending, Plt Count Pending, MPV Pending 02/18/18 0937: CBC w Diff NO MAN DIFF REQ, RBC 3.61 L, MCV 79.5 L, MCH 25.9 L, MCHC 32.6 L, RDW 24.2 H, MPV 8.4, Gran % 77.5 H, Lymphocytes % 10.6 L, Monocytes % 6.9, Eosinophils % 4.9, Basophils % 0.1, Absolute Granulocytes 8.1 H, Absolute Lymphocytes 1.1 L, Absolute Monocytes 0.7 H, Absolute Eosinophils 0.5, Absolute Basophils 0 02/17/18 0550: Anion Gap 3 L, Estimated GFR > 60, BUN/Creatinine Ratio 35.0 H, CBC w Diff NO MAN DIFF REQ, RBC 3.44 L, MCV 79.7 L, MCH 25.7 L, MCHC 32.2 L, RDW 24.4 H, MPV 8.0, Gran % 81.9 H, Lymphocytes % 7.4 L, Monocytes % 8.6, Eosinophils % 1.9, Basophils % 0.2, Absolute Granulocytes 11.7 H, Absolute Lymphocytes 1.1 L , Absolute Monocytes 1.2 H, Absolute Eosinophils 0.3, Absolute Basophils 0, ESR Westergren 65 H 02/16/18 1434: Fluid WBC ND, Fld Total RBCs Counted ND 02/16/18 1434: Misc Hematology Test , Fluid Glucose < 20 02/16/18 1005: Anion Gap 3 L Microbiology 02/16 1434 BODY FLUID: Body Fluid Culture - RES ALPHA STREP ESCHERICHIA COLI ESBL 02/16 1434 BODY FLUID: Gram Stain - RES 02/16 758 BODY FLUID: Body Fluid Culture - CAN Cancelled: DUPLICATE 02/16 758 BODY FLUID: Gram Stain - CAN Cancelled: DUPLICATE Assessment/Plan Assessment: 87 M s/p IR drainage of perisplenic abscesson 02/15 2/2 cx of subtotal colectomy 3 weeks ago Plan: Wound vac device and materials placed yesterday PM, call Alia for wound care eval Cont. monitoring drainage from wound vacc Cont IV merepenem 1gm q 12 h d5 w/ iv vanc d2. Goal trough (15-20) Pending culture results, ID seen yesterdayc Continue PT and encourage deep breathing for atelectasis seen on CXR 02/18 Urology consult prior to catheter removal Medicine cont. to follow will d/w RICKY
--- NOTE | 2018-02-19 07:56 | PN- Housestaff ---
Hazel Eisenbergjulio 02/19/18 0756: Subjective Follow-up For: Dyspnea Surgical infection Parasplenic abscess Subjective: Overnight patient was in normal sinus rhythm with heart, at 12 AM patient had an episode of bundle branch block. Patient was resting comfortably in bed currently not on oxygen, states he had removed the nasal cannula last night after he felt they were wrapped around his neck. Patient received wound VAC placement yesterday. Patient has no complaint of, but states he is doing much better. Patient has had one bowel movement yesterday, no blood present. Review of Systems Constitutional: Denies: chills, diaphoresis, fever. Cardiovascular: Denies: chest pain, palpitations. Respiratory: Denies: cough, short of breath. Objective Last 24 Hrs of Vital Signs/I&O Vital Signs Date Time Temp Pulse Resp B/P B/P Pulse O2 O2 Flow FiO2 Mean Ox Delivery Rate 02/19 0526 97.6 85 20 142/64 93 Room Air 02/19 0000 97 Nasal 1.0L Cannula 02/18 2207 98.4 87 18 138/60 97 Nasal Cannula 02/18 1457 97.7 89 18 104/50 98 Nasal Cannula 02/18 0927 87 130/54 Intake & Output 02/19 1600 02/19 0800 02/19 0000 Intake Total 490 Output Total 370 450 Balance -370 40 Intake, IV 250 Intake, Oral 240 Output, 70 Drainage Output, Urine 300 450 Patient 243 lb Weight Weight Bed scale Measurement Method Physical Exam General Appearance: Alert, Oriented X3, Cooperative Neck: Supple, No JVD Cardiovascular: Regular Rate, Normal S1, Normal S2 Lungs: Clear to Auscultation, Normal Air Movement Abdomen: Normal Bowel Sounds, Soft, No Tenderness, Wound vac in place over mid- line abdomen, pigtail drain in place over left abdomen contains approx 10mL of serous brown fluid. No erythema or tenderness surrounding drains Extremities: No Cyanosis, No Edema, Normal Pulses Vascular: Normal Pulses, Pulses Symmetrical Assessment/Plan Assessment: Mr. Wong is a 87-year-old male with a past medical history significant for hypertension, hyperlipidemia, BPH, asthma, gout, peripheral neuropathy. Patient was recently admitted to [facility] from 01/26 to 02/03/2018 to undergo a laparoscopic subtotal colectomy which was converted to a open subtotal colectomy with ileum to proximal sigmoid colon anastomosis along with a takedown of splenic flexure and spleenorrhaphy for bleeding which is complicated by post surgery brain stem stroke and new onset A. fib. Patient was brought from [facility] in [place] due to shortness of breath. Problem List: 1. Acute Hypoxia 2. Surgical Wound infection 3. Anemia 4. Coccyx decubitus ulcer 5. Acute on Chronic CHF exacerbation 6. Atrial fibrillation 7. H/o hyperlipidemia 8. H/o GERD 9. Rosenda-splenic abscess #Perisplenic abscess: CT abdomen pelvis on 02/25/2018 showed a Large complex fluid collection with air-fluid levels seen in the left upper quadrant, contiguous with jejunal bowel loops, consistent with a contained perforation and large abscess formation. According to surgeon the abscess may be a result of splenic hematoma from the time of surgery. -Patient underwent CT-guided aspiration of left perisplenic abscess and placement of 12 American pigtail drain on 02/16/2018. 300 mL of thick, light brown, puslike fluid was aspirated. duration of antibiotics. in anticipation of discharge #Acute Hypoxia: Acute CHF exacerbation seems like the most likely etiology however anemia and splenic hematoma are confounding factors. Patient has signs of fluid over load on physical examination, along with CXR showing bilateral moderate pleural effusions, as confirmed by CT which shows an increase in the size of the left-sided pleural effusion, with associated complete collapse of left lower lobe, all these findings are consistent with CHF contributing to patient's hypoxia. Patient has increased demand for O2, was started on oxygen at rehab facility which he previously did not need. Patient has low H/H count, which would also be contributing to patients increased demand. -Repeat checks x-ray shows moderate left pleural effusion, right basilar atelectasis -Continue IV Furosemide 40mg BID respiratory function does not improve. #Acute on Chronic CHF exacerbation: patient has physical examination, elevated proBNP and CXR findings consistent with exacerbation. Echocardiogram on 2017 showed a left ventricular ejection fraction of 70%, normal systolic function with no obvious regional wall motion abnormalities. Left atrium is mildly enlarged. Patient has recieved one time of dose of IV Lasix 40m mg and IV 20mg in ED. -continue IV Furosemide 40mg BID not to p.o. Lasix for anticipated discharge #Surgical wound infection: Patient had underwent major abdominal surgery during last admission 01/26-02/03. Patient has elevated WBC count, along with redness around surgicial incision site and fluctuant mass. In the ED frankly purulent material was expressed. Patient had recieved one time IV dose of Vancomycin in ED. WBC have been trending down since admission -Cultures are positive for E. coli ESBL and enterococcus, sensitive to meropenem and gentamicin -Continue patient on meropenem for E. coli ESBL day 4 #Anemia: Is most likely due to blood loss anemia, patient has had major abdominal surgery. He had lost major blood in surgery was given 4U PRBC, patient have still be having microscopic bleeding from surgical sites. Patient had recieved 1U PRBC in ed, and 1 unit of PRBC on 02/15/18. Patient has a splenic abscess which may be a splenic hematoma, which has been present since surgery so could be a contributing cause to patient's anemia. -H&H stable at this time -will continue to hold Eliquis -Stool guaiac on 02/15/2018 is positive, which was expected as patient has undergone multiple colonic surgeries. If H&H does not stabilize we can consult GI to determine site of bleeding. #Atrial Fibrillation: onset of A. fib was following surgery and ischemic stroke during 01/26-02/03 admission. -Continue Metoprolol 25mg daily #Coccyx Decubitus Ulcer: Stage I pressure ulcer on coccyx with extension along bilat. buttocks with partial thickness breakdown at coccyx as a stage 1 ulcer. -Offload heels at all time with 2 positioning pillows -clean coccyx with normal saline followed by hydrocolloid cgf dressing q3days and prn -will consult nutrition #H/o Hyperlipidemia -Continue Atorvastatin 40mg daily #H/o GERD -continue omeprazole 20mg daily Code Status: DNR/DNI Diet: CHF Diet DVT PPx: ALPS, unable to pharmacologically anticoagulate patient due to history of anemia and positive guaiac. Problem List: 1. Abscess Pain Ratin Pain Location: n/a Pain Goal: Remain pain free Pain Plan: tylenol Tomorrow's Labs & Rationales: perico Madison MD,Alecia 02/19/18 1051: Attending Review Statement Attending Statement Attending MD Statement: examined this patient, discuss w/resident/PA/TEACHER OF THE HEARING IMPAIRED, agreed w/resident/PA/TEACHER OF THE HEARING IMPAIRED, reviewed EMR data (avail), discussed with nursing, discussed with case mgmt, reviewed images, amended to note Attending Assessment/Plan: Patient seen and examined, feels well. Denies any complaints. Patient received a wound VAC yesterday for abdominal wall wound. The percutaneous drain is still draining although the drainage has decreased. Vital Signs Date Time Temp Pulse Resp B/P B/P Pulse O2 O2 Flow FiO2 Mean Ox Delivery Rate 02/19 0830 103 150/60 02/19 0829 103 150/60 02/19 0526 97.6 85 20 142/64 93 Room Air 02/19 0000 97 Nasal 1.0L Cannula 02/18 2207 98.4 87 18 138/60 97 Nasal Cannula 02/18 1457 97.7 89 18 104/50 98 Nasal Cannula on exam; aox, 3, nad. cv; s1, s2, rrr resp; clear abd; IR drain on Abd and abd wall wound with dressing, bs+, + wound vac. ext; 1+ edema Laboratory Tests 02/19 0640 Chemistry Sodium (137 - 145 mmol/L) 139 Potassium (3.5 - 5.1 mmol/L) 4.1 Chloride (98 - 107 mmol/L) 104 Carbon Dioxide (22 - 30 mmol/L) 32 H Anion Gap (5 - 16) 2 L BUN (9 - 20 mg/dL) 27 H Creatinine (0.7 - 1.2 mg/dL) 0.7 Estimated GFR (>60 ml/min) > 60 BUN/Creatinine Ratio (7 - 25 %) 38.6 H Hematology CBC w Diff NO MAN DIFF REQ WBC (4.8 - 10.8 /CUMM) 12.3 H RBC (4.70 - 6.10 /CUMM) 3.66 L Hgb (14.0 - 18.0 G/DL) 9.6 L Hct (42 - 52 %) 29.2 L MCV (80.0 - 94.0 FL) 79.7 L MCH (27.0 - 31.0 PG) 26.1 L MCHC (33.0 - 37.0 G/DL) 32.8 L RDW (11.5 - 14.5 %) 23.9 H Plt Count (130 - 400 /CUMM) 355 MPV (7.4 - 10.4 FL) 8.3 Gran % (42.2 - 75.2 %) 72.3 Lymphocytes % (20.5 - 51.1 %) 10.8 L Monocytes % (1.7 - 9.3 %) 8.1 Eosinophils % (0 - 5 %) 8.3 H Basophils % (0.0 - 2.0 %) 0.5 Absolute Granulocytes (1.4 - 6.5 /CUMM) 8.9 H Absolute Lymphocytes (1.2 - 3.4 /CUMM) 1.3 Absolute Monocytes (0.10 - 0.60 /CUMM) 1.0 H Absolute Eosinophils (0.0 - 0.7 /CUMM) 1.0 Absolute Basophils (0.0 - 0.2 /CUMM) 0.1 A/P: 87-year-old male with a past medical history significant for hypertension, hyperlipidemia, BPH, asthma, gout, peripheral neuropathy. Patient was recently admitted to [facility] from 01/26 to 02/03/2018 to undergo a laparoscopic subtotal colectomy which was converted to a open subtotal colectomy with ileum to proximal sigmoid colon anastomosis along with a takedown of splenic flexure and spleenorrhaphy for bleeding which is complicated by post surgery brain stem stroke and new onset A. fib. Admitted this time with acute on chronic CHF exacerbation, surgical wound infection, abscess needing IR drainage and now on broad-spectrum antibiotics. Patient also had the wound VAC done yesterday. He has a PICC line. Please discuss with infectious disease about antibiotics and duration. Please call neurology about the management for the Patricio. Patient is not very ambulatory yet therefore need to keep that in mind that he might not be able to pass the voiding trial but we will check with urology. He has a Patricio which was a difficult placement. Wound VAC management per surgery. Please discuss with surgery and IR about the percutaneous drain and when this needs to come out. Drainage is decreasing although not 0 yet. Will discuss with cardiology about switching him to oral Lasix. Patient has diuresed quite a bit. Lower extremity edema has improved. Continue the rest of the management.
[2018-02-19 08:17] LABS: ABSOLUTE BASOPHIL COUNT 0.1 /CUMM (0.0-0.2); ABSOLUTE GRANULOCYTE CT 8.9 /CUMM (1.4-6.5); ABSOLUTE LYMPH COUNT 1.3 /CUMM (1.2-3.4); BASOPHIL % 0.5 % (0.0-2.0); EOSINOPHIL % 8.3 % (0-5); GRANULOCYTE % 72.3 % (42.2-75.2); HEMATOCRIT 29.2 % (42-52); MEAN CORPUSCULAR HGB 26.1 PG (27.0-31.0); MEAN CORPUSCULAR HGB CONC 32.8 G/DL (33.0-37.0); MEAN CORPUSCULAR VOLUME 79.7 FL (80.0-94.0); MEAN PLATELET VOLUME 8.3 FL (7.4-10.4); PLATELET COUNT 355 /CUMM (130-400); RBC DISTRIBUTION WIDTH 23.9 % (11.5-14.5); RED BLOOD CELL CT 3.66 /CUMM (4.70-6.10); WHITE BLOOD CELL COUNT 12.3 /CUMM (4.8-10.8)
--- NOTE | 2018-02-19 09:07 | PN- General Surgery ---
See Addendum Subjective Subjective: No acute overnight events reported. Woundvac placed last evening, patient tolerating well. Pt had large bm this morning, feels well, no nausea or vomitting. No complaints of worsening abdominal pain. Gonzalez remains in place, notes scrotal irritation. No complaints of chest pain, no worsening of shortness of breath. Objective Vital Signs and I&Os Vital Signs Date Time Temp Pulse Resp B/P B/P Pulse O2 O2 Flow FiO2 Mean Ox Delivery Rate 02/19 0830 103 150/60 02/19 0829 103 150/60 02/19 0526 97.6 85 20 142/64 93 Room Air 02/19 0000 97 Nasal 1.0L Cannula 02/18 220 98.4 87 18 138/60 97 Nasal Cannula 02/18 1457 97.7 89 18 104/50 98 Nasal Cannula 02/18 09 87 130/54 Intake & Output 02/19 1600 02/19 0800 02/19 0000 02/18 1600 02/18 0802/18 0000 Intake Total 490 630 220 Output Total 370 450 870 625 900 Balance -370 40 -240 -405 -900 Intake, IV 250 20 Intake, Oral 240 610 220 Number 1 Bowel Movements Output, 70 20 175 Drainage Output, Urine 300 450 850 450 900 Patient 243 lb 234 lb 254 lb Weight Weight Bed scale Bed scale Measurement Method Physical Exam: General: Alert and oriented x3, no acute distress Card/Pulm: Nonlabored respiratory effort, no clubbing, no cyanosis Abdomen: Soft, non-distended. IR perisplenic collection drain in place, no erythema surrounding insertion site. Drainage appears serosanguinous. Wound vac in place along midline incision, holding suction, no surrounding erythema. : Gonzalez in place, some scrotal excoriation noted Extremities: Neurovascular status grossly intact, 1-2+ pitting edema bilateral lower extremities. Bilateral calves soft and non-tender. Assessment/Plan Assessment/Plan This 87 M s/p subtotal colectomy 3 weeks ago was admitted with dyspnea, surgical site infection, perisplenic collection likely due to intraop splenic hematoma s/ p IR drainage midline wound with vac in place, continue suction, likely mwv change, will consult with wound ctr f/u fam-splenic fluid culture results. continue to monitor perc drainage continue broad-spectrum antibiotics pending culture results continue PT indwelling gonzalez for several weeks now, which was very difficult placement, will call urology consult prior to removal management as per medical team ongoing will d/w
--- NOTE | 2018-02-19 13:30 | PN- Infect Dx ---
Subjective Subjective: C/o loose stools overnight; no fever or abd pain. Review of Systems Comments: 12 points reviewed as noted, otherwise negative. Objective Last 24 Hrs of Vital Signs/I&O Vital Signs Date Time Temp Pulse Resp B/P B/P Pulse O2 O2 Flow FiO2 Mean Ox Delivery Rate 02/19 1235 Room Air 1.0L 02/19 0830 103 150/60 02/19 0829 103 150/60 02/19 0526 97.6 85 20 142/64 93 Room Air 02/19 0000 97 Nasal 1.0L Cannula 02/18 2207 98.4 87 18 138/60 97 Nasal Cannula 02/18 1457 97.7 89 18 104/50 98 Nasal Cannula Intake & Output 02/19 1600 02/19 0800 02/19 0000 Intake Total 490 Output Total 370 450 Balance -370 40 Intake, IV 250 Intake, Oral 240 Output, 70 Drainage Output, Urine 300 450 Patient 243 lb Weight Weight Bed scale Measurement Method Physical Exam Other Physical Findings: Gen - resting comfortable in NAD Skin: pale HEENT: AT/NC, sclera anicteric Neck: No JVD/YEISON Heart S1 S2 present, irreg, no m/r/g Lungs: +BS, no rales or wheezing Abd - soft, nontender, NEAL drain LUQ w/ brownish drainage, wound vac in place, FC patent Extr - chronic venous stasis Neuro: A&Ox3, grossly non-focal Results Last 24 Hours of Lab Results: Laboratory Tests 02/19 0640 Chemistry Sodium (137 - 145 mmol/L) 139 Potassium (3.5 - 5.1 mmol/L) 4.1 Chloride (98 - 107 mmol/L) 104 Carbon Dioxide (22 - 30 mmol/L) 32 H Anion Gap (5 - 16) 2 L BUN (9 - 20 mg/dL) 27 H Creatinine (0.7 - 1.2 mg/dL) 0.7 Estimated GFR (>60 ml/min) > 60 BUN/Creatinine Ratio (7 - 25 %) 38.6 H Hematology CBC w Diff NO MAN DIFF REQ WBC (4.8 - 10.8 /CUMM) 12.3 H RBC (4.70 - 6.10 /CUMM) 3.66 L Hgb (14.0 - 18.0 G/DL) 9.6 L Hct (42 - 52 %) 29.2 L MCV (80.0 - 94.0 FL) 79.7 L MCH (27.0 - 31.0 PG) 26.1 L MCHC (33.0 - 37.0 G/DL) 32.8 L RDW (11.5 - 14.5 %) 23.9 H Plt Count (130 - 400 /CUMM) 355 MPV (7.4 - 10.4 FL) 8.3 Gran % (42.2 - 75.2 %) 72.3 Lymphocytes % (20.5 - 51.1 %) 10.8 L Monocytes % (1.7 - 9.3 %) 8.1 Eosinophils % (0 - 5 %) 8.3 H Basophils % (0.0 - 2.0 %) 0.5 Absolute Granulocytes (1.4 - 6.5 /CUMM) 8.9 H Absolute Lymphocytes (1.2 - 3.4 /CUMM) 1.3 Absolute Monocytes (0.10 - 0.60 /CUMM) 1.0 H Absolute Eosinophils (0.0 - 0.7 /CUMM) 1.0 Absolute Basophils (0.0 - 0.2 /CUMM) 0.1 Last 24 Hours of Tom Results: Patient : SINA COLLIER Acct: [id number] DR: Pola CARRANZA, Fritzparag Birthdate: [birth year] Age/Sex: 87/M Unit: [id number] Loc: [facility] [id number] Status : ADM IN SPEC #: [id number] MAGALI: 02/14/18 STATUS: COMP RECD: 02/14/[address]: Zachary Ramírez SOURCE: TRUNK ENTR: 02/14/[address]: Yoseph Muñoz MD SPDESC: ABDOMEN Matty CARRANZA,Sanam Aguilar ORDERED: TRUNK CULTURE COMMENT: TYPE OF SPECIMEN: DEEP ABD WOUND/ABSCESS Procedure Result > GRAM STAIN Final 02/16/18-1611 WHITE BLOOD CELLS RARE GRAM POSITIVE COCCI FEW GRAM NEGATIVE RODS RARE GRAM POSITIVE RODS RARE > TRUNK AREA CULTURE Final 02/18/18-1249 Light growth of: 1. ESCHERICHIA COLI ESBL This isolate is a confirmed Extended Spectrum Beta-lacatmase (ESBL) producing organism. Place Patient on Contact Precaution Called to/readback by MARY KAY by [facility] 02/16/18 1551 2. ENTEROCOCCUS WITH Mixed linda after 2 days EC ESBL Enteroc RX AB RX AB ------ -- ------ -- AMPICILLIN R S CEFAZOLIN R AMOX/CLAV AUGM R AMP/SULB-UNASYN R CEFOXITIN R CEFTAZIDIME R CEFTRIAXONE R CIPROFLOXACIN R GENTAMICIN S MEROPENEM S TRIMETH/SULFA R VANCOMYCIN S 1. ESCHERICHIA COLI ESBL RX AB ------ -- AMPICILLIN R CEFAZOLIN R AMOXICILLIN/CLAVULINIC ACID R AMPICILLIN/SULBACTAM R CEFOXITIN R CEFTAZIDIME R CEFTRIAXONE R CIPROFLOXACIN R GENTAMICIN S MEROPENEM S TRIMETHOPRIM/SULFAMETHOXAZOLE R 2. ENTEROCOCCUS RX AB ------ -- AMPICILLIN S VANCOMYCIN S Recent Imaging Studies: IMPRESSION: 1. Large complex fluid collection with air-fluid levels seen in the left upper quadrant, contiguous with jejunal bowel loops, consistent with a contained perforation and large abscess formation. Less likely, findings may represent a infected hematoma as clinically suspected. An infected hematoma would not entirely explain the presence of the high density material within this collection. 2. Status post right hemicolectomy and ileocolonic anastomosis with no definite abnormality seen at the ileocolonic anastomosis site. 3. Interval increase in size of left-sided pleural effusion with now complete collapse of the left lower lobe seen. Small right-sided pleural effusion and associated moderate atelectatic changes in the right lung base are unchanged. 4. 3.3 x 2.2 cm bilobed right adrenal mass with associated calcifications. This is incompletely characterized on this noncontrast exam but may represent a sequelae of previous adrenal hemorrhage versus a solid adrenal mass, such as metastatic disease. Imaging findings are not consistent with a benign adrenal adenoma. Correlation with any outside older films would be helpful for further assessment. 5. Open periumbilical wound in the anterior midline of the abdomen with packing material and surrounding inflammatory changes in the soft tissues is seen, consistent with patient's history of recent I\\T\\D of abdominal wall infection. Locules of gas are seen extending along the anterior abdominal wall to the subxiphoid region. 6. Moderate to severe atherosclerotic vascular calcifications. These emergent results were discussed with Dr. Sweta Moody 02/15/2018, 5:35 PM. Findings discussed with Dr. Lars Canas 02/15/2018, 5:50 PM. DICTATED BY: Shai CARRANZA,Yareli Nogueira DATE/TIME DICTATED:02/15/181711 Assessment/Plan ID Impression: 87 yo M with PMH of hypertension, hyperlipidemia, benign prostatic hypertrophy, asthma, gout, peripheral neuropathy, s/p recent surgical resection and subtotal colectomy for villous adenomas with ileum to proximal sigmoid colon anastamosis, complicated by new onset atrial fibrilliation and brain stem stroke, discharged on 02/03/18, presented to the ED on 02/14/18; diagnosed w/ intra abdominal abscess (lpolymicrobial); CT A/P " large complex fluid collection with air-fluid levels seen in the left upper quadrant, contiguous with jejunal bowel loops, consistent with a contained perforation and large abscess formation. Less likely, findings may represent a infected hematoma as clinically suspected. An infected hematoma would not entirely explain the presence of the high density material within this collection". S/P IR drainage of 300 cc brownish purulent drainge on 02/16; growing E. coli ESBL and alpha Strep. Leukocytosis; WBC trending up from previous day Abx associated diarrhea. Suggestion: 1. CT interval F/U as 7 days f/u large LUQ abd abscess; anticipating longer abx course patient might benefit from PICC line placement. 2. Trend CBC. ESR weekly. Stool for C. diff assay if persistent diarrhea. 3. Currently treated w/ iv Meropenem 1 gm q12 h D #5; as kidney function improved check w/ pharmacy if q 8 h dosing appropriate. He received iv vancomycin only one dose. Would favor Imipenem/cil (Primaxin tx) instead of Meropenem as would provide GPC coverage (Enterococcus/Strep). The length of the abx therapy would depend on the repeat CT A/P findings. 4. F/u urology input regarding FC (placed 4 weeks ago per pt).
[2018-02-19 14:00] VITALS: BP 158/60
--- NOTE | 2018-02-19 16:08 | PN- Cardiology ---
Subjective Subjective: * Patient still has some shortness of breath, orthopnea and swelling. Objective Vital Signs and I&Os Vital Signs Date Time Temp Pulse Resp B/P B/P Pulse O2 O2 Flow FiO2 Mean Ox Delivery Rate 02/19 1235 Room Air 1.0L 02/19 0830 103 150/60 02/19 0829 103 150/60 02/19 0800 96 Nasal 1.0L Cannula 02/19 0526 97.6 85 20 142/64 93 Room Air 02/19 0000 97 Nasal 1.0L Cannula 02/18 2207 98.4 87 18 138/60 97 Nasal Cannula Intake & Output 02/19 1600 02/19 0800 02/19 0000 02/18 1600 02/18 0000 Intake Total 420 490 630 220 Output Total 670 370 450 870 625 900 Balance -250 -370 40 -240 -405 -900 Intake, IV 20 250 20 Intake, Oral 400 240 610 220 Number 2 1 Bowel Movements Output, 20 70 20 175 Drainage Output, Urine 650 300 450 850 450 900 Patient 243 lb 234 lb 254 lb Weight Weight Bed scale Bed scale Measurement Method Physical Exam: General: WD/WN male in NAD; alert and oriented x3 with decreased memory HEENT: NC/AT, PERRL, EOMI Neck: no JVD, no carotid bruit Heart: irregular with 2/6 systolic murmur Lungs: clear bilaterally with decreased breath sounds at the left base Abdomen: soft with midline surgical incision Extremities: 2+ leg edema, venous stasis changes bilaterally Assessment/Plan Assessment/Plan * This patient has shortness of breath that is multifactorial but primarily due to bilateral pleural effusions. In addition, this patient has been anemic. He is doing better following his blood transfusion although he remains mildly anemic. His pleural effusions may be related to decompensated CHF although he does have a normal EF of echo and his BNP is only mildly elevated. He does have severe lower extremity edema which typically goes along with right heart failure. This is improving somewhat with diuresis. change Lasix to 60mg PO BID. Would pursue a thoracentesis if chest X-ray continues to demonstrate a significant pleural effusion. Continue telemetry? Yes
[2018-02-19 22:00] VITALS: BP 130/64
--- NOTE | 2018-02-19 22:16 | Patient Discharge Instructions ---
Discharge Instructions General Discharge Information You were seen/treated for: Surgical Wound Infection, Shortness of breath Watch for these problems: Fever, chest pain, palpitations Special Instructions: Please follow up with your PCP, Pet Technologist (Dr. Hernandez) an Surgeon (Dr. Canas). We are discharging on high dose lasix check BEP in one week if normal renal function can continue the same dose till when reviewed by Dr. Hernandez Diet Continue normal diet: Yes Activity Full Activity/No Limits: Yes Acute Coronary Syndrome Inclusion Criteria At DC or during hospital stay patient has or had the following: ACS DIAGNOSIS No Discharge Core Measures Meds if any: Prescribed or Continued at Discharge Meds if any: NOT Prescribed or Continued at Discharge Congestive Heart Failure Inclusion Criteria At DC or during hospital stay patient has or had the following: CHF DIAGNOSIS No Discharge Core Measures Meds if any: Prescribed or Continued at Discharge Meds if any: NOT Prescribed or Continued at Discharge Cerebrovascular accident Inclusion Criteria At DC or during hospital stay patient has or had the following: CVA/TIA Diagnosis No Discharge Core Measures Meds if any: Prescribed or Continued at Discharge Meds if any: NOT Prescribed or Continued at Discharge Venous thromboembolism Inclusion Criteria VTE Diagnosis No VTE Type NONE VTE Confirmed by (Test) NONE Discharge Core Measures - Per Current guidelines, there needs to be overlap - treatment for the first 5 days of Warfarin therapy. - If discharged on Warfarin prior to 5 days of - overlap therapy, the patient will need to be - assessed for post discharge needs including - *Post discharge parental anticoagulation - *Warfarin and/or parental anticoagulation education - *Follow up date to check INR post discharge At least 5 days overlap therapy as Inpatient No Meds if any: Prescribed or Continued at Discharge Note: Overlap Therapy is Warfarin and Anticoagulant Meds if any: NOT Prescribed or Continued at Discharge
--- NOTE | 2018-02-19 23:02 | RADIOLOGY REPORT ---
EXAMINATION: XR PORTABLE CHEST CLINICAL INFORMATION: Pleural effusion. Lung collapse. Assess progression. COMPARISON: Chest x-ray February 17, 2018. CT scan abdomen pelvis February 15, 2018 TECHNIQUE: Portable frontal view of the chest was obtained. 9:46 PM FINDINGS: There is persistent density at the left lung base due to the left pleural effusion and left basilar atelectasis. The density is similar to the prior exam of February 17, 2018. The right basilar atelectasis is also unchanged since prior chest x-ray February 27, 2018. The small right pleural effusion seen on the CT study of the abdomen February 15, 2018 is not appreciated on this AP portable chest study. There is no pulmonary vascular congestion. IMPRESSION: Persistent density at the left lung base due to left pleural effusion and left basilar atelectasis. Persistent atelectasis at right lung base. No significant change since chest x-ray February 17, 2018.
--- NOTE | 2018-02-20 05:04 | History & Physical ---
General Information and HPI Source of Information: primary team Exam Limitations: clinical condition Allergies/Medications Allergies: Coded Allergies: Penicillins (BLISTERS, ITCH ALL OVER 01/25/18) Home Med list Acetaminophen 325 MG TABLET 2 TAB PO Q4H PRN PAIN/TEMP 101.5 (Reported) Albuterol Sulfate (Proventil Hfa) 90 MCG HFA.AER.AD 2 PUF INH Q4 ASTHMA ( Reported) Allopurinol 300 MG TABLET 1 TAB PO DAILY GOUT (Reported) Amino AC/Protein Hydr/Whey Pro (Prosource Protein Liquid) 10 GRAM-100 KCAL/30 ML LIQUID 30 ML PO BID SUPPLEMENT (Reported) Apixaban (Eliquis) 2.5 MG TABLET 1 TAB PO BID AFIB Aspirin (Ecotrin*) 81 MG TABLET.DR 1 TAB PO DAILY HEART/BLOOD (Reported) Atorvastatin Calcium (Lipitor) 40 MG TABLET 1 TAB PO DAILY HEART Bisacodyl 10 MG SUPP.RECT 1 SUP RC QAM PRN NO BM IN 3 DAYS (Reported) Budesonide/Formoterol Fumarate (Symbicort 160-4.5 Mcg Inhaler) 160 MCG-4.5 MCG/ ACTUATION HFA.AER.AD 2 PUF INH BID ASTHMA (Reported) Docusate Sodium (Stool Softener) 100 MG CAPSULE 1 CAP PO BID PRN CONSTIPATION (Reported) Ferrous Sulfate 325 MG (65 MG IRON) TABLET 1 TAB PO Q48 ANEMIA (Reported) Furosemide 40 MG TABLET 1 TAB PO DAILY DIURETIC (Reported) Gabapentin 100 MG CAPSULE 1 TAB PO BID PAIN Metoprolol Tartrate 25 MG TABLET 1 TAB PO DAILY HEART/BP (Reported) Nystatin 100,000 UNIT/GRAM CREAM..G. 1 KIMBER TOP BID BUTTOCKS & PENILE SHAFT ( Reported) apply to affected area(s) Omeprazole 20 MG CAPSULE.DR 1 CAP PO DAILY GI (Reported) Oxycodone HCl 5 MG TABLET 1 TAB PO Q6H PRN SEVERE PAIN (Reported) Polyethylene Glycol 3350 (Miralax) 17 GRAM POWD.PACK 1 PAC PO QAM GI ( Reported) dissolve in water Tamsulosin HCl (Flomax) 0.4 MG CAP.ER.24H 1 TAB PO DAILY BPH Tolnaftate (Antifungal Cream) 1 % CREAM..G. 1 KIMBER TOP BID SCROTUM (Reported) Tramadol HCl 50 MG TABLET 1-2 TAB PO Q6P PRN PAIN Zinc Oxide 20 % OINT...G. 1 KIMBER TOP BID BILAT. UPPER THIGH (Reported) Past History Travel History Traveled to [place] past 21 day No Medical History Blood Transfusion Hx: Yes Neurological: NONE EENT: cataracts Cardiovascular: AFIB, hypertension, hyperlipidemia, peripheral vascular disease orthostatic hypotension Respiratory: asthma Gastrointestinal: ADENOCARCINOMA OF THE COLON Hepatic: NONE Renal: benign prost hyperplasia Musculoskeletal: gout, osteoarthritis Psychiatric: NONE Endocrine: NONE Blood Disorders: NONE Cancer(s): adenocarcinoma of the colon CAGE UNLOADER/Reproductive: NONE History of MRSA: No History of VRE: Yes History of CDIFF: No Isolation History: Contact Influenza Vaccine: 02/16/18 Surgical History Surgical History: colon resection, abdominal Past Family/Social History Psychosocial History Where do you live? Acute Rehab Services at Home: None Smoking Status: Never Smoked Core Measures/Misc (02/26) Cerebrovascular Accident CVA/TIA Diagnosis: No VTE (View Protocol) VTE Risk Factors Cancer/chemo/othr therapy Sepsis (View protocol) Sepsis Present: No If YES complete Sepsis Event Note If YES complete Sepsis Event Note
--- NOTE | 2018-02-20 05:05 | PN- Housestaff ---
See Addendum Subjective Follow-up For: Dyspnea Surgical infection Parasplenic abscess Subjective: Patient seen and examined at the bedside. Overnight the patient had normal sinus rhythm, rate between 70 and 76. Patient was resting comfortably in bed, on room air, and had no complaints. Per nursing report, patient is having bowel movements, able to urinate, and afebrile. Patient did ask about plans for discharge to a rehab facility, which will not happen at this time. Patient's mid line has become occluded, and work is being done to address that. Review of Systems Constitutional: Denies: chills, diaphoresis, fever. Cardiovascular: Denies: chest pain, palpitations. Respiratory: Denies: cough, short of breath. Gastrointestinal: Reports: see HPI. Objective Last 24 Hrs of Vital Signs/I&O Vital Signs Date Time Temp Pulse Resp B/P B/P Pulse O2 O2 Flow FiO2 Mean Ox Delivery Rate 02/19 2200 97.6 81 18 130/64 96 Nasal 1.0L Cannula 02/19 2150 96 Nasal 1.0L Cannula 02/19 1400 97.5 85 18 158/60 96 Nasal 1.0L Cannula 02/19 1235 Room Air 1.0L 02/19 0830 103 150/60 02/19 0829 103 150/60 02/19 0800 96 Nasal 1.0L Cannula 02/19 0526 97.6 85 20 142/64 93 Room Air Intake & Output 02/20 0800 02/20 0000 02/19 1600 Intake Total 200 420 Output Total 670 Balance 200 -250 Intake, IV 20 Intake, Oral 200 400 Number 1 2 Bowel Movements Output, 20 Drainage Output, Urine 650 Patient 245 lb Weight Weight Bed scale Measurement Method Physical Exam General Appearance: Alert, Oriented X3, Cooperative, No Acute Distress Skin: No Rashes, No Breakdown, large midline new surgical scar on abdomen Skin Temp/Moisture Exam: Warm/Dry HEENT: Atraumatic, PERRLA, EOMI, Mucous Membr. moist/pink Neck: Supple, No JVD, No thryomegaly Cardiovascular: Regular Rate, Normal S1, Normal S2, No Murmurs, Gallops, Rubs Lungs: Clear to Auscultation, Normal Air Movement Abdomen: Soft, mild tenderness to palpation. Pigtail drain in place over left abdomen contains ~20 ml of brown serous fluid. No erythema or tenderness at drain sites. Extremities: No Clubbing, No Cyanosis, No Edema, Normal Pulses Vascular: Normal Pulses, Pulses Symmetrical Current Medications: Current Medications Sig/Rony Start time Last Medication Dose Route Stop Time Status Admin Acetaminophen 650 MG Q6P PRN 02/14 2230 AC PO Acetaminophen 1,000 MG Q6P PRN 02/14 2230 AC IV Atorvastatin Calcium 40 MG DAILY 02/15 900 AC 02/19 PO 828 Calcium Carbonate 500 MG DAILY PRN 02/15 2045 AC 02/15 PO 203 Docusate Sodium 100 MG DAILY 02/17 900 AC 02/19 PO 08 Furosemide 60 MG 7:30 AM, & 4:30 PM 02/19 1630 CAN IV Furosemide 60 MG 7:30 AM, & 4:30 PM 02/19 163 AC PO Furosemide 40 MG 7:30 AM, & 4:30 PM 02/15 07 DC 02/19 IV 1631 Gabapentin 100 MG BID 02/14 233 AC 02/19 PO 2027 Meropenem 1 GM Q8 02/19 1447 AC 02/19 IV 2026 Meropenem 1 GM Q12H 02/16 600 DC 02/19 IV 0517 Metoprolol Tartrate 25 MG DAILY 02/15 900 AC 02/19 PO 08 Omeprazole 20 MG DAILY 02/15 900 AC 02/19 PO 0830 Oxycodone/ 1 TAB Q6P PRN 02/14 2230 AC 02/18 Acetaminophen PO 1555 Senna/Docusate Sodium 1 TAB BID PRN 02/15 1515 AC PO Sodium Hypochlorite 1 KIMBER DAILY 02/15 900 AC 02/18 TOP 928 Tamsulosin HCl 0.4 MG DAILY 02/15 900 AC 02/19 PO 828 Vancomycin HCl 1,500 MG DAILY@1800 02/17 1800 AC 02/19 Sodium Chloride 250 ML IV 1617 Last 24 Hrs of Lab/Tom Results Last 24 Hrs of Labs/Mics: Laboratory Tests 02/19/18 0640: Anion Gap 2 L, Estimated GFR > 60, BUN/Creatinine Ratio 38.6 H, CBC w Diff NO MAN DIFF REQ, RBC 3.66 L, MCV 79.7 L, MCH 26.1 L, MCHC 32.8 L, RDW 23.9 H, MPV 8.3, Gran % 72.3, Lymphocytes % 10.8 L, Monocytes % 8.1, Eosinophils % 8.3 H, Basophils % 0.5, Absolute Granulocytes 8.9 H, Absolute Lymphocytes 1.3, Absolute Monocytes 1.0 H, Absolute Eosinophils 1.0, Absolute Basophils 0.1 Orders Radiology Findings: Repeat CXR on 02/19 showed no significant change from CXR on 02/17 Lines/Diet/Fluids Catheters/Tubes: drains, wound vac - midline Assessment/Plan Assessment: Mr. Wong is a 87-year-old male with a past medical history significant for hypertension, hyperlipidemia, BPH, asthma, gout, peripheral neuropathy. Patient was recently admitted to [facility] from 01/26 to 02/03/2018 to undergo a laparoscopic subtotal colectomy which was converted to a open subtotal colectomy with ileum to proximal sigmoid colon anastomosis along with a takedown of splenic flexure and spleenorrhaphy for bleeding which is complicated by post surgery brain stem stroke and new onset A. fib. Patient was brought from [facility] in [place] due to shortness of breath. #Perisplenic abscess: CT abdomen pelvis on 02/25/2018 showed a Large complex fluid collection with air-fluid levels seen in the left upper quadrant, contiguous with jejunal bowel loops, consistent with a contained perforation and large abscess formation. According to surgeon the abscess may be a result of splenic hematoma from the time of surgery. -Patient underwent CT-guided aspiration of left perisplenic abscess and placement of 12 Cymraes pigtail drain on 02/16/2018. 300 mL of thick, light brown, puslike fluid was aspirated. when duration of antibiotics. in anticipation of discharge #Acute Hypoxia: Acute CHF exacerbation seems like the most likely etiology however anemia and splenic hematoma are confounding factors. Patient has signs of fluid over load on physical examination, along with CXR showing bilateral moderate pleural effusions, as confirmed by CT which shows an increase in the size of the left-sided pleural effusion, with associated complete collapse of left lower lobe, all these findings are consistent with CHF contributing to patient's hypoxia. Patient has increased demand for O2, was started on oxygen at rehab facility which he previously did not need. Patient has low H/H count, which would also be contributing to patients increased demand. -Repeat checks x-ray shows moderate left pleural effusion, right basilar atelectasis -Continue IV Furosemide 40mg BID respiratory function does not improve. #Acute on Chronic CHF exacerbation: patient has physical examination, elevated proBNP and CXR findings consistent with exacerbation. Echocardiogram on 2017 showed a left ventricular ejection fraction of 70%, normal systolic function with no obvious regional wall motion abnormalities. Left atrium is mildly enlarged. Patient has recieved one time of dose of IV Lasix 40m mg and IV 20mg in ED. -continue IV Furosemide 40mg BID not to p.o. Lasix for anticipated discharge #Surgical wound infection: Patient had underwent major abdominal surgery during last admission 01/26-02/03. Patient has elevated WBC count, along with redness around surgicial incision site and fluctuant mass. In the ED frankly purulent material was expressed. Patient had recieved one time IV dose of Vancomycin in ED. WBC have been trending down since admission -Cultures are positive for E. coli ESBL and enterococcus, sensitive to meropenem and gentamicin -Continue patient on meropenem for E. coli ESBL #Anemia: Is most likely due to blood loss anemia, patient has had major abdominal surgery. He had lost major blood in surgery was given 4U PRBC, patient have still be having microscopic bleeding from surgical sites. Patient had recieved 1U PRBC in ed, and 1 unit of PRBC on 02/15/18. Patient has a splenic abscess which may be a splenic hematoma, which has been present since surgery so could be a contributing cause to patient's anemia. -H&H stable at this time -will continue to hold Eliquis -Stool guaiac on 02/15/2018 is positive, which was expected as patient has undergone multiple colonic surgeries. If H&H does not stabilize we can consult GI to determine site of bleeding. #Atrial Fibrillation: onset of A. fib was following surgery and ischemic stroke during 01/26-02/03 admission. -Continue Metoprolol 25mg daily #Coccyx Decubitus Ulcer: Stage I pressure ulcer on coccyx with extension along bilat. buttocks with partial thickness breakdown at coccyx as a stage 1 ulcer. -Offload heels at all time with 2 positioning pillows -clean coccyx with normal saline followed by hydrocolloid cgf dressing q3days and prn -per nutrition, nutritional requirements are being met #H/o Hyperlipidemia -Continue Atorvastatin 40mg daily #H/o GERD -continue omeprazole 20mg daily DVT prophylaxis: ALPS; anticoagulation contraindicated due to hx of anemia and ( +) guaiac CHF diet Patient is DNR/DNI Problem List: 1. Abscess Pain Ratin Pain Location: none Pain Goal: Remain pain free Pain Plan: tylenol Tomorrow's Labs & Rationales: cbc??
--- NOTE | 2018-02-20 07:21 | PN- Urology ---
Subjective Subjective: Pt is comfortable Gonzalez removed yesterday. He has been voiding spontaneously. PVR by bladder scan last PM was minimal Objective Vital Signs and I&Os Vital Signs Date Time Temp Pulse Resp B/P B/P Pulse O2 O2 Flow FiO2 Mean Ox Delivery Rate 02/19 2200 97.6 81 18 130/64 96 Nasal 1.0L Cannula 02/19 2150 96 Nasal 1.0L Cannula 02/19 1400 97.5 85 18 158/60 96 Nasal 1.0L Cannula 02/19 1235 Room Air 1.0L 02/19 0830 103 150/60 02/19 0829 103 150/60 02/19 08 96 Nasal 1.0L Cannula Intake & Output 02/20 0000 02/19 1600 02/19 0000 02/18 1600 Intake Total 20 200 420 490 630 Output Total 225 670 370 450 870 Balance -205 200 -250 -370 40 -240 Intake, IV 20 20 250 20 Intake, Oral 200 400 240 610 Number 1 2 1 Bowel Movements Output, 20 70 20 Drainage Output, Urine 225 650 300 450 850 Patient 245 lb 243 lb 234 lb Weight Weight Bed scale Bed scale Measurement Method Abd: soft. Bladder not palpable Assessment/Plan Assessment/Plan Imp: 1. Hx of difficult gonzalez insertion likely due to previous TURP done in [place] about 5 yeasrs ago. Plan: 1. gonzalez to remain out 2. Would check pvr by bladder scan today
[2018-02-20 07:27] VITALS: BP 144/62
[2018-02-20 07:51] LABS: ABSOLUTE BASOPHIL COUNT 0.1 /CUMM (0.0-0.2); ABSOLUTE GRANULOCYTE CT 8.7 /CUMM (1.4-6.5); ABSOLUTE LYMPH COUNT 1.4 /CUMM (1.2-3.4); ABSOLUTE MONOCYTE COUNT 0.8 /CUMM (0.10-0.60); BASOPHIL % 0.4 % (0.0-2.0); EOSINOPHIL % 8.6 % (0-5); GRANULOCYTE % 72.5 % (42.2-75.2); HEMATOCRIT 29.2 % (42-52); MEAN CORPUSCULAR HGB 25.8 PG (27.0-31.0); MEAN CORPUSCULAR HGB CONC 32.3 G/DL (33.0-37.0); MEAN PLATELET VOLUME 8.4 FL (7.4-10.4); PLATELET COUNT 344 /CUMM (130-400); RBC DISTRIBUTION WIDTH 23.7 % (11.5-14.5); RED BLOOD CELL CT 3.65 /CUMM (4.70-6.10); WHITE BLOOD CELL COUNT 11.9 /CUMM (4.8-10.8)
--- NOTE | 2018-02-20 08:06 | PN- General Surgery ---
Surgical Brief Attending Note Brief Attending Note: Patient states he feels well and has good appetite today Remains afebrile Wound VAC dressing in place Left flank percutaneous drain continuing to become more serous and less purulent Recommend: Primary issue appears to now be impaired mobility From surgical standpoint patient could DC to ECF with wound VAC and PERC drain He would need follow-up in my office approximately 1 week after discharge for drain check and wound check
--- NOTE | 2018-02-20 12:33 | PN- Infect Dx ---
Subjective Subjective: Afebrile without specific complaints Objective Last 24 Hrs of Vital Signs/I&O Vital Signs Date Time Temp Pulse Resp B/P B/P Pulse O2 O2 Flow FiO2 Mean Ox Delivery Rate 02/20 1022 Room Air 1.0L 02/20 09 97.5 93 20 118/50 02/20 0901 97.5 93 20 118/50 02/20 0727 98.0 76 20 144/62 98 Nasal Cannula 02/19 2200 97.6 81 18 130/64 96 Nasal 1.0L Cannula 02/19 2150 96 Nasal 1.0L Cannula 02/19 1400 97.5 85 18 158/60 96 Nasal 1.0L Cannula 02/19 1235 Room Air 1.0L Intake & Output 02/20 1600 02/20 0800 02/20 0000 Intake Total 20 200 Output Total 225 Balance -205 200 Intake, IV 20 Intake, Oral 200 Number 1 Bowel Movements Output, Urine 225 Patient 245 lb Weight Weight Bed scale Measurement Method Physical Exam Other Physical Findings: He is awake and alert, somewhat confused, but in no acute distress Lungs decreased breath sounds bilaterally Heart regular rhythm with no murmur Abdomen is obese, soft, no obvious tenderness, positive bowel sounds; wound VAC in place over the anterior wound; drainage catheter in place with 40 cc output yesterday and none recorded overnight Extremities no cyanosis, clubbing or edema; midline in place in the right upper extremity with no inflammation at the site Results Last 24 Hours of Lab Results: Laboratory Tests 02/20 623 Hematology CBC w Diff NO MAN DIFF REQ WBC (4.8 - 10.8 /CUMM) 11.9 H RBC (4.70 - 6.10 /CUMM) 3.65 L Hgb (14.0 - 18.0 G/DL) 9.4 L Hct (42 - 52 %) 29.2 L MCV (80.0 - 94.0 FL) 80.0 MCH (27.0 - 31.0 PG) 25.8 L MCHC (33.0 - 37.0 G/DL) 32.3 L RDW (11.5 - 14.5 %) 23.7 H Plt Count (130 - 400 /CUMM) 344 MPV (7.4 - 10.4 FL) 8.4 Gran % (42.2 - 75.2 %) 72.5 Lymphocytes % (20.5 - 51.1 %) 11.4 L Monocytes % (1.7 - 9.3 %) 7.1 Eosinophils % (0 - 5 %) 8.6 H Basophils % (0.0 - 2.0 %) 0.4 Absolute Granulocytes (1.4 - 6.5 /CUMM) 8.7 H Absolute Lymphocytes (1.2 - 3.4 /CUMM) 1.4 Absolute Monocytes (0.10 - 0.60 /CUMM) 0.8 H Absolute Eosinophils (0.0 - 0.7 /CUMM) 1.0 Absolute Basophils (0.0 - 0.2 /CUMM) 0.1 Last 24 Hours of Tom Results: No new cultures Assessment/Plan ID Impression: Stable, with his temperatures remaining normal and white blood cell count overall decreased, on Vancomycin and Meropenem for ESBL producing E. coli and alpha strep isolated from the perisplenic abscess, complicating an open subtotal colectomy 19 days prior to admission and which was drained by IR 4 days ago. The Meropenem should adequately cover the alpha strep, isolated from the IR culture as well as the Enterococcus, isolated from the culture obtained in the ER; therefore he should not require any further Vancomycin. His Patricio catheter was removed yesterday and he will need to be monitored closely for urinary retention. Have discussed with Dr. Canas, who plans to follow him up in the office next week, with a possible follow-up CT of the abdomen and pelvis and subsequent removal of the catheter based on these results. Suggestion: 1. Further management with regard to his drainage catheter per Colorectal surgery 2. Monitor closely for urinary retention 3. Discontinue Vancomycin 4. Continue Meropenem as long as his drainage catheter remains in place and pending follow-up CT of the abdomen and pelvis as an outpatient
[2018-02-20] MEDS ORDERED: MEROPENEM1 G1 IV (12:44)
[2018-02-20] MEDS ORDERED: FUROSEMIDE20 M1 PO (12:44)
--- NOTE | 2018-02-20 13:56 | RADIOLOGY REPORT ---
EXAMINATION: XR CHEST CLINICAL INFORMATION: Left lower extremity edema, decreased breath sounds. COMPARISON: 02/19/2018 TECHNIQUE: 2 views of the chest were obtained. FINDINGS: Low lung volumes. There is a small to moderate left-sided pleural effusion with adjacent airspace opacities suggestive of atelectasis. No pneumothorax. Blunting of the right costophrenic sulcus may be due to atelectasis versus a trace effusion. The cardiomediastinal silhouette is stable. IMPRESSION: [id number] left pleural effusion with adjacent atelectasis.
[2018-02-20 15:29] VITALS: BP 128/64
--- NOTE | 2018-02-20 19:07 | PN- Cardiology ---
Subjective Subjective: * Patient feels reasonably comfortable at rest with mild shortness of breath and leg edema. * Stable H/H * Small to moderate left pleural effusion. Objective Vital Signs and I&Os Vital Signs Date Time Temp Pulse Resp B/P B/P Pulse O2 O2 Flow FiO2 Mean Ox Delivery Rate 02/20 1600 98 Nasal 1.0L Cannula 02/20 1529 97.6 72 18 128/64 97 Nasal Cannula 02/20 1022 Room Air 1.0L 02/20 0901 97.5 93 20 118/50 02/20 0901 97.5 93 20 118/50 02/20 0800 98 Nasal 1.0L Cannula 02/20 0727 98.0 76 20 144/62 98 Nasal Cannula 02/19 2200 97.6 81 18 130/64 96 Nasal 1.0L Cannula 02/19 2150 96 Nasal 1.0L Cannula Intake & Output 02/20 1600 02/20 0800 02/20 0000 02/19 1600 02/19 0800 02/19 0000 Intake Total 480 20 200 420 490 Output Total 50 225 670 370 450 Balance 430 -205 200 -250 -370 40 Intake, IV 20 20 250 Intake, Oral 480 200 400 240 Number 1 1 2 Bowel Movements Output, 20 70 Drainage Output, Urine 50 225 650 300 450 Patient 245 lb 243 lb Weight Weight Bed scale Bed scale Measurement Method Physical Exam: General: WD/WN male in NAD; alert and oriented x3 with decreased memory HEENT: NC/AT, PERRL, EOMI Neck: no JVD, no carotid bruit Heart: irregular with 2/6 systolic murmur Lungs: clear bilaterally with decreased breath sounds at the left base Abdomen: soft with midline surgical incision Extremities: 2+ leg edema, venous stasis changes bilaterally Assessment/Plan Assessment/Plan * This patient has shortness of breath that is multifactorial but primarily due to bilateral pleural effusions. The chest X-ray shows that this is most prominent on the left side. In addition, this patient has been anemic although his anemia is stable and not in the severe range. His pleural effusions may be related to decompensated CHF although he does have a normal EF of echo and his BNP is only mildly elevated. He does have lower extremity edema which typically goes along with right heart failure. This is improving somewhat with diuresis. Continue Lasix to 60mg PO BID. Continue telemetry? No
[2018-02-20 22:56] VITALS: BP 140/60
[2018-02-21 06:52] VITALS: BP 140/52
--- NOTE | 2018-02-21 07:01 | PN- Housestaff ---
Jules Dick 02/21/18 0700: Subjective Follow-up For: Dyspnea Surgical infection Parasplenic abscess Subjective: Patient seen and examined at the bedside. Patient was resting comfortably in bed on 1.5L NC. He had no complaints, save that he was confused as to why he is still in the hospital rather than at the rehab [place]. Otherwise, he has no complaints. He is continuing to void and have bowel movements on his own. Per nursing reports, midline occlusion has been resolved. Denies any pain. Denies fever/chills/night sweats/chest pain/abdominal pain/ urinary symptoms. Review of Systems Constitutional: Reports: no symptoms, see HPI. Objective Last 24 Hrs of Vital Signs/I&O Vital Signs Date Time Temp Pulse Resp B/P B/P Pulse O2 O2 Flow FiO2 Mean Ox Delivery Rate 02/21 0652 97.4 78 20 140/52 93 02/20 2256 97.4 84 20 140/60 94 02/20 2143 Room Air Room Air 02/20 1600 98 Nasal 1.0L Cannula 02/20 1529 97.6 72 18 128/64 97 Nasal Cannula 02/20 1022 Room Air 1.0L 02/20 0901 97.5 93 20 118/50 02/20 0901 97.5 93 20 118/50 02/20 0800 98 Nasal 1.0L Cannula Intake & Output 02/21 0800 02/21 0000 02/20 1600 Intake Total 30 120 480 Output Total 275 950 50 Balance -245 -830 430 Intake, IV 30 20 Intake, Oral 100 480 Number 1 Bowel Movements Output, Urine 275 950 50 Patient 244 lb Weight Physical Exam General Appearance: Alert, Oriented X3, Cooperative, No Acute Distress Skin: No Rashes, No Breakdown, midline scar, well healed; drain placed in left abdomen Skin Temp/Moisture Exam: Warm/Dry HEENT: Atraumatic, PERRLA, EOMI, Mucous Membr. moist/pink Neck: Supple, No JVD, No thryomegaly Cardiovascular: Regular Rate, Normal S1, Normal S2, No Murmurs, Gallops, Rubs Lungs: Clear to Auscultation, Normal Air Movement Abdomen: Soft, No Tenderness Neurological: Normal Speech, Strength at 5/5 X4 Ext, Normal Tone, Sensation Intact Extremities: bilateral LE edema/venous stasis, improving Vascular: Normal Pulses, Pulses Symmetrical Current Medications: Current Medications Sig/Rony Start time Last Medication Dose Route Stop Time Status Admin Acetaminophen 650 MG Q6P PRN 02/14 2230 AC PO Acetaminophen 1,000 MG Q6P PRN 02/14 2230 AC IV Apixaban 2.5 MG BID 02/20 2100 AC 02/20 PO 2036 Atorvastatin Calcium 40 MG DAILY 02/15 900 AC 02/20 PO 900 Calcium Carbonate 500 MG DAILY PRN 02/15 2045 AC 02/15 PO 2035 Docusate Sodium 100 MG DAILY 02/17 900 AC 02/20 PO 900 Furosemide 60 MG 7:30 AM, & 4:30 PM 02/19 1630 AC 02/20 PO 163 Gabapentin 100 MG BID 02/14 233 AC 02/20 PO 2036 Meropenem 1 GM Q8 02/19 1447 AC 02/21 IV 0544 Metoprolol Tartrate 25 MG DAILY 02/15 900 AC 02/20 PO 900 Omeprazole 20 MG DAILY 02/15 900 AC 02/20 PO 899 Oxycodone/ 1 TAB Q6P PRN 02/14 2230 AC 02/18 Acetaminophen PO 1555 Senna/Docusate Sodium 1 TAB BID PRN 02/15 1515 AC PO Sodium Hypochlorite 1 KIMBER DAILY 02/15 900 AC 02/18 TOP 09 Tamsulosin HCl 0.4 MG DAILY 02/15 900 AC 02/20 PO 900 Vancomycin HCl 1,500 MG DAILY@1800 02/17 1800 DC 02/19 Sodium Chloride 250 ML IV 1617 Last 24 Hrs of Lab/Tom Results Last 24 Hrs of Labs/Mics: Laboratory Tests 02/21/18 0655: Sodium Pending, Potassium Pending, Chloride Pending, Carbon Dioxide Pending, Anion Gap Pending, BUN Pending, Creatinine Pending, BUN/Creatinine Ratio Pending , CBC w Diff Pending, WBC Pending, RBC Pending, Hgb Pending, Hct Pending, MCV Pending, MCH Pending, MCHC Pending, RDW Pending, Plt Count Pending, MPV Pending Orders Radiology Findings: CXR: FINDINGS: Low lung volumes. There is a small to moderate left-sided pleural effusion with adjacent airspace opacities suggestive of atelectasis. No pneumothorax. Blunting of the right costophrenic sulcus may be due to atelectasis versus a trace effusion. The cardiomediastinal silhouette is stable. IMPRESSION: Onzbr-[id number]-elwuwvoz left pleural effusion with adjacent atelectasis. Lines/Diet/Fluids Patricio Still Needed? No Assessment/Plan Assessment: Mr. Wong is a 87-year-old male with a past medical history significant for hypertension, hyperlipidemia, BPH, asthma, gout, peripheral neuropathy. Patient was recently admitted to [facility] from 01/26 to 02/03/2018 to undergo a laparoscopic subtotal colectomy which was converted to a open subtotal colectomy with ileum to proximal sigmoid colon anastomosis along with a takedown of splenic flexure and spleenorrhaphy for bleeding which is complicated by post surgery brain stem stroke and new onset A. fib. Patient was brought from [facility] in [place] due to shortness of breath. Patient is being discharged today with close outpatient followup. Problem list/plan: Perisplenic abscess -CT abdomen pelvis on 02/25/2018 showed a Large complex fluid collection with air -fluid levels seen in the left upper quadrant, contiguous with jejunal bowel loops, consistent with a contained perforation and large abscess formation. According to surgeon the abscess may be a result of splenic hematoma from the time of surgery. -Patient underwent CT-guided aspiration of left perisplenic abscess and placement of 12 [place] pigtail drain on 02/16/2018. 300 mL of thick, light brown, puslike fluid was aspirated. until removal of percutaneous drain. Appreciate recommendations. drain in place. Appreciate recommendations. Acute hypoxia -Acute CHF exacerbation seems like the most likely etiology however anemia and splenic hematoma are confounding factors. Patient has signs of fluid over load on physical examination, along with CXR showing bilateral moderate pleural effusions, as confirmed by CT which shows an increase in the size of the left- sided pleural effusion, with associated complete collapse of left lower lobe, all these findings are consistent with CHF contributing to patient's hypoxia. Patient has increased demand for O2, was started on oxygen at rehab facility which he previously did not need. Patient has low H/H count, which would also be contributing to patients increased demand. -Repeat checks x-ray shows moderate left pleural effusion, right basilar atelectasis -Increase Furosemide to 60mg BID , now converted to oral medication respiratory function does not improve. Per IR, patient would need Eliquis held for 48 hours before he would be eligible for tap. Acute on chronic CHF exacerpation -On admission, elevated proBNP and CXR findings consistent with exacerbation. Echocardiogram on 01/27/2018 showed a left ventricular ejection fraction of 70%, normal systolic function with no obvious regional wall motion abnormalities. Left atrium is mildly enlarged. Patient has recieved one time of dose of IV Lasix 40m mg and IV 20mg in ED. -PO furosemide 60mg BID Surgical wound infection -Patient had underwent major abdominal surgery during last admission 01/26-02/03. Patient has elevated WBC count, along with redness around surgicial incision site and fluctuant mass. In the ED frankly purulent material was expressed. Patient had recieved one time IV dose of Vancomycin in ED. WBC have been trending down since admission -Wound care was performed yesterday -Cultures are positive for E. coli ESBL and enterococcus, sensitive to meropenem and gentamicin -Continue patient on meropenem for E. coli ESBL Atrial fibrilation -Metroprolol 50mg qAM and 25mg qHS Coccyx decubitus ulcer -Stage I pressure ulcer on coccyx with extension along bilat. buttocks with partial thickness breakdown at coccyx as a stage 1 ulcer. -Offload heels at all time with 2 positioning pillows -clean coccyx with normal saline followed by aquacel ag and hydrocolloid cgf dressing q3days and prn -per nutrition, nutritional requirements are being met Hyperlipidemia -continue atorvastatin 40mg daily GERD -continue omeprazole 20 mg daily DVT prophylaxis: ALPS, and Eliquis started yesterday CHF diet Patient is DNR/DNI Problem List: 1. Abscess 2. Hypoxia 3. Acute on chronic diastolic heart failure 4. Surgical site infection 5. Anemia 6. Decubitus ulcer 7. Hyperlipidemia 8. GERD (gastroesophageal reflux disease) Pain Ratin Pain Location: none Pain Goal: Remain pain free Pain Plan: Tylenol Tomorrow's Labs & Rationales: none Consulting Request: 1 Consulting Specialty: Infectious Disease Consulting Physician: April Taylor MD Reason for Consult: esbl from bodu fluid Consulting Request: 2 Consulting Specialty: Cardiology Consulting Physician: Don Hernandez MDh Reason for Consult: Shortness of breath Discharge Plan Discharge Disposition: STR/NH Stable for Discharge? Yes Anticipated Discharge (Day): unknown Ratna Ayala MD 02/21/18 0957: Attending MD Review Statement Attending Statement Attending MD Statement: examined this patient, discuss w/resident/PA/COST MANAGER, agreed w/resident/PA/COST MANAGER, reviewed EMR data (avail), discussed with nursing, discussed with case mgmt, reviewed images Attending Assessment/Plan: 87-year-old male with recent colectomy for colon cancer with complicated postop course with perisplenic abscess now with alpha strep and ESBL E. coli. Also has atrial fibrillation with a high chads score and acute hypoxic respiratory failure secondary to acute diastolic heart failure. We spoke to Dr. Hernandez and we are going to keep him on the Lasix 60 mg p.o. twice daily with a follow-up BEP and BUN and creatinine at the assisted. He needs to continue the IV meropenem at least until he has no further drainage from his abdominal wound and a follow-up CT is done. He will go to rehab today, he has a midline catheter for the antibiotics, has been started on his Eliquis and he will have close outpatient follow-up with colorectal surgery.
--- NOTE | 2018-02-21 07:34 | PN- Urology ---
Subjective Subjective: No distress Objective Vital Signs and I&Os Vital Signs Date Time Temp Pulse Resp B/P B/P Pulse O2 O2 Flow FiO2 Mean Ox Delivery Rate 02/22 652 97.4 78 20 140/52 93 02/20 2256 97.4 84 20 140/60 94 02/20 2143 Room Air Room Air 02/20 1600 98 Nasal 1.0L Cannula 02/20 1529 97.6 72 18 128/64 97 Nasal Cannula 02/20 1022 Room Air 1.0L 02/20 0901 97.5 93 20 118/50 02/20 0901 97.5 93 20 118/50 02/20 08 98 Nasal 1.0L Cannula Intake & Output 02/21 0800 02/21 0000 02/20 1600 02/20 0802/20 0000 02/19 1600 Intake Total 30 120 480 20 200 420 Output Total 275 950 50 225 670 Balance -245 -830 430 -205 200 -250 Intake, IV 30 20 20 20 Intake, Oral 100 480 200 400 Number 1 1 2 Bowel Movements Output, 20 Drainage Output, Urine 275 950 50 225 650 Patient 244 lb 245 lb Weight Weight Bed scale Measurement Method Voiding spontaneously Last pvr by bladder scan is low Assessment/Plan Assessment/Plan Imp: 1. Adequate voiding Plan: 2. No urologic intervention planned
[2018-02-21 07:52] LABS: ABSOLUTE BASOPHIL COUNT 0.1 /CUMM (0.0-0.2); ABSOLUTE EOSINOPHIL COUNT 1.5 /CUMM (0.0-0.7); ABSOLUTE GRANULOCYTE CT 7.7 /CUMM (1.4-6.5); ABSOLUTE LYMPH COUNT 1.1 /CUMM (1.2-3.4); ABSOLUTE MONOCYTE COUNT 0.8 /CUMM (0.10-0.60); BASOPHIL % 0.7 % (0.0-2.0); HEMATOCRIT 28.7 % (42-52); MEAN CORPUSCULAR HGB 25.7 PG (27.0-31.0); MEAN CORPUSCULAR HGB CONC 32.1 G/DL (33.0-37.0); MEAN PLATELET VOLUME 8.8 FL (7.4-10.4); PLATELET COUNT 335 /CUMM (130-400); RBC DISTRIBUTION WIDTH 24.3 % (11.5-14.5); RED BLOOD CELL CT 3.58 /CUMM (4.70-6.10); WHITE BLOOD CELL COUNT 11.2 /CUMM (4.8-10.8)
[2018-02-21] MEDS ORDERED: DAKIN'S473 M1 TOP (08:56)
[2018-02-21] MEDS ORDERED: FUROSEMIDE40 M1 PO ×2 (08:56→09:33)
[2018-02-21] MEDS ORDERED: MEROPENEM1 G1 IV (09:36)
[2018-02-21] MEDS ORDERED: LASIX40 M1 PO ×2 (09:45→09:46)
[2018-02-21 10:43] VITALS: BP 120/58
--- NOTE | 2018-02-21 12:15 | PN- Infect Dx ---
Subjective Subjective: Afebrile without complaints. He apparently is voiding without difficulty. Objective Last 24 Hrs of Vital Signs/I&O Vital Signs Date Time Temp Pulse Resp B/P B/P Pulse O2 O2 Flow FiO2 Mean Ox Delivery Rate 02/21 1043 97.5 92 16 120/58 02/21 0858 97.5 92 16 120/58 02/21 0857 97.5 92 16 120/58 02/21 0800 Nasal 1.5L Cannula 02/21 0652 97.4 78 20 140/52 93 02/20 2256 97.4 84 20 140/60 94 02/20 2143 Room Air Room Air 02/20 1600 98 Nasal 1.0L Cannula 02/20 1529 97.6 72 18 128/64 97 Nasal Cannula Intake & Output 02/21 1600 02/21 0800 02/21 0000 Intake Total 30 120 Output Total 300 345 950 Balance -300 315 -830 Intake, IV 30 20 Intake, Oral 100 Output, 70 Drainage Output, Urine 300 275 950 Patient 244 lb Weight Physical Exam Other Physical Findings: He appears comfortable in no acute distress Abdomen is soft, nontender with positive bowel sounds; drainage catheter in place, with 70 cc output overnight; wound VAC has been removed temporarily Extremities 1+ edema both lower extremities, with chronic venous stasis changes bilaterally; midline in the right upper extremity with no inflammation at the site Results Last 24 Hours of Lab Results: Laboratory Tests 02/21 0655 Chemistry Sodium (137 - 145 mmol/L) 137 Potassium (3.5 - 5.1 mmol/L) 3.9 Chloride (98 - 107 mmol/L) 101 Carbon Dioxide (22 - 30 mmol/L) 34 H Anion Gap (5 - 16) 3 L BUN (9 - 20 mg/dL) 25 H Creatinine (0.7 - 1.2 mg/dL) 0.7 Estimated GFR (>60 ml/min) > 60 BUN/Creatinine Ratio (7 - 25 %) 35.7 H Hematology CBC w Diff NO MAN DIFF REQ WBC (4.8 - 10.8 /CUMM) 11.2 H RBC (4.70 - 6.10 /CUMM) 3.58 L Hgb (14.0 - 18.0 G/DL) 9.2 L Hct (42 - 52 %) 28.7 L MCV (80.0 - 94.0 FL) 80.0 MCH (27.0 - 31.0 PG) 25.7 L MCHC (33.0 - 37.0 G/DL) 32.1 L RDW (11.5 - 14.5 %) 24.3 H Plt Count (130 - 400 /CUMM) 335 MPV (7.4 - 10.4 FL) 8.8 Gran % (42.2 - 75.2 %) 69.0 Lymphocytes % (20.5 - 51.1 %) 10.2 L Monocytes % (1.7 - 9.3 %) 7.1 Eosinophils % (0 - 5 %) 13.0 H Basophils % (0.0 - 2.0 %) 0.7 Absolute Granulocytes (1.4 - 6.5 /CUMM) 7.7 H Absolute Lymphocytes (1.2 - 3.4 /CUMM) 1.1 L Absolute Monocytes (0.10 - 0.60 /CUMM) 0.8 H Absolute Eosinophils (0.0 - 0.7 /CUMM) 1.5 Absolute Basophils (0.0 - 0.2 /CUMM) 0.1 Last 24 Hours of Tom Results: No new cultures Recent Imaging Studies: Chest x-ray February 20 small to moderate left pleural effusion with adjacent atelectasis Assessment/Plan ID Impression: Stable, with his temperatures remaining normal and white blood cell count continuing to decrease, now on Meropenem alone for ESBL producing E. coli and alpha strep isolated from the perisplenic abscess, complicating an open subtotal colectomy 19 days prior to admission, status post drainage by IR 5 days ago. Have discussed with Dr. Canas, who plans to follow him up in the office next week, with a possible follow-up CT of the abdomen and pelvis and subsequent removal of the catheter based on these results. Suggestion: 1. Further management with regard to his drainage catheter per Colorectal surgery 2. Continue Meropenem until his catheter is removed
== END 2018-02-21 12:07 | DRG 862 ==
LOC: ERH 16:25 → 1NO 20:15 → ERHI 20:15 → ENRESERV 21:20 → ENTRNSPT 22:16 → 1NO 22:30 → EDTRNSPT 22:30 → EDTRNSPTSTS 22:30 → 1NO 22:31 → CMPTRNSPT 22:52 → 1NO 02-15 07:21 → ENPENDDIS 02-21 10:24 → 1NO 02-21 12:07
PROVIDERS: Emergency Medicine; Hospitalist; Internal Medicine; Physician Assistant Surgical; Preventive Medicine Public Health & General Preventive Medicine; Student in an Organized Health Care Education/Training Program
PROC: 30243N1 Transfusion of Nonautologous Red Blood Cells into Central Vein, Percutaneous Approach (ICD-10-PCS; principal; 2018-02-15)
PROC: 0W9G30Z Drainage of Peritoneal Cavity with Drainage Device, Percutaneous Approach (ICD-10-PCS; 2018-02-16)
PROC: 2W13X6Z Compression of Abdominal Wall using Pressure Dressing (ICD-10-PCS; 2018-02-16)
DX: T81.4XXA Infection following a procedure, initial encounter (principal); I50.33 Acute on chronic diastolic (congestive) heart failure; N17.9 Acute kidney failure, unspecified; J90 Pleural effusion, not elsewhere classified; D78.32 Postprocedural hematoma of the spleen following other procedure; D62 Acute posthemorrhagic anemia; D73.3 Abscess of spleen; M10.9 Gout, unspecified; E78.5 Hyperlipidemia, unspecified; I73.9 Peripheral vascular disease, unspecified; Z79.01 Long term (current) use of anticoagulants; N40.0 Benign prostatic hyperplasia without lower urinary tract symptoms; Z96.0 Presence of urogenital implants; Z95.828 Presence of other vascular implants and grafts; J45.909 Unspecified asthma, uncomplicated; Z85.038 Personal history of other malignant neoplasm of large intestine; Z90.49 Acquired absence of other specified parts of digestive tract; I48.0 Paroxysmal atrial fibrillation; K21.9 Gastro-esophageal reflux disease without esophagitis; Z66 Do not resuscitate; R60.1 Generalized edema; I11.0 Hypertensive heart disease with heart failure; R09.02 Hypoxemia; Z86.73 Personal history of transient ischemic attack (TIA), and cerebral infarction without residual deficits; L89.151 Pressure ulcer of sacral region, stage 1; I87.8 Other specified disorders of veins; L89.320 Pressure ulcer of left buttock, unstageable; L89.310 Pressure ulcer of right buttock, unstageable; B96.29 Other Escherichia coli [E. coli] as the cause of diseases classified elsewhere; B95.2 Enterococcus as the cause of diseases classified elsewhere; Z88.0 Allergy status to penicillin
CPT/HCPCS: 1NP; 1NSP; 87075; 36415; 36592; 71045; 71046; 74176; 82436; 86920; 87040; 87070; 87071; 87086; 87147; 93005; 93010; 96374; 97110-GO; 97116-GO; 97162-GP; 97530-GO; J0131; J1642; J1644; J1940; J2001; J2185; J2997; J3370; J7040; P9016; Q2036